=== PATIENT | female | born 1930 | race Two or more races ===

== ENCOUNTER 2017-04-27 10:06 | Emergency (ER) | payer MEDICARE, MEDICAID ==
[2017-04-27 10:38] LABS: APPEARANCE,URINE CLEAR; BILIRUBIN,URINE NEGATIVE (NEGATIVE); GLUCOSE, URINE NEGATIVE (NEGATIVE); KETONES,URINE NEGATIVE (NEGATIVE); LEUKOCYTE ESTERASE,URINE NEGATIVE (NEGATIVE); NITRITE,URINE NEGATIVE (NEGATIVE); PROTEIN,URINE NEGATIVE (NEGATIVE); URINE SPECIFIC GRAVITY 1.004; UROBILINOGEN,URINE NEGATIVE mg/dL (<2.0)
[2017-04-27] MEDS ORDERED: NORMAL SALINE 1000 ML 1,000 ML IV ONE (10:38)
[2017-04-27 10:40] LABS: BACTERIA,URINE TRACE /HPF; WBC,URINE 0-1 /HPF
[2017-04-27 11:01] LABS: ABSOLUTE BASOPHILS # (AUTO) 0.1 10^3/uL (0.0-0.2); ABSOLUTE EOSINOPHILS # (AUTO) 0.1 10^3/uL (0.0-0.6); ABSOLUTE LYMPHOCYTES (AUTO) 1.4 10^3/uL (0.5-4.7); ABSOLUTE MONOCYTES (AUTO) 0.6 10^3/uL (0.1-1.4); ABSOLUTE NEUT (AUTO) 5.9 10^3/uL (1.7-8.2); BASOPHILS % (AUTO) 0.7 % (0-2); EOSINOPHILS % (AUTO) 1.2 % (0-6); HEMATOCRIT 42.8 % (36.0-47.0); HEMOGLOBIN 14.1 g/dL (12.0-15.5); HGB HCT DIFFERENCE -0.5; LYMPHOCYTES % (AUTO) 17.2 % (13-45); MEAN CORPUSCULAR HEMOGLOBIN 32.7 pg (27.0-33.4); MEAN CORPUSCULAR VOLUME 99 fl (80-97); MONOCYTES % (AUTO) 6.9 % (3-13); RED BLOOD COUNT 4.31 10^6/uL (3.72-5.28); RED CELL DISTRIBUTION WIDTH 13.2 % (11.5-14.0)
[2017-04-27 11:13] LABS: ALANINE AMINOTRANSFERASE 21 U/L (9-52); ALBUMIN 3.9 g/dL (3.5-5.0); ALKALINE PHOSPHATASE 94 U/L (38-126); ANION GAP 10 (5-19); ASPARTATE AMINO TRANSFERASE 17 U/L (14-36); BILIRUBIN,DIRECT 0.2 mg/dL (0.0-0.4); BILIRUBIN,TOTAL 0.6 mg/dL (0.2-1.3); BLOOD UREA NITROGEN 9 mg/dL (7-20); CALCIUM 9.5 mg/dL (8.4-10.2); CARBON DIOXIDE 29 mmol/L (22-30); CHLORIDE 104 mmol/L (98-107); CREATININE RESULT 0.76 mg/dL (0.52-1.25); GLUCOSE 165 mg/dL (75-110); POTASSIUM 4.5 mmol/L (3.6-5.0); SODIUM 142.5 mmol/L (137-145); TOTAL PROTEIN 7.2 g/dL (6.3-8.2)
--- NOTE | 2017-04-27 11:14 | ER Document Report ---
ED General - General Mode of Arrival: Medic Information source: Patient TRAVEL OUTSIDE OF THE [place] IN LAST 30 DAYS: No - HPI Onset: Just prior to arrival Associated symptoms: None <ALISSON LOPEZ - Last Filed: 04/27/17 12:26> <BC OROZCO - Last Filed: 04/29/17 11:29> - General Chief Complaint: Unresponsive Stated Complaint: ALTERED Time Seen by Provider: 04/27/17 10:12 Notes: Patient is an 87 year old female that presents to the emergency department today with complaints of muscle cramps in her left leg. Patient and family members at bedside both state that the patient does not drink enough water, stating she really only drinks Coca-Cola. Family members also state that the patient had a brief episode of decreased responsiveness where the patient's "eyes and mouth were closed shut". Family states that the patient is back to baseline currently and that these symptoms only lasted for a few minutes. Family denies any seizure-like activity. (ALISSON LOPEZ) - Related Data Allergies/Adverse Reactions: No Known Allergies Allergy (Verified 04/27/17 10:37) Past Medical History - General Information source: Patient, Relative - Social History Smoking Status: Unknown if Ever Smoked Frequency of alcohol use: None Drug Abuse: None Lives with: Family Family History: Reviewed & Not Pertinent - Past Medical History Cardiac Medical History: Reports: Hx Hypertension - MEDICATED/ CONTROLLED Endocrine Medical History: Reports: Hx Diabetes Mellitus Type 2 - pills only GI Medical History: Reports: Hx Ulcer Musculoskeltal Medical History: Reports Hx Arthritis Surgical Hx: Negative - Immunizations Hx Diphtheria, Pertussis, Tetanus Vaccination: No <ALISSON LOPEZ - Last Filed: 04/27/17 12:26> Review of Systems - Review of Systems Constitutional: No symptoms reported EENT: No symptoms reported Cardiovascular: No symptoms reported Respiratory: No symptoms reported Gastrointestinal: No symptoms reported Genitourinary: No symptoms reported Female Genitourinary: No symptoms reported Musculoskeletal: See HPI, Muscle stiffness - cramps Skin: No symptoms reported Hematologic/Lymphatic: No symptoms reported Neurological/Psychological: See HPI, Other - decreased responsiveness for a brief period -: Yes All other systems reviewed and negative <ALISSON LOPEZ - Last Filed: 04/27/17 12:26> Physical Exam <ALISSON LOPEZ - Last Filed: 04/27/17 12:26> <BC OROZCO - Last Filed: 04/29/17 11:29> - Vital signs Vitals: Temp Pulse Resp BP Pulse Ox 98.2 F 108 H 18 148/83 H 98 04/27/17 10:08 04/27/17 10:08 04/27/17 10:08 04/27/17 10:08 04/27/17 10:08 - Notes Notes: Physical Exam: General: Alert, appears well. HEENT: Normocephalic. Atraumatic. PERRL. Extraocular movements intact. Oropharynx clear. Neck: Supple. Non-tender. Respiratory: No respiratory distress. Clear and equal breath sounds bilaterally. Cardiovascular: Regular rate and rhythm. Abdominal: Normal Inspection. Non-tender. No distension. Normal Bowel Sounds. Back: Non-tender. No deformity or step off. Extremities: Moves all four extremities. Upper extremities: Normal inspection. Normal ROM. 5/5 strength bilaterally. Lower extremities: No edema. Normal ROM. 5/5 strength bilaterally. Complains of muscle cramps in left leg and foot. Neurological: Normal cognition. AAOx4. Normal speech. Psychological: Normal affect. Normal Mood. Skin: Warm. Dry. Normal color. (ALISSON LOPEZ) Course - Laboratory Result Diagrams: 04/27/17 10:45 04/27/17 10:45 <ALISSON LOPEZ - Last Filed: 04/27/17 12:26> - Laboratory Result Diagrams: 04/27/17 10:45 04/27/17 10:45 <BC OROZCO - Last Filed: 04/29/17 11:29> - Re-evaluation Re-evalutation: 04/27/17 12:05 Patient presents emergency department via EMS with her 2 daughters at the bedside with a chief complaint of the chart that says unresponsiveness. According to the family when she woke up this morning she was having severe muscle cramps which she gets when she does not drink enough water. They ran her foot in her legs and kept her up most of the night. She has never had low potassium to her knowledge she has no injury of trauma. This morning she was punching her legs because they were very painful with her eyes squinted and the daughter states that for a second she could not get her to wake up she saw that she was breathing and particularly her foot and she immediately woke up at that time. Her daughter told me that occasionally she will do things like that and that she does not think it was anything concerning. There is no seizure activity no choking no cyanosis or anything of that nature. No strokelike symptoms on arrival she is awake alert GCS of 15 complaining of cramping in her toes and feet which are improved when I massage them. She is normotensive not hypoxic not tachypneic and afebrile. GCS of 15 no acute head neck chest abdomen pelvis abnormalities. EKG laboratory evaluation chemistry chest x-ray CT of the head urinalysis negative for infection did give her some IV fluids potassium is normal. Patient drinks very little water and only drinks soda. Long discussion with the family as she does not eat well or drink well he has been on multivitamin and drink plenty of water. At this time I do not feel that this is an intracerebral event nor do I think it was a stroke that she needs to be admitted for. I am going to discharge her home increase her water intake, primary care physician in 2-3 days and discussed reasons for ED return ( BC OROZCO) - Vital Signs Vital signs: Temp Pulse Resp BP Pulse Ox 98.2 F 87 16 150/65 H 97 04/27/17 10:08 04/27/17 13:35 04/27/17 13:35 04/27/17 13:35 04/27/17 13:35 - Laboratory Laboratory results interpreted by me: 04/27/17 04/27/17 10:45 10:45 MCV 99 H Glucose 165 H - EKG Interpretation by Me Additional EKG results interpreted by me: 04/27/17 12:21 EKG interpreted by myself as a sinus rhythm at 78 bpm with left anterior fascicular block no acute ST segment elevation or depression (BC OROZCO) Discharge <ALISSON LOPEZ - Last Filed: 04/27/17 12:26> <BC OROZCO - Last Filed: 04/29/17 11:29> - Discharge Clinical Impression: Muscle cramps Condition: Stable Disposition: HOME, SELF-CARE Additional Instructions: You have been seen and evaluated for muscle cramps which I feel you need to drink more water and stay hydrated. Also need to make sure you are eating better and taking a multivitamin. I did a CAT scan of your head a chest x-ray labs EKG all of which look normal. I do not feel there is anything dangerous or life-threatening going on at this time. I want to to drink plenty of fluids follow-up with your primary care physician in 2-3 days and return for increasing worsening or new symptoms Referrals: AMAYA REYNOLDS MD [Primary Care Provider] - Follow up as needed Scribe Attestation: 04/27/17 12:09 I personally performed the services described in the documentation, reviewed and edited the documentation which was dictated to my scribe in my presence, and it accurately records my words and actions. (BC OROZCO) Scribe Documentation - Scribe Written by Elida:: Elida Curiel, 04/27/2017 1248 acting as scribe for :: Hugo <ALISSON LOPEZ - Last Filed: 04/27/17 12:26>
--- NOTE | 2017-04-27 11:16 | RADIOLOGY REPORT (SQ) ---
EXAM DESCRIPTION: CT HEAD WITHOUT COMPLETED DATE/TIME: 04/27/2017 11:06 am REASON FOR STUDY: ams COMPARISON: None. TECHNIQUE: Axial images acquired through the brain without intravenous contrast. Images reviewed wi th bone, brain and subdural windows. Images stored on PACS. All CT scanners at this facility use dose modulation, iterative reconstruction, and/or weight based d osing when appropriate to reduce radiation dose to as low as reasonably achievable (ALARA). [facility]: Dose Right [facility]: CareDose [facility]: Dose Right [facility]: Teradose 4D [facility]: Vibease RADIATION DOSE: 64.61mGy. LIMITATIONS: None. FINDINGS: VENTRICLES: Prominent. CEREBRUM: No masses. No hemorrhage. No midline shift. Areas of low density in the white matter mos t likely due to chronic micro-vascular ischemic change. No evidence for acute infarction. CEREBELLUM: No masses. No hemorrhage. No alteration of density. No evidence for acute infarction. EXTRAAXIAL SPACES: Age-related involutional change. No fluid collections. No masses. ORBITS AND GLOBE: No intra- or extraconal masses. Normal contour of globe without masses. CALVARIUM: No fracture. PARANASAL SINUSES: No fluid or mucosal thickening. SOFT TISSUES: No mass or hematoma. OTHER: No other significant finding. IMPRESSION: CHRONIC CHANGES OF ATROPHY AND MICROVASCULAR ISCHEMIA. NO ACUTE PROCESS. TECHNICAL DOCUMENTATION: JOB ID: [id number] Quality ID # [id number]: Final reports with documentation of one or more dose reduction techniques (e.g., Au tomated exposure control, adjustment of the mA and/or kV according to patient size, use of iterative reconstruction technique) 2010 [employer]- All Rights Reserved
[2017-04-27 11:26] LABS: TROPONIN I < 0.012 ng/mL
--- NOTE | 2017-04-27 11:55 | RADIOLOGY REPORT (SQ) ---
EXAM DESCRIPTION: CHEST SINGLE VIEW COMPLETED DATE/TIME: 04/27/2017 11:45 am REASON FOR STUDY: ams COMPARISON: None. EXAM PARAMETERS: NUMBER OF VIEWS: One view. TECHNIQUE: Single frontal radiographic view of the chest acquired. RADIATION DOSE: NA LIMITATIONS: None. FINDINGS: LUNGS AND PLEURA: No opacities, masses or pneumothorax. No pleural effusion. MEDIASTINUM AND HILAR STRUCTURES: No masses. Contour normal. HEART AND VASCULAR STRUCTURES: Heart normal in size. Normal vasculature. BONES: No acute findings. HARDWARE: None in the chest. OTHER: No other significant finding. IMPRESSION: NO ACUTE RADIOGRAPHIC FINDING IN THE CHEST. TECHNICAL DOCUMENTATION: JOB ID: [id number]
[2017-04-27 13:37] VITALS: BP 150/65
--- NOTE | 2017-04-27 17:38 | EKG REPORT ---
SEVERITY:- ABNORMAL ECG - SINUS RHYTHM LEFT ANTERIOR FASCICULAR BLOCK LEFT VENTRICULAR HYPERTROPHY : Confirmed by: Chloe Villa 27-Apr-2017 17:37:48
== END 2017-04-27 13:35 | disposition home or self-care (01) ==
LOC: ER 10:06
DX: R25.2 Cramp and spasm (principal); R41.82 Altered mental status, unspecified; M79.605 Pain in left leg
CPT/HCPCS: 93005; 99285; 36415; 87086; 85025; 80053; 81001; 84484; 83880; 71010; 70450; 93010; J7030

== ENCOUNTER 2019-05-05 19:58 | Emergency (ER) | payer MEDICARE, MEDICAID ==
[2019-05-05] MEDS ORDERED: SILVER SULFADIAZINE 1% CREAM 400 GM TP PRN (20:53)
--- NOTE | 2019-05-05 20:53 | ER Document Report ---
ED Medical Screen (RME) - General Chief Complaint: Burn Stated Complaint: BURNED GROIN AREA Time Seen by Provider: 05/05/19 20:51 Primary Care Provider: AMAYA REYNOLDS MD [Primary Care Provider] - Follow up as needed TRAVEL OUTSIDE OF THE [place] IN LAST 30 DAYS: No - HPI Notes: 05/05/19 20:51 Patient is an 89-year-old female with a history of dementia who presents with daughter complaining of zabala to her thighs and in her vaginal area that was noticed today. Daughter states that when she was told to go check on her because of the burn shafer, she handed her the change room attendant that she was holding at the time. Daughter states that she is not allowed to smoke or presents a letter and is not sure how she found it. No other concerns or complaints. No recent illness. I have treated and performed a rapid initial assessment of this patient. A comprehensive ED assessment and evaluation of the patient, analysis of test results and completion of medical decision making process will be conducted by additional ED providers. PHYSICAL EXAMINATION: GENERAL: Well-appearing, well-nourished and in no acute distress. A&Ox4. Answers questions appropriately. Skin: + 1st and 2nd degree partial thickness zabala noted to the proximal anteromedial thighs b/l. Cannot visualize the pelvic area in wheelchair and in her clothes otherwise. Will be placed in gown for eval on main side. - Related Data Allergies/Adverse Reactions: No Known Allergies Allergy (Verified 04/27/17 10:37) Past Medical History - Past Medical History Cardiac Medical History: Reports: Hx Hypertension - MEDICATED/ CONTROLLED Denies: Hx Coronary Artery Disease, Hx Heart Attack Pulmonary Medical History: Denies: Hx Asthma, Hx Bronchitis, Hx COPD, Hx Pneumonia Neurological Medical History: Denies: Hx Cerebrovascular Accident, Hx Seizures Endocrine Medical History: Reports: Hx Diabetes Mellitus Type 2 - pills only Renal/ Medical History: Denies: Hx Peritoneal Dialysis GI Medical History: Reports: Hx Ulcer. Denies: Hx Hepatitis, Hx Hiatal Hernia Musculoskeltal Medical History: Reports Hx Arthritis Infectious Medical History: Denies: Hx Hepatitis Past Surgical History: Denies: Hx Hysterectomy, Hx Mastectomy, Hx Open Heart Surgery, Hx Pacemaker - Immunizations Hx Diphtheria, Pertussis, Tetanus Vaccination: No Physical Exam - Vital signs Vitals: Temp Pulse Resp BP Pulse Ox 97.6 F 92 16 126/73 H 95 05/05/19 20:24 05/05/19 20:24 05/05/19 20:24 05/05/19 20:24 05/05/19 20:24 Course - Vital Signs Vital signs: Temp Pulse Resp BP Pulse Ox 97.6 F 92 16 126/73 H 95 05/05/19 20:24 05/05/19 20:24 05/05/19 20:24 05/05/19 20:24 05/05/19 20:24 Doctor's Discharge - Discharge Referrals: AMAYA REYNOLDS MD [Primary Care Provider] - Follow up as needed
[2019-05-05] MEDS ORDERED: DIPH/PERTUSS(ACELL)/TETANUS VAC/PF 0.5 ML SYR (>=10YO) IM ONE (20:54)
--- NOTE | 2019-05-06 01:20 | ER Document Report ---
ED General - General Chief Complaint: Burn Stated Complaint: BURNED GROIN AREA Time Seen by Provider: 05/05/19 20:51 Primary Care Provider: AMAYA REYNOLDS MD [Primary Care Provider] - Follow up as needed Cannot obtain history due to: Dementia Notes: Patient is an 81-year-old female with past medical history of diabetes and dementia who presents with concerns of blunt zabala to her lower abdomen and on her inner thighs bilaterally. The patient herself is effectively nonverbal, does not provide any contributory history. Family at the bedside believes that this happened due to a heating pad being applied to the area. They did note multiple areas of raised red areas as well as several small blisters. No history of similar injuries. No additional concerns today. Patient's tetanus updated here in the emergency department. Patient has not seen her primary physician regarding today's concerns. TRAVEL OUTSIDE OF THE [place] IN LAST 30 DAYS: No - Related Data Allergies/Adverse Reactions: No Known Allergies Allergy (Verified 04/27/17 10:37) Past Medical History - General Information source: Relative Cannot obtain history due to: Dementia - Social History Smoking Status: Current Every Day Smoker Frequency of alcohol use: None Drug Abuse: None Lives with: Family Family History: Reviewed & Not Pertinent Patient has suicidal ideation: No Patient has homicidal ideation: No - Past Medical History Cardiac Medical History: Reports: Hx Hypertension - MEDICATED/ CONTROLLED Denies: Hx Coronary Artery Disease, Hx Heart Attack Pulmonary Medical History: Denies: Hx Asthma, Hx Bronchitis, Hx COPD, Hx Pneumonia Neurological Medical History: Denies: Hx Cerebrovascular Accident, Hx Seizures Endocrine Medical History: Reports: Hx Diabetes Mellitus Type 2 - pills only Renal/ Medical History: Denies: Hx Peritoneal Dialysis GI Medical History: Reports: Hx Ulcer. Denies: Hx Hepatitis, Hx Hiatal Hernia Musculoskeletal Medical History: Reports Hx Arthritis Infectious Medical History: Denies: Hx Hepatitis Past Surgical History: Denies: Hx Hysterectomy, Hx Mastectomy, Hx Open Heart Surgery, Hx Pacemaker - Immunizations Hx Diphtheria, Pertussis, Tetanus Vaccination: No Review of Systems - Review of Systems Notes: Constitutional: Negative for fever. HENT: Negative for sore throat. Eyes: Negative for visual changes. Cardiovascular: Negative for chest pain. Respiratory: Negative for shortness of breath. Gastrointestinal: Negative for abdominal pain, vomiting or diarrhea. Genitourinary: Negative for dysuria. Musculoskeletal: Negative for back pain. Skin: Positive for first-degree as well as partial thickness zabala to the bilateral inner thighs Neurological: Negative for headaches, weakness or numbness. 10 point ROS negative except as marked above and in HPI. Physical Exam - Vital signs Vitals: Temp Pulse Resp BP Pulse Ox 97.6 F 92 16 126/73 H 95 05/05/19 20:24 05/05/19 20:24 05/05/19 20:24 05/05/19 20:24 05/05/19 20:24 Interpretation: Normal Notes: PHYSICAL EXAMINATION: GENERAL: Frail elderly female in no acute distress HEAD: Atraumatic, normocephalic. EYES: Pupils equal round and reactive to light, extraocular movements intact, sclera anicteric, conjunctiva are normal. ENT: nares patent, oropharynx clear without exudates. Moist mucous membranes. NECK: Normal range of motion, supple without lymphadenopathy LUNGS: Breath sounds clear to auscultation bilaterally and equal. No wheezes rales or rhonchi. HEART: Regular rate and rhythm without murmurs ABDOMEN: Soft, nontender, normoactive bowel sounds. No guarding, no rebound. No masses appreciated. EXTREMITIES: Normal range of motion, no pitting or edema. No cyanosis. NEUROLOGICAL: No focal neurological deficits. Moves all extremities spontaneously and on command. PSYCH: Alert, minimal verbal content SKIN: Warm, Dry, normal turgor, there are 2 distinct areas of first-degree zabala that are symmetric on the bilateral inner thighs each measuring approximately 8 x 4 cm. 2 x 2 centimeter area of what appears to be a partial-thickness second- degree burn on the mid right thigh as well as an additional 0.25 x 0.25 cm area of partial-thickness burn on the inferior proximal right thigh. There also 2 lines of first-degree zabala along the lower abdomen Course - Vital Signs Vital signs: Temp Pulse Resp BP Pulse Ox 97.6 F 92 16 126/73 H 95 05/05/19 20:24 05/05/19 20:24 05/05/19 20:24 05/05/19 20:24 05/05/19 20:24 Discharge - Discharge Clinical Impression: Partial thickness zabala of multiple sites, First degree zabala of multiple sites Condition: Good Disposition: HOME, SELF-CARE Additional Instructions: You were seen for zabala today. Please clean and dress the areas twice daily and then apply the Silvadene cream that you were sent home with. Keep the area clean and dressed. You may give Tylenol 1000 g every 6 hours as needed for pain. Please return if you develop pus from the wounds, spreading redness from the areas, worsening pain, or any other symptoms that are worrisome to you. Please follow-up with your primary care doctor in the next 1-2 days. Also follow-up in wound management clinic. Please contact the listed number tomorrow. Referrals: AMAYA REYNOLDS MD [Primary Care Provider] - Follow up as needed ANDRE RENTERIA MD [ACTIVE STAFF] - Follow up tomorrow
[2019-05-06 04:50] VITALS: BP 123/74
== END 2019-05-06 04:48 | disposition home or self-care (01) ==
LOC: ER 19:58
DX: T24.111A Burn of first degree of right thigh, initial encounter (principal); T24.112A Burn of first degree of left thigh, initial encounter; T21.12XA Burn of first degree of abdominal wall, initial encounter; X19.XXXA Contact with other heat and hot substances, initial encounter; E11.9 Type 2 diabetes mellitus without complications; F03.90 Unspecified dementia, unspecified severity, without behavioral disturbance, psychotic disturbance, mood disturbance, and anxiety; F17.200 Nicotine dependence, unspecified, uncomplicated; I10 Essential (primary) hypertension; Z23 Encounter for immunization
CPT/HCPCS: 99283; 90471; 90715; J3490

== ENCOUNTER 2019-08-21 12:25 | Observation (INO) | payer MEDICARE, MEDICAID ==
[2019-08-21] MEDS ORDERED: ASPIRIN 81 MG TABLET, CHEWABLE PO ONE (12:48)
--- NOTE | 2019-08-21 12:48 | ER Document Report ---
ED Medical Screen (RME) - General Chief Complaint: Chest Pain Stated Complaint: CHEST PAIN Time Seen by Provider: 08/21/19 12:43 Primary Care Provider: AMAYA REYNOLDS MD [Primary Care Provider] - Follow up as needed Mode of Arrival: Wheelchair Information source: Patient, Relative Notes: 89-year-old female presented to ED for complaint of left-sided chest pain that goes around to the left side of her back across the left shoulder. She states it is been going on for 4 days. She states she has some cough and wheezing intermittently. Denies any fevers. No cardiac history is verbalized. I have greeted and performed a rapid initial assessment of this patient. A comprehensive ED assessment and evaluation of the patient, analysis of test results and completion of medical decision making process will be conducted by an additional ED providers. TRAVEL OUTSIDE OF THE [place] IN LAST 30 DAYS: No - Related Data Allergies/Adverse Reactions: No Known Allergies Allergy (Verified 04/27/17 10:37) Past Medical History - Past Medical History Cardiac Medical History: Reports: Hx Hypertension - MEDICATED/ CONTROLLED Denies: Hx Coronary Artery Disease, Hx Heart Attack Pulmonary Medical History: Denies: Hx Asthma, Hx Bronchitis, Hx COPD, Hx Pneumonia Neurological Medical History: Denies: Hx Cerebrovascular Accident, Hx Seizures Endocrine Medical History: Reports: Hx Diabetes Mellitus Type 2 - pills only Renal/ Medical History: Denies: Hx Peritoneal Dialysis GI Medical History: Reports: Hx Ulcer. Denies: Hx Hepatitis, Hx Hiatal Hernia Musculoskeltal Medical History: Reports Hx Arthritis Infectious Medical History: Denies: Hx Hepatitis Past Surgical History: Denies: Hx Hysterectomy, Hx Mastectomy, Hx Open Heart Surgery, Hx Pacemaker - Immunizations Hx Diphtheria, Pertussis, Tetanus Vaccination: No Doctor's Discharge - Discharge Referrals: AMAYA REYNOLDS MD [Primary Care Provider] - Follow up as needed
[2019-08-21 13:48] LABS: ABSOLUTE BASOPHILS # (AUTO) 0.1 10^3/uL (0.0-0.2); ABSOLUTE LYMPHOCYTES (AUTO) 1.2 10^3/uL (0.5-4.7); ABSOLUTE MONOCYTES (AUTO) 0.5 10^3/uL (0.1-1.4); ABSOLUTE NEUT (AUTO) 5.5 10^3/uL (1.7-8.2); BASOPHILS % (AUTO) 1.1 % (0-2); EOSINOPHILS % (AUTO) 0.5 % (0-6); HEMATOCRIT 39.9 % (36.0-47.0); HEMOGLOBIN 13.4 g/dL (12.0-15.5); LYMPHOCYTES % (AUTO) 16.2 % (13-45); MEAN CORPUSCULAR HEMOGLOBIN 32.6 pg (27.0-33.4); MEAN CORPUSCULAR HGB CONC 33.5 g/dL (32.0-36.0); MEAN CORPUSCULAR VOLUME 97 fl (80-97); MONOCYTES % (AUTO) 6.2 % (3-13); PLATELET COUNT 310 10^3/uL (150-450); RED CELL DISTRIBUTION WIDTH 13.4 % (11.5-14.0); TOTAL CELLS COUNTED % (AUTO) 100 %; WHITE BLOOD COUNT 7.3 10^3/uL (4.0-10.5)
[2019-08-21 14:11] LABS: ALBUMIN 4.1 g/dL (3.5-5.0); ALKALINE PHOSPHATASE 95 U/L (38-126); ANION GAP 9 (5-19); ASPARTATE AMINO TRANSFERASE 19 U/L (14-36); BILIRUBIN,DIRECT 0.2 mg/dL (0.0-0.4); BILIRUBIN,TOTAL 0.7 mg/dL (0.2-1.3); BLOOD UREA NITROGEN 14 mg/dL (7-20); CALCIUM 9.7 mg/dL (8.4-10.2); CARBON DIOXIDE 28 mmol/L (22-30); CHLORIDE 101 mmol/L (98-107); CREATINE KINASE 45 U/L (30-135); GLUCOSE 202 mg/dL (75-110); TOTAL PROTEIN 7.3 g/dL (6.3-8.2)
[2019-08-21 14:23] LABS: CREATINE KINASE MB 1.53 ng/mL (<4.55); NT PRO BNP 154 pg/mL (<450)
[2019-08-21 14:25] LABS: TROPONIN I < 0.012 ng/mL
--- NOTE | 2019-08-21 14:48 | RADIOLOGY REPORT (SQ) ---
EXAM DESCRIPTION: CHEST 2 VIEWS COMPLETED DATE/TIME: 08/21/2019 2:33 pm REASON FOR STUDY: chest pain COMPARISON: None. EXAM PARAMETERS: NUMBER OF VIEWS: two views TECHNIQUE: Digital Frontal and Lateral radiographic views of the chest acquired. RADIATION DOSE: NA LIMITATIONS: none FINDINGS: LUNGS AND PLEURA: No opacities, masses or pneumothorax. No pleural effusion. MEDIASTINUM AND HILAR STRUCTURES: No masses or contour abnormalities. HEART AND VASCULAR STRUCTURES: Heart normal size. No evidence for failure. BONES: Chronic rotator cuff disease in the right shoulder. HARDWARE: None in the chest. OTHER: No other significant finding. IMPRESSION: NO ACUTE RADIOGRAPHIC FINDING IN THE CHEST. TECHNICAL DOCUMENTATION: JOB ID: [id number] [employer]- All Rights Reserved Reading location - IP/workstation name: [email or web address]
--- NOTE | 2019-08-21 15:24 | ER Document Report ---
ED Cardiac - General Chief Complaint: Chest Pain Stated Complaint: CHEST PAIN Time Seen by Provider: 08/21/19 12:43 Primary Care Provider: AMAYA REYNOLDS MD [Primary Care Provider] - Follow up as needed Mode of Arrival: Wheelchair Notes: Patient is a 89-year-old female with a history of diabetes and Alzheimer's who presents to the emergency department with a chief complaint of left-sided chest pain. Due to patient's history of Alzheimer's she is unable to provide a significant history. Family member states that she has been complaining of left-sided chest pain that radiates into her left shoulder blade and underneath the left breast for about 4 days. She does report intermittent cough and wheeze. Family denies a history of breathing disorders. Denies fever. Denies nausea, vomiting or diarrhea. TRAVEL OUTSIDE OF THE [place] IN LAST 30 DAYS: No - Related Data Allergies/Adverse Reactions: No Known Allergies Allergy (Verified 08/21/19 12:47) Home Medications: Montelukast 10mg. Metformin 850mg. Risperidone 0.25mg. Ramipril 2.5mg. Gabapentin 100mg. Glipizide 10mg Past Medical History - General Information source: Patient, Relative - Social History Smoking Status: Unknown if Ever Smoked Frequency of alcohol use: None Drug Abuse: None Lives with: Family Family History: Reviewed & Not Pertinent Patient has suicidal ideation: No Patient has homicidal ideation: No - Past Medical History Cardiac Medical History: Reports: Hx Hypertension - MEDICATED/ CONTROLLED Denies: Hx Coronary Artery Disease, Hx Heart Attack Pulmonary Medical History: Reports: None Denies: Hx Asthma, Hx Bronchitis, Hx COPD, Hx Pneumonia EENT Medical History: Reports: None Neurological Medical History: Reports: None. Denies: Hx Cerebrovascular Accident, Hx Seizures Endocrine Medical History: Reports: Hx Diabetes Mellitus Type 2 - pills only Renal/ Medical History: Reports: None. Denies: Hx Peritoneal Dialysis Malignancy Medical History: Reports: None GI Medical History: Reports: Hx Ulcer. Denies: Hx Hepatitis, Hx Hiatal Hernia Musculoskeletal Medical History: Reports Hx Arthritis Skin Medical History: Reports None Psychiatric Medical History: Reports: None Traumatic Medical History: Reports: None Infectious Medical History: Reports: None. Denies: Hx Hepatitis Past Surgical History: Denies: Hx Hysterectomy, Hx Mastectomy, Hx Open Heart Surgery, Hx Pacemaker - Immunizations Hx Diphtheria, Pertussis, Tetanus Vaccination: No Review of Systems - Review of Systems Constitutional: No symptoms reported EENT: No symptoms reported Cardiovascular: See HPI Respiratory: See HPI Gastrointestinal: No symptoms reported Genitourinary: No symptoms reported Female Genitourinary: No symptoms reported Musculoskeletal: No symptoms reported Skin: No symptoms reported Hematologic/Lymphatic: No symptoms reported Neurological/Psychological: See HPI Physical Exam - Vital signs Vitals: Pulse Resp BP Pulse Ox 72 16 112/89 H 100 08/21/19 12:48 08/21/19 12:48 08/21/19 12:48 08/21/19 12:48 Interpretation: Normal - Notes Notes: GENERAL: Frail elderly female in no acute distress. HEAD: Atraumatic, normocephalic. EYES: Pupils equal round and reactive to light, extraocular movements intact, sclera anicteric, conjunctiva are normal. ENT: Nares patent, oropharynx clear without exudates. Moist mucous membranes. NECK: Normal range of motion, supple without lymphadenopathy or JVD. LUNGS: Breath sounds clear to auscultation bilaterally and equal. No wheezes rales or rhonchi. HEART: Regular rate and rhythm without murmurs, rubs or gallops. ABDOMEN: Soft, nontender, normoactive bowel sounds. No guarding, no rebound. No masses appreciated. BACK: No cervical, thoracic, lumbar midline tenderness. No saddle anesthesia, normal distal neurovascular exam. GENITOURINARY: Deferred. EXTREMITIES: Normal range of motion, no pitting or edema. No clubbing or cyanosis. PSYCH: Normal mood, normal affect. SKIN: Warm, Dry, normal turgor, no rashes or lesions noted. Course - Re-evaluation Re-evalutation: 08/21/19 15:22 Upon initial examination patient is upright on stretcher and in pulling off cardiac leads. Patient does have a history of Alzheimer's and family member reports that she has been irritable and hard to handle for the past 4 years. She states they were at the primary care physician's office today to potentially place her on medications for this behavior when they were sent here to the emergency department for evaluation of chest pain. Patient is not currently taking anything for her Alzheimer's or for her behavior. Family at the bedside states that the patient is becoming more difficult to handle at home. Patient denies chest pain at this time but she is very difficult to get much of a history of. Will obtain a second troponin. Patient's initial labs are essentially normal. Will obtain a urine specimen to rule out infection. 08/21/19 15:38 I did speak with Yomi our outpatient case manager and provided the family member on information regarding Alzheimer's facilities and possible assistance in the community. Family member reports that they are not interested in placing her in a home but appreciate any information and resources that we can give them. I did give them Yomi's card with telephone number if they have any additional questions. 08/21/19 19:35 Heart score 5. 08/21/19 20:06 Dr. Carvalho to admit. Patient denies chest pain at this time. Family aware. - Vital Signs Vital signs: Temp Pulse Resp BP Pulse Ox 72 16 112/89 H 97 08/21/19 12:48 08/21/19 12:48 08/21/19 12:48 08/21/19 13:00 - Laboratory Result Diagrams: 08/21/19 13:28 08/21/19 13:28 Laboratory results interpreted by me: 08/21/19 08/21/19 13:28 18:45 Glucose 202 H Urine Glucose (UA) >=500 H Urine Urobilinogen 2.0 H - Diagnostic Test Radiology reviewed: Reports reviewed Radiology results interpreted by me: 08/21/19 15:22 Chest X-Ray 08/21/19 12:49 IMPRESSION: NO ACUTE RADIOGRAPHIC FINDING IN THE CHEST. - EKG Interpretation by Me Additional EKG results interpreted by me: 08/21/19 20:02 Patient's EKG shows sinus rhythm with a heart rate of 76. Patient's ND interval 124, QT is 4 4 and QTC is 455. 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 This is consistent with EKG back from 2017. Discharge - Discharge Clinical Impression: Chest pain Qualifiers: Chest pain type: unspecified Qualified Code(s): R07.9 - Chest pain, unspecified Condition: Stable Disposition: ADMITTED OBSERVATION Admitting Provider: [facility] Admitted: Telemetry Referrals: AMAYA REYNOLDS MD [Primary Care Provider] - Follow up as needed
[2019-08-21 19:06] LABS: APPEARANCE,URINE CLEAR; BILIRUBIN,URINE NEGATIVE (NEGATIVE); COLOR,URINE YELLOW; GLUCOSE, URINE >=500 mg/dL (NEGATIVE); KETONES,URINE NEGATIVE (NEGATIVE); LEUKOCYTE ESTERASE,URINE NEGATIVE (NEGATIVE); NITRITE,URINE NEGATIVE (NEGATIVE); PROTEIN,URINE NEGATIVE (NEGATIVE)
[2019-08-21] MEDS ORDERED: ACETAMINOPHEN 325 MG TABLET PO PRN (20:16)
[2019-08-22 00:11] LABS: CREATINE KINASE MB 1.31 ng/mL (<4.55)
[2019-08-22 00:18] LABS: TROPONIN I < 0.012 ng/mL
[2019-08-22] MEDS: PANTOPRAZOLE SODIUM 40 MG TABLET.DR PO SCH (06:19)
[2019-08-22 07:08] LABS: CREATINE KINASE MB 1.54 ng/mL (<4.55)
[2019-08-22 07:13] LABS: TROPONIN I < 0.012 ng/mL
--- NOTE | 2019-08-22 10:44 | PDOC H&P ---
History of Present Illness Admission Date/PCP: 08/21/19 20:21 AMAYA REYNOLDS Patient complains of: Chest pain History of Present Illness: HERMAN ZHANG is a 89 year old female This is a 89-year-old female's with a patient of Dr. Reynolds with a significant history of the dementia's history of the type 2 diabetes hypertension's brought to the emergency department with the family with the chief complaint of left- sided chest pain for the last 4 days Due to the patient history of the dementia's he is unable to provide any significant history of the emergency departments get from family member the patient is complaining of a left-sided pain no shoulder on the chest area Patient is reported some mild cough According to the family member the took the patient's to the Dr. Reynolds's office because of the worsening the dementia's and suggest to bring to the emergency departments In the emergency department patient's all work-up is negative including due to cardiac set of enzymes When I saw the patient's unable to get any history from the patient's does not look like seems to be any pain No family member available Past Medical History Cardiac Medical History: Reports: Hypertension - MEDICATED/ CONTROLLED Denies: Coronary Artery Disease, Myocardial Infarction Pulmonary Medical History: Reports: None Denies: Asthma, Bronchitis, Chronic Obstructive Pulmonary Disease (COPD), Pn eumonia EENT Medical History: Reports: None Neurological Medical History: Reports: None Denies: Seizures Endocrine Medical History: Reports: Diabetes Mellitus Type 2 - pills only Renal/ Medical History: Reports: None Malignancy Medical History: Reports: None GI Medical History: Denies: Hepatitis, Hiatal Hernia Musculoskeltal Medical History: Reports: Arthritis Skin Medical History: Reports: None Psychiatric Medical History: Reports: None Traumatic Medical History: Reports: None Hematology: Denies: Anemia, Sickle Cell Disease Infectious Medical History: Reports: None Past Surgical History Past Surgical History: Denies: Amputation, Hysterectomy, Mastectomy, Pacemaker Social History Lives with: Family Smoking Status: Current Every Day Smoker Family History Family History: Reviewed & Not Pertinent Parental Family History Reviewed: Yes Children Family History Reviewed: Yes Sibling(s) Family History Reviewed.: Yes Medication/Allergy Home Medications: Gabapentin [Neurontin 100 mg Capsule] 100 mg PO QHS 08/21/19 Glipizide [Glucotrol 10 mg Tablet] 10 mg PO DAILY 08/21/19 Metformin HCl 850 mg PO BID 08/21/19 Montelukast Sodium [Singulair 10 mg Tablet] 10 mg PO QHS 08/21/19 Ramipril [Altace 2.5 mg Capsule] 2.5 mg PO DAILY 08/21/19 Risperidone [Risperdal 0.25 mg Tablet] 0.25 mg PO Q12 08/21/19 Allergies/Adverse Reactions: No Known Allergies Allergy (Verified 08/21/19 12:47) Review of Systems ROS unobtainable: Due to mental status, Other All systems: reviewed and no additional remarkable complaints except as stated Physical Exam Vital Signs: Temp Pulse Resp BP Pulse Ox 97.9 F 86 19 151/68 H 96 08/22/19 07:47 08/22/19 07:47 08/22/19 07:47 08/22/19 07:47 08/22/19 07:47 Intake & Output 08/21/19 08/22/19 08/23/19 06:59 06:59 06:59 Intake Total 0 Balance 0 Weight 43.5 kg Physical Exam: Significant dementia's not communicate General appearance: PRESENT: no acute distress Head exam: PRESENT: atraumatic, normocephalic Eye exam: PRESENT: conjunctiva pink, EOMI, PERRLA. ABSENT: scleral icterus Ear exam: PRESENT: normal external ear exam Mouth exam: PRESENT: moist, tongue midline Neck exam: PRESENT: full ROM. ABSENT: carotid bruit, JVD, lymphadenopathy, thyromegaly Respiratory exam: PRESENT: clear to auscultation uzma Cardiovascular exam: PRESENT: RRR. ABSENT: diastolic murmur, rubs, systolic murmur Pulses: PRESENT: normal dorsalis pedis pul, +2 pedal pulses bilateral Vascular exam: PRESENT: normal capillary refill GI/Abdominal exam: PRESENT: normal bowel sounds, soft. ABSENT: distended, guarding, mass, organolmegaly, rebound, tenderness Rectal exam: PRESENT: deferred Neurological exam: PRESENT: alert, altered, awake. ABSENT: motor sensory deficit Psychiatric exam: PRESENT: appropriate affect, normal mood. ABSENT: homicidal ideation, suicidal ideation Skin exam: PRESENT: dry, intact, warm. ABSENT: cyanosis, rash Results Laboratory Results: 08/21/19 13:28 08/21/19 13:28 08/21/19 08/21/19 08/21/19 13:28 13:28 13:28 WBC 7.3 RBC 4.10 Hgb 13.4 Hct 39.9 MCV 97 MCH 32.6 MCHC 33.5 RDW 13.4 Plt Count 310 Seg Neutrophils % 76.0 Sodium 138.4 Potassium 5.0 Chloride 101 Carbon Dioxide 28 Anion Gap 9 BUN 14 Creatinine 0.70 Est GFR ( Amer) > 60 Glucose 202 H Calcium 9.7 Magnesium 2.1 Total Bilirubin 0.7 AST 19 Alkaline Phosphatase 95 Total Protein 7.3 Albumin 4.1 TSH 0.62 Urine Color Urine Appearance Urine pH Ur Specific Parks Urine Protein Urine Glucose (UA) Urine Ketones Urine Blood Urine Nitrite Ur Leukocyte Esterase Urine WBC (Auto) 08/21/19 18:45 WBC RBC Hgb Hct MCV MCH MCHC RDW Plt Count Seg Neutrophils % Sodium Potassium Chloride Carbon Dioxide Anion Gap BUN Creatinine Est GFR ( Amer) Glucose Calcium Magnesium Total Bilirubin AST Alkaline Phosphatase Total Protein Albumin TSH Urine Color YELLOW Urine Appearance CLEAR Urine pH 6.0 Ur Specific Parks 1.010 Urine Protein NEGATIVE Urine Glucose (UA) >=500 H Urine Ketones NEGATIVE Urine Blood NEGATIVE Urine Nitrite NEGATIVE Ur Leukocyte Esterase NEGATIVE Urine WBC (Auto) 0 08/21/19 08/21/19 08/21/19 13:28 13:28 17:01 Creatine Kinase 45 CK-MB (CK-2) 1.53 Troponin I < 0.012 < 0.012 NT-Pro-B Natriuret Pep 154 08/21/19 08/21/19 08/22/19 23:10 23:10 05:51 Creatine Kinase 62 124 CK-MB (CK-2) 1.31 Troponin I < 0.012 NT-Pro-B Natriuret Pep 08/22/19 05:51 Creatine Kinase CK-MB (CK-2) 1.54 Troponin I < 0.012 NT-Pro-B Natriuret Pep Impressions: Chest X-Ray 08/21/19 12:49 IMPRESSION: NO ACUTE RADIOGRAPHIC FINDING IN THE CHEST. Assessment & Plan - Diagnosis (1) Chest pain Qualifiers: Chest pain type: unspecified Qualified Code(s): R07.9 - Chest pain, unspecified Is this a current diagnosis for this admission?: Yes Plan: Admit the patient in a telemetry bed Rule out acute coronary syndromes Consult cardiology (2) Dementia Qualifiers: Dementia type: Alzheimer's disease Is this a current diagnosis for this admission?: Yes (3) Type 2 diabetes mellitus Qualifiers: Diabetes mellitus prison insulin use: without prison use Is this a current diagnosis for this admission?: Yes (4) Hypertension Qualifiers: Hypertension type: essential hypertension Qualified Code(s): I10 - Essential (primary) hypertension Is this a current diagnosis for this admission?: Yes - Time Time Spent: 30 to 50 Minutes Medications reviewed and adjusted accordingly: Yes Anticipated discharge: Other Within: Other - Inpatient Certification Based on my medical assessment, after consideration of the patient's comorbidities, presenting symptoms, or acuity I expect that the services needed warrant INPATIENT care.: Yes I certify that my determination is in accordance with my understanding of Medicare's requirements for reasonable and necessary INPATIENT services [42 CFR 412.3e].: Yes Medical Necessity: Significant Comorbidiites Make Outpatient Treatment Too Risky, Need Close Monitoring Due to Risk of Patient Decompensation Post Hospital Care: D/C Plant Anatomist Documentation - Plan Summary Plan Summary: Admit the patient is in the telemetry bed We will discuss the service planner to contact the family member who is power of [email or web address] developer Is to issue with the placements consult cardiology
[2019-08-22] MEDS: ENOXAPARIN SODIUM INJ 40 MG/0.4 ML DISP.SYRIN SUBCUT SCH (11:14)
[2019-08-22] MEDS: RAMIPRIL 2.5 MG CAPSULE PO SCH ×2 (11:17→12:48)
[2019-08-22] MEDS: RISPERIDONE 0.25 MG TABLET PO SCH ×3 (11:17→22:00)
[2019-08-22 12:40] LABS: CREATINE KINASE MB 1.89 ng/mL (<4.55)
[2019-08-22 12:53] LABS: TROPONIN I < 0.012 ng/mL
[2019-08-22] MEDS ORDERED: GLUCAGON,HUMAN RECOMB 1 MG INJ IM PRN (14:00)
[2019-08-22] MEDS ORDERED: DEXTROSE 50%-WATER SYRINGE 25 GM/50 ML DOSE IV PRN (14:00)
[2019-08-22] MEDS ORDERED: DEXTROSE 50%-WATER SYRINGE 12.5 GM/25 ML DOSE IV PRN (14:00)
[2019-08-22] MEDS ORDERED: DEXTROSE 40% GEL 15 GM TUBE X 2 PO PRN (14:00)
[2019-08-22] MEDS ORDERED: DEXTROSE 40% GEL 15 GM TUBE PO PRN (14:00)
[2019-08-22] MEDS: METFORMIN HCL 850 MG TABLET PO SCH (17:26)
[2019-08-22] MEDS: INSULIN LISPRO 100 UNIT/ML 3 ML VIAL SUBCUT SCH (17:26)
--- NOTE | 2019-08-22 21:37 | PDOC CONSULTATION ---
Consultation-Blank Consultation: CARDIOLOGY CONSULTATION by Dr. Aggie Forman on 08/22/2019. Patient seen at 4 PM. 50 minutes spent on this patient with more than 50% of time spent in direct patient care. REASON FOR CONSULTATION: Patient with dementia with complaints of chest pain. CONSULT REQUESTING PHYSICIAN: Dr. Charly Carvalho HISTORY of PRESENT ILLNESS: Patient is a 89-year-old female, with advanced dementia, and unable to give a history. The patient as per records has been admitted for intermittent left-sided chest pain for the last 4 days. I asked the nurse to palpate the patient's left breast which makes the patient wince and complain of pain. Hence this is clearly noncardiac. Her cardiac enzymes are negative and her EKG is bland. Hence clearly this is noncardiac chest pain. The patient's daughter knocked here. Unable to contact her by phone. Information [facility] the [facility]. Past Medical History Cardiac Medical History: Reports: Hypertension - MEDICATED/ CONTROLLED Denies: Coronary Artery Disease, Myocardial Infarction Pulmonary Medical History: Reports: None Denies: Asthma, Bronchitis, Chronic Obstructive Pulmonary Disease (COPD), Pneumonia EENT Medical History: Reports: None Neurological Medical History: Reports: None Denies: Seizures Endocrine Medical History: Reports: Diabetes Mellitus Type 2 - pills only Renal/ Medical History: Reports: None Malignancy Medical History: Reports: None GI Medical History: Denies: Hepatitis, Hiatal Hernia Musculoskeltal Medical History: Reports: Arthritis Skin Medical History: Reports: None Psychiatric Medical History: Reports: None Traumatic Medical History: Reports: None Hematology: Denies: Anemia, Sickle Cell Disease Infectious Medical History: Reports: None Past Surgical History Past Surgical History: Denies: Amputation, Hysterectomy, Mastectomy, Pacemaker. Social History Lives with: Family Smoking Status: Current Every Day Smoker Family History Family History: Unable to obtain due to patient's dementia. Medication/Allergy Home Medications: Gabapentin [Neurontin 100 mg Capsule] 100 mg PO QHS 08/21/19 Glipizide [Glucotrol 10 mg Tablet] 10 mg PO DAILY 08/21/19 Metformin HCl 850 mg PO BID 08/21/19 Montelukast Sodium [Singulair 10 mg Tablet] 10 mg PO QHS 08/21/19 Ramipril [Altace 2.5 mg Capsule] 2.5 mg PO DAILY 08/21/19 Risperidone [Risperdal 0.25 mg Tablet] 0.25 mg PO Q12 08/21/19 Allergies/Adverse Reactions: No Known Allergies Allergy (Verified 08/21/19 12:47) Review of Systems ROS unobtainable: Due to mental status. Current Medications Generic Name Dose Route Start Last Admin Trade Name Freq PRN Reason Stop Dose Admin Acetaminophen 650 mg 08/21/19 20:16 Tylenol 325 Mg Tablet PO 09/20/19 20:15 Q4HP PRN FOR PAIN OR TEMP Dextrose 12.5 gm 08/22/19 14:00 Dextrose Inj 50% Syringe (25 Gm/50 Ml) IV 09/21/19 13:59 PRN PRN FOR BG 50-69 IN ALERT PATIENT Protocol Dextrose 25 gm 08/22/19 14:00 Dextrose Inj 50% Syringe (25 Gm/50 Ml) IV 09/21/19 13:59 PRN PRN Protocol Enoxaparin Sodium 40 mg 08/22/19 10:00 08/22/19 11:14 Lovenox Inj 40 Mg/0.4 Ml Disp.Syrin SUBCUT 09/21/19 09:59 40 mg DAILY WILLY Administration Gabapentin 100 mg 08/22/19 22:00 Neurontin 100 Mg Capsule PO 09/21/19 21:59 QHS WILLY Glucagon 1 mg 08/22/19 14:00 Glucagen Inj 1 Mg Vial IM 09/21/19 13:59 PRN PRN EVALUATE FOR BG < 70 Protocol Glucose 15 gm 08/22/19 14:00 Glutose 40% Gel 15 Gm Tube PO 09/21/19 13:59 PRN PRN FOR BG 50-69 IN ALERT PATIENT Protocol Glucose 30 gm 08/22/19 14:00 Glutose 40% Gel 15 Gm Tube PO 09/21/19 13:59 PRN PRN FOR BG < 50 IN ALERT PATIENT Protocol Influenza Virus Vaccine Quadrival 0.5 ml 08/23/19 08:00 Flulaval Quad 2019- Vac 0.5 Ml Syr IM 08/23/19 08:01 .ONCE ONE Insulin Human Lispro 0 - 12 unit 08/22/19 16:00 08/22/19 17:26 Humalog Insulin 100 Unit/1 Ml 3 Ml Vial SUBCUT 09/21/19 15:59 4 unit ACHS WILLY Administration Protocol Metformin HCl 850 mg 08/22/19 17:00 08/22/19 17:26 Glucophage 850 Mg Tablet PO 09/21/19 16:59 850 mg BIDBS WILLY Administration Montelukast Sodium 10 mg 08/22/19 22:00 Singulair 10 Mg Tablet PO 09/21/19 21:59 QHS WILLY Pantoprazole Sodium 40 mg 08/22/19 06:00 08/22/19 06:[address] Tablet PO 09/21/19 05:59 Not Given Q6AM WILLY Ramipril 2.5 mg 08/22/19 10:00 08/22/19 12:48 Altace 2.5 Mg Capsule PO 09/21/19 09:59 2.5 mg DAILY WILLY Administration Risperidone 0.25 mg 08/22/19 10:00 08/22/19 12:48 Risperdal 0.25 Mg Tablet PO 09/21/19 09:59 0.25 mg Q12 WILLY Administration Discontinued Medications Generic Name Dose Route Start Last Admin Trade Name Freq PRN Reason Stop Dose Admin Aspirin 324 mg 08/21/19 12:48 08/21/19 13:00 Aspirin 81 Mg Chewable Tablet PO 08/21/19 12:49 324 mg NOW ONE Administration PHYSICAL EXAMINATION: The patient appears older than his stated age. She appears to be malnourished and chronically ill looking. She is also somnolent. Selected Entries 08/22/19 16:41 Temperature 98.6 F Temperature Oral Source Pulse Rate 98 Respiratory 20 Rate Blood Pressure 138/61 H Blood Pressure 86 Mean BP Location Right Arm BP Position Supine O2 Sat by Pulse 93 Oximetry Oxygen Delivery Room Air Method HEAD: Is normocephalic atraumatic. HEENT is negative neck is supple. There is no JVD. Carotids are equal there is no bruit LUNGS: Is clear to auscultation percussion. There is reproducible chest pain on pressing the left patient's chest wall and left breast. HEART: S1-S2 is heard there is no S3 gallop. There is no S4 gallop. There is systolic murmur left sternal border and the apex there is no rub. ABDOMEN: Soft. There is no hepatospleno megaly. Bowel sounds are well heard. EXTREMITIES: Femorals are diminished. There is no femoral bruits. Leg pulses are diminished. There is no pedal edema. There is no DVT or cellulitis. WARM IN WORKER: The patient is conscious slightly somnolent due to patient sleeping easily arousable. Moves all 4 extremities. PSYCHIATRIC: Not examined. EKG #1: Sinus Rhythm. Left anterior hemiblock. LVH. Anterior ST elevation due to LVH. EKG #2: SINUS RHYTHM. Left anterior fascicular block. LVH. PAC. ST elevation secondary to LVH. No acute ischemic changes in both EKGs. Labs- Entire Visit 08/21/19 08/21/19 08/21/19 13:28 13:28 13:28 WBC 7.3 RBC 4.10 Hgb 13.4 Hct 39.9 MCV 97 MCH 32.6 MCHC 33.5 RDW 13.4 Plt Count 310 Lymph % (Auto) 16.2 Maury % (Auto) 6.2 Eos % (Auto) 0.5 Baso % (Auto) 1.1 Absolute Neuts (auto) 5.5 Absolute Lymphs (auto) 1.2 Absolute Monos (auto) 0.5 Absolute Eos (auto) 0.0 Absolute Basos (auto) 0.1 Seg Neutrophils % 76.0 APTT 26.8 Sodium 138.4 Potassium 5.0 Chloride 101 Carbon Dioxide 28 Anion Gap 9 BUN 14 Creatinine 0.70 Est GFR ( Amer) > 60 Est GFR (MDRD) Non-Af > 60 Glucose 202 H POC Glucose Calcium 9.7 Magnesium 2.1 Total Bilirubin 0.7 Direct Bilirubin 0.2 Neonat Total Bilirubin Not Reportable Neonat Direct Bilirubin Not Reportable Neonat Indirect Bili Not Reportable AST 19 ALT 9 Alkaline Phosphatase 95 Creatine Kinase 45 CK-MB (CK-2) Troponin I NT-Pro-B Natriuret Pep Total Protein 7.3 Albumin 4.1 TSH Urine Color Urine Appearance Urine pH Ur Specific [place] Urine Protein Urine Glucose (UA) Urine Ketones Urine Blood Urine Nitrite Urine Bilirubin Urine Urobilinogen Ur Leukocyte Esterase Urine WBC (Auto) Urine Mucus (Auto) Urine Ascorbic Acid 08/21/19 08/21/19 08/21/19 13:28 13:28 17:01 WBC RBC Hgb Hct MCV MCH MCHC RDW Plt Count Lymph % (Auto) Maury % (Auto) Eos % (Auto) Baso % (Auto) Absolute Neuts (auto) Absolute Lymphs (auto) Absolute Monos (auto) Absolute Eos (auto) Absolute Basos (auto) Seg Neutrophils % APTT Sodium Potassium Chloride Carbon Dioxide Anion Gap BUN Creatinine Est GFR ( Amer) Est GFR (MDRD) Non-Af Glucose POC Glucose Calcium Magnesium Total Bilirubin Direct Bilirubin Neonat Total Bilirubin Neonat Direct Bilirubin Neonat Indirect Bili AST ALT Alkaline Phosphatase Creatine Kinase CK-MB (CK-2) 1.53 Troponin I < 0.012 < 0.012 NT-Pro-B Natriuret Pep 154 Total Protein Albumin TSH 0.62 Urine Color Urine Appearance Urine pH Ur Specific [place] Urine Protein Urine Glucose (UA) Urine Ketones Urine Blood Urine Nitrite Urine Bilirubin Urine Urobilinogen Ur Leukocyte Esterase Urine WBC (Auto) Urine Mucus (Auto) Urine Ascorbic Acid 08/21/19 08/21/19 08/21/19 18:45 23:10 23:10 WBC RBC Hgb Hct MCV MCH MCHC RDW Plt Count Lymph % (Auto) Maury % (Auto) Eos % (Auto) Baso % (Auto) Absolute Neuts (auto) Absolute Lymphs (auto) Absolute Monos (auto) Absolute Eos (auto) Absolute Basos (auto) Seg Neutrophils % APTT Sodium Potassium Chloride Carbon Dioxide Anion Gap BUN Creatinine Est GFR ( Amer) Est GFR (MDRD) Non-Af Glucose POC Glucose Calcium Magnesium Total Bilirubin Direct Bilirubin Neonat Total Bilirubin Neonat Direct Bilirubin Neonat Indirect Bili AST ALT Alkaline Phosphatase Creatine Kinase 62 CK-MB (CK-2) 1.31 Troponin I < 0.012 NT-Pro-B Natriuret Pep Total Protein Albumin TSH Urine Color YELLOW Urine Appearance CLEAR Urine pH 6.0 Ur Specific [place] 1.010 Urine Protein NEGATIVE Urine Glucose (UA) >=500 H Urine Ketones NEGATIVE Urine Blood NEGATIVE Urine Nitrite NEGATIVE Urine Bilirubin NEGATIVE Urine Urobilinogen 2.0 H Ur Leukocyte Esterase NEGATIVE Urine WBC (Auto) 0 Urine Mucus (Auto) RARE Urine Ascorbic Acid NEGATIVE 08/22/19 08/22/19 08/22/19 05:51 05:51 11:53 WBC RBC Hgb Hct MCV MCH MCHC RDW Plt Count Lymph % (Auto) Maury % (Auto) Eos % (Auto) Baso % (Auto) Absolute Neuts (auto) Absolute Lymphs (auto) Absolute Monos (auto) Absolute Eos (auto) Absolute Basos (auto) Seg Neutrophils % APTT Sodium Potassium Chloride Carbon Dioxide Anion Gap BUN Creatinine Est GFR ( Amer) Est GFR (MDRD) Non-Af Glucose POC Glucose Calcium Magnesium Total Bilirubin Direct Bilirubin Neonat Total Bilirubin Neonat Direct Bilirubin Neonat Indirect Bili AST ALT Alkaline Phosphatase Creatine Kinase 124 101 CK-MB (CK-2) 1.54 Troponin I < 0.012 NT-Pro-B Natriuret Pep Total Protein Albumin TSH Urine Color Urine Appearance Urine pH Ur Specific [place] Urine Protein Urine Glucose (UA) Urine Ketones Urine Blood Urine Nitrite Urine Bilirubin Urine Urobilinogen Ur Leukocyte Esterase Urine WBC (Auto) Urine Mucus (Auto) Urine Ascorbic Acid 08/22/19 08/22/19 08/22/19 11:53 12:57 16:38 WBC RBC Hgb Hct MCV MCH MCHC RDW Plt Count Lymph % (Auto) Maury % (Auto) Eos % (Auto) Baso % (Auto) Absolute Neuts (auto) Absolute Lymphs (auto) Absolute Monos (auto) Absolute Eos (auto) Absolute Basos (auto) Seg Neutrophils % APTT Sodium Potassium Chloride Carbon Dioxide Anion Gap BUN Creatinine Est GFR ( Amer) Est GFR (MDRD) Non-Af Glucose POC Glucose 310 H 233 H Calcium Magnesium Total Bilirubin Direct Bilirubin Neonat Total Bilirubin Neonat Direct Bilirubin Neonat Indirect Bili AST ALT Alkaline Phosphatase Creatine Kinase CK-MB (CK-2) 1.89 Troponin I < 0.012 NT-Pro-B Natriuret Pep Total Protein Albumin TSH Urine Color Urine Appearance Urine pH Ur Specific [place] Urine Protein Urine Glucose (UA) Urine Ketones Urine Blood Urine Nitrite Urine Bilirubin Urine Urobilinogen Ur Leukocyte Esterase Urine WBC (Auto) Urine Mucus (Auto) Urine Ascorbic Acid 08/22/19 21:10 WBC RBC Hgb Hct MCV MCH MCHC RDW Plt Count Lymph % (Auto) Maury % (Auto) Eos % (Auto) Baso % (Auto) Absolute Neuts (auto) Absolute Lymphs (auto) Absolute Monos (auto) Absolute Eos (auto) Absolute Basos (auto) Seg Neutrophils % APTT Sodium Potassium Chloride Carbon Dioxide Anion Gap BUN Creatinine Est GFR ( Amer) Est GFR (MDRD) Non-Af Glucose POC Glucose 87 Calcium Magnesium Total Bilirubin Direct Bilirubin Neonat Total Bilirubin Neonat Direct Bilirubin Neonat Indirect Bili AST ALT Alkaline Phosphatase Creatine Kinase CK-MB (CK-2) Troponin I NT-Pro-B Natriuret Pep Total Protein Albumin TSH Urine Color Urine Appearance Urine pH Ur Specific [place] Urine Protein Urine Glucose (UA) Urine Ketones Urine Blood Urine Nitrite Urine Bilirubin Urine Urobilinogen Ur Leukocyte Esterase Urine WBC (Auto) Urine Mucus (Auto) Urine Ascorbic Acid Chest X-Ray 08/21/19 12:49 IMPRESSION: NO ACUTE RADIOGRAPHIC FINDING IN THE CHEST. IMPRESSION/RECOMMENDATION: 1. Chest pain: Clearly noncardiac and secondary to chest wall pain. No evidence of acute ischemia on EKG, and no evidence of myocardial infarction by cardiac biomarkers. 2. Hypertension: Blood pressure well controlled. 3. Diabetes mellitus: Continue current medications. 4. Advanced dementia. Medications reviewed management plan and medication regimen discussed with attending patient on the case. Medical decision making is of moderate complexity. In view of the patient's advanced age and advanced dementia would recommend no further cardiac work-up. Will sign off.
[2019-08-22] MEDS: MONTELUKAST SODIUM 10 MG TABLET PO SCH (22:00)
[2019-08-22] MEDS: GABAPENTIN 100 MG CAPSULE PO SCH (22:00)
--- NOTE | 2019-08-23 00:27 | EKG REPORT ---
SEVERITY:- ABNORMAL ECG - SINUS RHYTHM ATRIAL PREMATURE COMPLEX LEFT ANTERIOR FASCICULAR BLOCK LEFT VENTRICULAR HYPERTROPHY ANTERIOR ST ELEVATION, PROBABLY DUE TO LVH : Confirmed by: Chloe Villa 23-Aug-2019 00:26:39
--- NOTE | 2019-08-23 00:27 | EKG REPORT ---
SEVERITY:- ABNORMAL ECG - SINUS RHYTHM LEFT ANTERIOR FASCICULAR BLOCK LEFT VENTRICULAR HYPERTROPHY ANTERIOR Q WAVES, POSSIBLY DUE TO LVH : Confirmed by: Chloe Villa 23-Aug-2019 00:26:44
[2019-08-23] MEDS: INSULIN LISPRO 100 UNIT/ML 3 ML VIAL SUBCUT SCH ×5 (02:00→22:30)
[2019-08-23] MEDS: PANTOPRAZOLE SODIUM 40 MG TABLET.DR PO SCH (05:32)
[2019-08-23] MEDS ORDERED: INFLUENZA QUAD (6MOS+) 2019-20 VAC 0.5 ML SYR IM ONE (08:00)
[2019-08-23] MEDS: METFORMIN HCL 850 MG TABLET PO SCH ×2 (08:27→16:39)
--- NOTE | 2019-08-23 09:40 | PDOC PROGRESS REPORT ---
Subjective Progress Note for:: 08/23/19 Subjective:: Patient is currently doing fair More sleepy this morning According to nursing staff patient some more issue with the left breast and when we touched the patient was have a pain response Patient seen by the cardiology signed off no cardiac issue I believe the left-sided pain is coming from the left breast Reason For Visit: CHEST PAIN Physical Exam Vital Signs: Temp Pulse Resp BP Pulse Ox 97.9 F 69 18 132/43 H 95 08/23/19 08:00 08/23/19 08:00 08/23/19 08:00 08/23/19 08:00 08/23/19 08:00 Intake & Output 08/22/19 08/23/19 08/24/19 06:59 06:59 06:59 Intake Total 0 236 Output Total 0 Balance 0 236 Weight 43.5 kg 44.2 kg Physical Exam: Underlying dementia's General appearance: PRESENT: no acute distress Head exam: PRESENT: atraumatic, normocephalic Eye exam: PRESENT: conjunctiva pink, EOMI, PERRLA. ABSENT: scleral icterus Ear exam: PRESENT: normal external ear exam Mouth exam: PRESENT: moist, tongue midline Neck exam: PRESENT: full ROM. ABSENT: carotid bruit, JVD, lymphadenopathy, thyromegaly Respiratory exam: PRESENT: clear to auscultation uzma Cardiovascular exam: PRESENT: RRR. ABSENT: diastolic murmur, rubs, systolic murmur Pulses: PRESENT: normal dorsalis pedis pul, +2 pedal pulses bilateral Vascular exam: PRESENT: normal capillary refill GI/Abdominal exam: PRESENT: normal bowel sounds, soft. ABSENT: distended, guarding, mass, organolmegaly, rebound, tenderness Rectal exam: PRESENT: deferred Neurological exam: PRESENT: alert, altered, awake. ABSENT: motor sensory deficit Psychiatric exam: PRESENT: appropriate affect, normal mood. ABSENT: homicidal ideation, suicidal ideation Skin exam: PRESENT: dry, intact, warm. ABSENT: cyanosis, rash Results Laboratory Results: 08/21/19 13:28 08/21/19 13:28 08/21/19 08/21/19 08/21/19 13:28 13:28 17:01 Creatine Kinase 45 CK-MB (CK-2) 1.53 Troponin I < 0.012 < 0.012 NT-Pro-B Natriuret Pep 154 08/21/19 08/21/19 08/22/19 23:10 23:10 05:51 Creatine Kinase 62 124 CK-MB (CK-2) 1.31 Troponin I < 0.012 NT-Pro-B Natriuret Pep 08/22/19 08/22/19 08/22/19 05:51 11:53 11:53 Creatine Kinase 101 CK-MB (CK-2) 1.54 1.89 Troponin I < 0.012 < 0.012 NT-Pro-B Natriuret Pep Impressions: Chest X-Ray 08/21/19 12:49 IMPRESSION: NO ACUTE RADIOGRAPHIC FINDING IN THE CHEST. 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
[2019-08-23] MEDS: ENOXAPARIN SODIUM INJ 40 MG/0.4 ML DISP.SYRIN SUBCUT SCH (10:09)
[2019-08-23] MEDS: RAMIPRIL 2.5 MG CAPSULE PO SCH (10:09)
[2019-08-23] MEDS: RISPERIDONE 0.25 MG TABLET PO SCH ×2 (10:09→22:30)
[2019-08-23] MEDS: MONTELUKAST SODIUM 10 MG TABLET PO SCH (22:30)
[2019-08-23] MEDS: GABAPENTIN 100 MG CAPSULE PO SCH (22:30)
[2019-08-24 04:19] LABS: ABSOLUTE BASOPHILS # (AUTO) 0.1 10^3/uL (0.0-0.2); ABSOLUTE EOSINOPHILS # (AUTO) 0.1 10^3/uL (0.0-0.6); ABSOLUTE LYMPHOCYTES (AUTO) 1.7 10^3/uL (0.5-4.7); ABSOLUTE MONOCYTES (AUTO) 0.7 10^3/uL (0.1-1.4); ABSOLUTE NEUT (AUTO) 5.3 10^3/uL (1.7-8.2); EOSINOPHILS % (AUTO) 1.2 % (0-6); HEMATOCRIT 39.1 % (36.0-47.0); LYMPHOCYTES % (AUTO) 21.4 % (13-45); MEAN CORPUSCULAR HEMOGLOBIN 32.5 pg (27.0-33.4); MEAN CORPUSCULAR HGB CONC 33.4 g/dL (32.0-36.0); MEAN CORPUSCULAR VOLUME 97 fl (80-97); MONOCYTES % (AUTO) 8.5 % (3-13); PLATELET COUNT 252 10^3/uL (150-450); RED BLOOD COUNT 4.01 10^6/uL (3.72-5.28); RED CELL DISTRIBUTION WIDTH 13.3 % (11.5-14.0); SEGMENTED NEUTROPHILS % (AUTO) 67.9 % (42-78); TOTAL CELLS COUNTED % (AUTO) 100 %; WHITE BLOOD COUNT 7.8 10^3/uL (4.0-10.5)
[2019-08-24 04:37] LABS: ANION GAP 8 (5-19); BLOOD UREA NITROGEN 25 mg/dL (7-20); CALCIUM 9.2 mg/dL (8.4-10.2); CARBON DIOXIDE 25 mmol/L (22-30); CHLORIDE 107 mmol/L (98-107); GLUCOSE 165 mg/dL (75-110); POTASSIUM 4.3 mmol/L (3.6-5.0)
[2019-08-24] MEDS: PANTOPRAZOLE SODIUM 40 MG TABLET.DR PO SCH (06:40)
[2019-08-24] MEDS: INSULIN LISPRO 100 UNIT/ML 3 ML VIAL SUBCUT SCH ×4 (08:10→21:53)
[2019-08-24] MEDS: METFORMIN HCL 850 MG TABLET PO SCH ×2 (09:55→16:19)
[2019-08-24] MEDS: RAMIPRIL 2.5 MG CAPSULE PO SCH (09:55)
[2019-08-24] MEDS: RISPERIDONE 0.25 MG TABLET PO SCH ×2 (09:55→21:53)
[2019-08-24] MEDS: ENOXAPARIN SODIUM INJ 40 MG/0.4 ML DISP.SYRIN SUBCUT SCH (09:55)
--- NOTE | 2019-08-24 20:48 | PDOC DISCHARGE SUMMARY ---
Impression - Admit/DC Date/PCP Admission Date/Primary Care Provider: 08/21/19 20:21 AMAYA REYNOLDS Discharge Date: 08/24/19 - Assessment Summary: Patient was admitted for left sided chest pain on observation bed. She did ruled out for acute coronary syndrome via serial cardiac enzymes. She was seen in consultation by Dr. Howe, job press operator, and her chest pain was deemed non cardiac. Due to continued complain about left chest versus breast pain, Dr. Carvalho, covering physician, requested for left breast ultrasound evaluation. Due to lack of comparison mammogram it was suggested by on duty radiologist that patient should have outpatient mammogram first before ultrasound. She will be discharged home tonight and follow up in the office as instructed upon discharge. - Additional Information Resuscitation Status: Full Code Discharge Diet: As Tolerated, Regular Discharge Activity: Activity As Tolerated, Supervised Activity Referrals: AMAYA REYNOLDS MD [Primary Care Provider] - 08/25/19 11:00 am Home Medications: Gabapentin [Neurontin 100 mg Capsule] 100 mg PO QHS 08/21/19 Glipizide [Glucotrol 10 mg Tablet] 10 mg PO DAILY 08/21/19 Metformin HCl 850 mg PO BID 08/21/19 Montelukast Sodium [Singulair 10 mg Tablet] 10 mg PO QHS 08/21/19 Ramipril [Altace 2.5 mg Capsule] 2.5 mg PO DAILY 08/21/19 Risperidone [Risperdal 0.25 mg Tablet] 0.25 mg PO Q12 08/21/19 History of Present Illiness History of Present Illness: REGZFOIA BERGERSORTIZ is a 89 year old female This is a 89-year-old female's with a patient of Dr. Reynolds with a significant history of the dementia's history of the type 2 diabetes hypertension's brought to the emergency department with the family with the chief complaint of left- sided chest pain for the last 4 days Due to the patient history of the dementia's he is unable to provide any significant history of the emergency departments get from family member the patient is complaining of a left-sided pain no shoulder on the chest area Patient is reported some mild cough According to the family member the took the patient's to the Dr. Reynolds's office because of the worsening the dementia's and suggest to bring to the emergency departments In the emergency department patient's all work-up is negative including due to cardiac set of enzymes When I saw the patient's unable to get any history from the patient's does not look like seems to be any pain No family member available Hospital Course Hospital Course: Patient was admitted for left sided chest pain on observation bed. She did ruled out for acute coronary syndrome via serial cardiac enzymes. She was seen in consultation by Dr. Howe, job press operator, and her chest pain was deemed non cardiac. Due to continued complain about left chest versus breast pain, Dr. Carvalho, covering physician, requested for left breast ultrasound evaluation. Due to lack of comparison mammogram it was suggested by on duty radiologist that patient should have outpatient mammogram first before ultrasound. She will be discharged home tonight and follow up in the office as instructed upon discharge Physical Exam Vital Signs: Temp Pulse Resp BP Pulse Ox 98.4 F 109 H 21 H 145/92 H 97 08/24/19 16:00 08/24/19 16:00 08/24/19 16:00 08/24/19 16:00 08/24/19 16:00 Intake & Output 08/23/19 08/24/19 08/25/19 06:59 06:59 06:59 Intake Total 236 380 480 Output Total 0 Balance 236 380 480 Weight 44.2 kg 43.6 kg General appearance: PRESENT: no acute distress, thin Head exam: PRESENT: atraumatic, normocephalic Eye exam: PRESENT: conjunctiva pink. ABSENT: scleral icterus Ear exam: PRESENT: normal external ear exam Mouth exam: PRESENT: moist Respiratory exam: PRESENT: clear to auscultation uzma Cardiovascular exam: PRESENT: RRR. ABSENT: diastolic murmur, rubs, systolic murmur GI/Abdominal exam: PRESENT: normal bowel sounds, soft. ABSENT: distended, guarding, mass, organolmegaly, rebound, tenderness Extremities exam: ABSENT: pedal edema Neurological exam: PRESENT: alert, awake. ABSENT: oriented to person, oriented to place, oriented to time, oriented to situation Psychiatric exam: PRESENT: agitated - with disorientation Skin exam: PRESENT: dry, warm Results Laboratory Results: WBC 7.8 10^3/uL (4.0-10.5) 08/24/19 04:04 RBC 4.01 10^6/uL (3.72-5.28) 08/24/19 04:04 Hgb 13.0 g/dL (12.0-15.5) 08/24/19 04:04 Hct 39.1 % (36.0-47.0) 08/24/19 04:04 MCV 97 fl (80-97) 08/24/19 04:04 MCH 32.5 pg (27.0-33.4) 08/24/19 04:04 MCHC 33.4 g/dL (32.0-36.0) 08/24/19 04:04 RDW 13.3 % (11.5-14.0) 08/24/19 04:04 Plt Count 252 10^3/uL (150-450) 08/24/19 04:04 Lymph % (Auto) 21.4 % (13-45) 08/24/19 04:04 [place] % (Auto) 8.5 % (3-13) 08/24/19 04:04 Eos % (Auto) 1.2 % (0-6) 08/24/19 04:04 Baso % (Auto) 1.0 % (0-2) 08/24/19 04:04 Absolute Neuts (auto) 5.3 10^3/uL (1.7-8.2) 08/24/19 04:04 Absolute Lymphs (auto) 1.7 10^3/uL (0.5-4.7) 08/24/19 04:04 Absolute Monos (auto) 0.7 10^3/uL (0.1-1.4) 08/24/19 04:04 Absolute Eos (auto) 0.1 10^3/uL (0.0-0.6) 08/24/19 04:04 Absolute Basos (auto) 0.1 10^3/uL (0.0-0.2) 08/24/19 04:04 Seg Neutrophils % 67.9 % (42-78) 08/24/19 04:04 APTT 26.8 SEC (23.5-35.8) 08/21/19 13:28 Sodium 139.5 mmol/L (137-145) 08/24/19 04:04 Potassium 4.3 mmol/L (3.6-5.0) 08/24/19 04:04 Chloride 107 mmol/L (98-107) 08/24/19 04:04 Carbon Dioxide 25 mmol/L (22-30) 08/24/19 04:04 Anion Gap 8 (5-19) 08/24/19 04:04 BUN 25 mg/dL (7-20) H 08/24/19 04:04 Creatinine 0.86 mg/dL (0.52-1.25) 08/24/19 04:04 Est GFR ( Amer) > 60 (>60) 08/24/19 04:04 Est GFR (MDRD) Non-Af > 60 (>60) 08/24/19 04:04 Glucose 165 mg/dL (75-110) H 08/24/19 04:04 POC Glucose 207 mg/dL (70-110) H 08/24/19 15:56 Calcium 9.2 mg/dL (8.4-10.2) 08/24/19 04:04 Magnesium 2.1 mg/dL (1.6-2.3) 08/21/19 13:28 Total Bilirubin 0.7 mg/dL (0.2-1.3) 08/21/19 13:28 Direct Bilirubin 0.2 mg/dL (0.0-0.4) 08/21/19 13:28 Neonat Total Bilirubin Not Reportable 08/21/19 13:28 Neonat Direct Bilirubin Not Reportable 08/21/19 13:28 Neonat Indirect Bili Not Reportable 08/21/19 13:28 AST 19 U/L (14-36) 08/21/19 13:28 ALT 9 U/L (<35) 08/21/19 13:28 Alkaline Phosphatase 95 U/L (38-126) 08/21/19 13:28 Creatine Kinase 101 U/L (30-135) 08/22/19 11:53 CK-MB (CK-2) 1.89 ng/mL (<4.55) 08/22/19 11:53 Troponin I < 0.012 ng/mL 08/22/19 11:53 NT-Pro-B Natriuret Pep 154 pg/mL (<450) 08/21/19 13:28 Total Protein 7.3 g/dL (6.3-8.2) 08/21/19 13:28 Albumin 4.1 g/dL (3.5-5.0) 08/21/19 13:28 TSH 0.62 uIU/mL (0.47-4.68) 08/21/19 13:28 Urine Color YELLOW 08/21/19 18:45 Urine Appearance CLEAR 08/21/19 18:45 Urine pH 6.0 (5.0-9.0) 08/21/19 18:45 Ur Specific [place] 1.010 08/21/19 18:45 Urine Protein NEGATIVE mg/dL (NEGATIVE) 08/21/19 18:45 Urine Glucose (UA) >=500 mg/dL (NEGATIVE) H 08/21/19 18:45 Urine Ketones NEGATIVE mg/dL (NEGATIVE) 08/21/19 18:45 Urine Blood NEGATIVE (NEGATIVE) 08/21/19 18:45 Urine Nitrite NEGATIVE (NEGATIVE) 08/21/19 18:45 Urine Bilirubin NEGATIVE (NEGATIVE) 08/21/19 18:45 Urine Urobilinogen 2.0 mg/dL (<2.0) H 08/21/19 18:45 Ur Leukocyte Esterase NEGATIVE (NEGATIVE) 08/21/19 18:45 Urine WBC (Auto) 0 /HPF 08/21/19 18:45 Urine Mucus (Auto) RARE /LPF 08/21/19 18:45 Urine Ascorbic Acid NEGATIVE (NEGATIVE) 08/21/19 18:45 08/21/19 08/21/19 08/21/19 13:28 17:01 23:10 CK-MB (CK-2) 1.53 1.31 Troponin I < 0.012 < 0.012 < 0.012 NT-Pro-B Natriuret Pep 154 08/22/19 08/22/19 05:51 11:53 CK-MB (CK-2) 1.54 1.89 Troponin I < 0.012 < 0.012 NT-Pro-B Natriuret Pep Impressions: Chest X-Ray 08/21/19 12:49 IMPRESSION: NO ACUTE RADIOGRAPHIC FINDING IN THE CHEST. Plan Health Concerns: Dementia with high risk of wandering and inability to contribute to self care. Plan of Treatment: D/C home with arrangement for outpatient mammogram and left breast ultrasound if necessary. Goals: Continue community support and care as available. Time Spent: Greater than 30 Minutes - I discussed care plan and post discharge arrangement with daughter Padma Vidal. Stroke Is this a Stroke Patient?: No Acute Heart Failure - Is this a Heart Failure Patient?: No
[2019-08-24] MEDS: MONTELUKAST SODIUM 10 MG TABLET PO SCH (21:53)
[2019-08-24] MEDS: GABAPENTIN 100 MG CAPSULE PO SCH (21:53)
[2019-08-25] MEDS: PANTOPRAZOLE SODIUM 40 MG TABLET.DR PO SCH (05:32)
[2019-08-25 05:37] LABS: ANION GAP 8 (5-19); BLOOD UREA NITROGEN 27 mg/dL (7-20); CALCIUM 9.2 mg/dL (8.4-10.2); CARBON DIOXIDE 25 mmol/L (22-30); CHLORIDE 106 mmol/L (98-107); GLUCOSE 133 mg/dL (75-110); POTASSIUM 4.4 mmol/L (3.6-5.0)
[2019-08-25] MEDS: INSULIN LISPRO 100 UNIT/ML 3 ML VIAL SUBCUT SCH (07:49)
[2019-08-25] MEDS: METFORMIN HCL 850 MG TABLET PO SCH (07:49)
[2019-08-25 09:08] VITALS: BP 145/92
[2019-08-25] MEDS: RISPERIDONE 0.25 MG TABLET PO SCH (09:19)
[2019-08-25] MEDS: RAMIPRIL 2.5 MG CAPSULE PO SCH (09:19)
== END 2019-08-25 10:00 | disposition home or self-care (01) ==
LOC: ER 12:25 → EH 20:21 → 4W 22:35 → 4N 08-24 19:03
PROVIDERS: ADMIT Family Medicine; ATTEND Internal Medicine Geriatric Medicine
DX: R07.89 Other chest pain (principal); N64.4 Mastodynia; G30.9 Alzheimer's disease, unspecified; F02.80 Dementia in other diseases classified elsewhere, unspecified severity, without behavioral disturbance, psychotic disturbance, mood disturbance, and anxiety; I10 Essential (primary) hypertension; E11.9 Type 2 diabetes mellitus without complications; R05 Cough; R06.2 Wheezing; F17.210 Nicotine dependence, cigarettes, uncomplicated; M19.90 Unspecified osteoarthritis, unspecified site; R45.1 Restlessness and agitation; I44.4 Left anterior fascicular block; R94.31 Abnormal electrocardiogram [ECG] [EKG]; Z79.84 Long term (current) use of oral hypoglycemic drugs; Z79.899 Other long term (current) drug therapy; Z23 Encounter for immunization
CPT/HCPCS: 93005 ×2; 99285; 36415 ×4; 82553 ×2; 82962 ×4; 82550 ×2; 83735; 84443; 85025 ×2; 85730; 80048 ×2; 80053; 81001; 84484 ×2; 83880; 71046; 90686; 93010 ×2; G0378 ×6; A9270 ×14; J1650 ×3; J1815; J3490

== ENCOUNTER → 2019-09-01 | Outpatient (CLI) | payer MEDICARE ==
--- NOTE | 2019-09-01 15:31 | WOMENS IMAGING REPORT ---
EXAM DESCRIPTION: BILAT DIAGNOSTIC MAMMO W/CAD; U/S BREAST UNILAT LIMITED COMPLETED DATE/TIME: 09/01/2019 11:27 am; 09/01/2019 12:14 pm REASON FOR STUDY: LEFT BREAST PAIN 64.4; LT BREAST PAIN N64.4 MASTODYNIA COMPARISON: None. EXAM PARAMETERS: Standard craniocaudal and mediolateral oblique views of each breast recorded using digital acquisition. No additional imaging. Patient combative. Read with the assistance of CAD: .[facility] - [employer] Version 9.2 LIMITATIONS: None. FINDINGS: RIGHT BREAST MASSES: No suspicious masses. CALCIFICATIONS: No new or suspicious calcifications. ARCHITECTURAL DISTORTION: None. DEVELOPING DENSITY: None. ASYMMETRY: None noted. OTHER: No other significant findings. LEFT BREAST MASSES: No suspicious masses. CALCIFICATIONS: No new or suspicious calcifications. ARCHITECTURAL DISTORTION: None. DEVELOPING DENSITY: None. ASYMMETRY: None noted. OTHER: No other significant finding. BREAST ULTRASOUND: TECHNIQUE: Static and dynamic grayscale images acquired of the left breast in the specific areas of c linical/mammographic concern. Inferior breast site of pain Selected color Doppler images recorded. ELASTOGRAPHY PERFORMED: No. LIMITATIONS: None. FINDINGS: MASS: No mass identified. Normal glandular tissue. ELASTOGRAPHY CHARACTERISTICS: Not applicable. OTHER: No other significant finding. IMPRESSION: Negative mammogram and ultrasound BREAST DENSITY: b. There are scattered areas of fibroglandular density. BIRAD: ASSESSMENT: 1 Negative. RECOMMENDATION: RECOMMENDED FOLLOW UP: Birads 1 or 2: No breast imaging finding to explain the patie nt's presenting complaint. Further intervention should be based on the degree of clinical suspicion. SPECIFIC INTERVENTION/IMAGING/CONSULTATION RECOMMENDED:No additional intervention/ imaging/consultati on needed at this time. COMMUNICATION:The imaging findings were not discussed with the patient. Her referring provider has be en notified of the findings. COMMENT: The patient has been notified of the results by letter per MQSA requirements. Additional no tification policies are in place for contacting patient with suspicious or incomplete findings. Quality ID #225: The [employer] recommends an annual screening mammogram for women aged 40 years or over. This facility utilizes a reminder system to ensure that all patients receive reminder letters, and/or direct phone calls for appointments. This includes reminders for routine scr eening mammograms, diagnostic mammograms, or other Breast Imaging Interventions when appropriate. Th is patient will be placed in the appropriate reminder system. TECHNICAL DOCUMENTATION: FINDING NUMBER: (1) ASSESSMENT: (1) JOB ID: [id number] [employer]- All Rights Reserved Reading location - IP/workstation name: [email or web address]
--- NOTE | 2019-09-01 15:31 | WOMENS IMAGING REPORT ---
EXAM DESCRIPTION: BILAT DIAGNOSTIC MAMMO W/CAD; U/S BREAST UNILAT LIMITED COMPLETED DATE/TIME: 09/01/2019 11:27 am; 09/01/2019 12:14 pm REASON FOR STUDY: LEFT BREAST PAIN 64.4; LT BREAST PAIN N64.4 MASTODYNIA COMPARISON: None. EXAM PARAMETERS: Standard craniocaudal and mediolateral oblique views of each breast recorded using digital acquisition. No additional imaging. Patient combative. Read with the assistance of CAD: .[facility] - [employer] Operator Version 9.2 LIMITATIONS: None. FINDINGS: RIGHT BREAST MASSES: No suspicious masses. CALCIFICATIONS: No new or suspicious calcifications. ARCHITECTURAL DISTORTION: None. DEVELOPING DENSITY: None. ASYMMETRY: None noted. OTHER: No other significant findings. LEFT BREAST MASSES: No suspicious masses. CALCIFICATIONS: No new or suspicious calcifications. ARCHITECTURAL DISTORTION: None. DEVELOPING DENSITY: None. ASYMMETRY: None noted. OTHER: No other significant finding. BREAST ULTRASOUND: TECHNIQUE: Static and dynamic grayscale images acquired of the left breast in the specific areas of c linical/mammographic concern. Inferior breast site of pain Selected color Doppler images recorded. ELASTOGRAPHY PERFORMED: No. LIMITATIONS: None. FINDINGS: MASS: No mass identified. Normal glandular tissue. ELASTOGRAPHY CHARACTERISTICS: Not applicable. OTHER: No other significant finding. IMPRESSION: Negative mammogram and ultrasound BREAST DENSITY: b. There are scattered areas of fibroglandular density. BIRAD: ASSESSMENT: 1 Negative. RECOMMENDATION: RECOMMENDED FOLLOW UP: Birads 1 or 2: No breast imaging finding to explain the patie nt's presenting complaint. Further intervention should be based on the degree of clinical suspicion. SPECIFIC INTERVENTION/IMAGING/CONSULTATION RECOMMENDED:No additional intervention/ imaging/consultati on needed at this time. COMMUNICATION:The imaging findings were not discussed with the patient. Her referring provider has be en notified of the findings. COMMENT: The patient has been notified of the results by letter per MQSA requirements. Additional no tification policies are in place for contacting patient with suspicious or incomplete findings. Quality ID #225: The [employer] recommends an annual screening mammogram for women aged 40 years or over. This facility utilizes a reminder system to ensure that all patients receive reminder letters, and/or direct phone calls for appointments. This includes reminders for routine scr eening mammograms, diagnostic mammograms, or other Breast Imaging Interventions when appropriate. Th is patient will be placed in the appropriate reminder system. TECHNICAL DOCUMENTATION: FINDING NUMBER: (1) ASSESSMENT: (1) JOB ID: [id number] [employer]- All Rights Reserved Reading location - IP/workstation name: [email or web address]
== END ==
LOC: RAD 11:10
PROVIDERS: ATTEND Internal Medicine Geriatric Medicine
DX: N64.4 Mastodynia (principal)
CPT/HCPCS: 76642; 77066

== ENCOUNTER 2019-12-25 14:50 | Inpatient (IN) | payer MEDICARE, MEDICAID ==
[2019-12-25] MEDS ORDERED: NORMAL SALINE 1000 ML 1,000 ML IV ONE (15:10)
--- NOTE | 2019-12-25 15:43 | RADIOLOGY REPORT (SQ) ---
EXAM DESCRIPTION: HIP RIGHT AP/LATERAL COMPLETED DATE/TIME: 12/25/2019 3:22 pm REASON FOR STUDY: fall/hip pain COMPARISON: None. NUMBER OF VIEWS: Two views. TECHNIQUE: AP pelvis and additional frog-leg view of the right hip. LIMITATIONS: None. FINDINGS: MINERALIZATION: Normal. RIGHT HIP: Intertrochanteric fracture. LEFT HIP: No fracture or dislocation. No worrisome bone lesions. PUBIS AND ISCHIUM: No fracture. PELVIS: No fracture. SACRUM: No fracture or dislocation. No worrisome bone lesions. LOWER LUMBAR SPINE: No fracture or dislocation. No worrisome bone lesions. No significant disc disea se. SOFT TISSUES: No findings. OTHER: No other significant finding. IMPRESSION: Intertrochanteric fracture of the right hip. TECHNICAL DOCUMENTATION: JOB ID: [id number] [employer]- All Rights Reserved Reading location - IP/workstation name: [email or web address]
--- NOTE | 2019-12-25 16:15 | ER Document Report ---
ED General - General Chief Complaint: Altered Mental Status Stated Complaint: BLOOD SUGAR PROBLEM Time Seen by Provider: 12/25/19 15:00 Notes: 89-year-old woman presents to the emergency department with a history of a fall 2 days ago. Daughter notes that she got up at night and was wandering around and then tripped falling. She has not been able to ambulate since that time and axes though she is in pain. EMS was called today and the patient was brought to the emergency department for further evaluation and treatment she has a history of dementia, blood sugar was noted on Accu-Chek to read high by EMS. TRAVEL OUTSIDE OF THE [place] IN LAST 30 DAYS: No - Related Data Allergies/Adverse Reactions: No Known Allergies Allergy (Verified 08/21/19 12:47) Home Medications: montelikest, gabapentin, glipzide, ramipril, risperidone Past Medical History - Social History Smoking Status: Unknown if Ever Smoked Frequency of alcohol use: None Drug Abuse: None Family History: Reviewed & Not Pertinent Patient has suicidal ideation: No Patient has homicidal ideation: No - Past Medical History Cardiac Medical History: Reports: Hx Hypertension - MEDICATED/ CONTROLLED Denies: Hx Coronary Artery Disease, Hx Heart Attack Pulmonary Medical History: Denies: Hx Asthma, Hx Bronchitis, Hx COPD, Hx Pneumonia Neurological Medical History: Denies: Hx Cerebrovascular Accident, Hx Seizures Endocrine Medical History: Reports: Hx Diabetes Mellitus Type 2 - pills only Renal/ Medical History: Denies: Hx Peritoneal Dialysis GI Medical History: Reports: Hx Ulcer. Denies: Hx Hepatitis, Hx Hiatal Hernia Musculoskeletal Medical History: Reports Hx Arthritis Infectious Medical History: Denies: Hx Hepatitis Past Surgical History: Denies: Hx Hysterectomy, Hx Mastectomy, Hx Open Heart Surgery, Hx Pacemaker - Immunizations Hx Diphtheria, Pertussis, Tetanus Vaccination: No Review of Systems - Review of Systems Notes: Unable to obtain reliable history from patient. -: Yes ROS unobtainable due to patient's medical condition Physical Exam - Vital signs Vitals: Temp Pulse Resp BP Pulse Ox 98 F 108 H 22 H 156/103 H 96 12/25/19 15:13 12/25/19 15:13 12/25/19 15:13 12/25/19 15:13 12/25/19 15:13 - Notes Notes: PHYSICAL EXAMINATION: Physical Exam: General: Frail elderly woman non-verbal unable to give a history. HEENT: NC/AT, pupils equal round and reactive to light, MM moist,nares clear, oropharynx clear, airway patent Neck: supple, no adenopathy, no masses. Good range of motion Lungs: clear, no wheezing, no rales no rhonchi CVS: Regular, rate, and rhythm no murmur gallop or rub Abdomen: Soft, active, nontender, no masses, no hepatosplenomegaly Ext: Tenderness in the lateral right hip, no edema, clubbing or cyanosis. Neuro: Alert and responsive, nonverbal, no obvious focal findings. Skin: Intact no open lesions, no rash Course - Re-evaluation Re-evalutation: 12/25/19 16:12 X-ray reveals a comminuted intratrochanteric right hip fracture,'s the orthopedist change control analyst, Dr. Echevarria was contacted and states that he will consult. Dr. Roach, primary physician was contacted and will admit the patient to the 4 floor telemetry for medical evaluation and management. - Vital Signs Vital signs: Temp Pulse Resp BP Pulse Ox 98 F 108 H 22 H 156/103 H 96 12/25/19 15:13 12/25/19 15:13 12/25/19 15:13 12/25/19 15:13 12/25/19 15:13 - Diagnostic Test Radiology reviewed: Image reviewed, Reports reviewed - Intertrochanteric fracture of the right hip. Discharge - Discharge Clinical Impression: Poorly controlled diabetes mellitus Intertrochanteric fracture of right hip Qualifiers: Encounter type: initial encounter Fracture type: closed Fracture alignment: displaced Qualified Code(s): S72.141A - Displaced intertrochanteric fracture of right femur, initial encounter for closed fracture Dementia Qualifiers: Dementia type: unspecified type Dementia behavioral disturbance: without behavioral disturbance Qualified Code(s): F03.90 - Unspecified dementia without behavioral disturbance Condition: Good Disposition: ADMITTED INPATIENT Admitting Provider: Doc Unit Admitted: Surgical Floor Referrals: AMAYA ROACH MD [Primary Care Provider] - Follow up as needed
[2019-12-25 16:54] LABS: HEMATOCRIT 35.4 % (36.0-47.0); HEMOGLOBIN 11.7 g/dL (12.0-15.5); MEAN CORPUSCULAR HEMOGLOBIN 32.7 pg (27.0-33.4); MEAN CORPUSCULAR HGB CONC 33.1 g/dL (32.0-36.0); MEAN CORPUSCULAR VOLUME 99 fl (80-97); PLATELET COUNT 168 10^3/uL (150-450); RED BLOOD COUNT 3.57 10^6/uL (3.72-5.28); RED CELL DISTRIBUTION WIDTH 13.5 % (11.5-14.0)
[2019-12-25 16:58] LABS: INTERNATIONAL RATION (INR) 1.03; PROTHROMBIN TIME 13.5 SEC (11.4-15.4)
[2019-12-25 16:59] LABS: PARTIAL THROMBOPLASTIN TIME 24.1 SEC (23.5-35.8)
[2019-12-25 17:12] LABS: ABSOLUTE LYMPHOCYTES# (MANUAL) 0.6 10^3/uL (0.5-4.7); BASOPHILS % (MANUAL) 0 % (0-2); EOSINOPHILS % (MANUAL) 0 % (0-6); LYMPHOCYTES % (MANUAL) 4 % (13-45); MONOCYTES % (MANUAL) 7 % (3-13); PLATELET COMMENT ADEQUATE; RBC MORPHOLOGY COMMENT NORMO-CYTIC/CHROMIC; SEGMENTED NEUTROPHILS % (MAN) 89 % (42-78); TOTAL CELLS COUNTED 100
[2019-12-25 17:14] LABS: ALBUMIN 3.3 g/dL (3.5-5.0); ALKALINE PHOSPHATASE 96 U/L (38-126); ANION GAP 9 (5-19); ASPARTATE AMINO TRANSFERASE 20 U/L (14-36); BILIRUBIN,DIRECT 0.1 mg/dL (0.0-0.4); BLOOD UREA NITROGEN 34 mg/dL (7-20); CARBON DIOXIDE 27 mmol/L (22-30); CHLORIDE 107 mmol/L (98-107); GLUCOSE 391 mg/dL (75-110); POTASSIUM 4.6 mmol/L (3.6-5.0)
[2019-12-25 17:23] LABS: APPEARANCE,URINE CLEAR; BILIRUBIN,URINE NEGATIVE (NEGATIVE); COLOR,URINE YELLOW; GLUCOSE, URINE >=500 mg/dL (NEGATIVE); KETONES,URINE 20 mg/dL (NEGATIVE); LEUKOCYTE ESTERASE,URINE NEGATIVE (NEGATIVE); NITRITE,URINE NEGATIVE (NEGATIVE); PROTEIN,URINE NEGATIVE (NEGATIVE); URINE SPECIFIC GRAVITY 1.029; UROBILINOGEN,URINE NEGATIVE mg/dL (<2.0)
[2019-12-25] MEDS ORDERED: MORPHINE SULFATE 10 MG/ML INJ IV ONE (17:31)
[2019-12-25] MEDS ORDERED: DEXTROSE 40% GEL 15 GM TUBE PO PRN ×2 (17:52)
[2019-12-25] MEDS ORDERED: DEXTROSE 50%-WATER 25 GM/50 ML DISP.SYRIN IV PRN ×2 (17:52)
[2019-12-25] MEDS ORDERED: GLUCAGON,HUMAN RECOMB 1 MG INJ IM PRN (17:52)
[2019-12-25] MEDS ORDERED: ACETAMINOPHEN 325 MG TABLET PO PRN (17:55)
--- NOTE | 2019-12-25 18:41 | EKG REPORT ---
SEVERITY:- ABNORMAL ECG - SINUS TACHYCARDIA ATRIAL PREMATURE COMPLEX LEFT ANTERIOR FASCICULAR BLOCK LEFT VENTRICULAR HYPERTROPHY ANTERIOR Q WAVES, POSSIBLY DUE TO LVH : Confirmed by: Chloe Villa 25-Dec-2019 18:41:20
--- NOTE | 2019-12-25 19:06 | PDOC H&P ---
History of Present Illness Admission Date/PCP: 12/25/19 16:35 AMAYA RODOLFO Patient complains of: Fall, difficulty with walking, right hip pain History of Present Illness: HERMAN ZHANG is a 89 year old female patient known to my practice who was brought to the ED via EMS following incident of fall at home while she was walking and tripped on her self as per daughter's report. Daughter reported walking behind patient as a support and landed to the floor on top of the patient during the fall incident. There was no loss of consciousness or observed difficulty with breathing. Subsequently family noted expressed pain with attempt at walking. Her mentation did changed and family alerted EMS. EMS personnel reported significant hyperglycemia upon their arrival at patient's home. She was transferred to the ED for further evaluation and management. Her initial evaluation in the ED was significant for right intertrochanteric fracture and hyperglycemia. Her family (daughters and grand son) at bedside were informed about need for hospitalization for further evaluation and management. Her medical morbidities are listed below. Past Medical History Cardiac Medical History: Reports: Hypertension - MEDICATED/ CONTROLLED Denies: Coronary Artery Disease, Myocardial Infarction Pulmonary Medical History: Denies: Asthma, Bronchitis, Chronic Obstructive Pulmonary Disease (COPD), Pneumonia Neurological Medical History: Denies: Seizures Endocrine Medical History: Reports: Diabetes Mellitus Type 2 - pills only GI Medical History: Denies: Hepatitis, Hiatal Hernia Musculoskeltal Medical History: Reports: Arthritis Hematology: Denies: Anemia, Sickle Cell Disease Past Surgical History Past Surgical History: Denies: Amputation, Hysterectomy, Mastectomy, Pacemaker Social History Smoking Status: Unknown if Ever Smoked - Advance Directive Resuscitation Status: Full Code Family History Family History: Reviewed & Not Pertinent Parental Family History Reviewed: Yes Children Family History Reviewed: Yes Sibling(s) Family History Reviewed.: Yes Medication/Allergy Home Medications: Gabapentin [Neurontin 100 mg Capsule] 100 mg PO QHS 08/21/19 Glipizide [Glucotrol 10 mg Tablet] 10 mg PO DAILY 08/21/19 Metformin HCl 850 mg PO BID 08/21/19 Montelukast Sodium [Singulair 10 mg Tablet] 10 mg PO QHS 08/21/19 Ramipril [Altace 2.5 mg Capsule] 2.5 mg PO DAILY 08/21/19 Risperidone [Risperdal 0.25 mg Tablet] 1 mg PO Q12 08/21/19 Allergies/Adverse Reactions: No Known Allergies Allergy (Verified 08/21/19 12:47) Review of Systems ROS unobtainable: Due to mental status Physical Exam Vital Signs: Temp Pulse Resp BP Pulse Ox 98 F 108 H 22 H 167/67 H 100 12/25/19 15:13 12/25/19 15:13 12/25/19 15:13 12/25/19 17:01 12/25/19 17:01 Intake & Output 12/24/19 12/25/19 12/26/19 06:59 06:59 06:59 Weight 46.7 kg General appearance: PRESENT: thin Head exam: PRESENT: atraumatic, normocephalic Eye exam: PRESENT: conjunctiva pink. ABSENT: scleral icterus Ear exam: PRESENT: normal external ear exam Mouth exam: PRESENT: moist Respiratory exam: PRESENT: clear to auscultation uzma Cardiovascular exam: PRESENT: RRR. ABSENT: diastolic murmur, rubs, systolic murmur Vascular exam: ABSENT: pallor GI/Abdominal exam: PRESENT: normal bowel sounds, soft. ABSENT: distended, guarding, mass, organolmegaly, rebound, tenderness Rectal exam: PRESENT: deferred Extremities exam: ABSENT: pedal edema Musculoskeletal exam: PRESENT: deformity - related to her multiple joints involvement with arthritis Neurological exam: PRESENT: altered - due to her baseline dementia. Psychiatric exam: ABSENT: agitated, anxious, homicidal ideation, suicidal ideation Skin exam: PRESENT: dry, warm Results Laboratory Results: 12/25/19 16:32 12/25/19 16:32 12/25/19 12/25/19 12/25/19 16:32 16:32 16:53 WBC 14.0 H RBC 3.57 L Hgb 11.7 L Hct 35.4 L MCV 99 H MCH 32.7 MCHC 33.1 RDW 13.5 Plt Count 168 Seg Neutrophils % Not Reportable Sodium 143.1 Potassium 4.6 Chloride 107 Carbon Dioxide 27 Anion Gap 9 BUN 34 H Creatinine 1.01 Est GFR ( Amer) > 60 Glucose 391 H Calcium 9.0 Total Bilirubin 1.0 AST 20 Alkaline Phosphatase 96 Total Protein 6.0 L Albumin 3.3 L Urine Color YELLOW Urine Appearance CLEAR Urine pH 5.0 Ur Specific [place] 1.029 Urine Protein NEGATIVE Urine Glucose (UA) >=500 H Urine Ketones 20 H Urine Blood SMALL H Urine Nitrite NEGATIVE Ur Leukocyte Esterase NEGATIVE Urine WBC (Auto) 1 Impressions: Hip/Pelvis X-Ray 12/25/19 15:04 IMPRESSION: Intertrochanteric fracture of the right hip. Assessment & Plan - Diagnosis (1) Intertrochanteric fracture of right hip Qualifiers: Encounter type: initial encounter Fracture type: closed Fracture alignment: displaced Qualified Code(s): S72.141A - Displaced intertrochanteric fracture of right femur, initial encounter for closed fracture Is this a current diagnosis for this admission?: Yes Plan: See admitting attending physician orders for details about care plan. She will be taken to surgery by Dr. Echevarria, orthopedic surgeon, tomorrow morning as per my discussion with him this evening. Her surgeon is planned to be completed under spinal anesthesia. (2) Type 2 diabetes mellitus Qualifiers: Diabetes mellitus moth exterminator insulin use: without moth exterminator use Diabetes mellitus complication status: with hyperglycemia Qualified Code(s): E11.65 - Type 2 diabetes mellitus with hyperglycemia Is this a current diagnosis for this admission?: Yes Plan: See admitting attending physician orders for details about care plan. (3) Hypertension Qualifiers: Hypertension type: essential hypertension Qualified Code(s): I10 - Essential (primary) hypertension Is this a current diagnosis for this admission?: Yes Plan: See admitting attending physician orders for details about care plan. (4) SDAT (senile dementia of Alzheimer's type) Is this a current diagnosis for this admission?: Yes Plan: See admitting attending physician orders for details about care plan. - Time Time Spent: 50 to 70 Minutes Medications reviewed and adjusted accordingly: Yes Anticipated discharge: SNF Within: Other - Inpatient Certification Based on my medical assessment, after consideration of the patient's comorbidities, presenting symptoms, or acuity I expect that the services needed warrant INPATIENT care.: Yes I certify that my determination is in accordance with my understanding of Medicare's requirements for reasonable and necessary INPATIENT services [42 CFR 412.3e].: Yes Medical Necessity: Significant Comorbidiites Make Outpatient Treatment Too Risky, Need Close Monitoring Due to Risk of Patient Decompensation, Need For IV Fluids, Need For Continuous Telemetry Monitoring, Need for Pain Control, Need for Surgery, Risk of Complication if Not Cared For in Hospital, Risk of Diagnosis Which Will Require Inpatient Eval/Care/Monitoring Post Hospital Care: D/C or Transfer Summary - Plan Summary Plan Summary: See admitting attending physician orders for details about care plan.
--- NOTE | 2019-12-25 19:26 | RADIOLOGY REPORT (SQ) ---
EXAM DESCRIPTION: CHEST SINGLE VIEW COMPLETED DATE/TIME: 12/25/2019 6:51 pm REASON FOR STUDY: Altered mental status with right hip fracture COMPARISON: 08/21/2019 TECHNIQUE: Single frontal radiographic view of the chest acquired. NUMBER OF VIEWS: One view. LIMITATIONS: None. FINDINGS: LUNGS AND PLEURA: No pneumothorax. No consolidation or pleural effusion. MEDIASTINUM AND HILAR STRUCTURES: Stable. HEART AND VASCULAR STRUCTURES: Stable. BONES: No acute findings. HARDWARE: None in the chest. OTHER: No other significant finding. IMPRESSION: NO ACUTE FINDINGS. TECHNICAL DOCUMENTATION: JOB ID: [id number] [place]-72 2010 [employer]- All Rights Reserved Reading location - IP/workstation name: [email or web address]
[2019-12-25 20:16] LABS: CREATINE KINASE MB 3.75 ng/mL (<4.55); TROPONIN I 0.029 ng/mL
[2019-12-25] MEDS: INSULIN LISPRO 100 UNIT/ML 3 ML VIAL SUBCUT SCH (21:20)
[2019-12-25] MEDS ORDERED: RISPERIDONE 0.25 MG TABLET PO SCH (22:00)
[2019-12-25] MEDS: RAMIPRIL 2.5 MG CAPSULE PO SCH (22:12)
[2019-12-25] MEDS: GABAPENTIN 100 MG CAPSULE PO SCH (22:12)
[2019-12-25] MEDS: RISPERIDONE 1 MG TABLET PO SCH (22:12)
[2019-12-25] MEDS: NORMAL SALINE 1000 ML 1,000 ML IV PRN (23:06)
[2019-12-26 01:51] LABS: CREATINE KINASE MB 3.31 ng/mL (<4.55); TROPONIN I 0.031 ng/mL
[2019-12-26] MEDS: PANTOPRAZOLE SODIUM 40 MG TABLET.DR PO SCH (05:04)
[2019-12-26] MEDS: INSULIN LISPRO 100 UNIT/ML 3 ML VIAL SUBCUT SCH ×3 (07:50→15:45)
[2019-12-26 07:56] LABS: ABSOLUTE LYMPHOCYTES (AUTO) 0.6 10^3/uL (0.5-4.7); ABSOLUTE MONOCYTES (AUTO) 0.7 10^3/uL (0.1-1.4); HEMOGLOBIN 11.1 g/dL (12.0-15.5); MEAN CORPUSCULAR HEMOGLOBIN 33.6 pg (27.0-33.4); TOTAL CELLS COUNTED % (AUTO) 100 %
[2019-12-26 08:04] LABS: ALBUMIN 2.9 g/dL (3.5-5.0); ALKALINE PHOSPHATASE 77 U/L (38-126); ANION GAP 6 (5-19); ASPARTATE AMINO TRANSFERASE 21 U/L (14-36); BILIRUBIN,DIRECT 0.4 mg/dL (0.0-0.4); BLOOD UREA NITROGEN 30 mg/dL (7-20); CALCIUM 8.5 mg/dL (8.4-10.2); CARBON DIOXIDE 27 mmol/L (22-30); CHLORIDE 114 mmol/L (98-107); CREATINE KINASE 242 U/L (30-135); GLUCOSE 226 mg/dL (75-110); POTASSIUM 4.5 mmol/L (3.6-5.0); TOTAL PROTEIN 5.6 g/dL (6.3-8.2)
[2019-12-26 08:13] LABS: ABSOLUTE EOSINOPHILS # (AUTO) 0.1 10^3/uL (0.0-0.6); ABSOLUTE NEUT (AUTO) 8.4 10^3/uL (1.7-8.2); BASOPHILS % (AUTO) 0.4 % (0-2); EOSINOPHILS % (AUTO) 0.6 % (0-6); HEMATOCRIT 32.6 % (36.0-47.0); MEAN CORPUSCULAR HGB CONC 34.1 g/dL (32.0-36.0); MEAN CORPUSCULAR VOLUME 98 fl (80-97); MONOCYTES % (AUTO) 7.2 % (3-13); PLATELET COUNT 166 10^3/uL (150-450); RED BLOOD COUNT 3.31 10^6/uL (3.72-5.28); RED CELL DISTRIBUTION WIDTH 13.6 % (11.5-14.0); SEGMENTED NEUTROPHILS % (AUTO) 85.8 % (42-78); WHITE BLOOD COUNT 9.8 10^3/uL (4.0-10.5)
--- NOTE | 2019-12-26 08:16 | PDOC CONSULTATION ---
Consultation Consult Date: 12/26/19 Provider Consulted: THONG KASPER JR History of Present Illness Admission Date/PCP: 12/25/19 16:35 AMAYA RODOLFO Patient complains of: right hip pain History of Present Illness: HERMAN ZHANG is a 89 year old female who was brought to the emergency department following a fall at home. The daughter witnessed her trip and landed on her right side. There was no loss of consciousness, patient has altered mental status at baseline. At this time she is responsive to pain and stimulation but not to verbal communication. She cannot add to her current history. Reportedly her mentation has changed around the 24-hour period of the fall. After speaking with family on the telephone it is difficult for me to appreciate whether this is from the fall or potentially led to the fall. She is being admitted for medical management. As well as operative intervention for her right hip fracture. Past Medical History Past Medical History: Unable to obtain directly from patient due to altered mental status Cardiac Medical History: Reports: Hypertension - MEDICATED/ CONTROLLED Denies: Coronary Artery Disease, Myocardial Infarction Pulmonary Medical History: Denies: Asthma, Bronchitis, Chronic Obstructive Pulmonary Disease (COPD), Pneumonia Neurological Medical History: Denies: Seizures Endocrine Medical History: Reports: Diabetes Mellitus Type 2 - pills only GI Medical History: Denies: Hepatitis, Hiatal Hernia Musculoskeltal Medical History: Reports: Arthritis Hematology: Denies: Anemia, Sickle Cell Disease Past Surgical History Past Surgical History: Denies: Amputation, Hysterectomy, Mastectomy, Pacemaker Social History Smoking Status: Current Every Day Smoker - Advance Directive Resuscitation Status: Full Code Family History Family History: Reviewed & Not Pertinent Parental Family History Reviewed: No Children Family History Reviewed: NA Sibling(s) Family History Reviewed.: NA Medication/Allergy Home Medications: Gabapentin [Neurontin 100 mg Capsule] 100 mg PO QHS 08/21/19 Glipizide [Glucotrol 10 mg Tablet] 10 mg PO DAILY 08/21/19 Metformin HCl 850 mg PO BID 08/21/19 Montelukast Sodium [Singulair 10 mg Tablet] 10 mg PO QHS 08/21/19 Ramipril [Altace 2.5 mg Capsule] 2.5 mg PO DAILY 08/21/19 Risperidone [Risperdal 0.25 mg Tablet] 1 mg PO Q12 08/21/19 Allergies/Adverse Reactions: No Known Allergies Allergy (Verified 08/21/19 12:47) Review of Systems ROS unobtainable: Due to mental status Physical Exam Vital Signs: Temp Pulse Resp BP Pulse Ox 97.9 F 85 14 152/64 H 99 12/25/19 23:19 12/25/19 23:19 12/25/19 23:19 12/25/19 23:19 12/25/19 23:19 Intake & Output 12/25/19 12/26/19 12/27/19 06:59 06:59 06:59 Intake Total 0 Output Total 600 Balance -600 Weight 44.1 kg Physical Exam: General appearance: PRESENT: no acute distress, thin in appearance, minimally responsive. Responsive to physical stimulus Head exam: PRESENT: atraumatic, normocephalic Eye exam: PRESENT: EOMI Ear exam: PRESENT: normal external ear exam Mouth exam: PRESENT: neck supple Neck exam: ABSENT: tracheal deviation Respiratory exam: PRESENT: symmetrical, unlabored. ABSENT: accessory muscle use, wheezes Pulses: PRESENT: normal radial pulses, normal dorsalis pedis pulse Vascular exam: PRESENT: normal capillary refill GI/Abdominal exam: ABSENT: distended, firm Extremities exam: PRESENT: full ROM of bilateral shoulders, elbows wrists, knees, hips and ankles without pain aside from right hip, severely painful to logroll. Musculoskeletal exam: PRESENT: full ROM, normal inspection of all 4 extremities aside from that noted below. Neurological exam: PRESENT: alert, awake, oriented to person, oriented to place, oriented to time Psychiatric exam: PRESENT: appropriate affect. ABSENT: agitated Focused psych exam: ABSENT: catatonic Skin exam: PRESENT: intact. ABSENT: dry Right lower extremity -Pulses 2+ distally -Compartments soft - patient responds to mechanical stimulus by grossly removing the foot ankle and toes Results Laboratory Results: 12/25/19 16:32 12/25/19 16:32 12/25/19 12/25/19 12/25/19 16:32 16:32 16:53 WBC 14.0 H RBC 3.57 L Hgb 11.7 L Hct 35.4 L MCV 99 H MCH 32.7 MCHC 33.1 RDW 13.5 Plt Count 168 Seg Neutrophils % Not Reportable Sodium 143.1 Potassium 4.6 Chloride 107 Carbon Dioxide 27 Anion Gap 9 BUN 34 H Creatinine 1.01 Est GFR ( Amer) > 60 Glucose 391 H Calcium 9.0 Total Bilirubin 1.0 AST 20 Alkaline Phosphatase 96 Total Protein 6.0 L Albumin 3.3 L Urine Color YELLOW Urine Appearance CLEAR Urine pH 5.0 Ur Specific [place] 1.029 Urine Protein NEGATIVE Urine Glucose (UA) >=500 H Urine Ketones 20 H Urine Blood SMALL H Urine Nitrite NEGATIVE Ur Leukocyte Esterase NEGATIVE Urine WBC (Auto) 1 12/25/19 12/25/19 12/26/19 16:32 16:32 00:59 Creatine Kinase 264 H 261 H CK-MB (CK-2) 3.75 Troponin I 0.029 12/26/19 00:59 Creatine Kinase CK-MB (CK-2) 3.31 Troponin I 0.031 Impressions: Chest X-Ray 12/25/19 00:00 IMPRESSION: NO ACUTE FINDINGS. Hip/Pelvis X-Ray 12/25/19 15:04 IMPRESSION: Intertrochanteric fracture of the right hip. Assessment & Plan - Diagnosis (1) Intertrochanteric fracture of right hip Qualifiers: Encounter type: initial encounter Fracture type: closed Fracture alignment: displaced Qualified Code(s): S72.141A - Displaced intertrochanteric fracture of right femur, initial encounter for closed fracture Is this a current diagnosis for this admission?: Yes Plan: We will plan for operative intervention tomorrow. Patient may eat today. -Need for their clearance prior to surgical intervention. -Work-up altered mental status including potential head CT, will discuss with hospitalist. -Hold all DVT prophylaxis after midnight aside from SCDs.
[2019-12-26 08:21] LABS: CREATINE KINASE MB 2.64 ng/mL (<4.55); TROPONIN I 0.025 ng/mL
[2019-12-26] MEDS: NORMAL SALINE 1000 ML 1,000 ML IV PRN ×2 (09:15→20:37)
[2019-12-26] MEDS: ENOXAPARIN SODIUM INJ 30 MG/0.3 ML DISP.SYRIN SUBCUT SCH (09:15)
[2019-12-26] MEDS ORDERED: CEFTRIAXONE 1 GM/D5W RTU 1 GM/50 ML RTUPB IV SCH (10:00)
--- NOTE | 2019-12-26 10:21 | PDOC PROGRESS REPORT ---
Subjective Progress Note for:: 12/26/19 Subjective:: Patient was admitted for the right intertrochanteric fractures and hyperglycemia Adding to the Dr. Roach's yesterday that patient's cardiac enzyme is all okay patients can go for surgery but today's the orthopedic surgeons call me and said that the anesthesia of concern about the patient head status because the patient of altered mental status and according to the family patient was doing good before this episodes According to the family patient was more alert awake but patient with significant underlying dementia I am not sure what his baseline's At this point is discussed with orthopedic surgery to get the CT of the head get the cardiac evaluations order the echocardiogram discussed with the Dr. Howe before the patient's go for any surgical interventions When I saw the patient's alert awake but alter I am not sure what is the baseline's with underlying dementia's Reason For Visit: RIGHT HIP CLOSED FRACTURE,DIABETES MELLITUS TYPE 2 Physical Exam Vital Signs: Temp Pulse Resp BP Pulse Ox 98.2 F 77 20 173/52 H 97 12/26/19 07:56 12/26/19 07:56 12/26/19 07:56 12/26/19 07:56 12/26/19 07:56 Intake & Output 12/25/19 12/26/19 12/27/19 06:59 06:59 06:59 Intake Total 0 1000 Output Total 600 Balance -600 1000 Weight 44.1 kg General appearance: PRESENT: no acute distress Eye exam: PRESENT: PERRLA Mouth exam: PRESENT: neck supple Respiratory exam: PRESENT: clear to auscultation uzma Cardiovascular exam: PRESENT: +S1, +S2 GI/Abdominal exam: PRESENT: normal bowel sounds, soft Neurological exam: PRESENT: alert, altered, awake Skin exam: PRESENT: dry Results Laboratory Results: 12/26/19 07:27 12/26/19 07:27 12/25/19 12/25/19 12/25/19 16:32 16:32 16:33 WBC 14.0 H RBC 3.57 L Hgb 11.7 L Hct 35.4 L MCV 99 H MCH 32.7 MCHC 33.1 RDW 13.5 Plt Count 168 Seg Neutrophils % Not Reportable Sodium 143.1 Potassium 4.6 Chloride 107 Carbon Dioxide 27 Anion Gap 9 BUN 34 H Creatinine 1.01 Est GFR ( Amer) > 60 Glucose 391 H Calcium 9.0 Magnesium Total Bilirubin 1.0 AST 20 Alkaline Phosphatase 96 Total Protein 6.0 L Albumin 3.3 L Urine Color Urine Appearance Urine pH Ur Specific [place] Urine Protein Urine Glucose (UA) Urine Ketones Urine Blood Urine Nitrite Ur Leukocyte Esterase Urine WBC (Auto) Blood Type O POSITIVE Antibody Screen NEGATIVE 12/25/19 12/26/19 12/26/19 16:53 07:27 07:27 WBC 9.8 RBC 3.31 L Hgb 11.1 L Hct 32.6 L MCV 98 H MCH 33.6 H MCHC 34.1 RDW 13.6 Plt Count 166 Seg Neutrophils % 85.8 H Sodium 147.4 H Potassium 4.5 Chloride 114 H Carbon Dioxide 27 Anion Gap 6 BUN 30 H Creatinine 0.72 Est GFR ( Amer) > 60 Glucose 226 H Calcium 8.5 Magnesium 2.2 Total Bilirubin 1.0 AST 21 Alkaline Phosphatase 77 Total Protein 5.6 L Albumin 2.9 L Urine Color YELLOW Urine Appearance CLEAR Urine pH 5.0 Ur Specific [place] 1.029 Urine Protein NEGATIVE Urine Glucose (UA) >=500 H Urine Ketones 20 H Urine Blood SMALL H Urine Nitrite NEGATIVE Ur Leukocyte Esterase NEGATIVE Urine WBC (Auto) 1 Blood Type Antibody Screen 12/25/19 12/25/19 12/26/19 16:32 16:32 00:59 Creatine Kinase 264 H 261 H CK-MB (CK-2) 3.75 Troponin I 0.029 12/26/19 12/26/19 12/26/19 00:59 07:27 07:27 Creatine Kinase 242 H CK-MB (CK-2) 3.31 2.64 Troponin I 0.031 0.025 Impressions: Chest X-Ray 12/25/19 00:00 IMPRESSION: NO ACUTE FINDINGS. Hip/Pelvis X-Ray 12/25/19 15:04 IMPRESSION: Intertrochanteric fracture of the right hip. Assessment & Plan - Diagnosis (1) Altered mental status Qualifiers: Altered mental status type: unspecified Qualified Code(s): R41.82 - Altered mental status, unspecified Is this a current diagnosis for this admission?: Yes Plan: We will get the CT of the head Also get the urine culture blood culture Chest x-ray (2) Intertrochanteric fracture of right hip Qualifiers: Encounter type: initial encounter Fracture type: closed Fracture alignment: displaced Qualified Code(s): S72.141A - Displaced intertrochanteric fracture of right femur, initial encounter for closed fracture Is this a current diagnosis for this admission?: Yes Plan: Discussed with the surgery wait for another 24 hours to clear the patient's we will get the CT of the head echocardiogram cardiac evaluations blood work (3) Poorly controlled diabetes mellitus Is this a current diagnosis for this admission?: Yes Plan: Continues a sliding scales (4) SDAT (senile dementia of Alzheimer's type) Is this a current diagnosis for this admission?: Yes Plan: Really worsening the dementia's (5) Hypertension Qualifiers: Hypertension type: essential hypertension Qualified Code(s): I10 - Essential (primary) hypertension Is this a current diagnosis for this admission?: Yes - Time Time Spent with patient: 15-24 minutes Level of Care: TELE Medications reviewed and adjusted accordingly: Yes Anticipated discharge: Other Within: Other - Plan Summary Plan Summary: See the above discussions
[2019-12-26] MEDS: RISPERIDONE 1 MG TABLET PO SCH ×2 (10:30→21:02)
[2019-12-26] MEDS: RAMIPRIL 2.5 MG CAPSULE PO SCH (10:30)
--- NOTE | 2019-12-26 11:04 | RADIOLOGY REPORT (SQ) ---
EXAM DESCRIPTION: CT HEAD WITHOUT COMPLETED DATE/TIME: 12/26/2019 10:34 am REASON FOR STUDY: Altered mental status COMPARISON: 04/27/2017 TECHNIQUE: Axial images acquired through the brain without intravenous contrast. Images reviewed wi th bone, brain and subdural windows. Additional sagittal and coronal reconstructions were generated. Images stored on PACS. All CT scanners at this facility use dose modulation, iterative reconstruction, and/or weight based d osing when appropriate to reduce radiation dose to as low as reasonably achievable (ALARA). [facility]: Dose Right [facility]: CareDose [facility]: Dose Right [facility]: Teradose 4D [facility]: [facility] [employer] RADIATION DOSE: CT Rad equipment meets quality standard of care and radiation dose reduction techniq ues were employed. CTDIvol: 53.2 mGy. DLP: 1124 mGy-cm.mGy. LIMITATIONS: None. FINDINGS: VENTRICLES: Prominent. CEREBRUM: No masses. No hemorrhage. No midline shift. Areas of low density in the white matter mos t likely due to chronic micro-vascular ischemic change. No evidence for acute infarction. CEREBELLUM: No masses. No hemorrhage. No alteration of density. No evidence for acute infarction. EXTRAAXIAL SPACES: Age-related involutional change. No fluid collections. No masses. ORBITS AND GLOBE: No intra- or extraconal masses. Normal contour of globe without masses. CALVARIUM: No fracture. PARANASAL SINUSES: No fluid or mucosal thickening. SOFT TISSUES: No mass or hematoma. OTHER: No other significant finding. IMPRESSION: CHRONIC CHANGES OF ATROPHY AND MICROVASCULAR ISCHEMIA. NO ACUTE PROCESS. EVIDENCE OF ACUTE STROKE: NO. TECHNICAL DOCUMENTATION: JOB ID: [id number] Quality ID # [id number]: Final reports with documentation of one or more dose reduction techniques (e.g., Au tomated exposure control, adjustment of the mA and/or kV according to patient size, use of iterative reconstruction technique) 2010 [employer]- All Rights Reserved Reading location - IP/workstation name: [email or web address]
[2019-12-26] MEDS: MORPHINE SULFATE 10 MG/ML INJ IV PRN (15:08)
[2019-12-26] MEDS ORDERED: LORAZEPAM INJ 2 MG/1 ML VIAL IV PRN (18:07)
--- NOTE | 2019-12-26 18:13 | Progress Note ---
Provider Note Provider Note: Discussed with the patient's family including the mother and the granddaughter regarding the patient's current conditions Patient CT head is negative's Patient seen by the cardiology Echocardiogram done Discussed with the patient's and family about agitations with the worsening the dementia with some encephalopathy Discussed about the CODE STATUS and the granddaughter will talk to the family Patient with multiple risk factor including the worsening the dementia's with advanced age We will try to use the Toradol as needed for pain in use the PRN morphine
--- NOTE | 2019-12-26 18:20 | PDOC CONSULTATION ---
Consultation-Blank Consultation: CARDIOLOGY CONSULTATION by Dr. Aggie Butler on 12/26/2019. Patient seen at 1 PM.0 60-minute spent on the patient with more than 50% of time spent in direct patient care. REASON FOR CONSULTATION: Is preoperative cardiac risk assessment for left hip surgery. CONSULT REQUESTING PHYSICIAN: Dr. Carvalho, covering for Dr. Roach. HISTORY of PRESENT ILLNESS: Obtained from granddaughter since the patient is demented and cannot give a history. Patient is a 89-year-old female with known history of advanced dementia, hypertension, diabetes mellitus who had an accidental fall and complained of pain in the left hip and was found to have a fracture of the left hip and is for surgical treatment of the same. There is no symptoms suggestive of TIA CVA or syncope. The patient as per the granddaughter has no history of coronary artery disease asthma or COPD although the patient is a smoker. She in spite of her dementia was able to ambulate on her own. There is no history of congestive heart failure. There is no history of TIA or CVA. Past Medical History Cardiac Medical History: Reports: Hypertension - MEDICATED/ CONTROLLED Denies: Coronary Artery Disease, Myocardial Infarction Pulmonary Medical History: Denies: Asthma, Bronchitis, Chronic Obstructive Pulmonary Disease (COPD), Pneumonia Neurological Medical History: Denies: Seizures Endocrine Medical History: Reports: Diabetes Mellitus Type 2 - pills only GI Medical History: Denies: Hepatitis, Hiatal Hernia Musculoskeltal Medical History: Reports: Arthritis Hematology: Denies: Anemia, Sickle Cell Disease Past Surgical History Past Surgical History: Denies: Amputation, Hysterectomy, Mastectomy, Pacemaker Social History Smoking Status: Is a smoker. - Advance Directive Resuscitation Status: Full Code. The patient's daughter is her surrogate healthcare decision maker. Family History Family History: Reviewed & Not Pertinent Parental Family History Reviewed: Yes Children Family History Reviewed: Yes Sibling(s) Family History Reviewed.: Yes Medication/Allergy Home Medications: Gabapentin [Neurontin 100 mg Capsule] 100 mg PO QHS 08/21/19 Glipizide [Glucotrol 10 mg Tablet] 10 mg PO DAILY 08/21/19 Metformin HCl 850 mg PO BID 08/21/19 Montelukast Sodium [Singulair 10 mg Tablet] 10 mg PO QHS 08/21/19 Ramipril [Altace 2.5 mg Capsule] 2.5 mg PO DAILY 08/21/19 Risperidone [Risperdal 0.25 mg Tablet] 1 mg PO Q12 08/21/19 Allergies/Adverse Reactions: No Known Allergies Allergy (Verified 08/21/19 12:47) Current Medications Generic Name Dose Route Start Last Admin Trade Name Freq PRN Reason Stop Dose Admin Acetaminophen 650 mg 12/25/19 17:55 Tylenol 325 Mg Tablet PO 01/24/20 17:54 Q4HP PRN FEVER >101 Dextrose 12.5 gm 12/25/19 17:52 Dextrose Inj 50% Syringe (25 Gm/50 Ml) IV 01/24/20 17:51 PRN PRN FOR BG 50-69 IN ALERT PATIENT Protocol Dextrose 25 gm 12/25/19 17:52 Dextrose Inj 50% Syringe (25 Gm/50 Ml) IV 01/24/20 17:51 PRN PRN PER PROTOCOL Protocol Enoxaparin Sodium 30 mg 12/26/19 10:00 12/26/19 09:15 Lovenox Inj 30 Mg/0.3 Ml Disp.Syrin SUBCUT 01/25/20 09:59 30 mg DAILY WILLY Administration Gabapentin 100 mg 12/25/19 22:00 12/25/19 22:12 Neurontin 100 Mg Capsule PO 01/24/20 21:59 Not Given QHS WILLY Glucagon 1 mg 12/25/19 17:52 Glucagen Inj 1 Mg Vial IM 01/24/20 17:51 PRN PRN Evaluate for BG < 70 Protocol Glucose 15 gm 12/25/19 17:52 Glutose 40% Gel 15 Gm Tube PO 01/24/20 17:51 PRN PRN FOR BG 50-69 IN ALERT PATIENT Protocol Glucose 30 gm 12/25/19 17:52 Glutose 40% Gel 15 Gm Tube PO 01/24/20 17:51 PRN PRN FOR BG < 50 IN ALERT PATIENT Protocol Sodium Chloride 1,000 mls @ 100 mls/hr 12/25/19 17:52 12/26/19 09:15 Nacl 0.9% 1000 Ml Iv Soln IV 01/24/20 17:51 100 mls/hr CONTINUOUS PRN Administration THIS MED IS NOT "PRN" Insulin Human Lispro 0 - 12 unit 12/25/19 22:00 12/26/19 15:45 Humalog Insulin 100 Unit/1 Ml 3 Ml Vial SUBCUT 01/24/20 21:59 Not Given ACHS WILLY Protocol Lorazepam 0.5 mg 12/26/19 18:07 Ativan Inj 2 Mg/1 Ml Vial IV 01/02/20 18:06 Q6HP PRN ANXIETY/AGITATION Morphine Sulfate 1 mg 12/25/19 17:55 12/26/19 15:08 Morphine 10 Mg/Ml Inj IV 01/01/20 17:54 1 mg Q4HP PRN Administration FOR PAIN Pantoprazole Sodium 40 mg 12/26/19 06:00 12/26/19 05:[address] Tablet PO 01/25/20 05:59 Not Given Q6AM WILLY Ramipril 2.5 mg 12/25/19 19:00 12/26/19 10:30 Altace 2.5 Mg Capsule PO 01/24/20 18:59 Not Given DAILY WILLY Risperidone 1 mg 12/25/19 22:00 12/26/19 10:30 Risperdal 1 Mg Tablet PO 01/24/20 21:59 Not Given Q12 WILLY Discontinued Medications Generic Name Dose Route Start Last Admin Trade Name Freq PRN Reason Stop Dose Admin Sodium Chloride 1,000 mls @ 125 mls/hr 12/25/19 15:10 12/26/19 10:59 Nacl 0.9% 1000 Ml Iv Soln IV 12/25/19 23:09 Infused BOLUS ONE Infusion Ceftriaxone Sodium/Dextrose 1 gm in 50 mls @ 100 mls/hr 12/26/19 10:00 Rocephin Rtu 1 Gm/D5w 50 Ml Premix IV 01/02/20 09:59 DAILY [facility] Morphine Sulfate 2 mg 12/25/19 17:31 12/25/19 18:01 Morphine 10 Mg/Ml Inj IV 12/25/19 17:32 2 mg NOW ONE Administration Review of Systems ROS unobtainable: Due to mental status PHYSICAL EXAMINATION: The patient is a frail build and appears to be malnourished. At present she is gotten pain medication and is in no acute distress. Selected Entries 12/26/19 11:11 Temperature 98.2 F Temperature Axillary Source Pulse Rate 82 Respiratory 16 Rate Blood Pressure 153/56 H Blood Pressure 88 Mean BP Location Right Arm BP Position Supine O2 Sat by Pulse 91 L Oximetry Oxygen Delivery Room Air Method HEAD: Is atraumatic normocephalic. EYES: Pupils are equal round regular reactive light accommodation. ENT is negative. SKIN: There is no skin rashes. There is no petechia or ecchymosis. NECK: Is supple. There is no JVD. Carotids are equal there is no bruit there is no lymphadenopathy. There is no accessory muscles of respiration use. Trachea central. There is no goiter. LUNGS: Is clear to auscultation percussion without any rhonchi rales or wheezing. HEART: S1-S2 is heard. There is no S3 gallop. There is no S4 gallop. There is murmur of mild aortic stenosis with preserved A2. There is no rub. ABDOMEN: Is soft. Nontender there is no paraspinal megaly. Bowel sounds are well heard. EXTREMITIES: Femorals are diminished. There is no femoral bruits. Leg pulses are diminished. There is foreshortening of the left lower extremity. There is no pedal edema. There is no DVT or cellulitis. There is no cyanosis or clubbing. [employer]: The patient is conscious confused disoriented x3. But moves all 4 extremities except the left lower extremity which is held without movement due to pain. PSYCHIATRIC: Not tested. The patient not agitated or anxious. Labs- Entire Visit 12/25/19 12/25/19 12/25/19 16:32 16:32 16:32 WBC 14.0 H RBC 3.57 L Hgb 11.7 L Hct 35.4 L MCV 99 H MCH 32.7 MCHC 33.1 RDW 13.5 Plt Count 168 Lymph % (Auto) Not Reportable Coffey % (Auto) Not Reportable Eos % (Auto) Not Reportable Baso % (Auto) Not Reportable Absolute Neuts (auto) Not Reportable Absolute Lymphs (auto) Not Reportable Absolute Monos (auto) Not Reportable Absolute Eos (auto) Not Reportable Absolute Basos (auto) Not Reportable Total Counted 100 Seg Neutrophils % Not Reportable Seg Neuts % (Manual) 89 H Lymphocytes % (Manual) 4 L Monocytes % (Manual) 7 Eosinophils % (Manual) 0 Basophils % (Manual) 0 Abs Neuts (Manual) 12.5 H Abs Lymphs (Manual) 0.6 Abs Monocytes (Manual) 1.0 Absolute Eos (Manual) 0.0 Abs Basophils (Manual) 0.0 Platelet Comment ADEQUATE RBC Morph Comment NORMO-CYTIC/CHROMIC PT 13.5 INR 1.03 APTT 24.1 Sodium 143.1 Potassium 4.6 Chloride 107 Carbon Dioxide 27 Anion Gap 9 BUN 34 H Creatinine 1.01 Est GFR ( Amer) > 60 Est GFR (MDRD) Non-Af 52 L Glucose 391 H POC Glucose Calcium 9.0 Magnesium Total Bilirubin 1.0 Direct Bilirubin 0.1 Neonat Total Bilirubin Not Reportable Neonat Direct Bilirubin Not Reportable Neonat Indirect Bili Not Reportable AST 20 ALT 15 Alkaline Phosphatase 96 Creatine Kinase CK-MB (CK-2) Troponin I Total Protein 6.0 L Albumin 3.3 L Urine Color Urine Appearance Urine pH Ur Specific [place] Urine Protein Urine Glucose (UA) Urine Ketones Urine Blood Urine Nitrite Urine Bilirubin Urine Urobilinogen Ur Leukocyte Esterase Urine WBC (Auto) Urine Mucus (Auto) Urine Ascorbic Acid Blood Type Antibody Screen 12/25/19 12/25/19 12/25/19 16:32 16:32 16:33 WBC RBC Hgb Hct MCV MCH MCHC RDW Plt Count Lymph % (Auto) Coffey % (Auto) Eos % (Auto) Baso % (Auto) Absolute Neuts (auto) Absolute Lymphs (auto) Absolute Monos (auto) Absolute Eos (auto) Absolute Basos (auto) Total Counted Seg Neutrophils % Seg Neuts % (Manual) Lymphocytes % (Manual) Monocytes % (Manual) Eosinophils % (Manual) Basophils % (Manual) Abs Neuts (Manual) Abs Lymphs (Manual) Abs Monocytes (Manual) Absolute Eos (Manual) Abs Basophils (Manual) Platelet Comment RBC Morph Comment PT INR APTT Sodium Potassium Chloride Carbon Dioxide Anion Gap BUN Creatinine Est GFR ( Amer) Est GFR (MDRD) Non-Af Glucose POC Glucose Calcium Magnesium Total Bilirubin Direct Bilirubin Neonat Total Bilirubin Neonat Direct Bilirubin Neonat Indirect Bili AST ALT Alkaline Phosphatase Creatine Kinase 264 H CK-MB (CK-2) 3.75 Troponin I 0.029 Total Protein Albumin Urine Color Urine Appearance Urine pH Ur Specific [place] Urine Protein Urine Glucose (UA) Urine Ketones Urine Blood Urine Nitrite Urine Bilirubin Urine Urobilinogen Ur Leukocyte Esterase Urine WBC (Auto) Urine Mucus (Auto) Urine Ascorbic Acid Blood Type O POSITIVE Antibody Screen NEGATIVE 12/25/19 12/25/19 12/26/19 16:53 21:10 00:59 WBC RBC Hgb Hct MCV MCH MCHC RDW Plt Count Lymph % (Auto) Coffey % (Auto) Eos % (Auto) Baso % (Auto) Absolute Neuts (auto) Absolute Lymphs (auto) Absolute Monos (auto) Absolute Eos (auto) Absolute Basos (auto) Total Counted Seg Neutrophils % Seg Neuts % (Manual) Lymphocytes % (Manual) Monocytes % (Manual) Eosinophils % (Manual) Basophils % (Manual) Abs Neuts (Manual) Abs Lymphs (Manual) Abs Monocytes (Manual) Absolute Eos (Manual) Abs Basophils (Manual) Platelet Comment RBC Morph Comment PT INR APTT Sodium Potassium Chloride Carbon Dioxide Anion Gap BUN Creatinine Est GFR ( Amer) Est GFR (MDRD) Non-Af Glucose POC Glucose 328 H Calcium Magnesium Total Bilirubin Direct Bilirubin Neonat Total Bilirubin Neonat Direct Bilirubin Neonat Indirect Bili AST ALT Alkaline Phosphatase Creatine Kinase 261 H CK-MB (CK-2) Troponin I Total Protein Albumin Urine Color YELLOW Urine Appearance CLEAR Urine pH 5.0 Ur Specific [place] 1.029 Urine Protein NEGATIVE Urine Glucose (UA) >=500 H Urine Ketones 20 H Urine Blood SMALL H Urine Nitrite NEGATIVE Urine Bilirubin NEGATIVE Urine Urobilinogen NEGATIVE Ur Leukocyte Esterase NEGATIVE Urine WBC (Auto) 1 Urine Mucus (Auto) RARE Urine Ascorbic Acid NEGATIVE Blood Type Antibody Screen 12/26/19 12/26/19 12/26/19 00:59 06:48 07:27 WBC 9.8 RBC 3.31 L Hgb 11.1 L Hct 32.6 L MCV 98 H MCH 33.6 H MCHC 34.1 RDW 13.6 Plt Count 166 Lymph % (Auto) 6.0 L Coffey % (Auto) 7.2 Eos % (Auto) 0.6 Baso % (Auto) 0.4 Absolute Neuts (auto) 8.4 H Absolute Lymphs (auto) 0.6 Absolute Monos (auto) 0.7 Absolute Eos (auto) 0.1 Absolute Basos (auto) 0.0 Total Counted Seg Neutrophils % 85.8 H Seg Neuts % (Manual) Lymphocytes % (Manual) Monocytes % (Manual) Eosinophils % (Manual) Basophils % (Manual) Abs Neuts (Manual) Abs Lymphs (Manual) Abs Monocytes (Manual) Absolute Eos (Manual) Abs Basophils (Manual) Platelet Comment RBC Morph Comment PT INR APTT Sodium Potassium Chloride Carbon Dioxide Anion Gap BUN Creatinine Est GFR ( Amer) Est GFR (MDRD) Non-Af Glucose POC Glucose 201 H Calcium Magnesium Total Bilirubin Direct Bilirubin Neonat Total Bilirubin Neonat Direct Bilirubin Neonat Indirect Bili AST ALT Alkaline Phosphatase Creatine Kinase CK-MB (CK-2) 3.31 Troponin I 0.031 Total Protein Albumin Urine Color Urine Appearance Urine pH Ur Specific [place] Urine Protein Urine Glucose (UA) Urine Ketones Urine Blood Urine Nitrite Urine Bilirubin Urine Urobilinogen Ur Leukocyte Esterase Urine WBC (Auto) Urine Mucus (Auto) Urine Ascorbic Acid Blood Type Antibody Screen 12/26/19 12/26/19 12/26/19 07:27 07:27 11:13 WBC RBC Hgb Hct MCV MCH MCHC RDW Plt Count Lymph % (Auto) Coffey % (Auto) Eos % (Auto) Baso % (Auto) Absolute Neuts (auto) Absolute Lymphs (auto) Absolute Monos (auto) Absolute Eos (auto) Absolute Basos (auto) Total Counted Seg Neutrophils % Seg Neuts % (Manual) Lymphocytes % (Manual) Monocytes % (Manual) Eosinophils % (Manual) Basophils % (Manual) Abs Neuts (Manual) Abs Lymphs (Manual) Abs Monocytes (Manual) Absolute Eos (Manual) Abs Basophils (Manual) Platelet Comment RBC Morph Comment PT INR APTT Sodium 147.4 H Potassium 4.5 Chloride 114 H Carbon Dioxide 27 Anion Gap 6 BUN 30 H Creatinine 0.72 Est GFR ( Amer) > 60 Est GFR (MDRD) Non-Af > 60 Glucose 226 H POC Glucose 265 H Calcium 8.5 Magnesium 2.2 Total Bilirubin 1.0 Direct Bilirubin 0.4 Neonat Total Bilirubin Not Reportable Neonat Direct Bilirubin Not Reportable Neonat Indirect Bili Not Reportable AST 21 ALT 14 Alkaline Phosphatase 77 Creatine Kinase 242 H CK-MB (CK-2) 2.64 Troponin I 0.025 Total Protein 5.6 L Albumin 2.9 L Urine Color Urine Appearance Urine pH Ur Specific [place] Urine Protein Urine Glucose (UA) Urine Ketones Urine Blood Urine Nitrite Urine Bilirubin Urine Urobilinogen Ur Leukocyte Esterase Urine WBC (Auto) Urine Mucus (Auto) Urine Ascorbic Acid Blood Type Antibody Screen 12/26/19 15:33 WBC RBC Hgb Hct MCV MCH MCHC RDW Plt Count Lymph % (Auto) Coffey % (Auto) Eos % (Auto) Baso % (Auto) Absolute Neuts (auto) Absolute Lymphs (auto) Absolute Monos (auto) Absolute Eos (auto) Absolute Basos (auto) Total Counted Seg Neutrophils % Seg Neuts % (Manual) Lymphocytes % (Manual) Monocytes % (Manual) Eosinophils % (Manual) Basophils % (Manual) Abs Neuts (Manual) Abs Lymphs (Manual) Abs Monocytes (Manual) Absolute Eos (Manual) Abs Basophils (Manual) Platelet Comment RBC Morph Comment PT INR APTT Sodium Potassium Chloride Carbon Dioxide Anion Gap BUN Creatinine Est GFR ( Amer) Est GFR (MDRD) Non-Af Glucose POC Glucose 207 H Calcium Magnesium Total Bilirubin Direct Bilirubin Neonat Total Bilirubin Neonat Direct Bilirubin Neonat Indirect Bili AST ALT Alkaline Phosphatase Creatine Kinase CK-MB (CK-2) Troponin I Total Protein Albumin Urine Color Urine Appearance Urine pH Ur Specific [place] Urine Protein Urine Glucose (UA) Urine Ketones Urine Blood Urine Nitrite Urine Bilirubin Urine Urobilinogen Ur Leukocyte Esterase Urine WBC (Auto) Urine Mucus (Auto) Urine Ascorbic Acid Blood Type Antibody Screen Chest X-Ray 12/25/19 00:00 IMPRESSION: NO ACUTE FINDINGS. Hip/Pelvis X-Ray 12/25/19 15:04 IMPRESSION: Intertrochanteric fracture of the right hip. Head CT 12/26/19 00:00 IMPRESSION: CHRONIC CHANGES OF ATROPHY AND MICROVASCULAR ISCHEMIA. NO ACUTE PROCESS. EVIDENCE OF ACUTE STROKE: NO. . SINUS TACHYCARDIA [APC] . ATRIAL PREMATURE COMPLEX [LAFB] . 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 LEFT VENTRICULAR HYPERTROPHY [AMI17] . ANTERIOR Q WAVES, POSSIBLY DUE TO LVH ECHOCARDIOGRAM: Shows normal left ventricle chamber size. There is no regional or focal wall motion abnormality. Ejection fraction is normal. There is mild aortic stenosis. There is no aortic regurgitation. There is mild mitral regurgitation. And mild tricuspid regurgitation. There is moderate pulmonary hypertension with right ventricle systolic pressure of 52 mmHg with a RA mean of 10. IMPRESSION/RECOMMENDATION: 1. Left hip fracture status post accidental fall. Patient for surgical repair of the same. 2. Hypertension: Blood pressure slightly elevated, this most likely secondary to the pain since pain due to left hip fracture. 3. Diabetes mellitus: Continue antidiabetic medication and Accu-Cheks as per protocol. 4. Mild hemodynamically nonsignificant aortic stenosis: No treatment needed at present. 5. Moderate pulmonary hypertension: Patient most likely has an element of COPD since she is a smoker. 6. History of tobacco abuse: Patient demented hence cannot world travel counselor the patient to discontinue smoking. 7. Preoperative cardiac risk assessment. The patient will be at least moderate cardiac risk for this procedure. This has been discussed with the family. Medications reviewed. Medication regimen and management plan discussed with attending physician Dr. Carvalho. Medical decision making is of high complexity. 60 minutes spent as patient more than 50% of time spent in direct patient care. Will follow.
[2019-12-26] MEDS: GABAPENTIN 100 MG CAPSULE PO SCH (21:02)
--- NOTE | 2019-12-26 21:02 | RADIOLOGY REPORT (SQ) ---
MR BRAIN WITHOUT IV CONTRAST EXAM DATE: 12/26/2019 12:00 AM GROUND HOST/HOSTESS HISTORY: Rule out stroke, decreased LOC. COMPARISON: None. TECHNIQUE: Multisequence, multiplanar MR imaging of the brain was performed without the administration of intravenous gadolinium. Motion artifact limits evaluation. FINDINGS: The ventricles, cisterns, and sulci are age-appropriate. There is no acute infarction, intracranial hemorrhage, extra-axial fluid collection, or mass. The orbits are unremarkable. The calvarium and skull base appear unremarkable. The paranasal sinuses are clear. IMPRESSION: No evidence of acute infarct.
--- NOTE | 2019-12-26 21:18 | XCELERA REPORT ---
[address] [address] Transthoracic Echocardiogram Report Name: HERMAN ZHANG Age: 89 yrs Gender: Female : 1930 Patient Status: Inpatient Patient Location: [facility]^A Study Date: 12/26/2019 04:33 PM Height: 60 in Weight: 97 lb BSA: 1.4 m2 Procedure: A two-dimensional transthoracic echocardiogram with color flow and Doppler was performed. The study was technically difficult with many images being suboptimal in quality. Reason For Study: cad History: MURMUR / PRE-OP. Ordering Physician: THOMAS NEGRETE Performed By: Landy Almazan Interpretation Summary The left ventricle is normal in size. There is normal left ventricular wall thickness. LV EF is 70% Left ventricular systolic function is normal. Doppler measurements suggest impaired left ventricular relaxation, which is associated with grade I/IV or mild diastolic dysfunction The left ventricular wall motion is normal. There is no thrombus. No ASD VSD,or PFO seen. The right ventricle is normal in size and function. The right ventricle is not well visualized secondary to technical limitations The right atrium is normal. The left atrial size is normal. There is mild mitral annular calcification. There is no evidence of mitral valve prolapse. There is no vegetation seen on the mitral valve. There is no mitral valve stenosis. There is a mild amount of mitral regurgitation There is no aortic valvular vegetation. There is mild aortic stenosis There is a peak gradient of 23 mm of Hg. No hemodynamically significant valvular aortic stenosis. No aortic regurgitation is present. There is no tricuspid stenosis. There is a mild amount of tricuspid regurgitation There is moderate pulmonary hypertension by echo RVSP is 52 to 57 mm of Hg , with RA mean of 10 to 15. There is no pulmonic valvular stenosis. There is no pulmonic valvular regurgitation. The aortic root is normal size. The inferior vena cava appeared normal and decreased < 50% with respiration (RAP 10-15 mmHg) There is no pericardial effusion. MMode/2D Measurements & Calculations RVDd: 2.1 cm LVIDd: 4.1 cm FS: 39.6 % Ao root diam: 2.3 cm IVSd: 0.95 cm LVIDs: 2.5 cm EDV(Teich): 73.6 ml Ao root area: 4.2 cm2 LVPWd: 0.87 cm ESV(Teich): 21.6 ml LA dimension: 2.6 cm EF(Teich): 70.6 % LVOT diam: 1.9 cm LVOT area: 2.8 cm2 Doppler Measurements & Calculations MV E max puja: MV P1/2t max puja: Ao V2 max: LV V1 max P.0 cm/sec 115.5 cm/sec 239.0 cm/sec 14.6 mmHg MV A max puja: MV P1/2t: 58.2 msec Ao max PG: LV V1 mean P.9 cm/sec MVA(P1/2t): 3.8 cm2 22.8 mmHg 8.1 mmHg MV E/A: 0.56 MV dec slope: Ao V2 mean: LV V1 max: 148.0 cm/sec 191.0 cm/sec 581.6 cm/sec2 Ao mean PG: LV V1 mean: MV dec time: 0.20 sec 10.2 mmHg 132.0 cm/sec Ao V2 VTI: 39.6 cmLV V1 VTI: 35.8 cm KEDAR(I,D): 2.5 cm2 KEDAR(V,D): 2.2 cm2 SV(LVOT): 99.5 ml TV V2 max: PA V2 max: MV P1/2t-pr_phl: 321.9 cm/sec 102.5 cm/sec 58.2 msec TV max P.4 mmHg PA max P.2 mmHg Left Ventricle The left ventricle is normal in size. There is normal left ventricular wall thickness. LV EF is 70%. Left ventricular systolic function is normal. Doppler measurements suggest impaired left ventricular relaxation, which is associated with grade I/IV or mild diastolic dysfunction. The left ventricular wall motion is normal. There is no thrombus. No ASD VSD,or PFO seen. Right Ventricle The right ventricle is normal in size and function. The right ventricle is not well visualized secondary to technical limitations. Atria The right atrium is normal. The left atrial size is normal. Mitral Valve There is mild mitral annular calcification. There is no evidence of mitral valve prolapse. There is no vegetation seen on the mitral valve. There is no mitral valve stenosis. There is a mild amount of mitral regurgitation. Aortic Valve There is no aortic valvular vegetation. There is mild aortic stenosis. There is a peak gradient of 23 mm of Hg. No hemodynamically significant valvular aortic stenosis. No aortic regurgitation is present. Tricuspid Valve There is no tricuspid stenosis. There is a mild amount of tricuspid regurgitation. There is moderate pulmonary hypertension by echo. RVSP is 52 to 57 mm of Hg , with RA mean of 10 to 15. Pulmonic Valve There is no pulmonic valvular stenosis. There is no pulmonic valvular regurgitation. Great Vessels The aortic root is normal size. The inferior vena cava appeared normal and decreased < 50% with respiration (RAP 10-15 mmHg). Effusions There is no pericardial effusion. : THOMAS NEGRETE Lakshmi
[2019-12-27] MEDS: INSULIN LISPRO 100 UNIT/ML 3 ML VIAL SUBCUT SCH ×6 (00:19→21:23)
[2019-12-27 05:35] LABS: ABSOLUTE EOSINOPHILS # (AUTO) 0.1 10^3/uL (0.0-0.6); ABSOLUTE LYMPHOCYTES (AUTO) 0.6 10^3/uL (0.5-4.7); ABSOLUTE MONOCYTES (AUTO) 0.7 10^3/uL (0.1-1.4); ABSOLUTE NEUT (AUTO) 7.9 10^3/uL (1.7-8.2); BASOPHILS % (AUTO) 0.4 % (0-2); EOSINOPHILS % (AUTO) 0.5 % (0-6); HEMATOCRIT 31.7 % (36.0-47.0); HEMOGLOBIN 10.8 g/dL (12.0-15.5); LYMPHOCYTES % (AUTO) 6.8 % (13-45); MEAN CORPUSCULAR HEMOGLOBIN 33.9 pg (27.0-33.4); MEAN CORPUSCULAR HGB CONC 34.2 g/dL (32.0-36.0); MEAN CORPUSCULAR VOLUME 99 fl (80-97); MONOCYTES % (AUTO) 7.3 % (3-13); PLATELET COUNT 181 10^3/uL (150-450); RED CELL DISTRIBUTION WIDTH 13.4 % (11.5-14.0); TOTAL CELLS COUNTED % (AUTO) 100 %; WHITE BLOOD COUNT 9.3 10^3/uL (4.0-10.5)
[2019-12-27 05:50] LABS: ANION GAP 10 (5-19); BLOOD UREA NITROGEN 27 mg/dL (7-20); CALCIUM 8.6 mg/dL (8.4-10.2); CARBON DIOXIDE 21 mmol/L (22-30); CHLORIDE 119 mmol/L (98-107); GLUCOSE 233 mg/dL (75-110); POTASSIUM 4.4 mmol/L (3.6-5.0)
[2019-12-27] MEDS ORDERED: FENTANYL CITRATE INJ/PF 100 MCG/2 ML AMPUL ONE (08:02)
[2019-12-27] MEDS ORDERED: MIDAZOLAM 2 MG/2 ML INJ ONE (08:02)
[2019-12-27] MEDS ORDERED: TRANEXAMIC ACID INJ/PF 1,000 MG/10 ML SDV ONE (08:02)
[2019-12-27] MEDS ORDERED: PROPOFOL INJ 200 MG/20 ML VIAL IV ONE (08:02)
[2019-12-27] MEDS ORDERED: KETAMINE HCL INJ 500 MG/10 ML VIAL ONE (08:02)
[2019-12-27] MEDS ORDERED: CEFAZOLIN INJ 1 GM VIAL ONE (08:12)
--- NOTE | 2019-12-27 08:27 | PDOC PROGRESS REPORT ---
Subjective Progress Note for:: 12/27/19 Subjective:: The patient is more alert today, responding, family is encouraged by her increased alertness. There is many family at bedside who are aware communicating together in order to determine medical decisions. I had a long conversation with them today. At baseline they report that she is ambulating and talking but does have moderate to severe dementia and is not always appropriate in her communication. Reason For Visit: RIGHT HIP CLOSED FRACTURE,DIABETES MELLITUS TYPE 2 Physical Exam Vital Signs: Temp Pulse Resp BP Pulse Ox 98.5 F 84 12 118/47 L 97 12/27/19 08:00 12/27/19 08:00 12/27/19 08:00 12/27/19 08:00 12/27/19 08:00 Intake & Output 12/26/19 12/27/19 12/28/19 06:59 06:59 06:59 Intake Total 0 3000 Output Total 600 1300 Balance -600 1700 Weight 44.1 kg 49.3 kg Physical Exam: General appearance: PRESENT: thin Head exam: PRESENT: atraumatic, normocephalic Eye exam: PRESENT: conjunctiva pink. ABSENT: scleral icterus Ear exam: PRESENT: normal external ear exam Mouth exam: PRESENT: moist Respiratory exam: PRESENT: clear to auscultation uzma Cardiovascular exam: PRESENT: RRR. ABSENT: diastolic murmur, rubs, systolic murmur Vascular exam: ABSENT: pallor GI/Abdominal exam: PRESENT: normal bowel sounds, soft. ABSENT: distended, guarding, mass, organolmegaly, rebound, tenderness Rectal exam: PRESENT: deferred Extremities exam: ABSENT: pedal edema Musculoskeletal exam: PRESENT: deformity - related to her multiple joints involvement with arthritis Neurological exam: PRESENT: altered - due to her baseline dementia. Psychiatric exam: ABSENT: agitated, anxious, homicidal ideation, suicidal ideation Skin exam: PRESENT: dry, warm Right lower extremity -Pulses 2+ distally -Compartments soft - patient responds to mechanical stimulus by grossly removing the foot ankle and toes\ - shortened, externally rotated. Results Laboratory Results: 12/27/19 04:26 12/27/19 04:26 12/27/19 12/27/19 04:26 04:26 WBC 9.3 RBC 3.20 L Hgb 10.8 L Hct 31.7 L MCV 99 H MCH 33.9 H MCHC 34.2 RDW 13.4 Plt Count 181 Seg Neutrophils % 85.0 H Sodium 149.9 H Potassium 4.4 Chloride 119 H Carbon Dioxide 21 L Anion Gap 10 BUN 27 H Creatinine 0.66 Est GFR ( Amer) > 60 Glucose 233 H Calcium 8.6 12/25/19 12/25/19 12/26/19 16:32 16:32 00:59 Creatine Kinase 264 H 261 H CK-MB (CK-2) 3.75 Troponin I 0.029 12/26/19 12/26/19 12/26/19 00:59 07:27 07:27 Creatine Kinase 242 H CK-MB (CK-2) 3.31 2.64 Troponin I 0.031 0.025 Impressions: Chest X-Ray 12/25/19 00:00 IMPRESSION: NO ACUTE FINDINGS. Hip/Pelvis X-Ray 12/25/19 15:04 IMPRESSION: Intertrochanteric fracture of the right hip. Head CT 12/26/19 00:00 IMPRESSION: CHRONIC CHANGES OF ATROPHY AND MICROVASCULAR ISCHEMIA. NO ACUTE PROCESS. EVIDENCE OF ACUTE STROKE: NO. Head MRI 12/26/19 00:00 IMPRESSION: No evidence of acute infarct. Assessment & Plan - Diagnosis (1) Intertrochanteric fracture of right hip Qualifiers: Encounter type: initial encounter Fracture type: closed Fracture alignment: displaced Qualified Code(s): S72.141A - Displaced intertrochanteric fracture of right femur, initial encounter for closed fracture Is this a current diagnosis for this admission?: Yes Plan: Plan for sliding hip screw -After long discussion with family they are agreeable. I had a thorough discussion regarding the risks benefits and potential prognoses of each including the potential for either with or without surgery given that a right hip fracture in a frail elderly already mentally fragile patient can be very dangerous. -We will plan for weightbearing as tolerated after right hip surgery -DVT prophylaxis per medicine, recommend aspirin 325 daily -Remove Burns as soon as patient is able to transfer -Dressing change as needed. -2 doses of Ancef postop for 24-hour coverage - Time Time Spent with patient: 15-24 minutes
[2019-12-27] MEDS: RAMIPRIL 2.5 MG CAPSULE PO SCH (10:00)
[2019-12-27] MEDS: RISPERIDONE 1 MG TABLET PO SCH ×2 (10:00→21:58)
[2019-12-27] MEDS: ENOXAPARIN SODIUM INJ 30 MG/0.3 ML DISP.SYRIN SUBCUT SCH (10:00)
--- NOTE | 2019-12-27 10:21 | PDOC PROGRESS REPORT ---
Subjective Progress Note for:: 12/27/19 Subjective:: Patient had MRI done is negative for any acute strokes Patient is going for the right hip surgery today All risk and benefit were discussed myself yesterday with the patient's family in 2 days discussed by the surgery Patient seen by the cardiology Patient is more alert awake I think patient should use the more Toradol type of the pain medications in next 24 hours Reason For Visit: RIGHT HIP CLOSED FRACTURE,DIABETES MELLITUS TYPE 2 Physical Exam Vital Signs: Temp Pulse Resp BP Pulse Ox 98.5 F 84 12 118/47 L 97 12/27/19 08:00 12/27/19 08:00 12/27/19 08:00 12/27/19 08:00 12/27/19 08:00 Intake & Output 12/26/19 12/27/19 12/28/19 06:59 06:59 06:59 Intake Total 0 3000 Output Total 600 1300 Balance -600 1700 Weight 44.1 kg 49.3 kg General appearance: PRESENT: no acute distress Eye exam: PRESENT: PERRLA Mouth exam: PRESENT: neck supple Respiratory exam: PRESENT: clear to auscultation uzma Cardiovascular exam: PRESENT: +S1, +S2 Extremities exam: ABSENT: pedal edema Neurological exam: PRESENT: alert, altered Results Laboratory Results: 12/27/19 04:26 12/27/19 04:26 12/27/19 12/27/19 04:26 04:26 WBC 9.3 RBC 3.20 L Hgb 10.8 L Hct 31.7 L MCV 99 H MCH 33.9 H MCHC 34.2 RDW 13.4 Plt Count 181 Seg Neutrophils % 85.0 H Sodium 149.9 H Potassium 4.4 Chloride 119 H Carbon Dioxide 21 L Anion Gap 10 BUN 27 H Creatinine 0.66 Est GFR ( Amer) > 60 Glucose 233 H Calcium 8.6 12/25/19 12/25/19 12/26/19 16:32 16:32 00:59 Creatine Kinase 264 H 261 H CK-MB (CK-2) 3.75 Troponin I 0.029 12/26/19 12/26/19 12/26/19 00:59 07:27 07:27 Creatine Kinase 242 H CK-MB (CK-2) 3.31 2.64 Troponin I 0.031 0.025 Impressions: Chest X-Ray 12/25/19 00:00 IMPRESSION: NO ACUTE FINDINGS. Hip/Pelvis X-Ray 12/25/19 15:04 IMPRESSION: Intertrochanteric fracture of the right hip. Head CT 12/26/19 00:00 IMPRESSION: CHRONIC CHANGES OF ATROPHY AND MICROVASCULAR ISCHEMIA. NO ACUTE P ROCESS. EVIDENCE OF ACUTE STROKE: NO. Head MRI 12/26/19 00:00 IMPRESSION: No evidence of acute infarct. Assessment & Plan - Diagnosis (1) Altered mental status Qualifiers: Altered mental status type: unspecified Qualified Code(s): R41.82 - Altered mental status, unspecified Is this a current diagnosis for this admission?: Yes Plan: Patient CT head MRI of the head was negative for any acute strokes I think more worsening from the dementia with some pain medications morphine effect We will try to utilize the Toradol and as needed morphine (2) Intertrochanteric fracture of right hip Qualifiers: Encounter type: initial encounter Fracture type: closed Fracture alignment: displaced Qualified Code(s): S72.141A - Displaced intertrochanteric fracture of right femur, initial encounter for closed fracture Is this a current diagnosis for this admission?: Yes Plan: Patient is a scheduled for the surgery today risk and benefit discussed with the patient's family (3) Poorly controlled diabetes mellitus Is this a current diagnosis for this admission?: Yes Plan: Continues a sliding scales (4) SDAT (senile dementia of Alzheimer's type) Is this a current diagnosis for this admission?: Yes Plan: Really worsening the dementia's (5) Hypertension Qualifiers: Hypertension type: essential hypertension Qualified Code(s): I10 - Essential (primary) hypertension Is this a current diagnosis for this admission?: Yes - Time Time Spent with patient: 15-24 minutes Level of Care: TELE Medications reviewed and adjusted accordingly: Yes Anticipated discharge: SNF Within: Other - Plan Summary Plan Summary: We will check the EKG postop follow-up with cardiology Continues the IV antibiotics for next 24 to 48 hours Repeat the CBC and Chem-7 in the morning Continues DVT prophylaxis Continues to monitor
--- NOTE | 2019-12-27 10:32 | Operative Report ---
Operative Report DATE OF SURGERY: 12/27/19 PREOPERATIVE DIAGNOSIS: Right intertrochanteric fracture POSTOPERATIVE DIAGNOSIS: Right intertrochanteric fracture OPERATION: Right sliding hip screw SURGEON: THONG KASPER JR ANESTHESIA: Spinal COMPLICATIONS: none ESTIMATED BLOOD LOSS: 100 PROCEDURE: DESCRIPTION OF OPERATION: The patient was brought to the operating room where spinal anesthetic was administered. Once the patient was comfortable, they was transferred over to the fracture table. A Burns catheter was present at the time prior to operation. IV antibiotics were administered preoperatively, 2 g of Ancef. The patient was secured onto the fracture table with a boot on the operative leg in a well leg solano. A perineal post had been placed. The left lower extremity was secured down and longitudinal traction applied through the post. C-arm fluoroscopy was then brought in to check fracture alignment, and with adjustments we obtained near anatomic alignment on AP and lateral views. The lateral hip region was then prepped and draped out in the usual sterile fashion. An appropriate timeout was performed. A wire was utilized with fluoroscopy to localize the trajectory of the hip pen. Based off of this a line was drawn to represent the neck angle and are lateral incision was planned. The lateral incision was made followed by Bovie cautery of superficial bleeding. The lateral fascia was approached and dissected with cautery. After this blunt dissection was carried through the deep muscle to bone. The angle guide was placed onto bone and a pin was placed through this and checked with fluoroscopy. The femur was then drilled until we had the appropriate trajectory of the pin at the center of the head on 2 views. We measured this out to be 80. We then reamed to 10 less with a combination reamer and a long barrel. The 75mm screw was then inserted. Due to the estimated angle we went with a 135 degree plate. A 2 hole plate was selected along with appropriate sized head screw. This was inserted with the assistance of fluoroscopy followed by impaction of the plate against the bone. We then drilled and placed the 2 screws in the plate. Appropriate positioning was confirmed with AP and lateral fluoroscopy. A compression screw was applied to the head screw and then final fluoroscopy's were taken. All the wounds were then copiously irrigated.. The fascial layer was closed with 2-0 monocryl in a running fashion. Subcutaneous tissue was closed with running subdermal 3-0 Monocryl, and the skin was closed with a running 3-0 Monocryl subcuticular stitch. Perform was then applied followed by an OpSite dressing. The patient was then carefully transferred off the fracture table onto his hospital bed. The patient tolerated the procedure well and was brought to the recovery room in stable condition.
[2019-12-27] MEDS: MORPHINE SULFATE 10 MG/ML INJ IV PRN (12:26)
--- NOTE | 2019-12-27 12:45 | RADIOLOGY REPORT (SQ) ---
EXAM DESCRIPTION: HIP RIGHT AP/LATERAL COMPLETED DATE/TIME: 12/27/2019 12:20 pm REASON FOR STUDY: Postop COMPARISON: None. NUMBER OF VIEWS: 3 view(s). TECHNIQUE: Digital radiographic images of the right hip post-procedure. Includes pelvis. LIMITATIONS: None. FINDINGS: BONES: No worrisome or unexpected findings post-procedure. DEVICE: Plate and screw device. SOFT TISSUES: No worrisome findings. Expected postoperative soft tissue changes. IMPRESSION: SATISFACTORY POSTOPERATIVE RIGHT HIP. TECHNICAL DOCUMENTATION: JOB ID: [id number] 2010 [employer]- All Rights Reserved Reading location - IP/workstation name: [email or web address]
--- NOTE | 2019-12-27 13:46 | RADIOLOGY REPORT (SQ) ---
EXAM DESCRIPTION: HIP IN OPERATING RM COMPLETED DATE/TIME: 12/27/2019 12:08 pm REASON FOR STUDY: HIP FX COMPARISON: Hip radiograph, 12/25/2019 NUMBER OF VIEWS: 3 view(s). TECHNIQUE: Digital radiographic images of the right hip post-procedure. LIMITATIONS: None. FINDINGS: BONES: Interval placement of intramedullary compression screw with plate fixation at the p roximal right femur. Near anatomic alignment of the fracture fragments. Moderate osteopenia. Moder ate osteoarthritis bilateral femoroacetabular joints. SOFT TISSUES: No worrisome findings. Expected postoperative soft tissue changes. IMPRESSION: SATISFACTORY POSTOPERATIVE LEFT HIP. TECHNICAL DOCUMENTATION: JOB ID: [id number] 2010 [employer]- All Rights Reserved Reading location - IP/workstation name: [email or web address]
--- NOTE | 2019-12-27 13:48 | RADIOLOGY REPORT (SQ) ---
EXAM DESCRIPTION: NO CHG FLUORO COMPLETED DATE/TIME: 12/27/2019 12:08 pm REASON FOR STUDY: HIP FX COMPARISON: None. FLUOROSCOPY TIME: 0.7 minutes 2 Images saved to PACS LIMITATIONS: None. PROCEDURE: Intramedullary compression screw fixation proximal right femur. FINDINGS: Two views demonstrate placement of a compression screw fixation traversing the proximal ri ght femur neck. IMPRESSION: Intraoperative fluoroscopy. COMMENT: PQRS 6045F: Fluoroscopy time of the procedure is documented in the report. TECHNICAL DOCUMENTATION: JOB ID: [id number] 2010 [employer]- All Rights Reserved Reading location - IP/workstation name: [email or web address]
--- NOTE | 2019-12-27 13:50 | Progress Note ---
Provider Note Provider Note: CARDIOLOGY PROGRESS NOTE by Dr. Aggie Forman on 12/27/2019. OBJECTIVE: The patient underwent uneventful surgery of her left hip today earlier. As per the daughter the patient is more talkative and more alert than usual. She is also got a good appetite. The patient does not appear to be in any acute distress. She continues to be confused but with no focal deficits. PHYSICAL EXAMINATION: The patient is in no acute distress. Selected Entries 12/27/19 12/27/19 12/27/19 11:40 12:10 13:10 Temperature 97.6 F Temperature Oral Source Pulse Rate 114 H Respiratory 16 20 Rate Blood Pressure 141/99 H 110/90 H [Right 1] Blood Pressure 113 96 Mean [Right 1] Blood Pressure Supine Supine Position [Right 1] O2 Sat by Pulse 97 Oximetry Oxygen Delivery Room Air Method ( includes room air) HEAD: Is atraumatic normocephalic. EYES: Pupils are equal round regular reactive light accommodation. ENT is negative. SKIN: There is no skin rashes. There is no petechia or ecchymosis. NECK: Is supple. There is no JVD. Car otids are equal there is no bruit there is no lymphadenopathy. There is no accessory muscles of respiration use. Trachea central. There is no goiter. LUNGS: Is clear to auscultation percussion without any rhonchi rales or wheezing. HEART: S1-S2 is heard. There is no S3 gallop. There is no S4 gallop. There is murmur of mild aortic stenosis with preserved A2. There is no rub. ABDOMEN: Is soft. Nontender there is no paraspinal megaly. Bowel sounds are well heard. EXTREMITIES: Femorals are diminished. There is no femoral bruits. Leg pulses are diminished. The dressing of the left hip is dry and clean. There is no pedal edema. There is no DVT or cellulitis. There is no cyanosis or clubbing. COSTUME RENTAL CLERK: The patient is conscious confused disoriented x3. But moves all 4 extremities except the left lower extremity which is held without movement due to pain. PSYCHIATRIC: Not tested. The patient not agitated or anxious Labs- All tests 24 hr 12/26/19 12/26/19 12/27/19 15:33 23:15 04:26 WBC 9.3 RBC 3.20 L Hgb 10.8 L Hct 31.7 L MCV 99 H MCH 33.9 H MCHC 34.2 RDW 13.4 Plt Count 181 Lymph % (Auto) 6.8 L [place] % (Auto) 7.3 Eos % (Auto) 0.5 Baso % (Auto) 0.4 Absolute Neuts (auto) 7.9 Absolute Lymphs (auto) 0.6 Absolute Monos (auto) 0.7 Absolute Eos (auto) 0.1 Absolute Basos (auto) 0.0 Seg Neutrophils % 85.0 H Sodium Potassium Chloride Carbon Dioxide Anion Gap BUN Creatinine Est GFR ( Amer) Est GFR (MDRD) Non-Af Glucose POC Glucose 207 H 216 H Calcium 12/27/19 12/27/19 12/27/19 04:26 05:50 11:06 WBC RBC Hgb Hct MCV MCH MCHC RDW Plt Count Lymph % (Auto) [place] % (Auto) Eos % (Auto) Baso % (Auto) Absolute Neuts (auto) Absolute Lymphs (auto) Absolute Monos (auto) Absolute Eos (auto) Absolute Basos (auto) Seg Neutrophils % Sodium 149.9 H Potassium 4.4 Chloride 119 H Carbon Dioxide 21 L Anion Gap 10 BUN 27 H Creatinine 0.66 Est GFR ( Amer) > 60 Est GFR (MDRD) Non-Af > 60 Glucose 233 H POC Glucose 218 H 238 H Calcium 8.6 Chest X-Ray 12/25/19 00:00 IMPRESSION: NO ACUTE FINDINGS. Hip/Pelvis X-Ray 12/25/19 15:04 IMPRESSION: Intertrochanteric fracture of the right hip. Head CT 12/26/19 00:00 IMPRESSION: CHRONIC CHANGES OF ATROPHY AND MICROVASCULAR ISCHEMIA. NO ACUTE PROCESS. EVIDENCE OF ACUTE STROKE: NO. Head MRI 12/26/19 00:00 IMPRESSION: No evidence of acute infarct. Fluoroscopy 12/27/19 00:00 IMPRESSION: Intraoperative fluoroscopy. Hip X-Ray 12/27/19 00:00 IMPRESSION: SATISFACTORY POSTOPERATIVE LEFT HIP. Hip/Pelvis X-Ray 12/27/19 00:00 IMPRESSION: SATISFACTORY POSTOPERATIVE RIGHT HIP. IMPRESSION/RECOMMENDATION: 1. Left hip fracture status post accidental fall. Patient for surgical repair of the same. 2. Hypertension: Blood pressure slightly elevated, this most likely secondary to the pain since pain due to left hip fracture. 3. Diabetes mellitus: Continue antidiabetic medication and Accu-Cheks as per protocol. 4. Mild hemodynamically nonsignificant aortic stenosis: No treatment needed at present. 5. Moderate pulmonary hypertension: Patient most likely has an element of COPD since she is a smoker. 6. History of tobacco abuse: Patient demented hence cannot insurance counselor the patient to discontinue smoking. Medications reviewed. Medical regimen and management plan discussed with Dr. Carvalho. Medical decision making is of moderate complexity. Cardiac status is stable. Hence will sign off. Discussed with patient's daughter. 40 minutes spent on the patient more than 50% time spent direct patient care.
[2019-12-27] MEDS ORDERED: CEFAZOLIN SODIUM 2 GM in DEXTROSE 5%-WATER 100 ML IV SCH (14:00)
[2019-12-27] MEDS ORDERED: EPHEDRINE SULFATE INJ 50 MG/1 ML AMPULE ONE (15:11)
--- NOTE | 2019-12-27 15:25 | EKG REPORT ---
SEVERITY:- ABNORMAL ECG - SINUS TACHYCARDIA LEFT ANTERIOR FASCICULAR BLOCK PROBABLE ANTEROSEPTAL INFARCT, OLD : Confirmed by: Chloe Villa 27-Dec-2019 15:25:31
[2019-12-27] MEDS: PANTOPRAZOLE SODIUM 40 MG TABLET.DR PO SCH (20:24)
[2019-12-27] MEDS: CEFEPIME 1 GM/D5W RTU 1 GM/50 ML RTUPB IV SCH (21:27)
[2019-12-27] MEDS: GABAPENTIN 100 MG CAPSULE PO SCH (21:58)
[2019-12-28] MEDS: MORPHINE SULFATE 10 MG/ML INJ IV PRN ×2 (03:54→09:51)
[2019-12-28] MEDS: PANTOPRAZOLE SODIUM 40 MG TABLET.DR PO SCH (05:12)
[2019-12-28 06:01] LABS: ABSOLUTE EOSINOPHILS # (AUTO) 0.1 10^3/uL (0.0-0.6); ABSOLUTE LYMPHOCYTES (AUTO) 0.5 10^3/uL (0.5-4.7); ABSOLUTE MONOCYTES (AUTO) 0.8 10^3/uL (0.1-1.4); ABSOLUTE NEUT (AUTO) 7.3 10^3/uL (1.7-8.2); BASOPHILS % (AUTO) 0.4 % (0-2); EOSINOPHILS % (AUTO) 0.7 % (0-6); HEMATOCRIT 29.2 % (36.0-47.0); HEMOGLOBIN 9.9 g/dL (12.0-15.5); LYMPHOCYTES % (AUTO) 5.9 % (13-45); MEAN CORPUSCULAR HEMOGLOBIN 33.4 pg (27.0-33.4); MEAN CORPUSCULAR HGB CONC 33.9 g/dL (32.0-36.0); MEAN CORPUSCULAR VOLUME 99 fl (80-97); MONOCYTES % (AUTO) 9.4 % (3-13); PLATELET COUNT 152 10^3/uL (150-450); RED BLOOD COUNT 2.96 10^6/uL (3.72-5.28); RED CELL DISTRIBUTION WIDTH 13.3 % (11.5-14.0); SEGMENTED NEUTROPHILS % (AUTO) 83.6 % (42-78); TOTAL CELLS COUNTED % (AUTO) 100 %; WHITE BLOOD COUNT 8.8 10^3/uL (4.0-10.5)
[2019-12-28 06:17] LABS: ANION GAP 11 (5-19); BLOOD UREA NITROGEN 20 mg/dL (7-20); CALCIUM 8.3 mg/dL (8.4-10.2); CARBON DIOXIDE 17 mmol/L (22-30); CHLORIDE 118 mmol/L (98-107); GLUCOSE 289 mg/dL (75-110); POTASSIUM 4.2 mmol/L (3.6-5.0)
[2019-12-28] MEDS: INSULIN LISPRO 100 UNIT/ML 3 ML VIAL SUBCUT SCH ×4 (07:35→22:50)
[2019-12-28] MEDS: NORMAL SALINE 1000 ML 1,000 ML IV PRN (09:51)
[2019-12-28] MEDS: ENOXAPARIN SODIUM INJ 30 MG/0.3 ML DISP.SYRIN SUBCUT SCH (09:53)
[2019-12-28] MEDS: RAMIPRIL 2.5 MG CAPSULE PO SCH ×2 (09:54→18:18)
[2019-12-28] MEDS: RISPERIDONE 1 MG TABLET PO SCH ×3 (09:54→22:49)
[2019-12-28] MEDS: ASPIRIN 325 MG TABLET PO SCH (09:57)
[2019-12-28] MEDS: CEFEPIME 1 GM/D5W RTU 1 GM/50 ML RTUPB IV SCH ×2 (09:58→22:49)
--- NOTE | 2019-12-28 10:23 | CDI QUERY ---
CDI Query CDI Review: Dear PENELOPE, To better reflect your patients severity of illness, morbidity, and resource utilization Please LINK any condition to present on admission, if applicable. The terms probable, suspected, likely, possible or still to be ruled out may be used. If you agree, please add to the Progress Notes and Discharge Summary Query Clinical indicators METABOLIC ENCEPHALOPATHY? ACUTE CONFUSIONAL STATE? OTHER? Discussed with the patient's and family about agitations with the worsening the dementia with some encephalopathy Altered mental status senile dementia of Alzheimer's type Thank you, ALEXANDRO Clinical Documentation [facility] YESSENIA [place] Office [phone]
--- NOTE | 2019-12-28 17:16 | PDOC PROGRESS REPORT ---
Subjective Progress Note for:: 12/28/19 Subjective:: The patient is doing well. Still more alert than on initial exam and as alert as yesterday. Family stayed the bedside overnight and reports she has been communicative. At this time she is sleeping. Reason For Visit: RIGHT HIP CLOSED FRACTURE,DIABETES MELLITUS TYPE 2 Physical Exam Vital Signs: Temp Pulse Resp BP Pulse Ox 97.8 F 87 20 141/53 H 94 12/28/19 15:22 12/28/19 15:22 12/28/19 15:22 12/28/19 15:22 12/28/19 15:22 Intake & Output 12/27/19 12/28/19 12/29/19 06:59 06:59 06:59 Intake Total 3000 1630 240 Output Total 1300 1285 275 Balance 1700 345 -35 Weight 49.3 kg 48.8 kg Physical Exam: Right lower extremity -Pulses 2+ distally -Compartments soft -Wound clean dry and intact, no drainage, appropriate appearance for postop day 1 -Sensation grossly intact to L3-4-5 S1 -Motor grossly intact to EHL TA gastroc and quad Results Laboratory Results: 12/28/19 04:38 12/28/19 04:38 12/28/19 12/28/19 04:38 04:38 WBC 8.8 RBC 2.96 L Hgb 9.9 L Hct 29.2 L MCV 99 H MCH 33.4 MCHC 33.9 RDW 13.3 Plt Count 152 Seg Neutrophils % 83.6 H Sodium 145.6 H Potassium 4.2 Chloride 118 H Carbon Dioxide 17 L Anion Gap 11 BUN 20 Creatinine 0.60 Est GFR ( Amer) > 60 Glucose 289 H Calcium 8.3 L 12/26/19 10:05 Burns Catheter Urine Culture - Final Escherichia Coli 12/25/19 12/25/19 12/26/19 16:32 16:32 00:59 Creatine Kinase 264 H 261 H CK-MB (CK-2) 3.75 Troponin I 0.029 12/26/19 12/26/19 12/26/19 00:59 07:27 07:27 Creatine Kinase 242 H CK-MB (CK-2) 3.31 2.64 Troponin I 0.031 0.025 Impressions: Chest X-Ray 12/25/19 00:00 IMPRESSION: NO ACUTE FINDINGS. Head CT 12/26/19 00:00 IMPRESSION: CHRONIC CHANGES OF ATROPHY AND MICROVASCULAR ISCHEMIA. NO ACUTE PROCESS. EVIDENCE OF ACUTE STROKE: NO. Head MRI 12/26/19 00:00 IMPRESSION: No evidence of acute infarct. Fluoroscopy 12/27/19 00:00 IMPRESSION: Intraoperative fluoroscopy. Hip X-Ray 12/27/19 00:00 IMPRESSION: SATISFACTORY POSTOPERATIVE LEFT HIP. Hip/Pelvis X-Ray 12/27/19 00:00 IMPRESSION: SATISFACTORY POSTOPERATIVE RIGHT HIP. Assessment & Plan - Diagnosis (1) Intertrochanteric fracture of right hip Qualifiers: Encounter type: initial encounter Fracture type: closed Fracture alignment: displaced Qualified Code(s): S72.141A - Displaced intertrochanteric fracture of right femur, initial encounter for closed fracture Is this a current diagnosis for this admission?: Yes Plan: - 2 doses of Ancef postoperatively q 8 hours to complete 24 hours perioperatively -Weightbearing as tolerated, no precautions, encourage out of bed ALFONZO for ADL training - PT/OT DVT prophylaxis per medical team -multimodal pain management to avoid excessive narcotics, including gabapentin, tramadol, Toradol, acetaminophen. Dressing change as needed, continue occlusive dressings, OpSite while in house. May leave in place while dry. -May shower with the dressing intact, if it starts to come off she should not get the incision wet. -I would like to follow the patient my office within the next 7 to [address] [place] [address]. in [place] office #: [phone] - Time Time Spent with patient: Less than 15 minutes
--- NOTE | 2019-12-28 19:45 | PDOC PROGRESS REPORT ---
Subjective Progress Note for:: 12/28/19 Subjective:: Daughter at bedside reported PO intake issue. Pain is fairly controlled. No reported fever or chills. No nausea or vomiting. No difficulty with breathing or expressed chest pain. Reason For Visit: RIGHT HIP CLOSED FRACTURE,DIABETES MELLITUS TYPE 2 Physical Exam Vital Signs: Temp Pulse Resp BP Pulse Ox 98.1 F 89 20 147/60 H 90 L 12/28/19 11:26 12/28/19 11:26 12/28/19 11:26 12/28/19 11:26 12/28/19 11:26 Intake & Output 12/27/19 12/28/19 12/29/19 06:59 06:59 06:59 Intake Total 3000 1630 240 Output Total 1300 1285 275 Balance 1700 345 -35 Weight 49.3 kg 48.8 kg General appearance: PRESENT: no acute distress Head exam: PRESENT: atraumatic, normocephalic Eye exam: PRESENT: conjunctiva pink. ABSENT: scleral icterus Ear exam: PRESENT: normal external ear exam Mouth exam: PRESENT: moist Respiratory exam: PRESENT: clear to auscultation uzma, decreased breath sounds - at lung bases Cardiovascular exam: PRESENT: RRR, +S1, +S2. ABSENT: diastolic murmur, rubs, systolic murmur Vascular exam: ABSENT: pallor GI/Abdominal exam: PRESENT: normal bowel sounds, soft. ABSENT: distended, guarding, mass, organolmegaly, rebound, tenderness Extremities exam: ABSENT: pedal edema Neurological exam: PRESENT: alert. ABSENT: oriented to person, oriented to place, oriented to time, oriented to situation Psychiatric exam: ABSENT: agitated Skin exam: PRESENT: dry, warm, other - right hip fracture ORIF operation site dressing is satisfactory. Results Laboratory Results: 12/28/19 04:38 12/28/19 04:38 12/28/19 12/28/19 04:38 04:38 WBC 8.8 RBC 2.96 L Hgb 9.9 L Hct 29.2 L MCV 99 H MCH 33.4 MCHC 33.9 RDW 13.3 Plt Count 152 Seg Neutrophils % 83.6 H Sodium 145.6 H Potassium 4.2 Chloride 118 H Carbon Dioxide 17 L Anion Gap 11 BUN 20 Creatinine 0.60 Est GFR ( Amer) > 60 Glucose 289 H Calcium 8.3 L 12/26/19 10:05 Burns Catheter Urine Culture - Final Escherichia Coli 12/25/19 12/25/19 12/26/19 16:32 16:32 00:59 Creatine Kinase 264 H 261 H CK-MB (CK-2) 3.75 Troponin I 0.029 12/26/19 12/26/19 12/26/19 00:59 07:27 07:27 Creatine Kinase 242 H CK-MB (CK-2) 3.31 2.64 Troponin I 0.031 0.025 Impressions: Chest X-Ray 12/25/19 00:00 IMPRESSION: NO ACUTE FINDINGS. Head CT 12/26/19 00:00 IMPRESSION: CHRONIC CHANGES OF ATROPHY AND MICROVASCULAR ISCHEMIA. NO ACUTE PROCESS. EVIDENCE OF ACUTE STROKE: NO. Head MRI 12/26/19 00:00 IMPRESSION: No evidence of acute infarct. Fluoroscopy 12/27/19 00:00 IMPRESSION: Intraoperative fluoroscopy. Hip X-Ray 12/27/19 00:00 IMPRESSION: SATISFACTORY POSTOPERATIVE LEFT HIP. Hip/Pelvis X-Ray 12/27/19 00:00 IMPRESSION: SATISFACTORY POSTOPERATIVE RIGHT HIP. 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 coli UTI (urinary tract infection) Is this a current diagnosis for this admission?: Yes Plan: Continue IV Cefepime coverage. - Time Time Spent with patient: 25-34 minutes Medications reviewed and adjusted accordingly: Yes Anticipated discharge: Home with Homehealth Within: Other - Inpatient Certification Based on my medical assessment, after consideration of the patient's comorbidities, presenting symptoms, or acuity I expect that the services needed warrant INPATIENT care.: Yes I certify that my determination is in accordance with my understanding of Medicare's requirements for reasonable and necessary INPATIENT services [42 CFR 412.3e].: Yes Medical Necessity: Significant Comorbidiites Make Outpatient Treatment Too Risky, Need Close Monitoring Due to Risk of Patient Decompensation, Need For IV Fluids, Need for Pain Control, Need for IV Antibiotics, Risk of Complication if Not Cared For in Hospital, Risk of Diagnosis Which Will Require Inpatient Eval/Care/Monitoring Post Hospital Care: D/C Surgery Consultant Documentation - Plan Summary Plan Summary: Continue current mediation management. Discussed disposition with daughter regarding SNF placement for short term rehabilitation.
[2019-12-28] MEDS: GABAPENTIN 100 MG CAPSULE PO SCH (22:49)
[2019-12-29] MEDS: ACETAMINOPHEN SOLN 325 MG/10.15 ML UDCUP PO PRN (02:41)
[2019-12-29] MEDS: NORMAL SALINE 1000 ML 1,000 ML IV PRN ×2 (02:42→17:05)
[2019-12-29 05:36] LABS: BLOOD UREA NITROGEN 18 mg/dL (7-20); CALCIUM 8.4 mg/dL (8.4-10.2); CHLORIDE 118 mmol/L (98-107); GLUCOSE 230 mg/dL (75-110); POTASSIUM 3.8 mmol/L (3.6-5.0)
[2019-12-29 05:41] LABS: CARBON DIOXIDE 23 mmol/L (22-30)
[2019-12-29 05:46] LABS: ANION GAP 5 (5-19)
[2019-12-29] MEDS: PANTOPRAZOLE SODIUM 40 MG TABLET.DR PO SCH (06:46)
--- NOTE | 2019-12-29 08:36 | PDOC PROGRESS REPORT ---
Subjective Progress Note for:: 12/29/19 Subjective:: Patient at baseline dementia with any significant contribution to her medical history. No reported fever or chills. No nausea or vomiting. No difficulty with breathing or expressed chest pain. PO intake remain a concern as well as adequate participation in rehabilitation process due to her dementia. Reason For Visit: RIGHT HIP CLOSED FRACTURE,DIABETES MELLITUS TYPE 2 Physical Exam Vital Signs: Temp Pulse Resp BP Pulse Ox 98.3 F 91 15 140/60 H 95 12/28/19 23:41 12/28/19 23:41 12/28/19 23:41 12/28/19 23:41 12/28/19 23:41 Intake & Output 12/28/19 12/29/19 12/30/19 06:59 06:59 06:59 Intake Total 1630 1700 Output Total 1285 815 Balance 345 885 Weight 48.8 kg 48.5 kg Physical Exam: General appearance: PRESENT: no acute distress Head exam: PRESENT: atraumatic, normocephalic Eye exam: PRESENT: conjunctiva pink. ABSENT: scleral icterus Ear exam: PRESENT: normal external ear exam Mouth exam: PRESENT: moist Respiratory exam: PRESENT: clear to auscultation uzma, decreased breath sounds - at lung bases Cardiovascular exam: PRESENT: RRR, +S1, +S2. ABSENT: diastolic murmur, rubs, systolic murmur Vascular exam: ABSENT: pallor GI/Abdominal exam: PRESENT: normal bowel sounds, soft. ABSENT: distended, guarding, mass, organomegaly, rebound, tenderness Extremities exam: ABSENT: pedal edema Neurological exam: PRESENT: alert but at baseline dementia with confusion. ABSENT: oriented to person, oriented to place, oriented to time, oriented to situation Psychiatric exam: ABSENT: agitated Skin exam: PRESENT: dry, warm, other - right hip fracture ORIF site dressing is satisfactory. Results Laboratory Results: 12/28/19 04:38 12/29/19 04:29 12/29/19 04:29 Sodium 146.3 H Potassium 3.8 Chloride 118 H Carbon Dioxide 23 Anion Gap 5 BUN 18 Creatinine 0.58 Est GFR ( Amer) > 60 Glucose 230 H Calcium 8.4 12/26/19 10:05 Burns Catheter Urine Culture - Final Escherichia Coli 12/25/19 12/25/19 12/26/19 16:32 16:32 00:59 Creatine Kinase 264 H 261 H CK-MB (CK-2) 3.75 Troponin I 0.029 12/26/19 12/26/19 12/26/19 00:59 07:27 07:27 Creatine Kinase 242 H CK-MB (CK-2) 3.31 2.64 Troponin I 0.031 0.025 Impressions: Chest X-Ray 12/25/19 00:00 IMPRESSION: NO ACUTE FINDINGS. Head CT 12/26/19 00:00 IMPRESSION: CHRONIC CHANGES OF ATROPHY AND MICROVASCULAR ISCHEMIA. NO ACUTE PROCESS. EVIDENCE OF ACUTE STROKE: NO. Head MRI 12/26/19 00:00 IMPRESSION: No evidence of acute infarct. Fluoroscopy 12/27/19 00:00 IMPRESSION: Intraoperative fluoroscopy. Hip X-Ray 12/27/19 00:00 IMPRESSION: SATISFACTORY POSTOPERATIVE LEFT HIP. Hip/Pelvis X-Ray 12/27/19 00:00 IMPRESSION: SATISFACTORY POSTOPERATIVE RIGHT HIP. 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: without group home use Diabetes mellitus complication status: with hyperglycemia Qualified Code(s): E11.65 - Type 2 diabetes mellitus with hyperglycemia Is this a current diagnosis for this admission?: Yes (3) Hypertension Qualifiers: Hypertension type: essential hypertension Qualified Code(s): I10 - E ssential (primary) hypertension Is this a current diagnosis for this admission?: Yes (4) SDAT (senile dementia of Alzheimer's type) Is this a current diagnosis for this admission?: Yes (5) Senile dementia with behavioral disturbance Is this a current diagnosis for this admission?: Yes Plan: Patient agitation is related to her baseline dementia with behavioral disturbance and les likely acute delirium or encephalopathy. she will continue on her preadmission Risperidone therapy. (6) E. coli UTI (urinary tract infection) Is this a current diagnosis for this admission?: Yes - Time Time Spent with patient: 25-34 minutes Level of Care: MEDICAL Medications reviewed and adjusted accordingly: Yes Anticipated discharge: SNF Within: Other - Inpatient Certification Based on my medical assessment, after consideration of the patient's comorbidities, presenting symptoms, or acuity I expect that the services needed warrant INPATIENT care.: Yes I certify that my determination is in accordance with my understanding of Medicare's requirements for reasonable and necessary INPATIENT services [42 CFR 412.3e].: Yes Medical Necessity: Significant Comorbidiites Make Outpatient Treatment Too [place], Need Close Monitoring Due to Risk of Patient Decompensation, Need for IV Antibiotics, Risk of Complication if Not Cared For in Hospital, Risk of Diagnosis Which Will Require Inpatient Eval/Care/Monitoring Post Hospital Care: D/C or Transfer Summary - Plan Summary Plan Summary: Continue current medication management. Follow up on disposition efforts concern on SNF placement for short term rehabilitation.
[2019-12-29] MEDS: INSULIN LISPRO 100 UNIT/ML 3 ML VIAL SUBCUT SCH ×4 (08:39→21:31)
[2019-12-29] MEDS: ENOXAPARIN SODIUM INJ 30 MG/0.3 ML DISP.SYRIN SUBCUT SCH (10:07)
[2019-12-29] MEDS: CEFEPIME 1 GM/D5W RTU 1 GM/50 ML RTUPB IV SCH ×2 (10:07→21:31)
[2019-12-29] MEDS: RAMIPRIL 2.5 MG CAPSULE PO SCH (10:11)
[2019-12-29] MEDS: RISPERIDONE 1 MG TABLET PO SCH ×2 (10:12→21:31)
[2019-12-29] MEDS: ASPIRIN 325 MG TABLET PO SCH (10:12)
--- NOTE | 2019-12-29 12:54 | PDOC PROGRESS REPORT ---
Subjective Progress Note for:: 12/29/19 Subjective:: Patient is doing well. Demented at baseline. Family is in the room and reports that she is doing well and eating well Reason For Visit: RIGHT HIP CLOSED FRACTURE,DIABETES MELLITUS TYPE 2 Physical Exam Vital Signs: Temp Pulse Resp BP Pulse Ox 97.8 F 83 18 151/56 H 95 12/29/19 07:39 12/29/19 07:39 12/29/19 07:39 12/29/19 07:39 12/29/19 07:39 Intake & Output 12/28/19 12/29/19 12/30/19 06:59 06:59 06:59 Intake Total 1630 1700 50 Output Total 1285 815 Balance 345 885 50 Weight 48.8 kg 48.5 kg Physical Exam: Right lower extremity -Pulses 2+ distally -Compartments soft -Wound clean dry and intact, no drainage, appropriate appearance for postop day 1 -Sensation grossly intact to L3-4-5 S1 -Motor grossly intact to EHL TA gastroc and quad Results Laboratory Results: 12/28/19 04:38 12/29/19 04:29 12/29/19 04:29 Sodium 146.3 H Potassium 3.8 Chloride 118 H Carbon Dioxide 23 Anion Gap 5 BUN 18 Creatinine 0.58 Est GFR ( Amer) > 60 Glucose 230 H Calcium 8.4 12/25/19 12/25/19 12/26/19 16:32 16:32 00:59 Creatine Kinase 264 H 261 H CK-MB (CK-2) 3.75 Troponin I 0.029 12/26/19 12/26/19 12/26/19 00:59 07:27 07:27 Creatine Kinase 242 H CK-MB (CK-2) 3.31 2.64 Troponin I 0.031 0.025 Impressions: Chest X-Ray 12/25/19 00:00 IMPRESSION: NO ACUTE FINDINGS. Head CT 12/26/19 00:00 IMPRESSION: CHRONIC CHANGES OF ATROPHY AND MICROVASCULAR ISCHEMIA. NO ACUTE PROCESS. EVIDENCE OF ACUTE STROKE: NO. Head MRI 12/26/19 00:00 IMPRESSION: No evidence of acute infarct. Fluoroscopy 12/27/19 00:00 IMPRESSION: Intraoperative fluoroscopy. Hip X-Ray 12/27/19 00:00 IMPRESSION: SATISFACTORY POSTOPERATIVE LEFT HIP. Hip/Pelvis X-Ray 12/27/19 00:00 IMPRESSION: SATISFACTORY POSTOPERATIVE RIGHT HIP. Assessment & Plan - Diagnosis (1) Intertrochanteric fracture of right hip Qualifiers: Encounter type: initial encounter Fracture type: closed Fracture alignment: displaced Qualified Code(s): S72.141A - Displaced intertrochanteric fracture of right femur, initial encounter for closed fracture Is this a current diagnosis for this admission?: Yes Plan: -Weightbearing as tolerated, no precautions, encourage out of bed ALFONZO for ADL training - PT/OT DVT prophylaxis per medical team -multimodal pain management to avoid excessive narcotics, including gabapentin, tramadol, Toradol, acetaminophen. Dressing change as needed, continue occlusive dressings, OpSite while in house. May leave in place while dry. -May shower with the dressing intact, if it starts to come off she should not get the incision wet. -I would like to follow the patient my office within the next 7 to [address] at [address] [place] [address]. in [place] office #: [phone] - Time Time Spent with patient: Less than 15 minutes
[2019-12-29] MEDS ORDERED: INSULIN LISPRO 100 UNIT/ML 3 ML VIAL SUBCUT ONE (21:30)
[2019-12-29] MEDS: GABAPENTIN 100 MG CAPSULE PO SCH (21:31)
[2019-12-30 05:12] LABS: ABSOLUTE EOSINOPHILS # (AUTO) 0.1 10^3/uL (0.0-0.6); ABSOLUTE LYMPHOCYTES (AUTO) 0.7 10^3/uL (0.5-4.7); ABSOLUTE MONOCYTES (AUTO) 1.1 10^3/uL (0.1-1.4); ABSOLUTE NEUT (AUTO) 8.8 10^3/uL (1.7-8.2); BASOPHILS % (AUTO) 0.4 % (0-2); EOSINOPHILS % (AUTO) 0.8 % (0-6); HEMATOCRIT 27.2 % (36.0-47.0); HEMOGLOBIN 9.3 g/dL (12.0-15.5); LYMPHOCYTES % (AUTO) 6.9 % (13-45); MEAN CORPUSCULAR HEMOGLOBIN 33.5 pg (27.0-33.4); MEAN CORPUSCULAR HGB CONC 34.3 g/dL (32.0-36.0); MEAN CORPUSCULAR VOLUME 98 fl (80-97); MONOCYTES % (AUTO) 10.3 % (3-13); PLATELET COUNT 175 10^3/uL (150-450); RED BLOOD COUNT 2.78 10^6/uL (3.72-5.28); RED CELL DISTRIBUTION WIDTH 13.3 % (11.5-14.0); SEGMENTED NEUTROPHILS % (AUTO) 81.6 % (42-78); TOTAL CELLS COUNTED % (AUTO) 100 %; WHITE BLOOD COUNT 10.8 10^3/uL (4.0-10.5)
[2019-12-30 05:30] LABS: ANION GAP 6 (5-19); BLOOD UREA NITROGEN 16 mg/dL (7-20); CARBON DIOXIDE 22 mmol/L (22-30); CHLORIDE 117 mmol/L (98-107); GLUCOSE 254 mg/dL (75-110); POTASSIUM 3.7 mmol/L (3.6-5.0)
[2019-12-30] MEDS: PANTOPRAZOLE SODIUM 40 MG TABLET.DR PO SCH (05:48)
[2019-12-30] MEDS: INSULIN LISPRO 100 UNIT/ML 3 ML VIAL SUBCUT SCH ×4 (08:10→21:56)
[2019-12-30] MEDS: ASPIRIN 325 MG TABLET PO SCH (09:19)
[2019-12-30] MEDS: RISPERIDONE 1 MG TABLET PO SCH ×2 (09:19→22:00)
[2019-12-30] MEDS: RAMIPRIL 2.5 MG CAPSULE PO SCH (09:19)
[2019-12-30] MEDS: ENOXAPARIN SODIUM INJ 30 MG/0.3 ML DISP.SYRIN SUBCUT SCH (09:21)
[2019-12-30] MEDS: CEFEPIME 1 GM/D5W RTU 1 GM/50 ML RTUPB IV SCH ×2 (09:22→21:56)
[2019-12-30] MEDS: NORMAL SALINE 1000 ML 1,000 ML IV PRN (09:22)
--- NOTE | 2019-12-30 18:50 | PDOC PROGRESS REPORT ---
Subjective Progress Note for:: 12/30/19 Subjective:: No reported reported fever or chills. No nausea or vomiting. No difficulty with breathing or expressed chest pain. Awaiting SNF placement for short term rehabilitation. Reason For Visit: RIGHT HIP CLOSED FRACTURE,DIABETES MELLITUS TYPE 2 Physical Exam Vital Signs: Temp Pulse Resp BP Pulse Ox 98.5 F 94 16 131/42 H 95 12/29/19 23:39 12/29/19 23:39 12/29/19 23:39 12/29/19 23:39 12/29/19 23:39 Intake & Output 12/29/19 12/30/19 12/31/19 06:59 06:59 06:59 Intake Total 1700 1700 1250 Output Total 815 835 125 Balance 739 171 6276 Weight 48.5 kg 56.7 kg Physical Exam: General appearance: PRESENT: no acute distress Head exam: PRESENT: atraumatic, normocephalic Eye exam: PRESENT: conjunctiva pink. ABSENT: pallor, scleral icterus Ear exam: PRESENT: normal external ear exam Mouth exam: PRESENT: moist Respiratory exam: PRESENT: clear to auscultation uzma Cardiovascular exam: PRESENT: RRR, +S1, +S2. ABSENT: diastolic murmur, rubs, systolic murmur GI/Abdominal exam: PRESENT: normal bowel sounds, soft. ABSENT: distended, guarding, mass, organomegaly, rebound, tenderness Extremities exam: ABSENT: pedal edema Neurological exam: PRESENT: alert but at baseline dementia with confusion. ABSENT: oriented to person, oriented to place, oriented to time, oriented to situation Psychiatric exam: ABSENT: agitated Skin exam: PRESENT: dry, warm, other - right hip fracture ORIF site dressing is satisfactory. Results Laboratory Results: 12/30/19 04:16 12/30/19 04:16 12/30/19 12/30/19 04:16 04:16 WBC 10.8 H RBC 2.78 L Hgb 9.3 L Hct 27.2 L MCV 98 H MCH 33.5 H MCHC 34.3 RDW 13.3 Plt Count 175 Seg Neutrophils % 81.6 H Sodium 145.1 H Potassium 3.7 Chloride 117 H Carbon Dioxide 22 Anion Gap 6 BUN 16 Creatinine 0.46 L Est GFR ( Amer) > 60 Glucose 254 H Calcium 8.0 L 0212/25/19 12/26/19 16:32 16:32 00:59 Creatine Kinase 264 H 261 H CK-MB (CK-2) 3.75 Troponin I 0.029 12/26/19 12/26/19 12/26/19 00:59 07:27 07:27 Creatine Kinase 242 H CK-MB (CK-2) 3.31 2.64 Troponin I 0.031 0.025 Impressions: Chest X-Ray 12/25/19 00:00 IMPRESSION: NO ACUTE FINDINGS. Head CT 12/26/19 00:00 IMPRESSION: CHRONIC CHANGES OF ATROPHY AND MICROVASCULAR ISCHEMIA. NO ACUTE PROCESS. EVIDENCE OF ACUTE STROKE: NO. Head MRI 12/26/19 00:00 IMPRESSION: No evidence of acute infarct. Fluoroscopy 12/27/19 00:00 IMPRESSION: Intraoperative fluoroscopy. Hip X-Ray 12/27/19 00:00 IMPRESSION: SATISFACTORY POSTOPERATIVE LEFT HIP. Hip/Pelvis X-Ray 12/27/19 00:00 IMPRESSION: SATISFACTORY POSTOPERATIVE RIGHT HIP. 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: without long wall shear operator use Diabetes mellitus complication status: with hyperglycemia Qualified Code(s): E11.65 - Type 2 diabetes mellitus with hyperglycemia Is this a current diagnosis for this admission?: Yes (3) Hypertension Qualifiers: Hypertension type: essential hypertension Qualified Code(s): I10 - Essential (primary) hypertension Is this a current diagnosis for this admission?: Yes (4) SDAT (senile dementia of Alzheimer's type) Is this a current diagnosis for this admission?: Yes (5) Senile dementia with behavioral disturbance Is this a current diagnosis for this admission?: Yes (6) E. coli UTI (urinary tract infection) Is this a current diagnosis for this admission?: Yes - Time Time Spent with patient: 25-34 minutes Level of Care: MEDICAL Medications reviewed and adjusted accordingly: Yes Anticipated discharge: SNF Within: when bed available - Inpatient Certification Based on my medical assessment, after consideration of the patient's comorbidities, presenting symptoms, or acuity I expect that the services needed warrant INPATIENT care.: Yes I certify that my determination is in accordance with my understanding of Medicare's requirements for reasonable and necessary INPATIENT services [42 CFR 412.3e].: Yes Medical Necessity: Significant Comorbidiites Make Outpatient Treatment Too Risky, Need Close Monitoring Due to Risk of Patient Decompensation, Need for Pain Control, Need for IV Antibiotics, Risk of Complication if Not Cared For in Hospital, Risk of Diagnosis Which Will Require Inpatient Eval/Care/Monitoring Post Hospital Care: D/C or Transfer Summary - Plan Summary Plan Summary: Continue current medication management. Nursing staff reported incidents of patient's family at bedside refusing medication administration as scheduled.
[2019-12-30] MEDS: GABAPENTIN 100 MG CAPSULE PO SCH (22:00)
[2019-12-31] MEDS: PANTOPRAZOLE SODIUM 40 MG TABLET.DR PO SCH (05:46)
[2019-12-31] MEDS: CEFEPIME 1 GM/D5W RTU 1 GM/50 ML RTUPB IV SCH (10:22)
[2019-12-31] MEDS: INSULIN LISPRO 100 UNIT/ML 3 ML VIAL SUBCUT SCH ×4 (10:22→22:11)
[2019-12-31] MEDS: ENOXAPARIN SODIUM INJ 30 MG/0.3 ML DISP.SYRIN SUBCUT SCH (10:22)
[2019-12-31] MEDS: ASPIRIN 325 MG TABLET PO SCH (10:23)
[2019-12-31] MEDS: RISPERIDONE 1 MG TABLET PO SCH ×2 (10:23→22:04)
[2019-12-31] MEDS: RAMIPRIL 2.5 MG CAPSULE PO SCH (11:07)
--- NOTE | 2019-12-31 11:40 | PDOC PROGRESS REPORT ---
Subjective Progress Note for:: 12/31/19 Subjective:: Patient is doing well. Demented at baseline. No acute changes. Reason For Visit: RIGHT HIP CLOSED FRACTURE,DIABETES MELLITUS TYPE 2 Physical Exam Vital Signs: Temp Pulse Resp BP Pulse Ox 98.2 F 77 21 H 131/61 H 95 12/31/19 07:49 12/31/19 07:49 12/31/19 07:49 12/31/19 07:49 12/31/19 07:49 Intake & Output 12/30/19 12/31/19 01/01/20 06:59 06:59 06:59 Intake Total 1700 2540 50 Output Total 835 595 Balance 865 1945 50 Weight 56.7 kg 60.3 kg Physical Exam: Right lower extremity -Pulses 2+ distally -Compartments soft -Wound clean dry and intact, no drainage, appropriate appearance for postop day 1 -Sensation grossly intact to L3-4-5 S1 -Motor grossly intact to EHL TA gastroc and quad Results Laboratory Results: 12/30/19 04:16 12/30/19 04:16 12/26/19 09:40 Blood Blood Culture - Final NO GROWTH IN 5 DAYS 12/26/19 09:32 Blood Blood Culture - Final NO GROWTH IN 5 DAYS 12/25/19 12/25/19 12/26/19 16:32 16:32 00:59 Creatine Kinase 264 H 261 H CK-MB (CK-2) 3.75 Troponin I 0.029 12/26/19 12/26/19 12/26/19 00:59 07:27 07:27 Creatine Kinase 242 H CK-MB (CK-2) 3.31 2.64 Troponin I 0.031 0.025 Impressions: Chest X-Ray 12/25/19 00:00 IMPRESSION: NO ACUTE FINDINGS. Head CT 12/26/19 00:00 IMPRESSION: CHRONIC CHANGES OF ATROPHY AND MICROVASCULAR ISCHEMIA. NO ACUTE PROCESS. EVIDENCE OF ACUTE STROKE: NO. Head MRI 12/26/19 00:00 IMPRESSION: No evidence of acute infarct. Fluoroscopy 12/27/19 00:00 IMPRESSION: Intraoperative fluoroscopy. Hip X-Ray 12/27/19 00:00 IMPRESSION: SATISFACTORY POSTOPERATIVE LEFT HIP. Hip/Pelvis X-Ray 12/27/19 00:00 IMPRESSION: SATISFACTORY POSTOPERATIVE RIGHT HIP. Assessment & Plan - Diagnosis (1) Intertrochanteric fracture of right hip Qualifiers: Encounter type: initial encounter Fracture type: closed Fracture alignment: displaced Qualified Code(s): S72.141A - Displaced intertrochanteric fracture of right femur, initial encounter for closed fracture Is this a current diagnosis for this admission?: Yes Plan: -Weightbearing as tolerated, no precautions, encourage out of bed ALFONZO for ADL training - PT/OT DVT prophylaxis per medical team -multimodal pain management to avoid excessive narcotics, including gabapentin, tramadol, Toradol, acetaminophen. Dressing change as needed, continue occlusive dressings, OpSite while in house. May leave in place while dry. -May shower with the dressing intact, if it starts to come off she should not get the incision wet. -I would like to follow the patient my office within the next 7 to [address] at [address] [place] [address]. in [place] office #: [phone] - Time Time Spent with patient: Less than 15 minutes
[2019-12-31] MEDS: ACETAMINOPHEN SOLN 325 MG/10.15 ML UDCUP PO PRN (11:58)
[2019-12-31] MEDS: NORMAL SALINE 1000 ML 1,000 ML IV PRN ×2 (16:30)
--- NOTE | 2019-12-31 18:25 | PDOC PROGRESS REPORT ---
Subjective Progress Note for:: 12/31/19 Subjective:: No reported reported fever or chills. No nausea or vomiting. No difficulty with breathing or expressed chest pain. Reason For Visit: RIGHT HIP CLOSED FRACTURE,DIABETES MELLITUS TYPE 2 Physical Exam Vital Signs: Temp Pulse Resp BP Pulse Ox 98.2 F 90 16 138/61 H 93 12/31/19 00:02 12/31/19 00:02 12/31/19 00:02 12/31/19 00:02 12/31/19 00:02 Intake & Output 12/30/19 12/31/19 01/01/20 06:59 06:59 06:59 Intake Total 1700 2540 Output Total 835 595 Balance 865 1945 Weight 56.7 kg 60.3 kg Physical Exam: General appearance: PRESENT: no acute distress Head exam: PRESENT: atraumatic, normocephalic Eye exam: PRESENT: conjunctiva pink. ABSENT: pallor, scleral icterus Ear exam: PRESENT: normal external ear exam Mouth exam: PRESENT: moist Respiratory exam: PRESENT: clear to auscultation uzma Cardiovascular exam: PRESENT: RRR, +S1, +S2. ABSENT: diastolic murmur, rubs, systolic murmur GI/Abdominal exam: PRESENT: normal bowel sounds, soft. ABSENT: distended, guarding, mass, organomegaly, rebound, tenderness Extremities exam: ABSENT: pedal edema Neurological exam: PRESENT: alert but at baseline dementia with confusion. ABSENT: oriented to person, oriented to place, oriented to time, oriented to situation Psychiatric exam: ABSENT: agitated Skin exam: PRESENT: dry, warm, other - right hip fracture ORIF site dressing is satisfactory. Results Laboratory Results: 12/30/19 04:16 12/30/19 04:16 12/25/19 12/25/19 12/26/19 16:32 16:32 00:59 Creatine Kinase 264 H 261 H CK-MB (CK-2) 3.75 Troponin I 0.029 12/26/19 12/26/19 12/26/19 00:59 07:27 07:27 Creatine Kinase 242 H CK-MB (CK-2) 3.31 2.64 Troponin I 0.031 0.025 Impressions: Chest X-Ray 12/25/19 00:00 IMPRESSION: NO ACUTE FINDINGS. Head CT 12/26/19 00:00 IMPRESSION: CHRONIC CHANGES OF ATROPHY AND MICROVASCULAR ISCHEMIA. NO ACUTE PROCESS. EVIDENCE OF ACUTE STROKE: NO. Head MRI 12/26/19 00:00 IMPRESSION: No evidence of acute infarct. Fluoroscopy 12/27/19 00:00 IMPRESSION: Intraoperative fluoroscopy. Hip X-Ray 12/27/19 00:00 IMPRESSION: SATISFACTORY POSTOPERATIVE LEFT HIP. Hip/Pelvis X-Ray 12/27/19 00:00 IMPRESSION: SATISFACTORY POSTOPERATIVE RIGHT HIP. Assessment & Plan - Diagnosis (1) Intertrochanteric fracture of right hip Qualifiers: Encounter type: initial encounter Fracture type: closed Fracture alignment: displaced Qualified Code(s): S72.141A - Displaced intertrochanteric fracture of right femur, initial encounter for closed fracture Is this a current diagnosis for this admission?: Yes Plan: Patient will benefit from short term rehabilitation at SNF for 30 days or less due to her recent fall, fracture and post operative deconditioning recuperation. 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 insulin use: without long-term use Diabetes yosvany litus complication status: with hyperglycemia Qualified Code(s): E11.65 - Type 2 diabetes mellitus with hyperglycemia Is this a current diagnosis for this admission?: Yes (3) Hypertension Qualifiers: Hypertension type: essential hypertension Qualified Code(s): I10 - Essential (primary) hypertension Is this a current diagnosis for this admission?: Yes (4) SDAT (senile dementia of Alzheimer's type) Is this a current diagnosis for this admission?: Yes (5) Senile dementia with behavioral disturbance Is this a current diagnosis for this admission?: Yes (6) E. coli UTI (urinary tract infection) Is this a current diagnosis for this admission?: Yes - Time Time Spent with patient: 25-34 minutes Level of Care: MEDICAL Medications reviewed and adjusted accordingly: Yes Anticipated discharge: SNF Within: when bed available - Inpatient Certification Based on my medical assessment, after consideration of the patient's comorbidities, presenting symptoms, or acuity I expect that the services needed warrant INPATIENT care.: Yes I certify that my determination is in accordance with my understanding of Medicare's requirements for reasonable and necessary INPATIENT services [42 CFR 412.3e].: Yes Medical Necessity: Significant Comorbidiites Make Outpatient Treatment Too Risky , Need Close Monitoring Due to Risk of Patient Decompensation, Need For IV Fluids, Need for IV Antibiotics, Need for Surgery, Risk of Complication if Not Cared For in Hospital, Risk of Diagnosis Which Will Require Inpatient Eval/Care/Monitoring Post Hospital Care: D/C or Transfer Summary - Plan Summary Plan Summary: D/C Cefepime. Continue all other current medication management.
[2019-12-31] MEDS: GABAPENTIN 100 MG CAPSULE PO SCH (22:04)
[2020-01-01] MEDS: PANTOPRAZOLE SODIUM 40 MG TABLET.DR PO SCH (05:43)
[2020-01-01] MEDS: NORMAL SALINE 1000 ML 1,000 ML IV PRN (06:43)
[2020-01-01] MEDS: INSULIN LISPRO 100 UNIT/ML 3 ML VIAL SUBCUT SCH ×4 (07:54→21:43)
[2020-01-01] MEDS: RAMIPRIL 2.5 MG CAPSULE PO SCH (11:07)
[2020-01-01] MEDS: ASPIRIN 325 MG TABLET PO SCH (11:07)
[2020-01-01] MEDS: ENOXAPARIN SODIUM INJ 30 MG/0.3 ML DISP.SYRIN SUBCUT SCH (11:08)
[2020-01-01] MEDS: RISPERIDONE 1 MG TABLET PO SCH ×2 (11:08→21:44)
--- NOTE | 2020-01-01 15:11 | PDOC PROGRESS REPORT ---
Subjective Progress Note for:: 01/01/20 Subjective:: No reported reported fever or chills. Family at bedside reported satisfactory intake at lunch time today. No nausea or vomiting. No difficulty with breathing or expressed chest pain. Reason For Visit: RIGHT HIP CLOSED FRACTURE,DIABETES MELLITUS TYPE 2 Physical Exam Vital Signs: Temp Pulse Resp BP Pulse Ox 98.1 F 85 16 131/54 H 97 01/01/20 12:00 01/01/20 12:00 01/01/20 12:00 01/01/20 12:00 01/01/20 12:00 Intake & Output 12/31/19 01/01/20 01/02/20 06:59 06:59 06:59 Intake Total 2540 3115 240 Output Total 595 1225 300 Balance 1945 1890 -60 Weight 60.3 kg 62 kg Physical Exam: General appearance: PRESENT: no acute distress Head exam: PRESENT: atraumatic, normocephalic Eye exam: PRESENT: conjunctiva pink. ABSENT: pallor, scleral icterus Ear exam: PRESENT: normal external ear exam Mouth exam: PRESENT: moist Respiratory exam: PRESENT: clear to auscultation uzma Cardiovascular exam: PRESENT: RRR, +S1, +S2. ABSENT: diastolic murmur, rubs, systolic murmur GI/Abdominal exam: PRESENT: normal bowel sounds, soft. ABSENT: distended, guarding, mass, organomegaly, rebound, tenderness Extremities exam: ABSENT: pedal edema Neurological exam: PRESENT: alert but at baseline dementia with confusion. ABSE NT: oriented to person, oriented to place, oriented to time, oriented to situation Psychiatric exam: ABSENT: agitated Skin exam: PRESENT: dry, warm, other - right hip fracture ORIF site dressing is satisfactory. Results Laboratory Results: 12/30/19 04:16 12/30/19 04:16 12/25/19 12/25/19 12/26/19 16:32 16:32 00:59 Creatine Kinase 264 H 261 H CK-MB (CK-2) 3.75 Troponin I 0.029 12/26/19 12/26/19 12/26/19 00:59 07:27 07:27 Creatine Kinase 242 H CK-MB (CK-2) 3.31 2.64 Troponin I 0.031 0.025 Impressions: Chest X-Ray 12/25/19 00:00 IMPRESSION: NO ACUTE FINDINGS. Head CT 12/26/19 00:00 IMPRESSION: CHRONIC CHANGES OF ATROPHY AND MICROVASCULAR ISCHEMIA. NO ACUTE PROCESS. EVIDENCE OF ACUTE STROKE: NO. Head MRI 12/26/19 00:00 IMPRESSION: No evidence of acute infarct. Fluoroscopy 12/27/19 00:00 IMPRESSION: Intraoperative fluoroscopy. Hip X-Ray 12/27/19 00:00 IMPRESSION: SATISFACTORY POSTOPERATIVE LEFT HIP. Hip/Pelvis X-Ray 12/27/19 00:00 IMPRESSION: SATISFACTORY POSTOPERATIVE RIGHT HIP. 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 coli UTI (urinary tract infection) Is this a current diagnosis for this admission?: Yes - Time Time Spent with patient: 25-34 minutes Level of Care: MEDICAL Medications reviewed and adjusted accordingly: Yes Anticipated discharge: SNF Within: Other - Inpatient Certification Based on my medical assessment, after consideration of the patient's comorbidities, presenting symptoms, or acuity I expect that the services needed warrant INPATIENT care.: Yes I certify that my determination is in accordance with my understanding of Medicare's requirements for reasonable and necessary INPATIENT services [42 CFR 412.3e].: Yes Medical Necessity: Significant Comorbidiites Make Outpatient Treatment Too Risky, Need Close Monitoring Due to Risk of Patient Decompensation, Need for Pain Control, Risk of Complication if Not Cared For in Hospital, Risk of Diagnosis Which Will Require Inpatient Eval/Care/Monitoring Post Hospital Care: D/C or Transfer Summary - Plan Summary Plan Summary: Continue current medication management. Follow up on disposition efforts. Awaiting [facility] approval for SNF placement.
[2020-01-01] MEDS: GABAPENTIN 100 MG CAPSULE PO SCH (21:44)
[2020-01-02] MEDS: PANTOPRAZOLE SODIUM 40 MG TABLET.DR PO SCH (05:08)
[2020-01-02] MEDS: INSULIN LISPRO 100 UNIT/ML 3 ML VIAL SUBCUT SCH ×2 (08:38→12:27)
[2020-01-02] MEDS: RISPERIDONE 1 MG TABLET PO SCH (09:37)
[2020-01-02] MEDS: RAMIPRIL 2.5 MG CAPSULE PO SCH (09:37)
[2020-01-02] MEDS: ASPIRIN 325 MG TABLET PO SCH (09:37)
[2020-01-02] MEDS: ENOXAPARIN SODIUM INJ 30 MG/0.3 ML DISP.SYRIN SUBCUT SCH (09:37)
[2020-01-02] MEDS: ACETAMINOPHEN SOLN 325 MG/10.15 ML UDCUP PO PRN (11:06)
--- NOTE | 2020-01-02 11:13 | PDOC TRANSFER SUMMARY ---
Impression - Admit/DC Date/PCP Admission Date/Primary Care Provider: 12/25/19 16:35 AMAYA REYNOLDS Discharge Date: 01/02/20 - Discharge Diagnosis (1) Intertrochanteric fracture of right hip Is this a current diagnosis for this admission?: Yes (2) Type 2 diabetes mellitus Is this a current diagnosis for this admission?: Yes (3) Hypertension Is this a current diagnosis for this admission?: Yes (4) SDAT (senile dementia of Alzheimer's type) Is this a current diagnosis for this admission?: Yes (5) Senile dementia with behavioral disturbance Is this a current diagnosis for this admission?: Yes (6) E. coli UTI (urinary tract infection) Is this a current diagnosis for this admission?: Yes - Assessment Summary: Patient was admitted for fall at home with subsequent right hip intertrochanteric fracture. She presented with pain and difficulty with walking. She was seen in consultation by Dr. Echevarria, orthopedic surgeon, for surgical intervention. Due to her abnormal cardiac enzymes, she was seen in consultation by Dr. Howe, and eventually cleared cardiac hayden for surgery. She was taken to the operating theater on 12/27/2019 for ORIF. Postoperatively treated for E. Coli UTI and participated in physical therapy program. She has progressively improved and her oral intake has increased with episodes of hyperglycemia. Her family refused administration of oral medication for awhile during this hospitalization. She should resume her oral diabetic medication. she will be transferred to SNF today for short term rehabilitation. She will follow up with Dr. Echevarria as instructed upon discharge. Facility staff should call my office for appointment before discharge from the facility upon completion of her rehabilitative program for follow up appointment. - Additional Information Resuscitation Status: Full Code Discharge Diet: Diabetic Discharge Activity: Activity As Tolerated, Slowly Increase Activity, Supervised Activity Referrals: AMAYA REYNOLDS MD [Primary Care Provider] - (Call office for follow appointment before discharge from SNF) THONG ECHEVARRIA JR, DO [ACTIVE PROVISIONAL STAFF] - (call office for appointment) Home Medications: Gabapentin [Neurontin 100 mg Capsule] 100 mg PO QHS 08/21/19 Glipizide [Glucotrol 10 mg Tablet] 10 mg PO DAILY 08/21/19 Metformin HCl 850 mg PO BID 08/21/19 Montelukast Sodium [Singulair 10 mg Tablet] 10 mg PO QHS 08/21/19 Ramipril [Altace 2.5 mg Capsule] 2.5 mg PO DAILY 08/21/19 Risperidone [Risperdal 0.25 mg Tablet] 1 mg PO Q12 08/21/19 Aspirin [Aspirin 325 mg Tablet] 325 mg PO DAILY tablet 01/01/20 Pantoprazole Sodium [Protonix [address] Tablet] 40 mg PO Q6AM tablet. 01/01/20 History of Present Illiness History of Present Illness: HERMAN ZHANG is a 89 year old female patient known to my practice who was brought to the ED via EMS following incident of fall at home while she was walking and tripped on her self as per daughter's report. Daughter reported walking behind patient as a support and landed to the floor on top of the patient during the fall incident. There was no loss of consciousness or observed difficulty with breathing. Subsequently family noted expressed pain with attempt at walking. Her mentation did changed and family alerted EMS. EMS personnel reported significant hyperglycemia upon their arrival at patient's home. She was transferred to the ED for further evaluation and management. Her initial evaluation in the ED was significant for right intertrochanteric fracture and hyperglycemia. Her family (daughters and grand son) at bedside were informed about need for hospitalization for further evaluation and management. Her medical morbidities are listed below. Hospital Course Hospital Course: Patient was admitted for fall at home with subsequent right hip intertrochanteric fracture. She presented with pain and difficulty with walking. She was seen in consultation by Dr. Echevarria, orthopedic surgeon, for surgical in tervention. Due to her abnormal cardiac enzymes, she was seen in consultation by Dr. Howe, and eventually cleared cardiac hayden for surgery. She was taken to the operating theater on 12/27/2019 for ORIF. Postoperatively treated for E. Coli UTI and participated in physical therapy program. She has progressively improved and her oral intake has increased with episodes of hyperglycemia. Her family ref used administration of oral medication for awhile during this hospitalization. She should resume her oral diabetic medication. she will be transferred to SNF today for short term rehabilitation. She will follow up with Dr. Echevarria as instructed upon discharge. Facility staff should call my office for appointment before discharge from the facility upon completion of her rehabilitative program for follow up appointment. Physical Exam Vital Signs: Temp Pulse Resp BP Pulse Ox 98.5 F 98 15 139/55 H 96 01/02/20 08:19 01/02/20 08:19 01/02/20 08:19 01/02/20 08:19 01/02/20 08:19 Intake & Output 01/01/20 01/02/20 01/03/20 06:59 06:59 06:59 Intake Total 3115 360 Output Total 1225 900 Balance 1890 -540 Weight 62 kg 60.4 kg General appearance: PRESENT: no acute distress Head exam: PRESENT: atraumatic, normocephalic Eye exam: PRESENT: conjunctiva pink. ABSENT: pallor, scleral icterus Ear exam: PRESENT: normal external ear exam Mouth exam: PRESENT: moist Respiratory exam: PRESENT: clear to auscultation uzma Cardiovascular exam: PRESENT: RRR, +S1, +S2. ABSENT: diastolic murmur, rubs, systolic murmur GI/Abdominal exam: PRESENT: normal bowel sounds, soft. ABSENT: distended, guarding, mass, organomegaly, rebound, tenderness Extremities exam: ABSENT: pedal edema Neurological exam: PRESENT: alert, awake at baseline dementia with confusion. ABSENT: oriented to person, oriented to place, oriented to time, oriented to situation Psychiatric exam: ABSENT: agitated Skin exam: PRESENT: dry, warm, other - right hip fracture ORIF site dressing is satisfactory. Results Laboratory Results: WBC 10.8 10^3/uL (4.0-10.5) H 12/30/19 04:16 RBC 2.78 10^6/uL (3.72-5.28) L 12/30/19 04:16 Hgb 9.3 g/dL (12.0-15.5) L 12/30/19 04:16 Hct 27.2 % (36.0-47.0) L 12/30/19 04:16 MCV 98 fl (80-97) H 12/30/19 04:16 MCH 33.5 pg (27.0-33.4) H 12/30/19 04:16 MCHC 34.3 g/dL (32.0-36.0) 12/30/19 04:16 RDW 13.3 % (11.5-14.0) 12/30/19 04:16 Plt Count 175 10^3/uL (150-450) 12/30/19 04:16 Lymph % (Auto) 6.9 % (13-45) L 12/30/19 04:16 [place] % (Auto) 10.3 % (3-13) 12/30/19 04:16 Eos % (Auto) 0.8 % (0-6) 12/30/19 04:16 Baso % (Auto) 0.4 % (0-2) 12/30/19 04:16 Absolute Neuts (auto) 8.8 10^3/uL (1.7-8.2) H 12/30/19 04:16 Absolute Lymphs (auto) 0.7 10^3/uL (0.5-4.7) 12/30/19 04:16 Absolute Monos (auto) 1.1 10^3/uL (0.1-1.4) 12/30/19 04:16 Absolute Eos (auto) 0.1 10^3/uL (0.0-0.6) 12/30/19 04:16 Absolute Basos (auto) 0.0 10^3/uL (0.0-0.2) 12/30/19 04:16 Total Counted 100 12/25/19 16:32 Seg Neutrophils % 81.6 % (42-78) H 12/30/19 04:16 Seg Neuts % (Manual) 89 % (42-78) H 12/25/19 16:32 Lymphocytes % (Manual) 4 % (13-45) L 12/25/19 16:32 Monocytes % (Manual) 7 % (3-13) 12/25/19 16:32 Eosinophils % (Manual) 0 % (0-6) 12/25/19 16:32 Basophils % (Manual) 0 % (0-2) 12/25/19 16:32 Abs Neuts (Manual) 12.5 10^3/uL (1.7-8.2) H 12/25/19 16:32 Abs Lymphs (Manual) 0.6 10^3/uL (0.5-4.7) 12/25/19 16:32 Abs Monocytes (Manual) 1.0 10^3/uL (0.1-1.4) 12/25/19 16:32 Absolute Eos (Manual) 0.0 10^3/uL (0.0-0.6) 12/25/19 16:32 Abs Basophils (Manual) 0.0 10^3/uL (0.0-0.2) 12/25/19 16:32 Platelet Comment ADEQUATE 12/25/19 16:32 RBC Morph Comment NORMO-CYTIC/CHROMIC 12/25/19 16:32 PT 13.5 SEC (11.4-15.4) 12/25/19 16:32 INR 1.03 12/25/19 16:32 APTT 24.1 SEC (23.5-35.8) 12/25/19 16:32 Sodium 145.1 mmol/L (137-145) H 12/30/19 04:16 Potassium 3.7 mmol/L (3.6-5.0) 12/30/19 04:16 Chloride 117 mmol/L (98-107) H 12/30/19 04:16 Carbon Dioxide 22 mmol/L (22-30) 12/30/19 04:16 Anion Gap 6 (5-19) 12/30/19 04:16 BUN 16 mg/dL (7-20) 12/30/19 04:16 Creatinine 0.46 mg/dL (0.52-1.25) L 12/30/19 04:16 Est GFR ( Amer) > 60 (>60) 12/30/19 04:16 Est GFR (MDRD) Non-Af > 60 (>60) 12/30/19 04:16 Glucose 254 mg/dL (75-110) H 12/30/19 04:16 POC Glucose 209 mg/dL (70-110) H 01/02/20 06:02 Calcium 8.0 mg/dL (8.4-10.2) L 12/30/19 04:16 Magnesium 2.2 mg/dL (1.6-2.3) 12/26/19 07:27 Total Bilirubin 1.0 mg/dL (0.2-1.3) 12/26/19 07:27 Direct Bilirubin 0.4 mg/dL (0.0-0.4) 12/26/19 07:27 Neonat Total Bilirubin Not Reportable 12/26/19 07:27 Neonat Direct Bilirubin Not Reportable 12/26/19 07:27 Neonat Indirect Bili Not Reportable 12/26/19 07:27 AST 21 U/L (14-36) 12/26/19 07:27 ALT 14 U/L (<35) 12/26/19 07:27 Alkaline Phosphatase 77 U/L (38-126) 12/26/19 07:27 Creatine Kinase 242 U/L (30-135) H 12/26/19 07:27 CK-MB (CK-2) 2.64 ng/mL (<4.55) 12/26/19 07:27 Troponin I 0.025 ng/mL 12/26/19 07:27 Total Protein 5.6 g/dL (6.3-8.2) L 12/26/19 07:27 Albumin 2.9 g/dL (3.5-5.0) L 12/26/19 07:27 Urine Color YELLOW 12/25/19 16:53 Urine Appearance CLEAR 12/25/19 16:53 Urine pH 5.0 (5.0-9.0) 12/25/19 16:53 Ur Specific [place] 1.029 12/25/19 16:53 Urine Protein NEGATIVE mg/dL (NEGATIVE) 12/25/19 16:53 Urine Glucose (UA) >=500 mg/dL (NEGATIVE) H 12/25/19 16:53 Urine Ketones 20 mg/dL (NEGATIVE) H 12/25/19 16:53 Urine Blood SMALL (NEGATIVE) H 12/25/19 16:53 Urine Nitrite NEGATIVE (NEGATIVE) 12/25/19 16:53 Urine Bilirubin NEGATIVE (NEGATIVE) 12/25/19 16:53 Urine Urobilinogen NEGATIVE mg/dL (<2.0) 12/25/19 16:53 Ur Leukocyte Esterase NEGATIVE (NEGATIVE) 12/25/19 16:53 Urine WBC (Auto) 1 /HPF 12/25/19 16:53 Urine Mucus (Auto) RARE /LPF 12/25/19 16:53 Urine Ascorbic Acid NEGATIVE (NEGATIVE) 12/25/19 16:53 Blood Type O POSITIVE 12/25/19 16:33 Antibody Screen NEGATIVE 12/25/19 16:33 12/25/19 12/26/19 12/26/19 16:32 00:59 07:27 CK-MB (CK-2) 3.75 3.31 2.64 Troponin I 0.029 0.031 0.025 Impressions: Chest X-Ray 12/25/19 00:00 IMPRESSION: NO ACUTE FINDINGS. Hip/Pelvis X-Ray 12/25/19 15:04 IMPRESSION: Intertrochanteric fracture of the right hip. Head CT 12/26/19 00:00 IMPRESSION: CHRONIC CHANGES OF ATROPHY AND MICROVASCULAR ISCHEMIA. NO ACUTE PROCESS. EVIDENCE OF ACUTE STROKE: NO. Head MRI 12/26/19 00:00 IMPRESSION: No evidence of acute infarct. Fluoroscopy 12/27/19 00:00 IMPRESSION: Intraoperative fluoroscopy. Hip X-Ray 12/27/19 00:00 IMPRESSION: SATISFACTORY POSTOPERATIVE LEFT HIP. Hip/Pelvis X-Ray 12/27/19 00:00 IMPRESSION: SATISFACTORY POSTOPERATIVE RIGHT HIP. Plan Health Concerns: Baseline dementia may hinder adequate participation in physical therapy program. She is slated for less than 30 days of SNF stay. Plan of Treatment: Resume her preadmission medication schedule and maintain supervisory environment. Goals: Restore preadmission ambulatory status as much as possible but her cognitive decline will remain a challenge. Time Spent: Greater than 30 Minutes - Post acute care coordination. Stroke Is this a Stroke Patient?: No Acute Heart Failure - Is this a Heart Failure Patient?: No
[2020-01-02 15:24] VITALS: BP 161/60
== END 2020-01-02 12:55 | DRG 481 ==
LOC: ER 14:50 → EH 16:35 → 4N 19:30
PROVIDERS: ADMIT Internal Medicine Geriatric Medicine; ATTEND Internal Medicine Geriatric Medicine
PROC: 0QS604Z Reposition Right Upper Femur with Internal Fixation Device, Open Approach (ICD-10-PCS; principal; 2019-12-27 08:15)
DX: S72.141A Displaced intertrochanteric fracture of right femur, initial encounter for closed fracture (principal); N39.0 Urinary tract infection, site not specified; E11.65 Type 2 diabetes mellitus with hyperglycemia; I10 Essential (primary) hypertension; B96.20 Unspecified Escherichia coli [E. coli] as the cause of diseases classified elsewhere; G30.1 Alzheimer's disease with late onset; F02.80 Dementia in other diseases classified elsewhere, unspecified severity, without behavioral disturbance, psychotic disturbance, mood disturbance, and anxiety; W01.0XXA Fall on same level from slipping, tripping and stumbling without subsequent striking against object, initial encounter; J44.9 Chronic obstructive pulmonary disease, unspecified; Z91.83 Wandering in diseases classified elsewhere; Y92.019 Unspecified place in single-family (private) house as the place of occurrence of the external cause; Z79.899 Other long term (current) drug therapy; Z79.82 Long term (current) use of aspirin; Z79.84 Long term (current) use of oral hypoglycemic drugs; I27.20 Pulmonary hypertension, unspecified
CPT/HCPCS: 01230; 36415; 70450; 70551; 71045; 80048; 80053; 81001; 82550; 82553; 82962; 83735; 84484; 85025; 85610; 85730; 86850; 86900; 86901; 87040; 87086; 87088; 87186; 93005; 93010; 93306; 96360; 99285; C1713; J0690; J0692; J1650; J1815; J2250; J2270; J2704; J3010; J3490; J7030; J7060

== ENCOUNTER 2020-02-17 15:35 | Inpatient (IN) | payer MEDICARE, MEDICAID ==
--- NOTE | 2020-02-17 16:26 | RADIOLOGY REPORT (SQ) ---
EXAM DESCRIPTION: CHEST SINGLE VIEW IMAGES COMPLETED DATE/TIME: 02/17/2020 4:16 pm REASON FOR STUDY: eval for pneumonia COMPARISON: 12/25/2019 EXAM PARAMETERS: NUMBER OF VIEWS: One view. TECHNIQUE: Single frontal radiographic view of the chest acquired. RADIATION DOSE: NA LIMITATIONS: None. FINDINGS: LUNGS AND PLEURA: No consolidation or effusions. Small calcified granulomas present the r ight upper lobe. Asymmetric opacity overlying the left base is consistent with confluence of shadows including an anterior rib. No pneumothorax. MEDIASTINUM AND HILAR STRUCTURES: No masses. Contour normal. HEART AND VASCULAR STRUCTURES: Heart normal in size. Normal vasculature. BONES: No acute findings. HARDWARE: None in the chest. OTHER: No other significant finding. IMPRESSION: NO ACUTE RADIOGRAPHIC FINDING IN THE CHEST. TECHNICAL DOCUMENTATION: JOB ID: [id number] 2010 [employer]- All Rights Reserved Reading location - IP/workstation name: [email or web address]
--- NOTE | 2020-02-17 16:47 | ER Document Report ---
ED General - General Chief Complaint: Skin Sore(s) Stated Complaint: WOUND Time Seen by Provider: 02/17/20 15:55 Primary Care Provider: AMAYA REYNOLDS MD [Primary Care Provider] - Follow up as needed Information source: Relative Cannot obtain history due to: Dementia TRAVEL OUTSIDE OF THE [place] IN LAST 30 DAYS: No - HPI Onset: Other - over the last several weeks Onset/Duration: Gradual Quality of pain: Burning Severity: Moderate Associated symptoms: Other - skin breakdown on buttocks/sacral area Exacerbated by: Denies Relieved by: Denies Similar symptoms previously: Yes - patient has had pressure ulcers in past Recently seen / treated by doctor: Yes - Patient broke her right hip at the end of Februrary Notes: 89 year old female with a history of Dementia, HTN, DM, GERD brought to the ER by her family due to failure to thrive and worsening pressure ulcers on her sacrum and heals. The patient is unable to provide any history due to her severe dementia. The patient has been eating and drinking fairly well per report of her family who is with her in the ER. - Related Data Allergies/Adverse Reactions: No Known Allergies Allergy (Verified 02/17/20 16:14) Home Medications: ramipril, glipizide, zinc sulfate, remeron, lisinopril, singulair, risperdal, gabapentin, miconazole, metformin, pantoprazole, melatonin Past Medical History - General Information source: Relative Cannot obtain history due to: Dementia - Social History Smoking Status: Never Smoker Chew tobacco use (# tins/day): No Frequency of alcohol use: None Drug Abuse: None Family History: Reviewed & Not Pertinent Patient has suicidal ideation: No Patient has homicidal ideation: No - Past Medical History Cardiac Medical History: Reports: Hx Hypertension - MEDICATED/ CONTROLLED Denies: Hx Coronary Artery Disease, Hx Heart Attack Pulmonary Medical History: Denies: Hx Asthma, Hx Bronchitis, Hx COPD, Hx Pneumonia Neurological Medical History: Denies: Hx Cerebrovascular Accident, Hx Seizures Endocrine Medical History: Reports: Hx Diabetes Mellitus Type 2 - pills only Renal/ Medical History: Denies: Hx Peritoneal Dialysis GI Medical History: Reports: Hx Gastroesophageal Reflux Disease, Hx Ulcer. Den ies: Hx Hepatitis, Hx Hiatal Hernia Musculoskeletal Medical History: Reports Hx Arthritis Infectious Medical History: Denies: Hx Hepatitis Past Surgical History: Reports: Hx Orthopedic Surgery - Hip. Denies: Hx Hysterectomy, Hx Mastectomy, Hx Open Heart Surgery, Hx Pacemaker - Immunizations Hx Diphtheria, Pertussis, Tetanus Vaccination: No Review of Systems - Review of Systems Constitutional: Weakness EENT: No symptoms reported Cardiovascular: No symptoms reported Respiratory: No symptoms reported Gastrointestinal: No symptoms reported Genitourinary: No symptoms reported Female Genitourinary: No symptoms reported Musculoskeletal: No symptoms reported Skin: Other - pressure ulcers on scaral area, both heals, and left elbow Hematologic/Lymphatic: No symptoms reported Neurological/Psychological: Confusion -: Yes All other systems reviewed and negative Physical Exam - Vital signs Vitals: BP Pulse Ox 146/78 H 94 02/17/20 16:02 02/17/20 16:02 - Notes Notes: GENERAL: Chronically ill appearing, in no acute distress. HEAD: Atraumatic, normocephalic. EYES: Pupils equal round and reactive to light, extraocular movements intact, sclera anicteric, conjunctiva are normal. ENT: External ears normal in appearance, nares patent, oropharynx clear without exudates. Moist mucous membranes. NECK: Normal range of motion, supple without lymphadenopathy or JVD. LUNGS: Breath sounds clear to auscultation bilaterally and equal. No wheezes rales or rhonchi. HEART: Regular rate and rhythm without murmurs, rubs or gallops. ABDOMEN: Soft, nontender, normoactive bowel sounds. No guarding, no rebound. No masses appreciated. EXTREMITIES: Normal range of motion, no pitting or edema. No clubbing or cyanosis. NEUROLOGICAL: No focal deficits. Patient is nonverbal it seems due to her dementia. PSYCH: Normal mood, normal affect. SKIN: Stage 2 Pressure ulcer in sacral area and stage one pressure ulcers on heals and left elbow. Rest of skin is warm, dry, decreased turgor, no rashes or lesions noted. Course - Re-evaluation Re-evalutation: 02/17/20 18:17 The patient is demented and she just broke her hip and was in a rehab facility. The patient has a UTI today and she meets sepsis criteria with an elevated lactic acid, elevated heart rate, and an infectious source. Patient also has several pressure ulcers (worst is stage 2 on her sacrum). Patient admitted to her PCP for further treatment and care. Patient treated in the ER with fluids and Rocephin. Patient will need wound care for her pressure ulcers. - Vital Signs Vital signs: Temp Pulse Resp BP Pulse Ox 99.5 F 18 155/67 H 97 02/17/20 17:17 02/17/20 17:01 02/17/20 17:00 02/17/20 17:01 - Laboratory Result Diagrams: 02/17/20 16:43 02/17/20 16:43 Laboratory results interpreted by me: 02/17/20 02/17/20 02/17/20 16:43 16:43 16:43 WBC 13.3 H RBC 3.65 L Hgb 11.6 L Hct 34.6 L Lymph % (Auto) 7.2 L Absolute Neuts (auto) 11.0 H Seg Neutrophils % 83.1 H Sodium 135.5 L Potassium 5.2 H Creatinine 0.46 L Glucose 363 H POC Glucose Lactic Acid 2.8 H Alkaline Phosphatase 130 H Creatine Kinase < 20 L Albumin 3.3 L Urine Protein Urine Glucose (UA) Urine Ketones Urine Blood Urine Nitrite Ur Leukocyte Esterase Urine Ascorbic Acid 02/17/20 02/17/20 16:58 17:00 WBC RBC Hgb Hct Lymph % (Auto) Absolute Neuts (auto) Seg Neutrophils % Sodium Potassium Creatinine Glucose POC Glucose 340 H Lactic Acid Alkaline Phosphatase Creatine Kinase Albumin Urine Protein 30 H Urine Glucose (UA) >=500 H Urine Ketones TRACE H Urine Blood SMALL H Urine Nitrite POSITIVE H Ur Leukocyte Esterase LARGE H Urine Ascorbic Acid 40 H - Diagnostic Test Radiology reviewed: Image reviewed, Reports reviewed - EKG Interpretation by Me EKG shows normal: Sinus rhythm, Lutz, Intervals, QRS Complexes Rate: Tachycardia Rhythm: NSR Lutz/QRS: LAHB/LAFB Additional EKG results interpreted by me: 02/17/20 16:47 possible LVH Discharge - Discharge Clinical Impression: Acidosis UTI (urinary tract infection) Qualifiers: Urinary tract infection type: site unspecified Hematuria presence: with hematuria Qualified Code(s): N39.0 - Urinary tract infection, site not specified; R31.9 - Hematuria, unspecified Pressure ulcer Qualifiers: Pressure injury location: sacral region Pressure injury stage: stage 2 Qualified Code(s): L89.152 - Pressure ulcer of sacral region, stage 2 Condition: Fair Disposition: ADMITTED INPATIENT Admitting Provider: Doc Unit Admitted: Medical Floor Referrals: AMAYA REYNOLDS MD [Primary Care Provider] - Follow up as needed
[2020-02-17 17:05] LABS: VENOUS BLOOD BASE EXCESS 2.5 mmol/L; VENOUS BLOOD HCO3 28.8 mmol/L (20-32); VENOUS BLOOD PH 7.35 (7.30-7.42)
[2020-02-17 17:06] LABS: ABSOLUTE BASOPHILS # (AUTO) 0.1 10^3/uL (0.0-0.2); ABSOLUTE EOSINOPHILS # (AUTO) 0.1 10^3/uL (0.0-0.6); ABSOLUTE MONOCYTES (AUTO) 1.2 10^3/uL (0.1-1.4); BASOPHILS % (AUTO) 0.4 % (0-2); EOSINOPHILS % (AUTO) 0.5 % (0-6); HEMATOCRIT 34.6 % (36.0-47.0); HEMOGLOBIN 11.6 g/dL (12.0-15.5); LYMPHOCYTES % (AUTO) 7.2 % (13-45); MEAN CORPUSCULAR HEMOGLOBIN 31.7 pg (27.0-33.4); MEAN CORPUSCULAR HGB CONC 33.4 g/dL (32.0-36.0); MEAN CORPUSCULAR VOLUME 95 fl (80-97); MONOCYTES % (AUTO) 8.8 % (3-13); PLATELET COUNT 423 10^3/uL (150-450); RED BLOOD COUNT 3.65 10^6/uL (3.72-5.28); RED CELL DISTRIBUTION WIDTH 13.9 % (11.5-14.0); SEGMENTED NEUTROPHILS % (AUTO) 83.1 % (42-78); TOTAL CELLS COUNTED % (AUTO) 100 %; WHITE BLOOD COUNT 13.3 10^3/uL (4.0-10.5)
[2020-02-17] MEDS ORDERED: NORMAL SALINE 1000 ML 1,000 ML IV ONE (17:16)
--- NOTE | 2020-02-17 17:33 | EKG REPORT ---
SEVERITY:- ABNORMAL ECG - SINUS TACHYCARDIA LEFT ANTERIOR FASCICULAR BLOCK LEFT VENTRICULAR HYPERTROPHY ANTERIOR Q WAVES, POSSIBLY DUE TO LVH : Confirmed by: Ted Medina MD 17-Feb-2020 17:32:45
[2020-02-17 17:38] LABS: ALBUMIN 3.3 g/dL (3.5-5.0); ALKALINE PHOSPHATASE 130 U/L (38-126); ANION GAP 8 (5-19); ASPARTATE AMINO TRANSFERASE 17 U/L (14-36); BILIRUBIN,TOTAL 0.4 mg/dL (0.2-1.3); BLOOD UREA NITROGEN 18 mg/dL (7-20); CALCIUM 9.2 mg/dL (8.4-10.2); CARBON DIOXIDE 29 mmol/L (22-30); CHLORIDE 99 mmol/L (98-107); GLUCOSE 363 mg/dL (75-110); POTASSIUM 5.2 mmol/L (3.6-5.0); TOTAL PROTEIN 6.8 g/dL (6.3-8.2)
[2020-02-17 17:39] LABS: APPEARANCE,URINE TURBID; BILIRUBIN,URINE NEGATIVE (NEGATIVE); GLUCOSE, URINE >=500 mg/dL (NEGATIVE); KETONES,URINE TRACE mg/dL (NEGATIVE); LEUKOCYTE ESTERASE,URINE LARGE (NEGATIVE); NITRITE,URINE POSITIVE (NEGATIVE); PROTEIN,URINE 30 mg/dL (NEGATIVE); URINE SPECIFIC GRAVITY 1.029; UROBILINOGEN,URINE NEGATIVE mg/dL (<2.0)
[2020-02-17 17:40] LABS: COLOR,URINE YELLOW
[2020-02-17 17:41] LABS: CREATINE KINASE < 20 U/L (30-135)
[2020-02-17] MEDS ORDERED: CEFTRIAXONE 1 GM/D5W RTU 1 GM/50 ML RTUPB IV ONE (18:13)
[2020-02-17] MEDS ORDERED: DEXTROSE 40% GEL 15 GM TUBE PO PRN ×2 (19:25)
[2020-02-17] MEDS ORDERED: DEXTROSE 50%-WATER 25 GM/50 ML DISP.SYRIN IV PRN ×2 (19:25)
[2020-02-17] MEDS ORDERED: GLUCAGON,HUMAN RECOMB 1 MG INJ IM PRN (19:25)
[2020-02-17] MEDS ORDERED: ONDANSETRON HCL INJ/PF 4 MG/2 ML SDV IV PRN (19:25)
[2020-02-17] MEDS: ENOXAPARIN SODIUM INJ 30 MG/0.3 ML DISP.SYRIN SUBCUT SCH (21:32)
[2020-02-17] MEDS: INSULIN LISPRO 100 UNIT/ML 3 ML VIAL SUBCUT SCH (21:32)
[2020-02-18] MEDS: NORMAL SALINE 1000 ML 1,000 ML IV PRN ×2 (00:13→11:38)
[2020-02-18] MEDS: PANTOPRAZOLE SODIUM 40 MG TABLET.DR PO SCH (05:20)
[2020-02-18 05:21] LABS: ABSOLUTE BASOPHILS # (AUTO) 0.1 10^3/uL (0.0-0.2); ABSOLUTE EOSINOPHILS # (AUTO) 0.2 10^3/uL (0.0-0.6); ABSOLUTE LYMPHOCYTES (AUTO) 1.3 10^3/uL (0.5-4.7); ABSOLUTE MONOCYTES (AUTO) 1.1 10^3/uL (0.1-1.4); ABSOLUTE NEUT (AUTO) 7.3 10^3/uL (1.7-8.2); BASOPHILS % (AUTO) 0.8 % (0-2); EOSINOPHILS % (AUTO) 1.9 % (0-6); HEMATOCRIT 31.1 % (36.0-47.0); HEMOGLOBIN 10.7 g/dL (12.0-15.5); LYMPHOCYTES % (AUTO) 12.9 % (13-45); MEAN CORPUSCULAR HEMOGLOBIN 31.9 pg (27.0-33.4); MEAN CORPUSCULAR HGB CONC 34.3 g/dL (32.0-36.0); MEAN CORPUSCULAR VOLUME 93 fl (80-97); MONOCYTES % (AUTO) 11.1 % (3-13); PLATELET COUNT 321 10^3/uL (150-450); RED BLOOD COUNT 3.34 10^6/uL (3.72-5.28); RED CELL DISTRIBUTION WIDTH 13.5 % (11.5-14.0); SEGMENTED NEUTROPHILS % (AUTO) 73.3 % (42-78); TOTAL CELLS COUNTED % (AUTO) 100 %
[2020-02-18 05:23] LABS: ALBUMIN 2.5 g/dL (3.5-5.0); ALKALINE PHOSPHATASE 91 U/L (38-126); ASPARTATE AMINO TRANSFERASE 13 U/L (14-36); BILIRUBIN,TOTAL 0.5 mg/dL (0.2-1.3); BLOOD UREA NITROGEN 13 mg/dL (7-20); CALCIUM 8.8 mg/dL (8.4-10.2); CHLORIDE 107 mmol/L (98-107); GLUCOSE 133 mg/dL (75-110); TOTAL PROTEIN 5.7 g/dL (6.3-8.2)
[2020-02-18 06:20] LABS: ANION GAP 6 (5-19); CARBON DIOXIDE 26 mmol/L (22-30)
--- NOTE | 2020-02-18 06:22 | PDOC CONSULTATION ---
Consultation Consult Date: 02/18/20 Provider Consulted: SURGICAL SURGICALIST MD Consult reason:: decubitus ulcers History of Present Illness Admission Date/PCP: 02/17/20 18:52 AMAYA REYNOLDS History of Present Illness: HERMAN ZHANG is a 89 year old female seen at the request of Dr. Kusum jackson. The patient is nonambulatory, and nonverbal. There is no family at the bedside for history. All history is obtained from the medical record and the nursing staff. The patient is developing decubiti on the left elbow, left heel, right heel, and sacrum. The nurses deny any foul smell or drainage. The nurses also deny excessive agitation, shortness of breath. The patient is admitted for urinary tract infection, and is on antibiotics. Past Medical History Cardiac Medical History: Reports: Hypertension - MEDICATED/ CONTROLLED Denies: Coronary Artery Disease, Myocardial Infarction Pulmonary Medical History: Denies: Asthma, Bronchitis, Chronic Obstructive Pulmonary Disease (COPD), Pneumonia Neurological Medical History: Denies: Seizures Endocrine Medical History: Reports: Diabetes Mellitus Type 2 - pills only GI Medical History: Reports: Gastroesophageal Reflux Disease Denies: Hepatitis, Hiatal Hernia Musculoskeltal Medical History: Reports: Arthritis Psychiatric Medical History: Denies: Depression Hematology: Denies: Anemia, Sickle Cell Disease Past Surgical History Past Surgical History: Reports: Orthopedic Surgery - Hip Denies: Amputation, Hysterectomy, Mastectomy, Pacemaker Social History Smoking Status: Never Smoker Electronic Cigarette use?: No Family History Family History: Reviewed & Not Pertinent Parental Family History Reviewed: Yes Children Family History Reviewed: Yes Sibling(s) Family History Reviewed.: Yes Medication/Allergy Home Medications: Gabapentin [Neurontin 100 mg Capsule] 100 mg PO QHS 08/21/19 Glipizide [Glucotrol 10 mg Tablet] 10 mg PO DAILY 08/21/19 Montelukast Sodium [Singulair 10 mg Tablet] 10 mg PO QHS 08/21/19 Ramipril [Altace 2.5 mg Capsule] 2.5 mg PO DAILY 08/21/19 Risperidone [Risperdal 0.25 mg Tablet] 1 mg PO Q12 08/21/19 Lisinopril [Prinivil 10 mg Tablet] 10 mg PO DAILY 02/17/20 Melatonin [Melatonin 3 mg Tablet] 3 mg PO HSP PRN 02/17/20 Mirtazapine [Remeron 15 mg Tablet] 7.5 mg PO QHS 02/17/20 Zinc Sulfate [Zinc-220 Capsule] 220 mg PO DAILY MDD START 01/14/20 FOR 14 DAYS 02/17/20 Allergies/Adverse Reactions: No Known Allergies Allergy (Verified 02/17/20 16:14) Review of Systems ROS unobtainable: Due to mental status Physical Exam Vital Signs: Temp Pulse Resp BP Pulse Ox 98.3 F 96 16 147/66 H 93 02/17/20 23:45 02/17/20 23:45 02/17/20 23:45 02/17/20 23:45 02/17/20 23:45 Intake & Output 02/16/20 02/17/20 02/18/20 06:59 06:59 06:59 Intake Total 1050 Balance 1050 Weight 41.5 kg General appearance: PRESENT: no acute distress Head exam: PRESENT: atraumatic Eye exam: PRESENT: PERRLA. ABSENT: scleral icterus Mouth exam: PRESENT: moist Neck exam: ABSENT: thyromegaly, tracheal deviation, tracheostomy Respiratory exam: PRESENT: unlabored. ABSENT: tachypnea, wheezes Cardiovascular exam: ABSENT: tachycardia GI/Abdominal exam: PRESENT: soft. ABSENT: distended, tenderness Rectal exam: PRESENT: other - See skin exam Musculoskeletal exam: ABSENT: ambulatory, deformity Neurological exam: PRESENT: awake. ABSENT: oriented to person, oriented to place, oriented to time, oriented to situation Psychiatric exam: ABSENT: agitated, anxious Focused psych exam: PRESENT: other - Nonverbal Skin exam: PRESENT: other - Decubitus ulcer to the left elbow, left heel, and right heel. There is eschar present, without signs of infection. Sacral decubitus is larger, with partial-thickness skin damage. No areas of necrosis, no purulent drainage, no foul odor. Results Laboratory Results: 02/18/20 04:42 02/17/20 02/17/20 02/17/20 16:43 16:43 16:43 WBC 13.3 H RBC 3.65 L Hgb 11.6 L Hct 34.6 L MCV 95 MCH 31.7 MCHC 33.4 RDW 13.9 Plt Count 423 Seg Neutrophils % 83.1 H VBG pH VBG pCO2 VBG HCO3 VBG Base Excess Sodium 135.5 L Potassium 5.2 H Chloride 99 Carbon Dioxide 29 Anion Gap 8 BUN 18 Creatinine 0.46 L Est GFR ( Amer) > 60 Glucose 363 H Lactic Acid 2.8 H Calcium 9.2 Magnesium 2.0 Total Bilirubin 0.4 AST 17 Alkaline Phosphatase 130 H Total Protein 6.8 Albumin 3.3 L Urine Color Urine Appearance Urine pH Ur Specific [place] Urine Protein Urine Glucose (UA) Urine Ketones Urine Blood Urine Nitrite Ur Leukocyte Esterase Urine WBC (Auto) Urine RBC (Auto) 02/17/20 02/17/20 02/18/20 16:43 17:00 04:42 WBC 10.0 RBC 3.34 L Hgb 10.7 L Hct 31.1 L MCV 93 MCH 31.9 MCHC 34.3 RDW 13.5 Plt Count 321 Seg Neutrophils % 73.3 VBG pH 7.35 VBG pCO2 54.0 VBG HCO3 28.8 VBG Base Excess 2.5 Sodium Potassium Chloride Carbon Dioxide Anion Gap BUN Creatinine Est GFR ( Amer) Glucose Lactic Acid Calcium Magnesium Total Bilirubin AST Alkaline Phosphatase Total Protein Albumin Urine Color YELLOW Urine Appearance TURBID Urine pH 5.0 Ur Specific [place] 1.029 Urine Protein 30 H Urine Glucose (UA) >=500 H Urine Ketones TRACE H Urine Blood SMALL H Urine Nitrite POSITIVE H Ur Leukocyte Esterase LARGE H Urine WBC (Auto) >182 Urine RBC (Auto) 48 02/17/20 02/17/20 16:43 16:43 Creatine Kinase < 20 L Troponin I < 0.012 Impressions: Chest X-Ray 02/17/20 16:05 IMPRESSION: NO ACUTE RADIOGRAPHIC FINDING IN THE CHEST. Assessment & Plan - Diagnosis (1) Decubitus ulcer of ankle, left, unstageable Is this a current diagnosis for this admission?: Yes (2) Decubitus ulcer of ankle, right, unstageable Is this a current diagnosis for this admission?: Yes (3) Decubitus ulcer of elbow, stage 2 Qualifiers: Laterality: left Qualified Code(s): L89.022 - Pressure ulcer of left elbow, stage 2 Is this a current diagnosis for this admission?: Yes (4) Decubitus ulcer of sacral region, stage 3 Is this a current diagnosis for this admission?: Yes - Plan Summary Plan Summary: This is an 89-year-old female who is nonverbal, nonambulatory. She has decubiti developing on the left elbow, left heel, right heel, and sacrum. Her sacral decubitus is the largest and deepest. It appears to be stage III. There is no evidence of ongoing necrosis, or active infection. I have recommended an Allevyn dressing for this area. The nurses should change it as often as necessary, to keep it clean (at least once per day). The decubiti to the left elbow, left heel, and right heel have eschars present. The eschars do not appear to be infected. Due to the minimal amount of tissue in these areas, debridement of these ulcers is ill advised. I would continue to watch these areas. I recommend the patient be placed on an aggressive turning regimen (every 2 hours) to minimize pressure. She also should have supplemental nutritional support via boost or Ensure. I would not recommend debridement of any of her decubiti at this point. If they continue to worsen, they may require debridement. Surgery will sign off at this time. Please renotify with any questions, concerns, or change in patient's condition.
[2020-02-18 06:23] LABS: POTASSIUM 4.1 mmol/L (3.6-5.0)
[2020-02-18] MEDS: INSULIN LISPRO 100 UNIT/ML 3 ML VIAL SUBCUT SCH ×4 (07:34→21:32)
[2020-02-18] MEDS: ENOXAPARIN SODIUM INJ 30 MG/0.3 ML DISP.SYRIN SUBCUT SCH (10:48)
[2020-02-18] MEDS: ACETAMINOPHEN 325 MG TABLET PO PRN (18:05)
[2020-02-18] MEDS: CEFTRIAXONE 1 GM/D5W RTU 1 GM/50 ML RTUPB IV SCH (18:06)
[2020-02-18] MEDS ORDERED: MELATONIN 3 MG TABLET PO PRN (19:28)
--- NOTE | 2020-02-18 19:51 | PDOC H&P ---
History of Present Illness Admission Date/PCP: 02/17/20 18:52 AMAYA ZOALEXANDREMohit Patient complains of: Worsening multiple wounds History of Present Illness: HERMAN ZHANG is a 89 year old female patient known to my practice who was brought t the ED via EMS by family due to worsening of her sacral wound and poor food intake. Patient was recently discharged from [facility] following her right hip fracture and need for rehabilitation. Daughter reported no fever or chills. There has been issue with frequent turning in bed since discharge home. Her morbidities include advance dementia, hypertension,, diabetes mellitus and GERD. Her initial ED evaluation was significant for dehydration, tachycardia, sacral and heel pressure ulcers, abnormal urinalysis and leukocytosis suggestive of Azotemia, UTI and possible infected pressure ulcers, particularly sacra region. Her morbidities are as listed below. Her daughter was advised about patient's hospitalization for further evaluation and management. Past Medical History Cardiac Medical History: Reports: Hypertension - MEDICATED/ CONTROLLED Denies: Coronary Artery Disease, Myocardial Infarction Pulmonary Medical History: Denies: Asthma, Bronchitis, Chronic Obstructive Pulmonary Disease (COPD), Pneumonia Neurological Medical History: Denies: Seizures Endocrine Medical History: Reports: Diabetes Mellitus Type 2 - pills only GI Medical History: Reports: Gastroesophageal Reflux Disease Denies: Hepatitis, Hiatal Hernia Musculoskeltal Medical History: Reports: Arthritis Hematology: Denies: Anemia, Sickle Cell Disease Past Surgical History Past Surgical History: Reports: Orthopedic Surgery - Hip Denies: Amputation, Hysterectomy, Mastectomy, Pacemaker Social History Smoking Status: Never Smoker Electronic Cigarette use?: No - Advance Directive Resuscitation Status: Full Code Family History Family History: Reviewed & Not Pertinent Parental Family History Reviewed: Yes Children Family History Reviewed: Yes Sibling(s) Family History Reviewed.: Yes Medication/Allergy Home Medications: Gabapentin [Neurontin 100 mg Capsule] 100 mg PO QHS 08/21/19 Glipizide [Glucotrol 10 mg Tablet] 10 mg PO DAILY 08/21/19 Montelukast Sodium [Singulair 10 mg Tablet] 10 mg PO QHS 08/21/19 Ramipril [Altace 2.5 mg Capsule] 2.5 mg PO DAILY 08/21/19 Risperidone [Risperdal 0.25 mg Tablet] 1 mg PO Q12 08/21/19 Lisinopril [Prinivil 10 mg Tablet] 10 mg PO DAILY 02/17/20 Melatonin [Melatonin 3 mg Tablet] 3 mg PO HSP PRN 02/17/20 Mirtazapine [Remeron 15 mg Tablet] 7.5 mg PO QHS 02/17/20 Zinc Sulfate [Zinc-220 Capsule] 220 mg PO DAILY MDD START 01/14/20 FOR 14 DAYS 02/17/20 Allergies/Adverse Reactions: No Known Allergies Allergy (Verified 02/17/20 16:14) Review of Systems ROS unobtainable: Due to mental status - related to her advanced dementia. Her daughter provided her medical history intake. Physical Exam Vital Signs: Temp Pulse Resp BP Pulse Ox 99.5 F 24 H 140/50 H 95 02/17/20 17:17 02/17/20 19:00 02/17/20 19:00 02/17/20 19:00 Intake & Output 02/16/20 02/17/20 02/18/20 06:59 06:59 06:59 Weight 41.5 kg General appearance: PRESENT: no acute distress, thin Head exam: PRESENT: atraumatic, normocephalic Eye exam: PRESENT: conjunctiva pink, PERRLA. ABSENT: scleral icterus Mouth exam: PRESENT: dry mucosa Respiratory exam: PRESENT: clear to auscultation uzma, decreased breath sounds - at lung bases Cardiovascular exam: PRESENT: RRR. ABSENT: diastolic murmur, rubs, systolic murmur Vascular exam: ABSENT: pallor GI/Abdominal exam: PRESENT: normal bowel sounds, soft. ABSENT: distended, guarding, mass, organolmegaly, rebound, tenderness Extremities exam: ABSENT: pedal edema Musculoskeletal exam: PRESENT: deformity - related to multiple joints involvemen t with arthritis Neurological exam: PRESENT: altered Skin exam: PRESENT: dry, warm, other - multiple unstageable pressure ulcers in the sacral region and bilteral heel Results Laboratory Results: 02/17/20 16:43 02/17/20 16:43 02/17/20 02/17/20 02/17/20 16:43 16:43 16:43 WBC 13.3 H RBC 3.65 L Hgb 11.6 L Hct 34.6 L MCV 95 MCH 31.7 MCHC 33.4 RDW 13.9 Plt Count 423 Seg Neutrophils % 83.1 H VBG pH VBG pCO2 VBG HCO3 VBG Base Excess Sodium 135.5 L Potassium 5.2 H Chloride 99 Carbon Dioxide 29 Anion Gap 8 BUN 18 Creatinine 0.46 L Est GFR ( Amer) > 60 Glucose 363 H Lactic Acid 2.8 H Calcium 9.2 Magnesium 2.0 Total Bilirubin 0.4 AST 17 Alkaline Phosphatase 130 H Total Protein 6.8 Albumin 3.3 L Urine Color Urine Appearance Urine pH Ur Specific [place] Urine Protein Urine Glucose (UA) Urine Ketones Urine Blood Urine Nitrite Ur Leukocyte Esterase Urine WBC (Auto) Urine RBC (Auto) 02/17/20 02/17/20 16:43 17:00 WBC RBC Hgb Hct MCV MCH MCHC RDW Plt Count Seg Neutrophils % VBG pH 7.35 VBG pCO2 54.0 VBG HCO3 28.8 VBG Base Excess 2.5 Sodium Potassium Chloride Carbon Dioxide Anion Gap BUN Creatinine Est GFR ( Amer) Glucose Lactic Acid Calcium Magnesium Total Bilirubin AST Alkaline Phosphatase Total Protein Albumin Urine Color YELLOW Urine Appearance TURBID Urine pH 5.0 Ur Specific [place] 1.029 Urine Protein 30 H Urine Glucose (UA) >=500 H Urine Ketones TRACE H Urine Blood SMALL H Urine Nitrite POSITIVE H Ur Leukocyte Esterase LARGE H Urine WBC (Auto) >182 Urine RBC (Auto) 48 02/17/20 02/17/20 16:43 16:43 Creatine Kinase < 20 L Troponin I < 0.012 Impressions: Chest X-Ray 02/17/20 16:05 IMPRESSION: NO ACUTE RADIOGRAPHIC FINDING IN THE CHEST. Assessment & Plan - Diagnosis (1) Metabolic encephalopathy Is this a current diagnosis for this admission?: Yes Plan: See admitting attending physician orders for details about care plan. (2) UTI (urinary tract infection) Qualifiers: Urinary tract infection type: site unspecified Hematuria presence: with hematuria Qualified Code(s): N39.0 - Urinary tract infection, site not specified; R31.9 - Hematuria, unspecified Is this a current diagnosis for this admission?: Yes Plan: See admitting attending physician orders for details about care plan. (3) Decubitus ulcer of sacral region, stage 3 Is this a current diagnosis for this admission?: Yes Plan: See admitting attending physician orders for details about care plan. (4) Decubitus ulcer of ankle, left, unstageable Is this a current diagnosis for this admission?: Yes Plan: See admitting attending physician orders for details about care plan. (5) Decubitus ulcer of ankle, right, unstageable Is this a current diagnosis for this admission?: Yes Plan: See admitting attending physician orders for details about care plan. (6) Decubitus ulcer of elbow, stage 2 Qualifiers: Laterality: left Qualified Code(s): L89.022 - Pressure ulcer of left elbow, stage 2 Is this a current diagnosis for this admission?: Yes Plan: See admitting attending physician orders for details about care plan. 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 (9) Hypertension Qualifiers: Hypertension type: essential hypertension Qualified Code(s): I10 - Essenti al (primary) hypertension Is this a current diagnosis for this admission?: Yes Plan: See admitting attending physician orders for details about care plan. 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 - Time Time Spent: 50 to 70 Minutes Medications reviewed and adjusted accordingly: Yes Anticipated discharge: Home with Homehealth, SNF, Hospice Within: Other - Inpatient Certification Based on my medical assessment, after consideration of the patient's comorbidities, presenting symptoms, or acuity I expect that the services needed warrant INPATIENT care.: Yes I certify that my determination is in accordance with my understanding of Medicare's requirements for reasonable and necessary INPATIENT services [42 CFR 412.3e].: Yes Medical Necessity: Significant Comorbidiites Make Outpatient Treatment Too Risky, Need Close Monitoring Due to Risk of Patient Decompensation, Need For IV Fluids, Need for IV Antibiotics, Risk of Complication if Not Cared For in Hospital, Risk of Diagnosis Which Will Require Inpatient Eval/Care/Monitoring Post Hospital Care: D/C Table Attendant Documentation - Plan Summary Plan Summary: See admitting attending physician orders for details about care plan.
--- NOTE | 2020-02-18 20:05 | PDOC PROGRESS REPORT ---
Subjective Progress Note for:: 02/18/20 Subjective:: Patient remain on IV fluid support and antibiotic coverage for UTI. Surgical team input appreciated. P.O intake remain a challenge. No reported fever or demonstrable difficulty with breathing. Reason For Visit: UTI WITH SEPSIS,MULTIPLE PRESSURE ULCERS,DIABETE Physical Exam Vital Signs: Temp Pulse Resp BP Pulse Ox 98.9 F 91 17 127/46 H 95 02/18/20 16:11 02/18/20 16:11 02/18/20 16:11 02/18/20 16:11 02/18/20 16:11 Intake & Output 02/17/20 02/18/20 02/19/20 06:59 06:59 06:59 Intake Total 1050 1470 Balance 1050 1470 Weight 41.5 kg General appearance: PRESENT: thin Head exam: PRESENT: atraumatic, normocephalic Eye exam: PRESENT: conjunctiva pink. ABSENT: scleral icterus Mouth exam: PRESENT: dry mucosa Respiratory exam: PRESENT: decreased breath sounds Cardiovascular exam: PRESENT: RRR. ABSENT: diastolic murmur, rubs, systolic murmur Vascular exam: ABSENT: pallor GI/Abdominal exam: PRESENT: normal bowel sounds, soft. ABSENT: distended, guarding, mass, organolmegaly, rebound, tenderness Extremities exam: ABSENT: pedal edema Neurological exam: PRESENT: altered - du eto her baseline dementia Skin exam: PRESENT: dry, warm, other - multiple pressure ulcers involving sacral region stage 3, bilateral ankle and left elbow unstageble. Results Laboratory Results: 02/18/20 04:42 02/18/20 04:42 02/18/20 02/18/20 04:42 04:42 WBC 10.0 RBC 3.34 L Hgb 10.7 L Hct 31.1 L MCV 93 MCH 31.9 MCHC 34.3 RDW 13.5 Plt Count 321 Seg Neutrophils % 73.3 Sodium 138.6 Potassium 4.1 D Chloride 107 Carbon Dioxide 26 Anion Gap 6 BUN 13 Creatinine 0.41 L Est GFR ( Amer) > 60 Glucose 133 H Calcium 8.8 Total Bilirubin 0.5 AST 13 L Alkaline Phosphatase 91 Total Protein 5.7 L Albumin 2.5 L 02/17/20 02/17/20 16:43 16:43 Creatine Kinase < 20 L Troponin I < 0.012 Impressions: Chest X-Ray 02/17/20 16:05 IMPRESSION: NO ACUTE RADIOGRAPHIC FINDING IN THE CHEST. Assessment & Plan - Diagnosis (1) Metabolic encephalopathy Is this a current diagnosis for this admission?: Yes Plan: Continue IV fluid support. (2) UTI (urinary tract infection) Qualifiers: Urinary tract infection type: site unspecified Hematuria presence: with hematuria Qualified Code(s): N39.0 - Urinary tract infection, site not specified; R31.9 - Hematuria, unspecified Is this a current diagnosis for this admission?: Yes Plan: Continue IV antibiotic therapy. Follow up on urine culture findings. Currently r evealed gram negative rods growth. (3) Decubitus ulcer of sacral region, stage 3 Is this a current diagnosis for this admission?: Yes Plan: Continue allevyn dressing. Surgical team input appreciated. (4) Decubitus ulcer of elbow, stage 2 Qualifiers: Laterality: left Qualified Code(s): L89.022 - Pressure ulcer of left elbow, stage 2 Is this a current diagnosis for this admission?: Yes (5) Pressure ulcer, heel, left, unstageable Is this a current diagnosis for this admission?: Yes Plan: Continue allevyn dressing. Surgical team input appreciated. (6) Pressure ulcer, heel, right, unstageable Is this a current diagnosis for this admission?: Yes Plan: Continue allevyn dressing. Surgical team input appreciated. 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 Is this a current diagnosis for this admission?: Yes - Time Time Spent with patient: 25-34 minutes Level of Care: MEDICAL Medications reviewed and adjusted accordingly: Yes Anticipated discharge: Home with Homehealth, SNF, Hospice Within: Other - Inpatient Certification Based on my medical assessment, after consideration of the patient's comorbidities, presenting symptoms, or acuity I expect that the services needed warrant INPATIENT care.: Yes I certify that my determination is in accordance with my understanding of Medicare's requirements for reasonable and necessary INPATIENT services [42 CFR 412.3e].: Yes Medical Necessity: Significant Comorbidiites Make Outpatient Treatment Too Risky, Need Close Monitoring Due to Risk of Patient Decompensation, Need For IV Fluids, Need for IV Antibiotics, Risk of Complication if Not Cared For in Hospital, Risk of Diagnosis Which Will Require Inpatient Eval/Care/Monitoring Post Hospital Care: D/C Propulsion Machinery Service Engineer Documentation, D/C or Transfer Summary - Plan Summary Plan Summary: See attending physician orders for details of care plan. I had extensive discussion with her daughter, Radha Cervantes, at [phone] regarding resuscitation status, despite explanation on benefits and significant detrimental outcome for patients in view of her advance age and morbidities, presently family want patient on full code status.
[2020-02-18] MEDS: MONTELUKAST SODIUM 10 MG TABLET PO SCH (21:32)
[2020-02-18] MEDS: MIRTAZAPINE 15 MG TABLET PO SCH (21:32)
[2020-02-18] MEDS: RISPERIDONE 1 MG TABLET PO SCH (21:33)
[2020-02-18] MEDS ORDERED: RISPERIDONE 0.25 MG TABLET PO SCH (22:00)
[2020-02-19] MEDS: NORMAL SALINE 1000 ML 1,000 ML IV PRN ×3 (00:35→21:53)
[2020-02-19] MEDS: PANTOPRAZOLE SODIUM 40 MG TABLET.DR PO SCH (05:17)
[2020-02-19] MEDS: INSULIN LISPRO 100 UNIT/ML 3 ML VIAL SUBCUT SCH ×4 (08:58→21:42)
[2020-02-19] MEDS: LISINOPRIL 10 MG TABLET PO SCH (10:29)
[2020-02-19] MEDS: RISPERIDONE 1 MG TABLET PO SCH ×2 (10:29→21:52)
[2020-02-19] MEDS: ENOXAPARIN SODIUM INJ 30 MG/0.3 ML DISP.SYRIN SUBCUT SCH (10:29)
[2020-02-19] MEDS: ZINC SULFATE 220 MG CAPSULE PO SCH (10:29)
[2020-02-19] MEDS: GLIPIZIDE 10 MG TABLET PO SCH (10:30)
[2020-02-19] MEDS: ACETAMINOPHEN 325 MG TABLET PO PRN (14:04)
[2020-02-19] MEDS ORDERED: ONDANSETRON HCL INJ/PF 4 MG/2 ML SDV IV PRN (15:00)
--- NOTE | 2020-02-19 16:56 | PDOC PROGRESS REPORT ---
Subjective Progress Note for:: 02/19/20 Subjective:: Patient remain on IV fluid support and antibiotic coverage. Her sacral wound culture suggested multiple bacteria growth. There is issue with voiding and her bladder scan did revealed retention over 200 ml. P.O intake remain a challenge. No reported fever or demonstrable difficulty with breathing. Reason For Visit: UTI WITH SEPSIS,MULTIPLE PRESSURE ULCERS,DIABETE Physical Exam Vital Signs: Temp Pulse Resp BP Pulse Ox 98.3 F 108 H 20 135/55 H 97 02/19/20 15:28 02/19/20 15:28 02/19/20 15:28 02/19/20 15:28 02/19/20 15:28 Intake & Output 02/18/20 02/19/20 02/20/20 06:59 06:59 06:59 Intake Total 1050 2470 1000 Output Total 0 Balance 1050 2470 1000 Weight 41.5 kg 34.7 kg Physical Exam: General appearance: PRESENT: thin Head exam: PRESENT: atraumatic, normocephalic Eye exam: PRESENT: conjunctiva pink. ABSENT: pallor, scleral icterus Mouth exam: PRESENT: dry mucosa Respiratory exam: PRESENT: decreased breath sounds Cardiovascular exam: PRESENT: RRR. ABSENT: diastolic murmur, rubs, systolic murmur GI/Abdominal exam: PRESENT: normal bowel sounds, soft. ABSENT: distended, guarding, mass, organomegaly, rebound, tenderness Extremities exam: ABSENT: pedal edema Neurological exam: PRESENT: awake, limited - due to her baseline dementia Skin exam: PRESENT: dry, warm, other - multiple pressure ulcers involving sacral region stage 3, bilateral ankle and left elbow unstageable. Results Laboratory Results: 02/18/20 04:42 02/18/20 04:42 02/18/20 04:10 Sacrum - Decubitis Ulcer Gram Stain - Final 02/17/20 17:00 Burns Catheter Urine Culture - Final Escherichia Coli 02/17/20 02/17/20 16:43 16:43 Creatine Kinase < 20 L Troponin I < 0.012 Impressions: Chest X-Ray 02/17/20 16:05 IMPRESSION: NO ACUTE RADIOGRAPHIC FINDING IN THE CHEST. Assessment & Plan - Diagnosis (1) Metabolic encephalopathy Is this a current diagnosis for this admission?: Yes (2) UTI (urinary tract infection) Qualifiers: Urinary tract infection type: site unspecified Hematuria presence: with hematuria Qualified Code(s): N39.0 - Urinary tract infection, site not specified; R31.9 - Hematuria, unspecified Is this a current diagnosis for this admission?: Yes (3) Decubitus ulcer of sacral region, stage 3 Is this a current diagnosis for this admission?: Yes (4) Decubitus ulcer of elbow, stage 2 Qualifiers: Laterality: left Qualified Code(s): L89.022 - Pressure ulcer of left elbow, stage 2 Is this a current diagnosis for this admission?: Yes (5) Pressure ulcer, heel, left, unstageable Is this a current diagnosis for this admission?: Yes (6) Pressure ulcer, heel, right, unstageable Is this a current diagnosis for this admission?: Yes (7) Adult failure to thrive syndrome Is this a current diagnosis for this admission?: Yes (8) Type 2 diabetes mellitus Qualifiers: Diabetes mellitus senior care insulin use: without buttermaker use Diabetes mellitus complication status: with hyperglycemia Qualified Code(s): E11.65 - Type 2 diabetes mellitus with hyperglycemia Is this a current diagnosis for this admission?: Yes (9) Hypertension Qualifiers: Hypertension type: essential hypertension Qualified Code(s): I10 - Essential (primary) hypertension Is this a current diagnosis for this admission?: Yes (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 - Time Time Spent with patient: 25-34 minutes Level of Care: MEDICAL Medications reviewed and adjusted accordingly: Yes Anticipated discharge: Home with Homehealth, SNF, Hospice Within: Other - Inpatient Certification Based on my medical assessment, after consideration of the patient's comorbidities, presenting symptoms, or acuity I expect that the services needed warrant INPATIENT care.: Yes I certify that my determination is in accordance with my understanding of Medicare's requirements for reasonable and necessary INPATIENT services [42 CFR 412.3e].: Yes Medical Necessity: Significant Comorbidiites Make Outpatient Treatment Too Risky , Need Close Monitoring Due to Risk of Patient Decompensation, Need For IV Fluids, Need for IV Antibiotics, Risk of Complication if Not Cared For in Hospital, Risk of Diagnosis Which Will Require Inpatient Eval/Care/Monitoring Post Hospital Care: D/C Dress Marker Documentation, D/C or Transfer Summary - Plan Summary Plan Summary: Continue current antibiotic coverage pending wound culture findings. Start on Acticoat wound dressing to the sacral wound with Allevyn coverage.
[2020-02-19] MEDS: CEFTRIAXONE 1 GM/D5W RTU 1 GM/50 ML RTUPB IV SCH (18:33)
[2020-02-19] MEDS: MONTELUKAST SODIUM 10 MG TABLET PO SCH (21:51)
[2020-02-19] MEDS: MIRTAZAPINE 15 MG TABLET PO SCH (21:51)
[2020-02-20] MEDS: PANTOPRAZOLE SODIUM 40 MG TABLET.DR PO SCH (05:50)
[2020-02-20] MEDS: INSULIN LISPRO 100 UNIT/ML 3 ML VIAL SUBCUT SCH ×4 (08:11→21:36)
[2020-02-20] MEDS: LISINOPRIL 10 MG TABLET PO SCH (09:29)
[2020-02-20] MEDS: RISPERIDONE 1 MG TABLET PO SCH ×2 (09:29→21:39)
[2020-02-20] MEDS: GLIPIZIDE 10 MG TABLET PO SCH (09:30)
[2020-02-20] MEDS: ZINC SULFATE 220 MG CAPSULE PO SCH (09:30)
[2020-02-20] MEDS: ENOXAPARIN SODIUM INJ 30 MG/0.3 ML DISP.SYRIN SUBCUT SCH (09:30)
[2020-02-20] MEDS: NORMAL SALINE 1000 ML 1,000 ML IV PRN ×2 (09:31→21:10)
--- NOTE | 2020-02-20 14:15 | PDOC PROGRESS REPORT ---
Subjective Progress Note for:: 02/20/20 Subjective:: Patient was admitted for the urinary tract infections decubitus ulcers Currently on IV antibiotics Patient is alert awake's not communicating According to the nursing staff no other concerns Reason For Visit: UTI WITH SEPSIS,MULTIPLE PRESSURE ULCERS,DIABETE Physical Exam Vital Signs: Temp Pulse Resp BP Pulse Ox 98.3 F 118 H 12 172/70 H 93 02/20/20 11:01 02/20/20 11:01 02/20/20 11:01 02/20/20 11:01 02/20/20 11:01 Intake & Output 02/19/20 02/20/20 02/21/20 06:59 06:59 06:59 Intake Total 2470 2270 1000 Output Total 1050 Balance 2470 1220 1000 Weight 34.7 kg 34.7 kg General appearance: PRESENT: no acute distress, thin Eye exam: PRESENT: PERRLA Mouth exam: PRESENT: neck supple Respiratory exam: PRESENT: clear to auscultation uzma Cardiovascular exam: PRESENT: +S1, +S2 Neurological exam: PRESENT: alert, awake Skin exam: PRESENT: dry Results Laboratory Results: 02/18/20 04:42 02/18/20 04:42 02/18/20 04:10 Sacrum - Decubitis Ulcer Gram Stain - Final 02/18/20 04:10 Sacrum - Decubitis Ulcer Wound Culture - Final Staphylococcus Aureus Escherichia Coli Peptostreptococcus Species Prevotella Species 02/17/20 02/17/20 16:43 16:43 Creatine Kinase < 20 L Troponin I < 0.012 Impressions: Chest X-Ray 02/17/20 16:05 IMPRESSION: NO ACUTE RADIOGRAPHIC FINDING IN THE CHEST. Assessment & Plan - Diagnosis (1) Adult failure to thrive syndrome Is this a current diagnosis for this admission?: Yes (2) Decubitus ulcer of sacral region, stage 3 Is this a current diagnosis for this admission?: Yes Plan: Continue allevyn dressing. Surgical team input appreciated. (3) Metabolic encephalopathy Is this a current diagnosis for this admission?: Yes (4) Pressure ulcer Qualifiers: Pressure injury location: sacral region Pressure injury stage: stage 2 Qualified Code(s): L89.152 - Pressure ulcer of sacral region, stage 2 Is this a current diagnosis for this admission?: Yes (5) UTI (urinary tract infection) Qualifiers: Urinary tract infection type: site unspecified Hematuria presence: with hematuria Qualified Code(s): N39.0 - Urinary tract infection, site not specified; R31.9 - Hematuria, unspecified Is this a current diagnosis for this admission?: Yes Plan: Continue IV antibiotic therapy. Follow up on urine culture findings. Currently revealed gram negative rods growth. (6) Altered mental status Qualifiers: Altered mental status type: unspecified Qualified Code(s): R41.82 - Altered mental status, unspecified Is this a current diagnosis for this admission?: Yes (7) Dementia Qualifiers: Dementia type: unspecified type Dementia behavioral disturbance: without behavioral disturbance Qualified Code(s): F03.90 - Unspecified dementia without behavioral disturbance Is this a current diagnosis for this admission?: Yes (8) Hypertension Qualifiers: Hypertension type: essential hypertension Qualified Code(s): I10 - Essential (primary) hypertension Is this a current diagnosis for this admission?: Yes - Time Time Spent with patient: 15-24 minutes Level of Care: TELE Medications reviewed and adjusted accordingly: Yes Anticipated discharge: SNF Within: Other - Plan Summary Plan Summary: Continues to IV antibiotic
[2020-02-20] MEDS: CEFTRIAXONE 1 GM/D5W RTU 1 GM/50 ML RTUPB IV SCH (16:59)
[2020-02-20] MEDS: MIRTAZAPINE 15 MG TABLET PO SCH (21:38)
[2020-02-20] MEDS: MONTELUKAST SODIUM 10 MG TABLET PO SCH (21:39)
[2020-02-21] MEDS: PANTOPRAZOLE SODIUM 40 MG TABLET.DR PO SCH (05:38)
[2020-02-21] MEDS: NORMAL SALINE 1000 ML 1,000 ML IV PRN ×2 (06:02→20:06)
[2020-02-21] MEDS: INSULIN LISPRO 100 UNIT/ML 3 ML VIAL SUBCUT SCH ×4 (08:20→22:00)
--- NOTE | 2020-02-21 10:24 | PDOC PROGRESS REPORT ---
Subjective Progress Note for:: 02/21/20 Subjective:: Patient was admitted for the urinary tract infections decubitus ulcers Currently on IV antibiotics Patient is alert awake's not communicating According to the nursing staff no other concerns Reason For Visit: UTI WITH SEPSIS,MULTIPLE PRESSURE ULCERS,DIABETE Physical Exam Vital Signs: Temp Pulse Resp BP Pulse Ox 98.6 F 91 18 162/64 H 100 02/21/20 00:20 02/21/20 00:20 02/21/20 00:20 02/21/20 00:20 02/21/20 00:20 Intake & Output 02/20/20 02/21/20 02/22/20 06:59 06:59 06:59 Intake Total 2270 2937 Output Total 1050 2000 Balance 1220 937 Weight 34.7 kg 34.7 kg General appearance: PRESENT: no acute distress, thin Head exam: PRESENT: atraumatic, normocephalic Eye exam: PRESENT: EOMI, PERRLA. ABSENT: scleral icterus Ear exam: PRESENT: normal external ear exam Mouth exam: PRESENT: moist, tongue midline Neck exam: PRESENT: full ROM. ABSENT: carotid bruit, JVD, lymphadenopathy, thyromegaly Respiratory exam: PRESENT: clear to auscultation uzma Cardiovascular exam: PRESENT: RRR. ABSENT: diastolic murmur, rubs, systolic murmur Pulses: PRESENT: normal dorsalis pedis pul, +2 pedal pulses bilateral Vascular exam: PRESENT: normal capillary refill GI/Abdominal exam: PRESENT: normal bowel sounds, soft. ABSENT: distended, guarding, mass, organolmegaly, rebound, tenderness Rectal exam: PRESENT: deferred Neurological exam: PRESENT: alert. ABSENT: motor sensory deficit Psychiatric exam: PRESENT: appropriate affect, normal mood. ABSENT: homicidal ideation, suicidal ideation Skin exam: PRESENT: dry, intact, warm. ABSENT: cyanosis, rash Results Laboratory Results: 02/18/20 04:42 02/18/20 04:42 02/18/20 04:10 Sacrum - Decubitis Ulcer Gram Stain - Final 02/18/20 04:10 Sacrum - Decubitis Ulcer Wound Culture - Final Staphylococcus Aureus Escherichia Coli Peptostreptococcus Species Prevotella Species 02/17/20 02/17/20 16:43 16:43 Creatine Kinase < 20 L Troponin I < 0.012 Impressions: Chest X-Ray 02/17/20 16:05 IMPRESSION: NO ACUTE RADIOGRAPHIC FINDING IN THE CHEST. Assessment & Plan - Diagnosis (1) Adult failure to thrive syndrome Is this a current diagnosis for this admission?: Yes (2) Decubitus ulcer of sacral region, stage 3 Is this a current diagnosis for this admission?: Yes (3) Metabolic encephalopathy Is this a current diagnosis for this admission?: Yes (4) Pressure ulcer Qualifiers: Pressure injury location: sacral region Pressure injury stage: stage 2 Qualified Code(s): L89.152 - Pressure ulcer of sacral region, stage 2 Is this a current diagnosis for this admission?: Yes (5) UTI (urinary tract infection) Qualifiers: Urinary tract infection type: site unspecified Hematuria presence: with hematuria Qualified Code(s): N39.0 - Urinary tract infection, site not specified; R31.9 - Hematuria, unspecified Is this a current diagnosis for this admission?: Yes (6) Altered mental status Qualifiers: Altered mental status type: unspecified Qualified Code(s): R41.82 - Altered mental status, unspecified Is this a current diagnosis for this admission?: Yes (7) Dementia Qualifiers: Dementia type: unspecified type Dementia behavioral disturbance: without behavioral disturbance Qualified Code(s): F03.90 - Unspecified dementia without behavioral disturbance Is this a current diagnosis for this admission?: Yes (8) Hypertension Qualifiers: Hypertension type: essential hypertension Qualified Code(s): I10 - Essential (primary) hypertension Is this a current diagnosis for this admission?: Yes - Time Time Spent with patient: 15-24 minutes Level of Care: TELE Medications reviewed and adjusted accordingly: Yes Anticipated discharge: Other Within: Other - Plan Summary Plan Summary: Continues with IV antibiotic
[2020-02-21] MEDS: RISPERIDONE 1 MG TABLET PO SCH ×2 (10:53→23:13)
[2020-02-21] MEDS: ENOXAPARIN SODIUM INJ 30 MG/0.3 ML DISP.SYRIN SUBCUT SCH (10:53)
[2020-02-21] MEDS: LISINOPRIL 10 MG TABLET PO SCH (10:54)
[2020-02-21] MEDS: GLIPIZIDE 10 MG TABLET PO SCH (10:54)
[2020-02-21] MEDS: ZINC SULFATE 220 MG CAPSULE PO SCH (10:54)
[2020-02-21] MEDS: CEFTRIAXONE 1 GM/D5W RTU 1 GM/50 ML RTUPB IV SCH (17:36)
[2020-02-21] MEDS: MIRTAZAPINE 15 MG TABLET PO SCH (23:13)
[2020-02-21] MEDS: MONTELUKAST SODIUM 10 MG TABLET PO SCH (23:14)
[2020-02-22] MEDS: PANTOPRAZOLE SODIUM 40 MG TABLET.DR PO SCH (06:51)
[2020-02-22] MEDS: INSULIN LISPRO 100 UNIT/ML 3 ML VIAL SUBCUT SCH ×4 (08:48→21:50)
[2020-02-22] MEDS: GLIPIZIDE 10 MG TABLET PO SCH (10:56)
[2020-02-22] MEDS: ENOXAPARIN SODIUM INJ 30 MG/0.3 ML DISP.SYRIN SUBCUT SCH (10:56)
[2020-02-22] MEDS: LISINOPRIL 10 MG TABLET PO SCH (10:56)
[2020-02-22] MEDS: ZINC SULFATE 220 MG CAPSULE PO SCH (10:57)
[2020-02-22] MEDS: RISPERIDONE 1 MG TABLET PO SCH ×2 (10:57→21:54)
[2020-02-22] MEDS: CEFTRIAXONE 1 GM/D5W RTU 1 GM/50 ML RTUPB IV SCH (18:38)
--- NOTE | 2020-02-22 20:45 | PDOC PROGRESS REPORT ---
Subjective Progress Note for:: 02/22/20 Subjective:: Patient remain on IV fluid support and antibiotic coverage. She has been refusing oral feeding so far today. No reported fever, observed chest pain or difficulty with breathing. Reason For Visit: UTI WITH SEPSIS,MULTIPLE PRESSURE ULCERS,DIABETE Physical Exam Vital Signs: Temp Pulse Resp BP Pulse Ox 98.7 F 72 16 148/49 H 96 02/22/20 07:37 02/22/20 07:37 02/22/20 07:37 02/22/20 07:37 02/22/20 07:37 Intake & Output 02/21/20 02/22/20 02/23/20 06:59 06:59 06:59 Intake Total 2937 1280 Output Total 1999 1350 Balance 937 -70 Weight 34.7 kg 36 kg Physical Exam: General appearance: PRESENT: thin Head exam: PRESENT: atraumatic, normocephalic Eye exam: PRESENT: conjunctiva pink. ABSENT: pallor, scleral icterus Mouth exam: PRESENT: dry mucosa Respiratory exam: PRESENT: decreased breath sounds Cardiovascular exam: PRESENT: RRR. ABSENT: diastolic murmur, rubs, systolic murmur GI/Abdominal exam: PRESENT: normal bowel sounds, soft. ABSENT: distended, guarding, mass, organomegaly, rebound, tenderness Extremities exam: ABSENT: pedal edema Neurological exam: PRESENT: awake, limited - due to her baseline dementia Skin exam: PRESENT: dry, warm, other - multiple pressure ulcers involving sacral region stage 3, bilateral ankle and left elbow unstageable. Results Laboratory Results: 02/18/20 04:42 02/18/20 04:42 02/17/20 16:43 Blood Blood Culture - Final NO GROWTH IN 5 DAYS 02/17/20 02/17/20 16:43 16:43 Creatine Kinase < 20 L Troponin I < 0.012 Impressions: Chest X-Ray 02/17/20 16:05 IMPRESSION: NO ACUTE RADIOGRAPHIC FINDING IN THE CHEST. Assessment & Plan - Diagnosis (1) Metabolic encephalopathy Is this a current diagnosis for this admission?: Yes (2) Infected pressure ulcer Qualifiers: Pressure injury stage: stage 3 Qualified Code(s): L89.93 - Pressure ulcer of unspecified site, stage 3; L08.9 - Local infection of the skin and subcutaneous tissue, unspecified Is this a current diagnosis for this admission?: Yes Plan: Continue IV Ceftriaxone coverage. (3) UTI (urinary tract infection) Qualifiers: Urinary tract infection type: site unspecified Hematuria presence: with hematuria Qualified Code(s): N39.0 - Urinary tract infection, site not specified; R31.9 - Hematuria, unspecified Is this a current diagnosis for this admission?: Yes (4) Decubitus ulcer of sacral region, stage 3 Is this a current diagnosis for this admission?: Yes (5) Decubitus ulcer of elbow, stage 2 Qualifiers: Laterality: left Qualified Code(s): L89.022 - Pressure ulcer of left elbow, stage 2 Is this a current diagnosis for this admission?: Yes (6) Pressure ulcer, heel, left, unstageable Is this a current diagnosis for this admission?: Yes (7) Pressure ulcer, heel, right, unstageable Is this a current diagnosis for this admission?: Yes (8) Adult failure to thrive syndrome Is this a current diagnosis for this admission?: Yes (9) Type 2 diabetes mellitus Qualifiers: Diabetes mellitus meterman insulin use: without meterman use Diabetes mellitus complication status: with hyperglycemia Qualified Code(s): E11.65 - Type 2 diabetes mellitus with hyperglycemia Is this a current diagnosis for this admission?: Yes (10) Hypertension Qualifiers: Hypertension type: essential hypertension Qualified Code(s): I10 - Essential (primary) hypertension Is this a current diagnosis for this admission?: Yes (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 Is this a current diagnosis for this admission?: Yes (12) Urinary retention with incomplete bladder emptying Is this a current diagnosis for this admission?: Yes - Time Time Spent with patient: 25-34 minutes Level of Care: MEDICAL Medications reviewed and adjusted accordingly: Yes Anticipated discharge: Home with Homehealth, SNF, Hospice Within: Other - Inpatient Certification Based on my medical assessment, after consideration of the patient's comorbidities, presenting symptoms, or acuity I expect that the services needed warrant INPATIENT care.: Yes I certify that my determination is in accordance with my understanding of Medicare's requirements for reasonable and necessary INPATIENT services [42 CFR 412.3e].: Yes Medical Necessity: Significant Comorbidiites Make Outpatient Treatment Too Risky, Need Close Monitoring Due to Risk of Patient Decompensation, Need For Continuous Telemetry Monitoring, Need for IV Antibiotics, Risk of Complication if Not Cared For in Hospital, Risk of Diagnosis Which Will Require Inpatient Eval/Care/Monitoring Post Hospital Care: D/C Farm Service Consultant Documentation - Plan Summary Plan Summary: Continue IV Ceftriaxone coverage based on culture sensitivity findings. Overall prognosis remain poor. Family participation regarding direction of care outcome very minimal. Patient remain on full code status.
[2020-02-22] MEDS: MIRTAZAPINE 15 MG TABLET PO SCH (21:53)
[2020-02-22] MEDS: MONTELUKAST SODIUM 10 MG TABLET PO SCH (21:54)
[2020-02-23] MEDS: NORMAL SALINE 1000 ML 1,000 ML IV PRN ×3 (00:21→23:33)
[2020-02-23] MEDS: PANTOPRAZOLE SODIUM 40 MG TABLET.DR PO SCH (05:38)
[2020-02-23 06:27] LABS: ABSOLUTE BASOPHILS # (AUTO) 0.1 10^3/uL (0.0-0.2); ABSOLUTE EOSINOPHILS # (AUTO) 0.1 10^3/uL (0.0-0.6); ABSOLUTE LYMPHOCYTES (AUTO) 0.9 10^3/uL (0.5-4.7); ABSOLUTE MONOCYTES (AUTO) 0.7 10^3/uL (0.1-1.4); ABSOLUTE NEUT (AUTO) 8.1 10^3/uL (1.7-8.2); BASOPHILS % (AUTO) 0.7 % (0-2); EOSINOPHILS % (AUTO) 1.3 % (0-6); HEMATOCRIT 28.9 % (36.0-47.0); HEMOGLOBIN 9.9 g/dL (12.0-15.5); LYMPHOCYTES % (AUTO) 9.2 % (13-45); MEAN CORPUSCULAR HEMOGLOBIN 31.6 pg (27.0-33.4); MEAN CORPUSCULAR HGB CONC 34.2 g/dL (32.0-36.0); MEAN CORPUSCULAR VOLUME 93 fl (80-97); MONOCYTES % (AUTO) 6.6 % (3-13); PLATELET COUNT 316 10^3/uL (150-450); RED BLOOD COUNT 3.13 10^6/uL (3.72-5.28); RED CELL DISTRIBUTION WIDTH 13.6 % (11.5-14.0); SEGMENTED NEUTROPHILS % (AUTO) 82.2 % (42-78); TOTAL CELLS COUNTED % (AUTO) 100 %; WHITE BLOOD COUNT 9.9 10^3/uL (4.0-10.5)
[2020-02-23 06:46] LABS: ALBUMIN 2.1 g/dL (3.5-5.0); ALKALINE PHOSPHATASE 83 U/L (38-126); ANION GAP 5 (5-19); ASPARTATE AMINO TRANSFERASE 15 U/L (14-36); BILIRUBIN,TOTAL 0.3 mg/dL (0.2-1.3); BLOOD UREA NITROGEN 7 mg/dL (7-20); CALCIUM 8.2 mg/dL (8.4-10.2); CARBON DIOXIDE 24 mmol/L (22-30); CHLORIDE 111 mmol/L (98-107); GLUCOSE 77 mg/dL (75-110); POTASSIUM 3.3 mmol/L (3.6-5.0); TOTAL PROTEIN 4.9 g/dL (6.3-8.2)
[2020-02-23] MEDS: INSULIN LISPRO 100 UNIT/ML 3 ML VIAL SUBCUT SCH ×4 (07:44→21:16)
--- NOTE | 2020-02-23 09:04 | PDOC PROGRESS REPORT ---
Subjective Progress Note for:: 02/23/20 Subjective:: Patient PO intake remain a challenge due to her advanced dementia. There is report of constipation by nursing staff. No reported fever, observed chest pain or difficulty with breathing. Reason For Visit: UTI WITH SEPSIS,MULTIPLE PRESSURE ULCERS,DIABETE Physical Exam Vital Signs: Temp Pulse Resp BP Pulse Ox 98.8 F 87 14 134/61 H 92 02/23/20 06:00 02/23/20 06:00 02/23/20 06:00 02/23/20 06:00 02/23/20 06:00 Intake & Output 02/22/20 02/23/20 02/24/20 06:59 06:59 06:59 Intake Total 2280 50 Output Total 1350 1150 Balance 930 -1100 Weight 36 kg 34.7 kg Physical Exam: General appearance: PRESENT: thin Head exam: PRESENT: atraumatic, normocephalic Eye exam: PRESENT: conjunctiva pink. ABSENT: pallor, scleral icterus Mouth exam: PRESENT: dry mucosa Respiratory exam: PRESENT: decreased breath sounds at lung bases Cardiovascular exam: PRESENT: RRR. ABSENT: diastolic murmur, rubs, systolic murmur GI/Abdominal exam: PRESENT: normal bowel sounds, soft. ABSENT: distended, guarding, mass, organomegaly, rebound, tenderness Extremities exam: ABSENT: pedal edema Neurological exam: PRESENT: awake, limited - due to her baseline dementia Skin exam: PRESENT: dry, warm, other - multiple pressure ulcers involving sacral region stage 3, bilateral ankle and left elbow unstageable. Results Laboratory Results: 02/23/20 05:47 02/23/20 05:47 02/23/20 02/23/20 05:47 05:47 WBC 9.9 RBC 3.13 L Hgb 9.9 L Hct 28.9 L MCV 93 MCH 31.6 MCHC 34.2 RDW 13.6 Plt Count 316 Seg Neutrophils % 82.2 H Sodium 140.1 Potassium 3.3 L Chloride 111 H Carbon Dioxide 24 Anion Gap 5 BUN 7 Creatinine 0.33 L Est GFR ( Amer) > 60 Glucose 77 Calcium 8.2 L Magnesium 1.6 Total Bilirubin 0.3 AST 15 Alkaline Phosphatase 83 Total Protein 4.9 L Albumin 2.1 L 02/17/20 18:17 Blood Blood Culture - Final NO GROWTH IN 5 DAYS 02/17/20 16:43 Blood Blood Culture - Final NO GROWTH IN 5 DAYS 02/17/20 02/17/20 16:43 16:43 Creatine Kinase < 20 L Troponin I < 0.012 Impressions: Chest X-Ray 02/17/20 16:05 IMPRESSION: NO ACUTE RADIOGRAPHIC FINDING IN THE CHEST. Assessment & Plan - Diagnosis (1) Metabolic encephalopathy Is this a current diagnosis for this admission?: Yes (2) Infected pressure ulcer Qualifiers: Pressure injury stage: stage 3 Qualified Code(s): L89.93 - Pressure ulcer o f unspecified site, stage 3; L08.9 - Local infection of the skin and subcutaneous tissue, unspecified Is this a current diagnosis for this admission?: Yes (3) UTI (urinary tract infection) Qualifiers: Urinary tract infection type: site unspecified Hematuria presence: with hematuria Qualified Code(s): N39.0 - Urinary tract infection, site not specified; R31.9 - Hematuria, unspecified Is this a current diagnosis for this admission?: Yes (4) Decubitus ulcer of sacral region, stage 3 Is this a current diagnosis for this admission?: Yes (5) Decubitus ulcer of elbow, stage 2 Qualifiers: Laterality: left Qualified Code(s): L89.022 - Pressure ulcer of left elbow, stage 2 Is this a current diagnosis for this admission?: Yes (6) Pressure ulcer, heel, left, unstageable Is this a current diagnosis for this admission?: Yes (7) Pressure ulcer, heel, right, unstageable Is this a current diagnosis for this admission?: Yes (8) Adult failure to thrive syndrome Is this a current diagnosis for this admission?: Yes (9) Type 2 diabetes mellitus Qualifiers: Diabetes mellitus senior living insulin use: without senior living use Diabetes mellitus complication status: with hyperglycemia Qualified Code(s): E11.65 - Type 2 diabetes mellitus with hyperglycemia Is this a current diagnosis for this admission?: Yes (10) Hypertension Qualifiers: Hypertension type: essential hypertension Qualified Code(s): I10 - Essential (primary) hypertension Is this a current diagnosis for this admission?: Yes (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 Is this a current diagnosis for this admission?: Yes (12) Urinary retention with incomplete bladder emptying Is this a current diagnosis for this admission?: Yes - Time Time Spent with patient: 25-34 minutes Level of Care: MEDICAL Medications reviewed and adjusted accordingly: Yes Anticipated discharge: Home with Homehealth, SNF, Hospice Within: Other - Inpatient Certification Based on my medical assessment, after consideration of the patient's comorbidities, presenting symptoms, or acuity I expect that the services needed warrant INPATIENT care.: Yes I certify that my determination is in accordance with my understanding of Medicare's requirements for reasonable and necessary INPATIENT services [42 CFR 412.3e].: Yes Medical Necessity: Significant Comorbidiites Make Outpatient Treatment Too R isky, Need Close Monitoring Due to Risk of Patient Decompensation, Need For IV Fluids, Need for IV Antibiotics, Risk of Complication if Not Cared For in Hospital, Risk of Diagnosis Which Will Require Inpatient Eval/Care/Monitoring Post Hospital Care: D/C Square Shear Operator Documentation - Plan Summary Plan Summary: Continue current antibiotic coverage and wound dressing. Prognosis remain very poor. I had discussion about patient's current status with her daughter, Padma Vidal, at [phone] this morning. She is of the opinion that patient will not want to be full code but she is leaving decision to her siblings. The family want patient back home upon discharge. She is aware of plan to discharge home in next 72-96 hours.
[2020-02-23] MEDS: ENOXAPARIN SODIUM INJ 30 MG/0.3 ML DISP.SYRIN SUBCUT SCH (12:14)
[2020-02-23] MEDS: GLIPIZIDE 10 MG TABLET PO SCH (12:15)
[2020-02-23] MEDS: LISINOPRIL 10 MG TABLET PO SCH (12:15)
[2020-02-23] MEDS: RISPERIDONE 1 MG TABLET PO SCH ×2 (12:16→21:15)
[2020-02-23] MEDS: ZINC SULFATE 220 MG CAPSULE PO SCH (12:16)
[2020-02-23] MEDS: CEFTRIAXONE 1 GM/D5W RTU 1 GM/50 ML RTUPB IV SCH (18:59)
[2020-02-23] MEDS: MIRTAZAPINE 15 MG TABLET PO SCH (21:14)
[2020-02-23] MEDS: MONTELUKAST SODIUM 10 MG TABLET PO SCH (21:15)
[2020-02-24] MEDS: PANTOPRAZOLE SODIUM 40 MG TABLET.DR PO SCH (05:26)
[2020-02-24] MEDS: INSULIN LISPRO 100 UNIT/ML 3 ML VIAL SUBCUT SCH ×4 (07:35→22:36)
[2020-02-24] MEDS: LISINOPRIL 10 MG TABLET PO SCH (09:38)
[2020-02-24] MEDS: GLIPIZIDE 10 MG TABLET PO SCH (09:38)
[2020-02-24] MEDS: ZINC SULFATE 220 MG CAPSULE PO SCH (09:38)
[2020-02-24] MEDS: RISPERIDONE 1 MG TABLET PO SCH ×2 (09:38→22:37)
[2020-02-24] MEDS: ENOXAPARIN SODIUM INJ 30 MG/0.3 ML DISP.SYRIN SUBCUT SCH (09:38)
[2020-02-24] MEDS: NORMAL SALINE 1000 ML 1,000 ML IV PRN ×2 (10:01→23:50)
--- NOTE | 2020-02-24 16:16 | PDOC PROGRESS REPORT ---
Subjective Progress Note for:: 02/24/20 Subjective:: Patient feeding remain a challenge due to her advanced dementia. Still no bowel movement. No reported fever, observed chest pain or difficulty with breathing. Remain on IV antibiotic and IV fluid support. Reason For Visit: UTI WITH SEPSIS,MULTIPLE PRESSURE ULCERS,DIABETE Physical Exam Vital Signs: Temp Pulse Resp BP Pulse Ox 98.8 F 108 H 20 145/72 H 92 02/24/20 11:23 02/24/20 11:23 02/24/20 11:23 02/24/20 11:23 02/24/20 11:23 Intake & Output 02/23/20 02/24/20 02/25/20 06:59 06:59 06:59 Intake Total 50 2100 1120 Output Total 1150 425 100 Balance -1100 1675 1020 Weight 34.7 kg 38.7 kg Physical Exam: General appearance: PRESENT: thin Head exam: PRESENT: atraumatic, normocephalic Eye exam: PRESENT: conjunctiva pink. ABSENT: pallor, scleral icterus Mouth exam: PRESENT: dry mucosa Respiratory exam: PRESENT: decreased breath sounds at lung bases Cardiovascular exam: PRESENT: RRR. ABSENT: diastolic murmur, rubs, systolic murmur GI/Abdominal exam: PRESENT: normal bowel sounds, soft. ABSENT: distended, guarding, mass, organomegaly, rebound, tenderness Extremities exam: ABSENT: pedal edema Neurological exam: PRESENT: awake, limited - due to her baseline dementia Skin exam: PRESENT: dry, warm, other - multiple pressure ulcers involving sacral region stage 3, bilateral ankle and Results Laboratory Results: 02/23/20 05:47 02/23/20 05:47 02/17/20 02/17/20 16:43 16:43 Creatine Kinase < 20 L Troponin I < 0.012 Impressions: Chest X-Ray 02/17/20 16:05 IMPRESSION: NO ACUTE RADIOGRAPHIC FINDING IN THE CHEST. Assessment & Plan - Diagnosis (1) Metabolic encephalopathy Is this a current diagnosis for this admission?: Yes (2) Infected pressure ulcer Qualifiers: Pressure injury stage: stage 3 Qualified Code(s): L89.93 - Pressure ulcer of unspecified site, stage 3; L08.9 - Local infection of the skin and subcutaneous tissue, unspecified Is this a current diagnosis for this admission?: Yes (3) UTI (urinary tract infection) Qualifiers: Urinary tract infection type: site unspecified Hematuria presence: with hematuria Qualified Code(s): N39.0 - Urinary tract infection, site not specified; R31.9 - Hematuria, unspecified Is this a current diagnosis for this admission?: Yes (4) Decubitus ulcer of sacral region, stage 3 Is this a current diagnosis for this admission?: Yes (5) Decubitus ulcer of elbow, stage 2 Qualifiers: Laterality: left Qualified Code(s): L89.022 - Pressure ulcer of left elbow, stage 2 Is this a current diagnosis for this admission?: Yes (6) Pressure ulcer, heel, left, unstageable Is this a current diagnosis for this admission?: Yes (7) Pressure ulcer, heel, right, unstageable Is this a current diagnosis for this admission?: Yes (8) Adult failure to thrive syndrome Is this a current diagnosis for this admission?: Yes (9) Type 2 diabetes mellitus Qualifiers: Diabetes mellitus terminal gauger insulin use: without usp use Diabetes mellitus complication status: with hyperglycemia Qualified Code(s): E11.65 - Type 2 diabetes mellitus with hyperglycemia Is this a current diagnosis for this admission?: Yes (10) Hypertension Qualifiers: Hypertension type: essential hypertension Qualified Code(s): I10 - Essential (primary) hypertension Is this a current diagnosis for this admission?: Yes (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 - Time Time Spent with patient: 25-34 minutes Level of Care: MEDICAL Medications reviewed and adjusted accordingly: Yes Anticipated discharge: Home with Homehealth, SNF, Hospice Within: Other - Inpatient Certification Based on my medical assessment, after consideration of the patient's comorbidities, presenting symptoms, or acuity I expect that the services needed warrant INPATIENT care.: Yes I certify that my determination is in accordance with my understanding of Medicare's requirements for reasonable and necessary INPATIENT services [42 CFR 412.3e].: Yes Medical Necessity: Significant Comorbidiites Make Outpatient Treatment Too Risky, Need Close Monitoring Due to Risk of Patient Decompensation, Need For IV Fluids, Need for IV Antibiotics, Risk of Complication if Not Cared For in Hospital, Risk of Diagnosis Which Will Require Inpatient Eval/Care/Monitoring Post Hospital Care: D/C Outsole Compressor Documentation - Plan Summary Plan Summary: Continue current medication management. Obtain KUB abdomen to assess fecal burden and need for laxative therapy.
--- NOTE | 2020-02-24 17:01 | RADIOLOGY REPORT (SQ) ---
EXAM DESCRIPTION: KUB/ABDOMEN (SINGLE VIEW) IMAGES COMPLETED DATE/TIME: 02/24/2020 4:50 pm REASON FOR STUDY: Constipation COMPARISON: None. NUMBER OF VIEWS: One view. TECHNIQUE: Supine radiographic image of the abdomen acquired. LIMITATIONS: None. FINDINGS: BOWEL GAS PATTERN: Normal bowel gas pattern. No dilated loops. Moderate amount of stool t hroughout the colon. CALCIFICATIONS: No suspicious calcifications. SOFT TISSUES: No gross mass or suggestion of organomegaly. HARDWARE: Hardware in the right hip. BONES: No acute fracture. No worrisome bone lesions. OTHER: No other significant finding. IMPRESSION: NO RADIOGRAPHIC EVIDENCE FOR ACUTE ABDOMINAL DISEASE. MODERATE STOOL THROUGHOUT THE COL ON CONSISTENT WITH CONSTIPATION. TECHNICAL DOCUMENTATION: JOB ID: [id number] [email or web address]- All Rights Reserved Reading location - IP/workstation name: [email or web address]
[2020-02-24] MEDS: ACETAMINOPHEN 325 MG TABLET PO PRN (17:18)
[2020-02-24] MEDS: CEFTRIAXONE 1 GM/D5W RTU 1 GM/50 ML RTUPB IV SCH (17:39)
[2020-02-24] MEDS: MIRTAZAPINE 15 MG TABLET PO SCH (22:37)
[2020-02-24] MEDS: MONTELUKAST SODIUM 10 MG TABLET PO SCH (22:39)
[2020-02-25] MEDS: PANTOPRAZOLE SODIUM 40 MG TABLET.DR PO SCH (06:39)
[2020-02-25] MEDS: INSULIN LISPRO 100 UNIT/ML 3 ML VIAL SUBCUT SCH ×4 (07:37→22:18)
[2020-02-25] MEDS ORDERED: LACTULOSE SYRUP 20 GM/30 ML UDCUP PO ONE (09:30)
[2020-02-25] MEDS ORDERED: BISACODYL 10 MG SUPP.RECT PR ONE (09:30)
[2020-02-25] MEDS: ENOXAPARIN SODIUM INJ 30 MG/0.3 ML DISP.SYRIN SUBCUT SCH (11:07)
[2020-02-25] MEDS: LISINOPRIL 10 MG TABLET PO SCH (11:07)
[2020-02-25] MEDS: GLIPIZIDE 10 MG TABLET PO SCH (11:07)
[2020-02-25] MEDS: RISPERIDONE 1 MG TABLET PO SCH ×2 (11:08→22:28)
[2020-02-25] MEDS: ZINC SULFATE 220 MG CAPSULE PO SCH (11:08)
--- NOTE | 2020-02-25 16:08 | PDOC PROGRESS REPORT ---
Subjective Progress Note for:: 02/25/20 Subjective:: No reported fever, observed chest pain or difficulty with breathing. No documented bowel movement. Feeding remain a challenge due to her advanced dementia. Remain on IV antibiotic and IV fluid support. Reason For Visit: UTI WITH SEPSIS,MULTIPLE PRESSURE ULCERS,DIABETE Physical Exam Vital Signs: Temp Pulse Resp BP Pulse Ox 98.8 F 98 16 127/51 H 91 L 02/25/20 10:52 02/25/20 10:52 02/25/20 10:52 02/25/20 10:52 02/25/20 10:52 Intake & Output 02/24/20 02/25/20 02/26/20 06:59 06:59 06:59 Intake Total 2100 2410 Output Total 425 525 Balance 1675 1885 Weight 38.7 kg 38.7 kg Physical Exam: General appearance: PRESENT: thin Head exam: PRESENT: atraumatic, normocephalic Eye exam: PRESENT: conjunctiva pink. ABSENT: pallor, scleral icterus Mouth exam: PRESENT: fairly moist mucosa Respiratory exam: PRESENT: decreased breath sounds at lung bases Cardiovascular exam: PRESENT: RRR. ABSENT: diastolic murmur, rubs, systolic murmur GI/Abdominal exam: PRESENT: normal bowel sounds, soft. ABSENT: distended, guarding, mass, organomegaly, rebound, tenderness Extremities exam: ABSENT: pedal edema Neurological exam: PRESENT: awake, limited - due to her baseline dementia Skin exam: PRESENT: dry, warm, other - multiple pressure ulcers involving sacral region stage 3, bilateral heel and elbow regions. Results Laboratory Results: 02/23/20 05:47 02/23/20 05:47 02/17/20 02/17/20 16:43 16:43 Creatine Kinase < 20 L Troponin I < 0.012 Impressions: Chest X-Ray 02/17/20 16:05 IMPRESSION: NO ACUTE RADIOGRAPHIC FINDING IN THE CHEST. KUB X-Ray 02/24/20 00:00 IMPRESSION: NO RADIOGRAPHIC EVIDENCE FOR ACUTE ABDOMINAL DISEASE. MODERATE STOOL THROUGHOUT THE COLON CONSISTENT WITH CONSTIPATION. Assessment & Plan - Diagnosis (1) Metabolic encephalopathy Is this a current diagnosis for this admission?: Yes (2) Infected pressure ulcer Qualifiers: Pressure injury stage: stage 3 Qualified Code(s): L89.93 - Pressure ulcer of unspecified site, stage 3; L08.9 - Local infection of the skin and subcutaneous tissue, unspecified Is this a current diagnosis for this admission?: Yes (3) UTI (urinary tract infection) Qualifiers: Urinary tract infection type: site unspecified Hematuria presence: with hematuria Qualified Code(s): N39.0 - Urinary tract infection, site not specified; R31.9 - Hematuria, unspecified Is this a current diagnosis for this admission?: Yes (4) Decubitus ulcer of sacral region, stage 3 Is this a current diagnosis for this admission?: Yes (5) Decubitus ulcer of elbow, stage 2 Qualifiers: Laterality: left Qualified Code(s): L89.022 - Pressure ulcer of left elbow, stage 2 Is this a current diagnosis for this admission?: Yes (6) Pressure ulcer, heel, left, unstageable Is this a current diagnosis for this admission?: Yes (7) Pressure ulcer, heel, right, unstageable Is this a current diagnosis for this admission?: Yes (8) Adult failure to thrive syndrome Is this a current diagnosis for this admission?: Yes (9) Type 2 diabetes mellitus Qualifiers: Diabetes mellitus [facility]p insulin use: without mcfp use Diabetes mellitus complication status: with hyperglycemia Qualified Code(s): E11.65 - Type 2 diabetes mellitus with hyperglycemia Is this a current diagnosis for this admission?: Yes (10) Hypertension Qualifiers: Hypertension type: essential hypertension Qualified Code(s): I10 - Esse ntial (primary) hypertension Is this a current diagnosis for this admission?: Yes (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 Is this a current diagnosis for this admission?: Yes (12) Urinary retention with incomplete bladder emptying Is this a current diagnosis for this admission?: Yes (13) Constipation Qualifiers: Constipation type: unspecified constipation type Qualified Code(s): K59.00 - Constipation, unspecified Is this a current diagnosis for this admission?: Yes - Time Time Spent with patient: 25-34 minutes Level of Care: MEDICAL Medications reviewed and adjusted accordingly: Yes Anticipated discharge: Home with Homehealth Within: within 24 hours, Other - Inpatient Certification Based on my medical assessment, after consideration of the patient's comorbidities, presenting symptoms, or acuity I expect that the services needed warrant INPATIENT care.: Yes I certify that my determination is in accordance with my understanding of Medicare's requirements for reasonable and necessary INPATIENT services [42 CFR 412.3e].: Yes Medical Necessity: Significant Comorbidiites Make Outpatient Treatment Too Risky, Need Close Monitoring Due to Risk of Patient Decompensation, Need For IV Fluids, Need for IV Antibiotics, Risk of Complication if Not Cared For in Hospital, Risk of Diagnosis Which Will Require Inpatient Eval/Care/Monitoring Post Hospital Care: D/C Assistant Case Manager Documentation - Plan Summary Plan Summary: She will receive Dulcolax suppository and orally administered Lactulose to stimulate bowel movement. Continue all other current medication management. I discussed disposition with daughter, Radha Cervantes, and she is in agreement to discharge tomorrow with provision of hospital bed to assist with her management at home. D/C IV Ceftriaxone. Start on oral Levofloxacin 250 mg p.o daily.
[2020-02-25] MEDS: DEXTROSE 5%-NORMAL SALINE 1,000 ML IV PRN (18:18)
[2020-02-25] MEDS: MONTELUKAST SODIUM 10 MG TABLET PO SCH (22:28)
[2020-02-25] MEDS: ACETAMINOPHEN 325 MG TABLET PO PRN (22:28)
[2020-02-25] MEDS: MIRTAZAPINE 15 MG TABLET PO SCH (22:28)
[2020-02-26] MEDS: PANTOPRAZOLE SODIUM 40 MG TABLET.DR PO SCH (05:22)
[2020-02-26] MEDS: INSULIN LISPRO 100 UNIT/ML 3 ML VIAL SUBCUT SCH ×2 (08:00→11:42)
[2020-02-26] MEDS ORDERED: LEVOFLOXACIN 250 MG TABLET PO SCH (10:00)
[2020-02-26] MEDS: DEXTROSE 5%-NORMAL SALINE 1,000 ML IV PRN (10:15)
[2020-02-26] MEDS: GLIPIZIDE 10 MG TABLET PO SCH (10:15)
[2020-02-26] MEDS: ZINC SULFATE 220 MG CAPSULE PO SCH (10:15)
[2020-02-26] MEDS: LISINOPRIL 10 MG TABLET PO SCH (10:15)
[2020-02-26] MEDS: RISPERIDONE 1 MG TABLET PO SCH (10:15)
[2020-02-26] MEDS: ENOXAPARIN SODIUM INJ 30 MG/0.3 ML DISP.SYRIN SUBCUT SCH (10:17)
--- NOTE | 2020-02-26 14:46 | PDOC DISCHARGE SUMMARY ---
Impression - Admit/DC Date/PCP Admission Date/Primary Care Provider: 02/17/20 18:52 AMAYA REYNOLDS Discharge Date: 02/26/20 - Discharge Diagnosis (1) Metabolic encephalopathy Is this a current diagnosis for this admission?: Yes (2) Infected pressure ulcer Is this a current diagnosis for this admission?: Yes (3) UTI (urinary tract infection) Is this a current diagnosis for this admission?: Yes (4) Decubitus ulcer of sacral region, stage 3 Is this a current diagnosis for this admission?: Yes (5) Decubitus ulcer of elbow, stage 2 Is this a current diagnosis for this admission?: Yes (6) Pressure ulcer, heel, left, unstageable Is this a current diagnosis for this admission?: Yes (7) Pressure ulcer, heel, right, unstageable Is this a current diagnosis for this admission?: Yes (8) Adult failure to thrive syndrome Is this a current diagnosis for this admission?: Yes (9) Type 2 diabetes mellitus Is this a current diagnosis for this admission?: Yes (10) Hypertension Is this a current diagnosis for this admission?: Yes (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 Is this a current diagnosis for this admission?: Yes (12) Urinary retention with incomplete bladder emptying Is this a current diagnosis for this admission?: Yes (13) Constipation Is this a current diagnosis for this admission?: Yes - Assessment Summary: Patient was admitted to medical floor and managed with IV fluid hydration and antibiotic coverage. Her urine culture and wound culture revealed E. Coli and multiple organisms respectively, but particularly E. Coli and Staph. aureus. Both are sensitive to Ceftriaxone as well as oral transition to Levofloxacin. She demonstrated significant adult type failure to thrive due to her baseline dementia. She was seen in consultation by surgicalist team for possible wound debridement but due to her advance failure to thrive it was deem detrimental for the patient to have shape wound debridement. she was maintain on Acticoat q72 hours with Allevyn daily dressing while in the hospital. She will be discharged home with hospital bed and visiting nurse skill service through home health agency for wound management. Her overall prognosis remain very poor. I had extensive discussion with family regarding advance care planning. Patient was made a full code status while on admission. Despite explanation about benefit regarding skill nursing facility placement, family insisted on returning home upon discharge. She will be discharge home today and follow up will be arranged for telehealth follow up in coordination with the home health agency. - Additional Information Resuscitation Status: Full Code Discharge Diet: As Tolerated Discharge Activity: Activity As Tolerated Referrals: AMAYA REYNOLDS MD [Primary Care Provider] - 03/09/20 10:00 am (Through Telehealth inn coordination with visiting nurse on site.) Prescriptions: Levofloxacin [Levaquin 250 mg Tablet] 250 mg PO DAILY #7 tablet Home Medications: Gabapentin [Neurontin 100 mg Capsule] 100 mg PO QHS 08/21/19 Glipizide [Glucotrol 10 mg Tablet] 10 mg PO DAILY 08/21/19 Montelukast Sodium [Singulair 10 mg Tablet] 10 mg PO QHS 08/21/19 Ramipril [Altace 2.5 mg Capsule] 2.5 mg PO DAILY 08/21/19 Risperidone [Risperdal 0.25 mg Tablet] 1 mg PO Q12 08/21/19 Lisinopril [Prinivil 10 mg Tablet] 10 mg PO DAILY 02/17/20 Melatonin [Melatonin 3 mg Tablet] 3 mg PO HSP PRN 02/17/20 Mirtazapine [Remeron 15 mg Tablet] 7.5 mg PO QHS 02/17/20 Zinc Sulfate [Zinc-220 Capsule] 220 mg PO DAILY MDD START 01/14/20 FOR 14 DAYS 02/17/20 Levofloxacin [Levaquin 250 mg Tablet] 250 mg PO DAILY #7 tablet 02/26/20 History of Present Illiness History of Present Illness: HERMAN ZHANG is a 89 year old female patient known to my practice who was brought to the ED via EMS by family due to worsening of her sacral wound and poor food intake. Patient was recently discharged from [facility] following her right hip fracture and need for rehabilitation. Daughter reported no fever or chills. There has been issue with frequent turning in bed since discharge home. Her morbidities include advance dementia, hypertension,, diabetes mellitus and GERD. Her initial ED evaluation was significant for dehydration, tachycardia, sacral and heel pressure ulcers, abnormal urinalysis and leukocytosis suggestive of Azotemia, UTI and possible infected pressure ulcers, particularly sacral region. Her morbidities are as listed below. Her daughter was advised about patient's hospitalization for further evaluation and management. Hospital Course Hospital Course: Patient was admitted to medical floor and managed with IV fluid hydration and antibiotic coverage. Her urine culture and wound culture revealed E. Coli and multiple organisms respectively, but particularly E. Coli and Staph. aureus. Both are sensitive to Ceftriaxone as well as oral transition to Levofloxacin. She demonstrated significant adult type failure to thrive due to her baseline dementia. She was seen in consultation by surgicalist team for possible wound debridement but due to her advance failure to thrive it was deem detrimental for the patient to have shape wound debridement. she was maintain on Acticoat q72 hours with Allevyn daily dressing while in the hospital. She will be discharged home with hospital bed and visiting nurse skill service through home health agency for wound management. Her overall prognosis remain very poor. I had extensive discussion with family regarding advance care planning. Patient was made a full code status while on admission. Despite explanation about benefit regarding skill nursing facility placement, family insisted on returning home upon discharge. She will be discharge home today and follow up will be arranged for telehealth follow up in coordination with the home health agency. Physical Exam Vital Signs: Temp Pulse Resp BP Pulse Ox 98.5 F 98 16 130/41 H 90 L 02/26/20 11:28 02/26/20 11:28 02/26/20 11:28 02/26/20 11:28 02/26/20 11:28 Intake & Output 02/25/20 02/26/20 02/27/20 06:59 06:59 06:59 Intake Total 2410 2000 Output Total 525 525 Balance 1885 1475 Weight 38.7 kg 38 kg General appearance: PRESENT: thin Head exam: PRESENT: atraumatic, normocephalic Eye exam: PRESENT: conjunctiva pink. ABSENT: pallor, scleral icterus Mouth exam: PRESENT: fairly moist mucosa Respiratory exam: PRESENT: decreased breath sounds at lung bases Cardiovascular exam: PRESENT: RRR. ABSENT: diastolic murmur, rubs, systolic murmur GI/Abdominal exam: PRESENT: normal bowel sounds, soft. ABSENT: distended, guarding, mass, organomegaly, rebound, tenderness Extremities exam: ABSENT: pedal edema Neurological exam: PRESENT: awake, limited - due to her baseline dementia Skin exam: PRESENT: dry, warm, other - multiple pressure ulcers involving sacral region stage 3, bilateral heel and elbow regions. Results Laboratory Results: WBC 9.9 10^3/uL (4.0-10.5) 02/23/20 05:47 RBC 3.13 10^6/uL (3.72-5.28) L 02/23/20 05:47 Hgb 9.9 g/dL (12.0-15.5) L 02/23/20 05:47 Hct 28.9 % (36.0-47.0) L 02/23/20 05:47 MCV 93 fl (80-97) 02/23/20 05:47 MCH 31.6 pg (27.0-33.4) 02/23/20 05:47 MCHC 34.2 g/dL (32.0-36.0) 02/23/20 05:47 RDW 13.6 % (11.5-14.0) 02/23/20 05:47 Plt Count 316 10^3/uL (150-450) 02/23/20 05:47 Lymph % (Auto) 9.2 % (13-45) L 02/23/20 05:47 [place] % (Auto) 6.6 % (3-13) 02/23/20 05:47 Eos % (Auto) 1.3 % (0-6) 02/23/20 05:47 Baso % (Auto) 0.7 % (0-2) 02/23/20 05:47 Absolute Neuts (auto) 8.1 10^3/uL (1.7-8.2) 02/23/20 05:47 Absolute Lymphs (auto) 0.9 10^3/uL (0.5-4.7) 02/23/20 05:47 Absolute Monos (auto) 0.7 10^3/uL (0.1-1.4) 02/23/20 05:47 Absolute Eos (auto) 0.1 10^3/uL (0.0-0.6) 02/23/20 05:47 Absolute Basos (auto) 0.1 10^3/uL (0.0-0.2) 02/23/20 05:47 Seg Neutrophils % 82.2 % (42-78) H 02/23/20 05:47 VBG pH 7.35 (7.30-7.42) 02/17/20 16:43 VBG pCO2 54.0 mmHg (35-63) 02/17/20 16:43 VBG HCO3 28.8 mmol/L (20-32) 02/17/20 16:43 VBG Base Excess 2.5 mmol/L 02/17/20 16:43 Sodium 140.1 mmol/L (137-145) 02/23/20 05:47 Potassium 3.3 mmol/L (3.6-5.0) L 02/23/20 05:47 Chloride 111 mmol/L (98-107) H 02/23/20 05:47 Carbon Dioxide 24 mmol/L (22-30) 02/23/20 05:47 Anion Gap 5 (5-19) 02/23/20 05:47 BUN 7 mg/dL (7-20) 02/23/20 05:47 Creatinine 0.33 mg/dL (0.52-1.25) L 02/23/20 05:47 Est GFR ( Amer) > 60 (>60) 02/23/20 05:47 Est GFR (MDRD) Non-Af > 60 (>60) 02/23/20 05:47 Glucose 77 mg/dL (75-110) 02/23/20 05:47 POC Glucose 157 mg/dL (70-110) H 02/26/20 11:27 Lactic Acid 2.8 mmol/L (0.7-2.1) H 02/17/20 16:43 Calcium 8.2 mg/dL (8.4-10.2) L 02/23/20 05:47 Magnesium 1.6 mg/dL (1.6-2.3) 02/23/20 05:47 Total Bilirubin 0.3 mg/dL (0.2-1.3) 02/23/20 05:47 Direct Bilirubin 0.0 mg/dL (0.0-0.4) 02/23/20 05:47 Neonat Total Bilirubin Not Reportable 02/23/20 05:47 Neonat Direct Bilirubin Not Reportable 02/23/20 05:47 Neonat Indirect Bili Not Reportable 02/23/20 05:47 AST 15 U/L (14-36) 02/23/20 05:47 ALT 7 U/L (<35) 02/23/20 05:47 Alkaline Phosphatase 83 U/L (38-126) 02/23/20 05:47 Creatine Kinase < 20 U/L (30-135) L 02/17/20 16:43 Troponin I < 0.012 ng/mL 02/17/20 16:43 Total Protein 4.9 g/dL (6.3-8.2) L 02/23/20 05:47 Albumin 2.1 g/dL (3.5-5.0) L 02/23/20 05:47 Urine Color YELLOW 02/17/20 17:00 Urine Appearance TURBID 02/17/20 17:00 Urine pH 5.0 (5.0-9.0) 02/17/20 17:00 Ur Specific [place] 1.029 02/17/20 17:00 Urine Protein 30 mg/dL (NEGATIVE) H 02/17/20 17:00 Urine Glucose (UA) >=500 mg/dL (NEGATIVE) H 02/17/20 17:00 Urine Ketones TRACE mg/dL (NEGATIVE) H 02/17/20 17:00 Urine Blood SMALL (NEGATIVE) H 02/17/20 17:00 Urine Nitrite POSITIVE (NEGATIVE) H 02/17/20 17:00 Urine Bilirubin NEGATIVE (NEGATIVE) 02/17/20 17:00 Urine Urobilinogen NEGATIVE mg/dL (<2.0) 02/17/20 17:00 Ur Leukocyte Esterase LARGE (NEGATIVE) H 02/17/20 17:00 Urine WBC (Auto) >182 /HPF 02/17/20 17:00 Urine RBC (Auto) 48 /HPF 02/17/20 17:00 Urine Bacteria (Auto) 3+ /HPF 02/17/20 17:00 Urine WBC Clumps MOD /HPF 02/17/20 17:00 Squamous Epi Cells Auto 3 /HPF 02/17/20 17:00 Urine Mucus (Auto) MANY /LPF 02/17/20 17:00 Urine Ascorbic Acid 40 (NEGATIVE) H 02/17/20 17:00 02/17/20 16:43 Troponin I < 0.012 Impressions: Chest X-Ray 02/17/20 16:05 IMPRESSION: NO ACUTE RADIOGRAPHIC FINDING IN THE CHEST. KUB X-Ray 02/24/20 00:00 IMPRESSION: NO RADIOGRAPHIC EVIDENCE FOR ACUTE ABDOMINAL DISEASE. MODERATE STOOL THROUGHOUT THE COLON CONSISTENT WITH CONSTIPATION. Plan Health Concerns: Advanced dementia with adut type failure to thrive and multiple pressure ulcers. Increase risk of readmission. Plan of Treatment: Discharge home with visiting nurse service for wound management, family education and support regarding failure to thrive, poor overall outcome and consideration of hospice placement. Maintain on Levofloxacin 250 mg p.o daily x 7 days. Goals: Reduce hospital readmission risk and support placement in hospice program. Time Spent: Greater than 30 Minutes - Care coordination and post discharge planning. Stroke Is this a Stroke Patient?: No Acute Heart Failure - Is this a Heart Failure Patient?: No
[2020-02-26 16:08] VITALS: BP 164/82
== END 2020-02-26 16:23 | disposition home health service (06) | DRG 689 ==
LOC: ER 15:35 → EH 18:52 → 4S 19:57
PROVIDERS: ADMIT Internal Medicine Geriatric Medicine; ATTEND Internal Medicine Geriatric Medicine
DX: N39.0 Urinary tract infection, site not specified (principal); L89.153 Pressure ulcer of sacral region, stage 3; G93.41 Metabolic encephalopathy; F03.91 Unspecified dementia, unspecified severity, with behavioral disturbance; I10 Essential (primary) hypertension; K21.9 Gastro-esophageal reflux disease without esophagitis; E86.0 Dehydration; Z79.84 Long term (current) use of oral hypoglycemic drugs; M19.90 Unspecified osteoarthritis, unspecified site; Z79.899 Other long term (current) drug therapy; L89.022 Pressure ulcer of left elbow, stage 2; R62.7 Adult failure to thrive; E11.65 Type 2 diabetes mellitus with hyperglycemia; R33.9 Retention of urine, unspecified; K59.00 Constipation, unspecified; B96.20 Unspecified Escherichia coli [E. coli] as the cause of diseases classified elsewhere; B95.61 Methicillin susceptible Staphylococcus aureus infection as the cause of diseases classified elsewhere; L89.620 Pressure ulcer of left heel, unstageable; L89.610 Pressure ulcer of right heel, unstageable
CPT/HCPCS: 36415; 71045; 74018; 80053; 81001; 82550; 82803; 82962; 83605; 83735; 84484; 85025; 87040; 87070; 87075; 87077; 87086; 87088; 87186; 87205; 93005; 93010; 96361; 96374; 99285; J0696; J1650; J1815; J3490; J7030; J7042

== ENCOUNTER 2020-02-27 23:51 | Inpatient (IN) | payer MEDICARE, MEDICAID ==
[2020-02-28 01:33] LABS: ABSOLUTE BASOPHILS # (AUTO) 0.1 10^3/uL (0.0-0.2); ABSOLUTE EOSINOPHILS # (AUTO) 0.1 10^3/uL (0.0-0.6); ABSOLUTE LYMPHOCYTES (AUTO) 1.2 10^3/uL (0.5-4.7); ABSOLUTE MONOCYTES (AUTO) 0.7 10^3/uL (0.1-1.4); ABSOLUTE NEUT (AUTO) 9.4 10^3/uL (1.7-8.2); BASOPHILS % (AUTO) 0.5 % (0-2); EOSINOPHILS % (AUTO) 0.9 % (0-6); HEMATOCRIT 30.3 % (36.0-47.0); HEMOGLOBIN 10.2 g/dL (12.0-15.5); LYMPHOCYTES % (AUTO) 10.5 % (13-45); MEAN CORPUSCULAR HEMOGLOBIN 31.2 pg (27.0-33.4); MEAN CORPUSCULAR HGB CONC 33.6 g/dL (32.0-36.0); MEAN CORPUSCULAR VOLUME 93 fl (80-97); MONOCYTES % (AUTO) 6.1 % (3-13); PLATELET COUNT 287 10^3/uL (150-450); RED BLOOD COUNT 3.26 10^6/uL (3.72-5.28); RED CELL DISTRIBUTION WIDTH 13.9 % (11.5-14.0); TOTAL CELLS COUNTED % (AUTO) 100 %; WHITE BLOOD COUNT 11.4 10^3/uL (4.0-10.5)
[2020-02-28 01:37] LABS: INTERNATIONAL RATION (INR) 0.98
--- NOTE | 2020-02-28 01:41 | ER Document Report ---
Entered by CHARLY CORMIER SCRIBE 02/28/20 0119 Acting as scribe for:JANETT GOVEA IV, MD ED General - General Chief Complaint: Fever Stated Complaint: AMS,FEVER Time Seen by Provider: 02/28/20 00:51 Primary Care Provider: AMAYA REYNOLDS MD [Primary Care Provider] - Follow up as needed Mode of Arrival: Medic Information source: Emergency Med Personnel Notes: This 89 year old female patient with a history of HTN, DM II, senile dementia of Alzheimer's type, and adult failure to thrive syndrome brought in by EMS presents to the ED today with complaints of fever and altered mental status. Patient was discharged x2 days ago after being admitted on 02/17/2020 for an UTI and several ulcers. HPI is limited due to patient's medical condition. TRAVEL OUTSIDE OF THE [place] IN LAST 30 DAYS: No - Related Data Allergies/Adverse Reactions: No Known Allergies Allergy (Verified 02/17/20 16:14) Past Medical History - General Information source: [facility] Records - Social History Smoking Status: Unknown if Ever Smoked Cigarette use (# per day): No Chew tobacco use (# tins/day): No Smoking Education Provided: No Family History: Reviewed & Not Pertinent Patient has suicidal ideation: No Patient has homicidal ideation: No - Past Medical History Cardiac Medical History: Reports: Hx Hypertension - MEDICATED/ CONTROLLED Denies: Hx Coronary Artery Disease, Hx Heart Attack Endocrine Medical History: Reports: Hx Diabetes Mellitus Type 2 - pills only GI Medical History: Reports: Hx Gastroesophageal Reflux Disease, Hx Ulcer Musculoskeletal Medical History: Reports Hx Arthritis Past Surgical History: Reports: Hx Orthopedic Surgery - Hip - Immunizations Hx Diphtheria, Pertussis, Tetanus Vaccination: No Review of Systems - Review of Systems -: Yes ROS unobtainable due to patient's medical condition Physical Exam - Vital signs Vitals: Resp Pulse Ox 25 H 100 02/27/20 23:59 02/27/20 23:59 - General General appearance: Other - Chronically ill appearing. Somnolent - HEENT Head: Normocephalic, Atraumatic Eyes: Normal Pupils: PERRL - Respiratory Respiratory status: No respiratory distress Chest status: Nontender Breath sounds: Normal Chest palpation: Normal - Cardiovascular Rhythm: Regular, Tachycardia Heart sounds: Normal auscultation Murmur: No Friction rub: No Gallop: None auscultated - Abdominal Inspection: Normal Distension: No distension Bowel sounds: Hypoactive - Bowel sounds are diminished Tenderness: Nontender - Abdomen soft Organomegaly: No organomegaly - Back Back: Normal, Nontender - Extremities General upper extremity: Normal inspection General lower extremity: No: Edema - No pedal edema Foot: Other - Dressings noted to pressure ulcers on heels bilaterally - Neurological Neuro grossly intact: Yes - Psychological Associated symptoms: Other - At baseline - Skin Skin Temperature: Warm Skin Moisture: Dry Skin Color: Normal Skin irregularity: other - Sacral decubitis ulcer, stage 3 noted. 4 cm in diameter with purulent discharge. Course - Vital Signs Vital signs: Temp Pulse Resp BP Pulse Ox 99.7 F 18 132/75 H 100 02/28/20 00:18 02/28/20 04:31 02/28/20 04:31 02/28/20 04:01 - Laboratory Result Diagrams: 02/28/20 00:15 02/28/20 03:15 Laboratory results interpreted by me: 02/28/20 02/28/20 02/28/20 00:15 02:00 03:15 WBC 11.4 H RBC 3.26 L Hgb 10.2 L Hct 30.3 L Lymph % (Auto) 10.5 L Absolute Neuts (auto) 9.4 H Seg Neutrophils % 82.0 H Potassium 3.5 L Anion Gap 4 L Creatinine 0.35 L Glucose 116 H Calcium 8.3 L AST 13 L Total Protein 5.4 L Albumin 2.2 L Urine Glucose (UA) >=500 H Urine Ascorbic Acid 20 H - Diagnostic Test Radiology reviewed: Reports reviewed - EKG Interpretation by Me Additional EKG results interpreted by me: 02/28/20 05:01 EKG obtained on 02/28/2020 was interpreted by this MD. Findings: Normal sinus rhythm, rate 91, P waves proceed QRS complexes, QRS complex appears narrow, normal axis, there are no obvious patterns of ST segment elevation or depression present to suggest acute myocardial ischemia or infarction. Impression: Normal sinus rhythm with nonspecific ST segments. - Consults RODOLFO Time consulted: 05:03 - DR. REYNOLDS AGREED TO ADMIT PT Reason for consultation: 02/28/20 05:03 AMS, FEVER, WEAKNESS Consulted provider: will see as inpatient Discharge - Discharge Clinical Impression: Altered mental status Qualifiers: Altered mental status type: unspecified Qualified Code(s): R41.82 - Altered mental status, unspecified Infected pressure ulcer Qualifiers: Pressure injury stage: stage 3 Qualified Code(s): L89.93 - Pressure ulcer of unspecified site, stage 3; L08.9 - Local infection of the skin and subcutaneous tissue, unspecified Condition: Poor Disposition: ADMITTED INPATIENT Admitting Provider: Rodolfo Unit Admitted: Medical Floor Referrals: AMAYA REYNOLDS MD [Primary Care Provider] - Follow up as needed I personally performed the services described in the documentation, reviewed and edited the documentation which was dictated to the scribe in my presence, and it accurately records my words and actions.
[2020-02-28 02:13] LABS: APPEARANCE,URINE CLEAR; BILIRUBIN,URINE NEGATIVE (NEGATIVE); COLOR,URINE YELLOW; GLUCOSE, URINE >=500 mg/dL (NEGATIVE); KETONES,URINE NEGATIVE (NEGATIVE); PROTEIN,URINE NEGATIVE (NEGATIVE); URINE SPECIFIC GRAVITY 1.018; UROBILINOGEN,URINE NEGATIVE mg/dL (<2.0)
--- NOTE | 2020-02-28 02:32 | RADIOLOGY REPORT (SQ) ---
CLINICAL INDICATION: fever, ams. TECHNIQUE: A single portable AP view was obtained of the chest at 0210 hours. COMPARISON: February 17, 2020. FINDINGS: The cardiomediastinal silhouette is prominent. The lungs demonstrate progressive left basilar airspace disease and adjacent pleural reaction. Right lung is clear.. Osteoarthritis. IMPRESSION: Progressive left basilar airspace and pleural disease.
[2020-02-28 03:37] LABS: VENOUS BLOOD BASE EXCESS 3.9 mmol/L; VENOUS BLOOD HCO3 29.1 mmol/L (20-32); VENOUS BLOOD PCO2 46.7 mmHg (35-63); VENOUS BLOOD PH 7.41 (7.30-7.42)
[2020-02-28 03:57] LABS: ALBUMIN 2.2 g/dL (3.5-5.0); ALKALINE PHOSPHATASE 102 U/L (38-126); ASPARTATE AMINO TRANSFERASE 13 U/L (14-36); BILIRUBIN,TOTAL 0.4 mg/dL (0.2-1.3); BLOOD UREA NITROGEN 9 mg/dL (7-20); CALCIUM 8.3 mg/dL (8.4-10.2); CARBON DIOXIDE 29 mmol/L (22-30); CHLORIDE 107 mmol/L (98-107); GLUCOSE 116 mg/dL (75-110); POTASSIUM 3.5 mmol/L (3.6-5.0); TOTAL PROTEIN 5.4 g/dL (6.3-8.2)
[2020-02-28 04:03] LABS: ANION GAP 4 (5-19)
[2020-02-28] MEDS ORDERED: NORMAL SALINE 500 ML IV ONE (04:15)
[2020-02-28] MEDS ORDERED: VANCOMYCIN HCL INJ 1000 MG VIAL IV ONE (04:17)
[2020-02-28] MEDS ORDERED: PIPERACILLIN/TAZOBACTAM 3.375 GM VIAL IV ONE (04:17)
--- NOTE | 2020-02-28 10:40 | EKG REPORT ---
SEVERITY:- ABNORMAL ECG - SINUS RHYTHM ATRIAL PREMATURE COMPLEX LEFT ANTERIOR FASCICULAR BLOCK : Confirmed by: Chloe Villa 28-Feb-2020 10:39:41
[2020-02-28] MEDS: DEXTROSE 5%-NORMAL SALINE 1,000 ML IV PRN (14:03)
[2020-02-28] MEDS: PIPERACILLIN SODIUM/TAZOBACTAM 2.25 GM in NORMAL SALINE 50 ML IV SCH ×2 (15:31→21:26)
--- NOTE | 2020-02-28 19:09 | PDOC H&P ---
History of Present Illness Admission Date/PCP: 02/28/20 05:13 AMAYA RODOLFO Patient complains of: Fever, Altered mentation History of Present Illness: HERMAN ZHANG is a 89 year old female patient who was recently discharged from the hospital following admission for metabolic encephalopathy, UTI and infected sacral pressure ulcer. She was discharged home instead of SNF for further care due to family insistence on home discharge with hospital bed an skill nursing service for wound management. She has advance dementia and adult failure to thrive among other morbidities with very poor outcome. Family did called and I spoke at length with her granddaughter regarding wound care and maintenance on discharged medication including Levofloxacin. Patient reported that patient developed fever and became more unresponsive at home necessitating activation of the EMS and patient was brought to the ED for further evaluation and management. Her initial ED evaluation was significant for left lower lobe air space disease process, associated leukocytosis with left shift, and tachypnea. Past Medical History Cardiac Medical History: Reports: Hypertension - MEDICATED/ CONTROLLED Denies: Coronary Artery Disease, Myocardial Infarction Pulmonary Medical History: Denies: Asthma, Bronchitis, Chronic Obstructive Pulmonary Disease (COPD), Pneumonia Neurological Medical History: Denies: Seizures Endocrine Medical History: Reports: Diabetes Mellitus Type 2 - pills only GI Medical History: Reports: Gastroesophageal Reflux Disease Denies: Hepatitis, Hiatal Hernia Musculoskeltal Medical History: Reports: Arthritis Psychiatric Medical History: Denies: Depression Hematology: Denies: Anemia, Sickle Cell Disease Past Surgical History Past Surgical History: Reports: Orthopedic Surgery - Hip Denies: Amputation, Hysterectomy, Mastectomy, Pacemaker Social History Smoking Status: Unknown if Ever Smoked - Advance Directive Resuscitation Status: Full Code Family History Family History: Reviewed & Not Pertinent Parental Family History Reviewed: No - baseline dementia and altered mental status. Children Family History Reviewed: Unknown Sibling(s) Family History Reviewed.: Unknown Medication/Allergy Home Medications: Gabapentin [Neurontin 100 mg Capsule] 100 mg PO QHS 08/21/19 Glipizide [Glucotrol 10 mg Tablet] 10 mg PO DAILY 08/21/19 Montelukast Sodium [Singulair 10 mg Tablet] 10 mg PO QHS 08/21/19 Ramipril [Altace 2.5 mg Capsule] 2.5 mg PO DAILY 08/21/19 Risperidone [Risperdal 0.25 mg Tablet] 1 mg PO Q12 08/21/19 Lisinopril [Prinivil 10 mg Tablet] 10 mg PO DAILY 02/17/20 Melatonin [Melatonin 3 mg Tablet] 3 mg PO HSP PRN 02/17/20 Mirtazapine [Remeron 15 mg Tablet] 7.5 mg PO QHS 02/17/20 Zinc Sulfate [Zinc-220 Capsule] 220 mg PO DAILY MDD START 01/14/20 FOR 14 DAYS 02/17/20 Levofloxacin [Levaquin 250 mg Tablet] 250 mg PO DAILY #7 tablet 02/26/20 Allergies/Adverse Reactions: No Known Allergies Allergy (Verified 02/17/20 16:14) Review of Systems ROS unobtainable: Due to mental status Physical Exam Vital Signs: Temp Pulse Resp BP Pulse Ox 98.9 F 100 16 158/80 H 92 02/28/20 17:20 02/28/20 17:20 02/28/20 17:20 02/28/20 17:20 02/28/20 17:20 Intake & Output 02/27/20 02/28/20 02/29/20 06:59 06:59 06:59 Intake Total 550 Balance 550 Weight 47.2 kg 50.8 kg General appearance: PRESENT: mild distress - on supplemental oxygen via nasal cannula, thin - severely Head exam: PRESENT: atraumatic, normocephalic Eye exam: PRESENT: conjunctiva pink. ABSENT: scleral icterus Ear exam: PRESENT: normal external ear exam Mouth exam: PRESENT: dry mucosa Respiratory exam: PRESENT: decreased breath sounds - at lung bases Cardiovascular exam: PRESENT: RRR, +S1, +S2. ABSENT: diastolic murmur, rubs, systolic murmur Vascular exam: ABSENT: pallor GI/Abdominal exam: PRESENT: normal bowel sounds, soft Rectal exam: PRESENT: deferred Extremities exam: ABSENT: pedal edema Musculoskeletal exam: PRESENT: deformity - related to multiple joints involvement with arthritis Neurological exam: PRESENT: altered Skin exam: PRESENT: dry, warm, other - infected stage 3 sacral, bilateral heel and elbow unstageable pressure ulcers Results Laboratory Results: 02/28/20 00:15 02/28/20 03:15 02/28/20 02/28/20 02/28/20 00:15 02:00 03:15 WBC 11.4 H RBC 3.26 L Hgb 10.2 L Hct 30.3 L MCV 93 MCH 31.2 MCHC 33.6 RDW 13.9 Plt Count 287 Seg Neutrophils % 82.0 H VBG pH VBG pCO2 VBG HCO3 VBG Base Excess Sodium 140.1 Potassium 3.5 L Chloride 107 Carbon Dioxide 29 Anion Gap 4 L BUN 9 Creatinine 0.35 L Est GFR ( Amer) > 60 Glucose 116 H Lactic Acid Calcium 8.3 L Total Bilirubin 0.4 AST 13 L Alkaline Phosphatase 102 Total Protein 5.4 L Albumin 2.2 L Urine Color YELLOW Urine Appearance CLEAR Urine pH 5.0 Ur Specific [place] 1.018 Urine Protein NEGATIVE Urine Glucose (UA) >=500 H Urine Ketones NEGATIVE Urine Blood NEGATIVE Urine RBC (Auto) 0 02/28/20 02/28/20 02/28/20 03:15 03:15 08:52 WBC RBC Hgb Hct MCV MCH MCHC RDW Plt Count Seg Neutrophils % VBG pH 7.41 VBG pCO2 46.7 VBG HCO3 29.1 VBG Base Excess 3.9 Sodium Potassium Chloride Carbon Dioxide Anion Gap BUN Creatinine Est GFR ( Amer) Glucose Lactic Acid 1.0 1.3 Calcium Total Bilirubin AST Alkaline Phosphatase Total Protein Albumin Urine Color Urine Appearance Urine pH Ur Specific [place] Urine Protein Urine Glucose (UA) Urine Ketones Urine Blood Urine RBC (Auto) 02/28/20 12:00 WBC RBC Hgb Hct MCV MCH MCHC RDW Plt Count Seg Neutrophils % VBG pH VBG pCO2 VBG HCO3 VBG Base Excess Sodium Potassium Chloride Carbon Dioxide Anion Gap BUN Creatinine Est GFR ( Amer) Glucose Lactic Acid 1.3 Calcium Total Bilirubin AST Alkaline Phosphatase Total Protein Albumin Urine Color Urine Appearance Urine pH Ur Specific [place] Urine Protein Urine Glucose (UA) Urine Ketones Urine Blood Urine RBC (Auto) Impressions: Chest X-Ray 02/28/20 01:21 IMPRESSION: Progressive left basilar airspace and pleural disease. Assessment & Plan - Diagnosis (1) Healthcare-associated pneumonia Is this a current diagnosis for this admission?: Yes Plan: See admitting attending physician orders for details about care plan. (2) Metabolic encephalopathy Is this a current diagnosis for this admission?: Yes Plan: See admitting attending physician orders for details about care plan. (3) Adult failure to thrive syndrome Is this a current diagnosis for this admission?: Yes Plan: See admitting attending physician orders for details about care plan. (4) Decubitus ulcer of sacral region, stage 3 Is this a current diagnosis for this admission?: Yes Plan: See admitting attending physician orders for details about care plan. (5) Decubitus ulcer of elbow, stage 2 Qualifiers: Laterality: left Qualified Code(s): L89.022 - Pressure ulcer of left elbow, stage 2 Is this a current diagnosis for this admission?: Yes Plan: See admitting attending physician orders for details about care plan. (6) Pressure ulcer, heel, left, unstageable Is this a current diagnosis for this admission?: Yes Plan: See admitting attending physician orders for details about care plan. (7) Pressure ulcer, heel, right, unstageable Is this a current diagnosis for this admission?: Yes Plan: See admitting attending physician orders for details about care plan. (8) Hypertension Qualifiers: Hypertension type: essential hypertension Qualified Code(s): I10 - Essential (primary) hypertension Is this a current diagnosis for this admission?: Yes Plan: See admitting attending physician orders for details about care plan. (9) Type 2 diabetes mellitus Qualifiers: Diabetes mellitus detention insulin use: without termite helper use Diabetes mellitus complication status: with hyperglycemia Qualified Code(s): E11.65 - Type 2 diabetes mellitus with hyperglycemia Is this a current diagnosis for this admission?: Yes Plan: See admitting attending physician orders for details about care plan. 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 - Time Time Spent: 50 to 70 Minutes Medications reviewed and adjusted accordingly: Yes Anticipated discharge: SNF, Hospice Within: Other - Inpatient Certification Based on my medical assessment, after consideration of the patient's comorbidities, presenting symptoms, or acuity I expect that the services needed warrant INPATIENT care.: Yes I certify that my determination is in accordance with my understanding of [facility]'s requirements for reasonable and necessary INPATIENT services [42 CFR 412.3e].: Yes Medical Necessity: Significant Comorbidiites Make Outpatient Treatment Too Risky, Need Close Monitoring Due to Risk of Patient Decompensation, Need For IV Fluids, Need for IV Antibiotics, Risk of Complication if Not Cared For in Hospital, Risk of Diagnosis Which Will Require Inpatient Eval/Care/Monitoring Post 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
[2020-02-28] MEDS ORDERED: ACETAMINOPHEN 325 MG TABLET PO PRN (19:13)
[2020-02-28] MEDS ORDERED: VANCOMYCIN HCL 0 MG in DEXTROSE 5%-WATER 250 ML IV NR (19:15)
[2020-02-28] MEDS: FAMOTIDINE INJ/PF 20 MG/2 ML SDV IV SCH (21:27)
[2020-02-29] MEDS: DEXTROSE 5%-NORMAL SALINE 1,000 ML IV PRN ×2 (00:12→14:58)
[2020-02-29] MEDS: PIPERACILLIN SODIUM/TAZOBACTAM 2.25 GM in NORMAL SALINE 50 ML IV SCH ×4 (03:30→22:22)
[2020-02-29 06:43] LABS: ABSOLUTE BASOPHILS # (AUTO) 0.1 10^3/uL (0.0-0.2); ABSOLUTE EOSINOPHILS # (AUTO) 0.2 10^3/uL (0.0-0.6); ABSOLUTE LYMPHOCYTES (AUTO) 1.1 10^3/uL (0.5-4.7); ABSOLUTE MONOCYTES (AUTO) 0.7 10^3/uL (0.1-1.4); ABSOLUTE NEUT (AUTO) 6.9 10^3/uL (1.7-8.2); BASOPHILS % (AUTO) 0.8 % (0-2); EOSINOPHILS % (AUTO) 1.8 % (0-6); HEMATOCRIT 28.7 % (36.0-47.0); LYMPHOCYTES % (AUTO) 12.1 % (13-45); MEAN CORPUSCULAR HEMOGLOBIN 31.3 pg (27.0-33.4); MEAN CORPUSCULAR HGB CONC 34.6 g/dL (32.0-36.0); MEAN CORPUSCULAR VOLUME 90 fl (80-97); MONOCYTES % (AUTO) 8.3 % (3-13); PLATELET COUNT 275 10^3/uL (150-450); RED BLOOD COUNT 3.18 10^6/uL (3.72-5.28); RED CELL DISTRIBUTION WIDTH 13.9 % (11.5-14.0); TOTAL CELLS COUNTED % (AUTO) 100 %
[2020-02-29 07:05] LABS: ALBUMIN 1.9 g/dL (3.5-5.0); ALKALINE PHOSPHATASE 83 U/L (38-126); ASPARTATE AMINO TRANSFERASE 14 U/L (14-36); BILIRUBIN,TOTAL 0.4 mg/dL (0.2-1.3); BLOOD UREA NITROGEN 5 mg/dL (7-20); CALCIUM 7.8 mg/dL (8.4-10.2); GLUCOSE 158 mg/dL (75-110); POTASSIUM 3.2 mmol/L (3.6-5.0); TOTAL PROTEIN 4.8 g/dL (6.3-8.2)
[2020-02-29 07:11] LABS: ANION GAP 1 (5-19); CARBON DIOXIDE 29 mmol/L (22-30); CHLORIDE 109 mmol/L (98-107)
[2020-02-29] MEDS ORDERED: DEXTROSE 50%-WATER SYRINGE 12.5 GM/25 ML DOSE IV PRN (08:00)
[2020-02-29] MEDS ORDERED: DEXTROSE 50%-WATER SYRINGE 25 GM/50 ML DOSE IV PRN (08:00)
[2020-02-29] MEDS ORDERED: DEXTROSE 40% GEL 15 GM TUBE X 2 PO PRN (08:00)
[2020-02-29] MEDS ORDERED: DEXTROSE 40% GEL 15 GM TUBE PO PRN (08:00)
[2020-02-29] MEDS ORDERED: GLUCAGON,HUMAN RECOMB 1 MG INJ IM PRN (08:00)
[2020-02-29] MEDS: ZINC SULFATE 220 MG CAPSULE PO SCH (09:24)
[2020-02-29] MEDS: FAMOTIDINE INJ/PF 20 MG/2 ML SDV IV SCH ×2 (09:24→22:23)
[2020-02-29] MEDS: LISINOPRIL 10 MG TABLET PO SCH (09:24)
[2020-02-29] MEDS: ENOXAPARIN SODIUM INJ 30 MG/0.3 ML DISP.SYRIN SUBCUT SCH (09:25)
[2020-02-29] MEDS: VANCOMYCIN HCL 750 MG in DEXTROSE 5%-WATER 250 ML IV SCH ×2 (10:13→22:22)
--- NOTE | 2020-02-29 14:18 | PDOC PROGRESS REPORT ---
Subjective Progress Note for:: 02/29/20 Subjective:: Patient appear more lucid today but at baseline dementia. Remain on IV Zosyn and Vancomycin coverage. No observed chest pain or difficulty with breathing. No nausea or vomiting. No fever or chills. Reason For Visit: HOSPITAL ASSOCIATED PNEUMONIA; INFECTED SACRAL Physical Exam Vital Signs: Temp Pulse Resp BP Pulse Ox 98.5 F 108 H 16 158/67 H 95 02/29/20 12:00 02/29/20 12:00 02/29/20 12:00 02/29/20 12:00 02/29/20 12:00 Intake & Output 02/28/20 02/29/20 03/01/20 06:59 06:59 06:59 Intake Total 1950 1300 Output Total 600 Balance 1350 1300 Weight 47.2 kg 54.8 kg General appearance: PRESENT: thin Head exam: PRESENT: atraumatic, normocephalic Eye exam: PRESENT: conjunctiva pink. ABSENT: scleral icterus Mouth exam: PRESENT: dry mucosa Respiratory exam: PRESENT: decreased breath sounds Vascular exam: ABSENT: pallor GI/Abdominal exam: PRESENT: normal bowel sounds, soft Extremities exam: ABSENT: pedal edema Neurological exam: PRESENT: awake Skin exam: PRESENT: dry, warm, other - sacralk stage 3, elbow stage 2 and unstageable heel pressure ulcers. Results Laboratory Results: 02/29/20 05:45 02/29/20 05:45 02/29/20 02/29/20 05:45 05:45 WBC 9.0 RBC 3.18 L Hgb 10.0 L Hct 28.7 L MCV 90 MCH 31.3 MCHC 34.6 RDW 13.9 Plt Count 275 Seg Neutrophils % 77.0 Sodium 138.9 Potassium 3.2 L Chloride 109 H Carbon Dioxide 29 Anion Gap 1 L BUN 5 L Creatinine 0.32 L Est GFR ( Amer) > 60 Glucose 158 H Calcium 7.8 L Total Bilirubin 0.4 AST 14 Alkaline Phosphatase 83 Total Protein 4.8 L Albumin 1.9 L Impressions: Chest X-Ray 02/28/20 01:21 IMPRESSION: Progressive left basilar airspace and pleural disease. Assessment & Plan - Diagnosis (1) Healthcare-associated pneumonia Is this a current diagnosis for this admission?: Yes (2) Metabolic encephalopathy Is this a current diagnosis for this admission?: Yes (3) Adult failure to thrive syndrome Is this a current diagnosis for this admission?: Yes (4) Decubitus ulcer of sacral region, stage 3 Is this a current diagnosis for this admission?: Yes (5) Decubitus ulcer of elbow, stage 2 Qualifiers: Laterality: left Qualified Code(s): L89.022 - Pressure ulcer of left elbow, stage 2 Is this a current diagnosis for this admission?: Yes (6) Pressure ulcer, heel, left, unstageable Is this a current diagnosis for this admission?: Yes (7) Pressure ulcer, heel, right, unstageable Is this a current diagnosis for this admission?: Yes (8) Hypertension Qualifiers: Hypertension type: essential hypertension Qualified Code(s): I10 - Essential (primary) hypertension Is this a current diagnosis for this admission?: Yes (9) Type 2 diabetes mellitus Qualifiers: Diabetes mellitus technician terminal and repeater insulin use: without technician terminal and repeater use Diabetes mellitus complication status: with hyperglycemia Qualified Code(s): E11.65 - Type 2 diabetes mellitus with hyperglycemia Is this a current diagnosis for this admission?: Yes (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 Is this a current diagnosis for this admission?: Yes - Time Time Spent with patient: 25-34 minutes Level of Care: MEDICAL Medications reviewed and adjusted accordingly: Yes Anticipated discharge: SNF, Hospice Within: Other - Inpatient Certification Based on my medical assessment, after consideration of the patient's comorbidities, presenting symptoms, or acuity I expect that the services needed warrant INPATIENT care.: Yes I certify that my determination is in accordance with my understanding of Medicare's requirements for reasonable and necessary INPATIENT services [42 CFR 412.3e].: Yes Medical Necessity: Significant Comorbidiites Make Outpatient Treatment Too Risky, Need Close Monitoring Due to Risk of Patient Decompensation, Need For IV Fluids, Need for IV Antibiotics, Risk of Complication if Not Cared For in Hospital, Risk of Diagnosis Which Will Require Inpatient Eval/Care/Monitoring Post Hospital Care: D/C Digester Operator Documentation - Plan Summary Plan Summary: Continue current medication management and wound dressing surgical debridement of wound may be detrimental to patient due to very poor nutritional status. Her overall prognosis remain very poor. I had extensive discuss with her daughter, Radha Cervantes, at , regarding care expectation and outcome with suggestion for SNF or hospice placement in view of inability to care for patient at home and her advance dementia. Presently , she is agreeable to make patient a DNR status.
[2020-03-01] MEDS: PIPERACILLIN SODIUM/TAZOBACTAM 2.25 GM in NORMAL SALINE 50 ML IV SCH ×4 (03:31→20:35)
[2020-03-01] MEDS: DEXTROSE 5%-NORMAL SALINE 1,000 ML IV PRN ×2 (06:00→18:15)
--- NOTE | 2020-03-01 08:15 | PDOC PROGRESS REPORT ---
Subjective Progress Note for:: 03/01/20 Subjective:: Patient remain at baseline dementia. No observed chest pain or difficulty with breathing. No nausea or vomiting. No fever or chills. Reason For Visit: HOSPITAL ASSOCIATED PNEUMONIA; INFECTED SACRAL Physical Exam Vital Signs: Temp Pulse Resp BP Pulse Ox 97.8 F 83 18 146/56 H 92 03/01/20 03:14 03/01/20 03:14 03/01/20 03:14 03/01/20 03:14 03/01/20 03:14 Intake & Output 02/29/20 03/01/20 03/02/20 06:59 06:59 06:59 Intake Total 1950 2650 Output Total 600 1250 Balance 1350 1400 Weight 54.8 kg 60.4 kg Physical Exam: General appearance: PRESENT: thin Head exam: PRESENT: atraumatic, normocephalic Eye exam: PRESENT: conjunctiva pink. ABSENT: scleral icterus Mouth exam: PRESENT: dry mucosa Respiratory exam: PRESENT: decreased breath sounds Vascular exam: ABSENT: pallor GI/Abdominal exam: PRESENT: normal bowel sounds, soft Extremities exam: ABSENT: pedal edema Neurological exam: PRESENT: awake Skin exam: PRESENT: dry, warm, other - sacral stage 3, elbow stage 2 and unstageable heel pressure ulcers. Results Laboratory Results: 02/29/20 05:45 02/29/20 05:45 02/28/20 05:55 Sacrum - Decubitis Ulcer Gram Stain - Final Impressions: Chest X-Ray 02/28/20 01:21 IMPRESSION: Progressive left basilar airspace and pleural disease. Assessment & Plan - Diagnosis (1) Healthcare-associated pneumonia Is this a current diagnosis for this admission?: Yes (2) Metabolic encephalopathy Is this a current diagnosis for this admission?: Yes (3) Adult failure to thrive syndrome Is this a current diagnosis for this admission?: Yes (4) Decubitus ulcer of sacral region, stage 3 Is this a current diagnosis for this admission?: Yes (5) Decubitus ulcer of elbow, stage 2 Qualifiers: Laterality: left Qualified Code(s): L89.022 - Pressure ulcer of left elbow, stage 2 Is this a current diagnosis for this admission?: Yes (6) Pressure ulcer, heel, left, unstageable Is this a current diagnosis for this admission?: Yes (7) Pressure ulcer, heel, right, unstageable Is this a current diagnosis for this admission?: Yes (8) Hypertension Qualifiers: Hypertension type: essential hypertension Qualified Code(s): I10 - Essential (primary) hypertension Is this a current diagnosis for this admission?: Yes (9) Type 2 diabetes mellitus Qualifiers: Diabetes mellitus termite treater helper insulin use: without snf use Diabetes mellitus complication status: with hyperglycemia Qualified Code(s): E11.65 - Type 2 diabetes mellitus with hyperglycemia Is this a current diagnosis for this admission?: Yes (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 Is this a current diagnosis for this admission?: Yes - Time Time Spent with patient: 25-34 minutes Level of Care: MEDICAL Medications reviewed and adjusted accordingly: Yes Anticipated discharge: SNF, Hospice Within: Other - Inpatient Certification Based on my medical assessment, after consideration of the patient's comorbidities, presenting symptoms, or acuity I expect that the services needed warrant INPATIENT care.: Yes I certify that my determination is in accordance with my understanding of Medicare's requirements for reasonable and necessary INPATIENT services [42 CFR 412.3e].: Yes Medical Necessity: Significant Comorbidiites Make Outpatient Treatment Too Risky, Need Close Monitoring Due to Risk of Patient Decompensation, Need For IV Fluids, Need for IV Antibiotics, Risk of Complication if Not Cared For in Hospital, Risk of Diagnosis Which Will Require Inpatient Eval/Care/Monitoring Post 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 Follow up on culture organism identification and sensitivity. Obtain CBC with diff, CMP in am. Add santyl to daily dressing of the sacral decubitus for chemical debridement.
[2020-03-01] MEDS: FAMOTIDINE INJ/PF 20 MG/2 ML SDV IV SCH ×2 (09:03→21:59)
[2020-03-01] MEDS: ENOXAPARIN SODIUM INJ 30 MG/0.3 ML DISP.SYRIN SUBCUT SCH (09:15)
[2020-03-01] MEDS: VANCOMYCIN HCL 750 MG in DEXTROSE 5%-WATER 250 ML IV SCH ×2 (09:44→22:00)
[2020-03-01] MEDS: LISINOPRIL 10 MG TABLET PO SCH (10:07)
[2020-03-01] MEDS: ZINC SULFATE 220 MG CAPSULE PO SCH (10:08)
[2020-03-01] MEDS: COLLAGENASE CLOSTRIDIUM HIST. OINT 30 GM TOP SCH (10:13)
[2020-03-02] MEDS: PIPERACILLIN SODIUM/TAZOBACTAM 2.25 GM in NORMAL SALINE 50 ML IV SCH ×2 (04:15→08:17)
[2020-03-02] MEDS: DEXTROSE 5%-NORMAL SALINE 1,000 ML IV PRN ×2 (08:15→18:45)
[2020-03-02] MEDS: VANCOMYCIN HCL 750 MG in DEXTROSE 5%-WATER 250 ML IV SCH (10:13)
--- NOTE | 2020-03-02 10:13 | PDOC PROGRESS REPORT ---
Subjective Progress Note for:: 03/02/20 Subjective:: No reported fever, observed chest pain or difficulty with breathing. Patient remain at baseline dementia. P.O intake remain a challenge. Reason For Visit: HOSPITAL ASSOCIATED PNEUMONIA; INFECTED SACRAL Physical Exam Vital Signs: Temp Pulse Resp BP Pulse Ox 97.4 F 65 18 148/78 H 94 03/02/20 06:00 03/02/20 06:00 03/02/20 06:00 03/02/20 06:00 03/02/20 00:35 Intake & Output 03/01/20 03/02/20 03/03/20 06:59 06:59 06:59 Intake Total 2650 2575 50 Output Total 1250 2800 Balance 1400 -225 50 Weight 60.4 kg 58.1 kg Physical Exam: General appearance: PRESENT: thin Head exam: PRESENT: atraumatic, normocephalic Eye exam: PRESENT: conjunctiva pink. ABSENT: scleral icterus Mouth exam: PRESENT: dry mucosa Respiratory exam: PRESENT: decreased breath sounds Vascular exam: ABSENT: pallor GI/Abdominal exam: PRESENT: normal bowel sounds, soft Extremities exam: ABSENT: pedal edema Neurological exam: PRESENT: awake Skin exam: PRESENT: dry, warm, other - sacral stage 3, elbow stage 2 and unstageable heel pressure ulcers. Results Laboratory Results: 02/29/20 05:45 02/28/20 05:55 Sacrum - Decubitis Ulcer Gram Stain - Final 02/28/20 13:57 Catheterized Urine Urine Culture - Final NO GROWTH 2 DAYS Impressions: Chest X-Ray 02/28/20 01:21 IMPRESSION: Progressive left basilar airspace and pleural disease. Assessment & Plan - Diagnosis (1) Healthcare-associated pneumonia Is this a current diagnosis for this admission?: Yes Plan: D/C Vancomycin and Zosyn. Start on IV Meropenem. (2) Infected pressure ulcer Qualifiers: Pressure injury stage: stage 3 Qualified Code(s): L89.93 - Pressure ulcer of unspecified site, stage 3; L08.9 - Local infection of the skin and subcutaneous tissue, unspecified Is this a current diagnosis for this admission?: Yes Plan: D/C IV Zosyn and Vancomycin. Start on Meropenem 1 gm q 8 hours. (3) Metabolic encephalopathy Is this a current diagnosis for this admission?: Yes (4) Adult failure to thrive syndrome Is this a current diagnosis for this admission?: Yes (5) Decubitus ulcer of sacral region, stage 3 Is this a current diagnosis for this admission?: Yes (6) Decubitus ulcer of elbow, stage 2 Qualifiers: Laterality: left Qualified Code(s): L89.022 - Pressure ulcer of left elbow, stage 2 Is this a current diagnosis for this admission?: Yes (7) Pressure ulcer, heel, left, unstageable Is this a current diagnosis for this admission?: Yes (8) Pressure ulcer, heel, right, unstageable Is this a current diagnosis for this admission?: Yes (9) Hypertension Qualifiers: Hypertension type: essential hypertension Qualified Code(s): I10 - Essential (primary) hypertension Is this a current diagnosis for this admission?: Yes (10) Type 2 diabetes mellitus Qualifiers: Diabetes mellitus long term acute care registered nurse insulin use: without halfway use Diabetes mellitus complication status: with hyperglycemia Qualified Code(s): E11.65 - Type 2 diabetes mellitus with hyperglycemia Is this a current diagnosis for this admission?: Yes (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 Is this a current diagnosis for this admission?: Yes - Time Time Spent with patient: 25-34 minutes Level of Care: MEDICAL Medications reviewed and adjusted accordingly: Yes Anticipated discharge: SNF, Hospice Within: Other - Inpatient Certification Based on my medical assessment, after consideration of the patient's comorbidities, presenting symptoms, or acuity I expect that the services needed warrant INPATIENT care.: Yes I certify that my determination is in accordance with my understanding of Medicare's requirements for reasonable and necessary INPATIENT services [42 CFR 412.3e].: Yes Medical Necessity: Significant Comorbidiites Make Outpatient Treatment Too Risky, Need Close Monitoring Due to Risk of Patient Decompensation, Need For IV Fluids, Need for IV Antibiotics, Risk of Complication if Not Cared For in Hospital, Risk of Diagnosis Which Will Require Inpatient Eval/Care/Monitoring Post Hospital Care: D/C or Transfer Summary - Plan Summary Plan Summary: D/C IV Vancomycin and Zosyn. Start on IV Meropenem for dual benefit and less nephrotoxicity. Obtain CBC with diff and CMP in AM. Overall prognosis remain po or.
[2020-03-02] MEDS: FAMOTIDINE INJ/PF 20 MG/2 ML SDV IV SCH ×2 (10:18→22:32)
[2020-03-02] MEDS: ENOXAPARIN SODIUM INJ 30 MG/0.3 ML DISP.SYRIN SUBCUT SCH (10:20)
[2020-03-02] MEDS: LISINOPRIL 10 MG TABLET PO SCH (10:23)
[2020-03-02] MEDS: ZINC SULFATE 220 MG CAPSULE PO SCH (10:24)
[2020-03-02 10:27] LABS: VANCOMYCIN,TROUGH 12.3 ug/mL (5.0-20.0)
[2020-03-02] MEDS: COLLAGENASE CLOSTRIDIUM HIST. OINT 30 GM TOP SCH (12:20)
[2020-03-02] MEDS: MEROPENEM 1 GM in NORMAL SALINE 50 ML IV SCH ×2 (12:21→22:29)
[2020-03-03 05:38] LABS: ABSOLUTE BASOPHILS # (AUTO) 0.1 10^3/uL (0.0-0.2); ABSOLUTE EOSINOPHILS # (AUTO) 0.1 10^3/uL (0.0-0.6); ABSOLUTE LYMPHOCYTES (AUTO) 1.2 10^3/uL (0.5-4.7); ABSOLUTE MONOCYTES (AUTO) 0.9 10^3/uL (0.1-1.4); ABSOLUTE NEUT (AUTO) 8.1 10^3/uL (1.7-8.2); BASOPHILS % (AUTO) 0.6 % (0-2); HEMOGLOBIN 8.9 g/dL (12.0-15.5); LYMPHOCYTES % (AUTO) 11.7 % (13-45); MEAN CORPUSCULAR HEMOGLOBIN 30.9 pg (27.0-33.4); MEAN CORPUSCULAR HGB CONC 34.3 g/dL (32.0-36.0); MEAN CORPUSCULAR VOLUME 90 fl (80-97); MONOCYTES % (AUTO) 8.6 % (3-13); PLATELET COUNT 321 10^3/uL (150-450); RED BLOOD COUNT 2.89 10^6/uL (3.72-5.28); SEGMENTED NEUTROPHILS % (AUTO) 78.1 % (42-78); TOTAL CELLS COUNTED % (AUTO) 100 %; WHITE BLOOD COUNT 10.4 10^3/uL (4.0-10.5)
[2020-03-03 05:56] LABS: ALBUMIN 1.9 g/dL (3.5-5.0); ALKALINE PHOSPHATASE 90 U/L (38-126); ASPARTATE AMINO TRANSFERASE 12 U/L (14-36); BILIRUBIN,TOTAL 0.3 mg/dL (0.2-1.3); BLOOD UREA NITROGEN 4 mg/dL (7-20); CALCIUM 7.6 mg/dL (8.4-10.2); CARBON DIOXIDE 31 mmol/L (22-30); CHLORIDE 109 mmol/L (98-107); GLUCOSE 174 mg/dL (75-110); TOTAL PROTEIN 4.5 g/dL (6.3-8.2)
[2020-03-03 06:01] LABS: POTASSIUM 2.6 mmol/L (3.6-5.0)
[2020-03-03 06:02] LABS: ANION GAP 1 (5-19)
[2020-03-03] MEDS: DEXTROSE 5%-NORMAL SALINE 1,000 ML IV PRN ×2 (06:04→16:50)
[2020-03-03] MEDS: POTASSIUM CHLORIDE 20 MEQ/50 ML RTU IV SCH ×3 (07:26→12:54)
[2020-03-03] MEDS: LISINOPRIL 10 MG TABLET PO SCH (09:49)
[2020-03-03] MEDS: ZINC SULFATE 220 MG CAPSULE PO SCH (09:49)
[2020-03-03] MEDS: MEROPENEM 1 GM in NORMAL SALINE 50 ML IV SCH ×2 (09:52→22:53)
[2020-03-03] MEDS: FAMOTIDINE INJ/PF 20 MG/2 ML SDV IV SCH ×2 (09:53→21:43)
[2020-03-03] MEDS: ENOXAPARIN SODIUM INJ 30 MG/0.3 ML DISP.SYRIN SUBCUT SCH (09:57)
[2020-03-03] MEDS: COLLAGENASE CLOSTRIDIUM HIST. OINT 30 GM TOP SCH (16:51)
[2020-03-03] MEDS ORDERED: ACETAMINOPHEN 650 MG SUPP.RECT PR PRN (17:24)
--- NOTE | 2020-03-03 18:42 | PDOC PROGRESS REPORT ---
Subjective Progress Note for:: 03/03/20 Subjective:: No reported fever, observed chest pain or difficulty with breathing. Patient remain at baseline dementia. P.O intake remain a challenge. Reason For Visit: HOSPITAL ASSOCIATED PNEUMONIA; INFECTED SACRAL Physical Exam Vital Signs: Temp Pulse Resp BP Pulse Ox 98.4 F 105 H 19 133/64 H 93 03/03/20 14:54 03/03/20 14:54 03/03/20 14:54 03/03/20 14:54 03/03/20 14:54 Intake & Output 03/02/20 03/03/20 03/04/20 06:59 06:59 06:59 Intake Total 2575 2337 1372 Output Total 2800 1050 300 Balance -225 1287 1072 Weight 58.1 kg 58.1 kg 58.1 kg Physical Exam: General appearance: PRESENT: thin Head exam: PRESENT: atraumatic, normocephalic Eye exam: PRESENT: conjunctiva pink. ABSENT: pallor, scleral icterus Mouth exam: PRESENT: dry mucosa Respiratory exam: PRESENT: decreased breath sounds GI/Abdominal exam: PRESENT: normal bowel sounds, soft Extremities exam: PRESENT: Upper extremities 3rd spacing edema is starting. Neurological exam: PRESENT: awake, baseline dementia and inability to make any significant contribution to her medical condition. Skin exam: PRESENT: dry, warm, other - sacral stage 3, elbow stage 2 and unstageable heel pressure ulcers. Results Laboratory Results: 03/03/20 05:15 03/03/20 05:15 03/03/20 03/03/20 03/03/20 05:15 05:15 05:15 WBC 10.4 RBC 2.89 L Hgb 8.9 L Hct 26.0 L MCV 90 MCH 30.9 MCHC 34.3 RDW 14.0 Plt Count 321 Seg Neutrophils % 78.1 H Sodium 141.4 Potassium 2.6 L* Chloride 109 H Carbon Dioxide 31 H Anion Gap 1 L BUN 4 L Creatinine 0.34 L Est GFR ( Amer) > 60 Glucose 174 H Calcium 7.6 L Magnesium 1.5 L Total Bilirubin 0.3 AST 12 L Alkaline Phosphatase 90 Total Protein 4.5 L Albumin 1.9 L 02/28/20 05:55 Sacrum - Decubitis Ulcer Gram Stain - Final 02/28/20 05:55 Sacrum - Decubitis Ulcer Wound Culture - Final Staphylococcus Aureus Pseudomonas Aeruginosa Enterococcus Faecalis(Group D) Impressions: Chest X-Ray 02/28/20 01:21 IMPRESSION: Progressive left basilar airspace and pleural disease. 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 Is this a current diagnosis for this admission?: Yes (5) Decubitus ulcer of sacral region, stage 3 Is this a current diagnosis for this admission?: Yes (6) Decubitus ulcer of elbow, stage 2 Qualifiers: Laterality: left Qualified Code(s): L89.022 - Pressure ulcer of left elbow, stage 2 Is this a current diagnosis for this admission?: Yes (7) Pressure ulcer, heel, left, unstageable Is this a current diagnosis for this admission?: Yes (8) Pressure ulcer, heel, right, unstageable Is this a current diagnosis for this admission?: Yes (9) Hypertension Qualifiers: Hypertension type: essential hypertension Qualified Code(s): I10 - Essential (primary) hypertension Is this a current diagnosis for this admission?: Yes (10) Type 2 diabetes mellitus Qualifiers: Diabetes mellitus long chain dyeing 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 Repeat BMP in AM. (13) Hypomagnesemia Is this a current diagnosis for this admission?: Yes Plan: Replacement therapy in progress.. Obtain serum Mag level in AM. - Time Time Spent with patient: 25-34 minutes Level of Care: MEDICAL Medications reviewed and adjusted accordingly: Yes Anticipated discharge: SNF, Hospice Within: Other - Inpatient Certification Based on my medical assessment, after consideration of the patient's comorbidities, presenting symptoms, or acuity I expect that the services needed warrant INPATIENT care.: Yes I certify that my determination is in accordance with my understanding of Medicare's requirements for reasonable and necessary INPATIENT services [42 CFR 412.3e].: Yes Medical Necessity: Significant Comorbidiites Make Outpatient Treatment Too Risky, Need Close Monitoring Due to Risk of Patient Decompensation, Need For IV Fluids, Need for IV Antibiotics, Risk of Complication if Not Cared For in Hospital, Risk of Diagnosis Which Will Require Inpatient Eval/Care/Monitoring Post Hospital Care: D/C Manufacturing Analyst Documentation, D/C or Transfer Summary - Plan Summary Plan Summary: Decrease IV fluid rate to 50 ml/hour. Potassium and Magnesium replacement in progress. Obtain BMP, Mag in AM. I had extensive discussion with her daughter, Radha Cervantes, regarding hospice placement at home. She is agreeable as long as patient can come home with nursing service.
[2020-03-03] MEDS: MAGNESIUM SULFATE/D5W 1 GM/100 ML RTUPB IV SCH ×2 (18:49→20:06)
[2020-03-04] MEDS: FAMOTIDINE INJ/PF 20 MG/2 ML SDV IV SCH ×2 (09:41→21:41)
[2020-03-04] MEDS: ENOXAPARIN SODIUM INJ 30 MG/0.3 ML DISP.SYRIN SUBCUT SCH (09:41)
[2020-03-04] MEDS: MEROPENEM 1 GM in NORMAL SALINE 50 ML IV SCH ×2 (09:42→21:41)
[2020-03-04] MEDS: LISINOPRIL 10 MG TABLET PO SCH (09:55)
[2020-03-04] MEDS: COLLAGENASE CLOSTRIDIUM HIST. OINT 30 GM TOP SCH (09:55)
[2020-03-04] MEDS: ZINC SULFATE 220 MG CAPSULE PO SCH (09:56)
--- NOTE | 2020-03-04 15:10 | PDOC PROGRESS REPORT ---
Subjective Progress Note for:: 03/04/20 Subjective:: No reported fever. No expressed difficulty with breathing or chest pain. Patient remain at baseline dementia. P.O intake remain a challenge. Reason For Visit: HOSPITAL ASSOCIATED PNEUMONIA; INFECTED SACRAL Physical Exam Vital Signs: Temp Pulse Resp BP Pulse Ox 98.3 F 86 17 134/55 H 95 03/04/20 10:56 03/04/20 10:56 03/04/20 10:56 03/04/20 10:56 03/04/20 10:56 Intake & Output 03/03/20 03/04/20 03/05/20 06:59 06:59 06:59 Intake Total 2337 1522 0 Output Total 1050 750 Balance 1287 772 0 Weight 58.1 kg 60.1 kg Physical Exam: General appearance: PRESENT: thin Head exam: PRESENT: atraumatic, normocephalic Eye exam: PRESENT: conjunctiva pink. ABSENT: pallor, scleral icterus Mouth exam: PRESENT: dry mucosa Respiratory exam: PRESENT: decreased breath sounds GI/Abdominal exam: PRESENT: normal bowel sounds, soft Extremities exam: PRESENT: Upper extremities 3rd spacing edema is starting. Neurological exam: PRESENT: awake, baseline dementia and inability to make any significant contribution to her medical condition. Skin exam: PRESENT: dry, warm, other - sacral stage 3, elbow stage 2 and unstageable heel pressure ulcers. Results Laboratory Results: 03/03/20 05:15 03/03/20 05:15 02/28/20 03:15 Blood Blood Culture - Final NO GROWTH IN 5 DAYS 02/28/20 00:15 Blood Blood Culture - Final NO GROWTH IN 5 DAYS Impressions: Chest X-Ray 02/28/20 01:21 IMPRESSION: Progressive left basilar airspace and pleural disease. 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 Is this a current diagnosis for this admission?: Yes (5) Decubitus ulcer of sacral region, stage 3 Is this a current diagnosis for this admission?: Yes (6) Decubitus ulcer of elbow, stage 2 Qualifiers: Laterality: left Qualified Code(s): L89.022 - Pressure ulcer of left elbow, stage 2 Is this a current diagnosis for this admission?: Yes (7) Pressure ulcer, heel, left, unstageable Is this a current diagnosis for this admission?: Yes (8) Pressure ulcer, heel, right, unstageable Is this a current diagnosis for this admission?: Yes (9) Hypertension Qualifiers: Hypertension type: essential hypertension Qualified Code(s): I10 - Essential (primary) hypertension Is this a current diagnosis for this admission?: Yes (10) Type 2 diabetes mellitus Qualifiers: 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 insulin use: without petroleum terminal plant operator use Diabetes mellitus complication status: with hyperglycemia Qualified Code(s): E11.65 - Type 2 diabetes mellitus with hyperglycemia Is this a current diagnosis for this admission?: Yes (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 - Inpatient Certification Based on my medical assessment, after consideration of the patient's comorbidities, presenting symptoms, or acuity I expect that the services needed warrant INPATIENT care.: Yes I certify that my determination is in accordance with my understanding of Medicare's requirements for reasonable and necessary INPATIENT services [42 CFR 412.3e].: Yes Medical Necessity: Significant Comorbidiites Make Outpatient Treatment Too Risky, Need Close Monitoring Due to Risk of Patient Decompensation, Need For IV Fluids, Need for IV Antibiotics, Risk of Complication if Not Cared For in Hospital, Risk of Diagnosis Which Will Require Inpatient Eval/Care/Monitoring Post Hospital Care: D/C Purchasing Associate Documentation - Plan Summary Plan Summary: Continue current medication management. Follow up on hospice placement.
[2020-03-05] MEDS: ENOXAPARIN SODIUM INJ 30 MG/0.3 ML DISP.SYRIN SUBCUT SCH (09:12)
[2020-03-05] MEDS: FAMOTIDINE INJ/PF 20 MG/2 ML SDV IV SCH ×2 (09:12→21:03)
[2020-03-05] MEDS: MEROPENEM 1 GM in NORMAL SALINE 50 ML IV SCH ×2 (09:12→21:04)
[2020-03-05] MEDS: COLLAGENASE CLOSTRIDIUM HIST. OINT 30 GM TOP SCH (09:25)
[2020-03-05] MEDS: LISINOPRIL 10 MG TABLET PO SCH (09:25)
[2020-03-05] MEDS: ZINC SULFATE 220 MG CAPSULE PO SCH (09:26)
--- NOTE | 2020-03-05 15:02 | PDOC PROGRESS REPORT ---
Subjective Progress Note for:: 03/05/20 Subjective:: Patient seen by the bedside, she has baseline dementia, plan is to transfer to hospice, nurses revealed no new complaints to address Reason For Visit: HOSPITAL ASSOCIATED PNEUMONIA; INFECTED SACRAL Physical Exam Vital Signs: Temp Pulse Resp BP Pulse Ox 98.3 F 88 16 144/62 H 92 03/05/20 12:00 03/05/20 12:00 03/05/20 12:00 03/05/20 12:00 03/05/20 12:00 Intake & Output 03/04/20 03/05/20 03/06/20 06:59 06:59 06:59 Intake Total 1522 100 50 Output Total 750 550 Balance 772 -450 50 Weight 60.1 kg 60.1 kg General appearance: PRESENT: no acute distress Respiratory exam: PRESENT: clear to auscultation uzma Cardiovascular exam: PRESENT: +S1, +S2, systolic murmur Results Laboratory Results: 03/03/20 05:15 03/03/20 05:15 Impressions: Chest X-Ray 02/28/20 01:21 IMPRESSION: Progressive left basilar airspace and pleural disease. Assessment & Plan - Diagnosis (1) Healthcare-associated pneumonia Is this a current diagnosis for this admission?: Yes Plan: Continue present treatment - Time Time Spent with patient: Less than 15 minutes Level of Care: MEDICAL
[2020-03-06] MEDS: ENOXAPARIN SODIUM INJ 30 MG/0.3 ML DISP.SYRIN SUBCUT SCH (09:27)
[2020-03-06] MEDS: LISINOPRIL 10 MG TABLET PO SCH (09:28)
[2020-03-06] MEDS: COLLAGENASE CLOSTRIDIUM HIST. OINT 30 GM TOP SCH (09:28)
[2020-03-06] MEDS: MEROPENEM 1 GM in NORMAL SALINE 50 ML IV SCH ×2 (09:28→21:45)
[2020-03-06] MEDS: FAMOTIDINE INJ/PF 20 MG/2 ML SDV IV SCH ×2 (09:28→21:45)
[2020-03-06] MEDS: ZINC SULFATE 220 MG CAPSULE PO SCH (09:28)
--- NOTE | 2020-03-06 15:11 | PDOC PROGRESS REPORT ---
Subjective Progress Note for:: 03/06/20 Subjective:: Patient seen by the bedside, she has baseline dementia, plan is to transfer to hospice, nurses revealed no new complaints to address Reason For Visit: HOSPITAL ASSOCIATED PNEUMONIA; INFECTED SACRAL Physical Exam Vital Signs: Temp Pulse Resp BP Pulse Ox 97.8 F 84 14 156/62 H 91 L 03/06/20 12:00 03/06/20 12:00 03/06/20 12:00 03/06/20 12:00 03/06/20 12:00 Intake & Output 03/05/20 03/06/20 03/07/20 06:59 06:59 06:59 Intake Total 100 100 50 Output Total 550 600 Balance -450 -500 50 Weight 60.1 kg 59.5 kg General appearance: PRESENT: no acute distress Results Laboratory Results: 03/03/20 05:15 03/03/20 05:15 Impressions: Chest X-Ray 02/28/20 01:21 IMPRESSION: Progressive left basilar airspace and pleural disease. Assessment & Plan - Diagnosis (1) Healthcare-associated pneumonia Is this a current diagnosis for this admission?: Yes Plan: Continue present treatment - Time Time Spent with patient: Less than 15 minutes Level of Care: MEDICAL
[2020-03-06] MEDS ORDERED: ACETAMINOPHEN 650 MG SUPP.RECT PR PRN (22:30)
[2020-03-07] MEDS: ZINC SULFATE 220 MG CAPSULE PO SCH (09:30)
[2020-03-07] MEDS: LISINOPRIL 10 MG TABLET PO SCH (09:30)
[2020-03-07] MEDS: MEROPENEM 1 GM in NORMAL SALINE 50 ML IV SCH ×2 (09:30→22:24)
[2020-03-07] MEDS: ENOXAPARIN SODIUM INJ 30 MG/0.3 ML DISP.SYRIN SUBCUT SCH (09:31)
[2020-03-07] MEDS: FAMOTIDINE INJ/PF 20 MG/2 ML SDV IV SCH ×2 (09:32→22:24)
[2020-03-07] MEDS: COLLAGENASE CLOSTRIDIUM HIST. OINT 30 GM TOP SCH (09:32)
--- NOTE | 2020-03-07 17:52 | PDOC PROGRESS REPORT ---
Subjective Progress Note for:: 03/07/20 Subjective:: No reported fever. No expressed difficulty with breathing or chest pain. Poor oral intake persist. Reason For Visit: HOSPITAL ASSOCIATED PNEUMONIA; INFECTED SACRAL Physical Exam Vital Signs: Temp Pulse Resp BP Pulse Ox 98.3 F 121 H 16 181/73 H 93 03/07/20 14:58 03/07/20 14:58 03/07/20 14:58 03/07/20 14:58 03/07/20 14:58 Intake & Output 03/06/20 03/07/20 03/08/20 06:59 06:59 06:59 Intake Total 100 100 290 Output Total 600 400 Balance -500 -300 290 Weight 59.5 kg 58.1 kg Physical Exam: General appearance: PRESENT: thin Head exam: PRESENT: atraumatic, normocephalic Eye exam: PRESENT: conjunctiva pink. ABSENT: pallor, scleral icterus Mouth exam: PRESENT: dry mucosa Respiratory exam: PRESENT: decreased breath sounds GI/Abdominal exam: PRESENT: normal bowel sounds, soft Extremities exam: PRESENT: Upper extremities 3rd spacing edema is starting. Neurological exam: PRESENT: awake, baseline dementia and inability to make any significant contribution to her medical condition. Skin exam: PRESENT: dry, warm, other - sacral stage 3, elbow stage 2 and unstageable heel pressure ulcers. Results Laboratory Results: 03/03/20 05:15 03/03/20 05:15 Impressions: Chest X-Ray 02/28/20 01:21 IMPRESSION: Progressive left basilar airspace and pleural disease. 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 Is this a current diagnosis for this admission?: Yes (5) Decubitus ulcer of sacral region, stage 3 Is this a current diagnosis for this admission?: Yes (6) Decubitus ulcer of elbow, stage 2 Qualifiers: Laterality: left Qualified Code(s): L89.022 - Pressure ulcer of left elbow, stage 2 Is this a current diagnosis for this admission?: Yes (7) Pressure ulcer, heel, left, unstageable Is this a current diagnosis for this admission?: Yes (8) Pressure ulcer, heel, right, unstageable Is this a current diagnosis for this admission?: Yes (9) Hypertension Qualifiers: Hypertension type: essential hypertension Qualified Code(s): I10 - Essential (primary) hypertension Is this a current diagnosis for this admission?: Yes (10) Type 2 diabetes mellitus Qualifiers: 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: without termite inspector use Diabetes mellitus complication status: with hyperglycemia Qualified Code(s): E11.65 - Type 2 diabetes mellitus with hyperglycemia Is this a current diagnosis for this admission?: Yes (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 Is this a current diagnosis for this admission?: Yes (12) Hypokalemia Is this a current diagnosis for this admission?: Yes (13) Hypomagnesemia Is this a current diagnosis for this admission?: Yes - Time Time Spent with patient: 25-34 minutes Level of Care: MEDICAL Medications reviewed and adjusted accordingly: Yes Anticipated discharge: Hospice Within: Other - Inpatient Certification Based on my medical assessment, after consideration of the patient's comorbidities, presenting symptoms, or acuity I expect that the services needed warrant INPATIENT care.: Yes I certify that my determination is in accordance with my understanding of Medicare's requirements for reasonable and necessary INPATIENT services [42 CFR 412.3e].: Yes Medical Necessity: Significant Comorbidiites Make Outpatient Treatment Too Risky, Need Close Monitoring Due to Risk of Patient Decompensation, Need For IV Fluids, Need for IV Antibiotics, Risk of Complication if Not Cared For in Hospital, Risk of Diagnosis Which Will Require Inpatient Eval/Care/Monitoring Post Hospital Care: D/C Line Camera Operator Documentation - Plan Summary Plan Summary: Continue current medication management. Possible transfer to home hospice tomorrow.
[2020-03-07] MEDS: DEXTROSE 5%-NORMAL SALINE 1,000 ML IV PRN (22:31)
[2020-03-08] MEDS: LISINOPRIL 10 MG TABLET PO SCH (10:55)
[2020-03-08] MEDS: ZINC SULFATE 220 MG CAPSULE PO SCH (10:55)
[2020-03-08] MEDS: ENOXAPARIN SODIUM INJ 30 MG/0.3 ML DISP.SYRIN SUBCUT SCH (10:59)
[2020-03-08] MEDS: FAMOTIDINE INJ/PF 20 MG/2 ML SDV IV SCH ×2 (11:49→21:21)
[2020-03-08] MEDS: MEROPENEM 1 GM in NORMAL SALINE 50 ML IV SCH ×2 (11:50→21:20)
[2020-03-08] MEDS: COLLAGENASE CLOSTRIDIUM HIST. OINT 30 GM TOP SCH (14:54)
--- NOTE | 2020-03-08 19:45 | PDOC PROGRESS REPORT ---
Subjective Progress Note for:: 03/08/20 Subjective:: No reported fever, difficulty with breathing or chest pain. Her poor oral intake remain a challenge and pose the question of her ability to take oral antibiotic at home. I will like t complete 10 days of intravenous antibiotic treatment for her hospital acquired pneumonia before discharge home on hospice. I don't envisage need for anymore antibiotic at the time of discharge. She remain DNR with plan to discharge home on hospice care. Reason For Visit: HOSPITAL ASSOCIATED PNEUMONIA; INFECTED SACRAL Physical Exam Vital Signs: Temp Pulse Resp BP Pulse Ox 98.4 F 98 12 165/81 H 98 03/08/20 15:18 03/08/20 15:18 03/08/20 15:18 03/08/20 15:18 03/08/20 15:18 Intake & Output 03/07/20 03/08/20 03/09/20 06:59 06:59 06:59 Intake Total 100 410 623 Output Total 400 700 350 Balance -300 -290 273 Weight 58.1 kg 58.1 kg 58.1 kg Physical Exam: General appearance: PRESENT: thin Head exam: PRESENT: atraumatic, normocephalic Eye exam: PRESENT: conjunctiva pink. ABSENT: pallor, scleral icterus Mouth exam: PRESENT: dry mucosa Respiratory exam: PRESENT: decreased breath sounds GI/Abdominal exam: PRESENT: normal bowel sounds, soft Extremities exam: PRESENT: Upper extremities 3rd spacing edema is starting. Neurological exam: PRESENT: awake, baseline dementia and inability to make any significant contribution to her medical condition. Skin exam: PRESENT: dry, warm, other - sacral stage 3, elbow stage 2 and unstageable heel pressure ulcers. Results Laboratory Results: 03/03/20 05:15 03/03/20 05:15 Impressions: Chest X-Ray 02/28/20 01:21 IMPRESSION: Progressive left basilar airspace and pleural disease. 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 Is this a current diagnosis for this admission?: Yes (5) Decubitus ulcer of sacral region, stage 3 Is this a current diagnosis for this admission?: Yes (6) Decubitus ulcer of elbow, stage 2 Qualifiers: Laterality: left Qualified Code(s): L89.022 - Pressure ulcer of left elbow, stage 2 Is this a current diagnosis for this admission?: Yes (7) Pressure ulcer, heel, left, unstageable Is this a current diagnosis for this admission?: Yes (8) Pressure ulcer, heel, right, unstageable Is this a current diagnosis for this admission?: Yes (9) Hypertension Qualifiers: Hypertension type: essential hypertension Qualified Code(s): I10 - Essential (primary) hypertension Is this a current diagnosis for this admission?: Yes (10) Type 2 diabetes mellitus Qualifiers: Diabetes mellitus assisted insulin use: without watermaster use Diabetes mellitus complication status: with hyperglycemia Qualified Code(s): E11.65 - Type 2 diabetes mellitus with hyperglycemia Is this a current diagnosis for this admission?: Yes (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 Is this a current diagnosis for this admission?: Yes (12) Hypokalemia Is this a current diagnosis for this admission?: Yes (13) Hypomagnesemia Is this a current diagnosis for this admission?: Yes - Time Time Spent with patient: 25-34 minutes Level of Care: MEDICAL Medications reviewed and adjusted accordingly: Yes Anticipated discharge: Hospice Within: Other - Inpatient Certification Based on my medical assessment, after consideration of the patient's co morbidities, presenting symptoms, or acuity I expect that the services needed warrant INPATIENT care.: Yes I certify that my determination is in accordance with my understanding of Medicare's requirements for reasonable and necessary INPATIENT services [42 CFR 412.3e].: Yes Medical Necessity: Significant Comorbidiites Make Outpatient Treatment Too Risky, Need Close Monitoring Due to Risk of Patient Decompensation, Need For IV Fluids, Need for IV Antibiotics, Risk of Complication if Not Cared For in Hospital, Risk of Diagnosis Which Will Require Inpatient Eval/Care/Monitoring Post Hospital Care: D/C Nurse Discharge Planner Documentation - Plan Summary Plan Summary: Continue current medication management. Urine and blood culture findings noted.
[2020-03-09] MEDS: DEXTROSE 5%-NORMAL SALINE 1,000 ML IV PRN ×2 (00:35→20:48)
--- NOTE | 2020-03-09 08:50 | PDOC PROGRESS REPORT ---
Subjective Progress Note for:: 03/09/20 Subjective:: No reported fever, difficulty with breathing or chest pain. Her poor oral intake persist. Remain on IV Meropenem therapy. Reason For Visit: HOSPITAL ASSOCIATED PNEUMONIA; INFECTED SACRAL Physical Exam Vital Signs: Temp Pulse Resp BP Pulse Ox 97.4 F 78 16 158/64 H 98 03/09/20 07:27 03/09/20 07:27 03/09/20 07:27 03/09/20 07:27 03/09/20 07:27 Intake & Output 03/08/20 03/09/20 03/10/20 06:59 06:59 06:59 Intake Total 410 1150 Output Total 700 570 Balance -290 580 Weight 58.1 kg 58.7 kg Physical Exam: General appearance: PRESENT: thin Head exam: PRESENT: atraumatic, normocephalic Eye exam: PRESENT: conjunctiva pink. ABSENT: pallor, scleral icterus Mouth exam: PRESENT: dry mucosa Respiratory exam: PRESENT: decreased breath sounds GI/Abdominal exam: PRESENT: normal bowel sounds, soft Extremities exam: PRESENT: Upper extremities 3rd spacing edema is starting. Neurological exam: PRESENT: awake, baseline dementia and inability to make any significant contribution to her medical condition. Skin exam: PRESENT: dry, warm, other - sacral stage 3, elbow stage 2 and unstageable heel pressure ulcers. Results Laboratory Results: 03/03/20 05:15 03/03/20 05:15 Impressions: Chest X-Ray 02/28/20 01:21 IMPRESSION: Progressive left basilar airspace and pleural disease. Assessment & Plan - Diagnosis (1) Healthcare-associated pneumonia Is this a current diagnosis for this admission?: Yes (2) Infected pressure ulcer Qualifiers: Pressure injury stage: stage 3 Qualified Code(s): L89.93 - Pressure ulcer of unspecified site, stage 3; L08.9 - Local infection of the skin and subcutaneo us tissue, unspecified Is this a current diagnosis for this admission?: Yes (3) Metabolic encephalopathy Is this a current diagnosis for this admission?: Yes (4) Adult failure to thrive syndrome Is this a current diagnosis for this admission?: Yes (5) Decubitus ulcer of sacral region, stage 3 Is this a current diagnosis for this admission?: Yes (6) Decubitus ulcer of elbow, stage 2 Qualifiers: Laterality: left Qualified Code(s): L89.022 - Pressure ulcer of left elbow, stage 2 Is this a current diagnosis for this admission?: Yes (7) Pressure ulcer, heel, left, unstageable Is this a current diagnosis for this admission?: Yes (8) Pressure ulcer, heel, right, unstageable Is this a current diagnosis for this admission?: Yes (9) Hypertension Qualifiers: Hypertension type: essential hypertension Qualified Code(s): I10 - Essential (primary) hypertension Is this a current diagnosis for this admission?: Yes (10) Type 2 diabetes mellitus Qualifiers: Diabetes mellitus rodent exterminator insulin use: without rodent exterminator use Diabetes mellitus complication status: with hyperglycemia Qualified Code(s): E11.65 - Type 2 diabetes mellitus with hyperglycemia Is this a current diagnosis for this admission?: Yes (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 Is this a current diagnosis for this admission?: Yes (12) Hypokalemia Is this a current diagnosis for this admission?: Yes (13) Hypomagnesemia Is this a current diagnosis for this admission?: Yes - Time Time Spent with patient: 25-34 minutes Level of Care: MEDICAL Medications reviewed and adjusted accordingly: Yes Anticipated discharge: Home, Hospice Within: within 48 hours - Inpatient Certification Based on my medical assessment, after consideration of the patient's comorbidities, presenting symptoms, or acuity I expect that the services needed warrant INPATIENT care.: Yes I certify that my determination is in accordance with my understanding of Medicare's requirements for reasonable and necessary INPATIENT services [42 CFR 412.3e].: Yes Medical Necessity: Significant Comorbidiites Make Outpatient Treatment Too [place]is [place], Need Close Monitoring Due to Risk of Patient Decompensation, Need For IV Fluids, Need for IV Antibiotics, Risk of Complication if Not Cared For in Hospital, Risk of Diagnosis Which Will Require Inpatient Eval/Care/Monitoring Post Hospital Care: 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 For blood pressure management we will start her on Clonidine patch 0.1mg/24 hours due to her continue refusal of oral intake and elevated blood pressure. Possible discharge home to hospice tomorrow.
[2020-03-09] MEDS: ZINC SULFATE 220 MG CAPSULE PO SCH (09:56)
[2020-03-09] MEDS: FAMOTIDINE INJ/PF 20 MG/2 ML SDV IV SCH ×2 (09:56→21:33)
[2020-03-09] MEDS: MEROPENEM 1 GM in NORMAL SALINE 50 ML IV SCH (09:56)
[2020-03-09] MEDS: ENOXAPARIN SODIUM INJ 30 MG/0.3 ML DISP.SYRIN SUBCUT SCH (09:56)
[2020-03-09] MEDS: COLLAGENASE CLOSTRIDIUM HIST. OINT 30 GM TOP SCH (09:57)
[2020-03-09] MEDS: LISINOPRIL 10 MG TABLET PO SCH (09:57)
[2020-03-09] MEDS ORDERED: CLONIDINE 0.1 MG/24 HR PATCH.TDWK TD SCH (10:00)
[2020-03-10] MEDS: COLLAGENASE CLOSTRIDIUM HIST. OINT 30 GM TOP SCH (10:58)
[2020-03-10] MEDS: ZINC SULFATE 220 MG CAPSULE PO SCH (10:58)
[2020-03-10] MEDS: FAMOTIDINE INJ/PF 20 MG/2 ML SDV IV SCH (10:58)
[2020-03-10] MEDS: ENOXAPARIN SODIUM INJ 30 MG/0.3 ML DISP.SYRIN SUBCUT SCH (10:58)
[2020-03-10] MEDS: LISINOPRIL 10 MG TABLET PO SCH (10:59)
[2020-03-10] MEDS ORDERED: HYDRALAZINE HCL INJ/PF 20 MG/1 ML SDV ONE (17:20)
[2020-03-10] MEDS ORDERED: HYDRALAZINE HCL INJ/PF 20 MG/1 ML SDV IV ONE (17:30)
--- NOTE | 2020-03-10 18:49 | PDOC PROGRESS REPORT ---
Subjective Progress Note for:: 03/10/20 Subjective:: No reported fever, difficulty with breathing or chest pain. Her poor oral intake persist. Patient completed IV Meropenem therapy yesterday. Family is more amenable to facility hospice at this time. Reason For Visit: HOSPITAL ASSOCIATED PNEUMONIA; INFECTED SACRAL Physical Exam Vital Signs: Temp Pulse Resp BP Pulse Ox 98.2 F 92 15 140/78 H 92 03/10/20 11:15 03/10/20 11:15 03/10/20 11:15 03/10/20 11:15 03/10/20 11:15 Intake & Output 03/09/20 03/10/20 03/11/20 06:59 06:59 06:59 Intake Total 1150 1170 Output Total 570 175 Balance 580 995 Weight 58.7 kg 59 kg Physical Exam: General appearance: PRESENT: thin Head exam: PRESENT: atraumatic, normocephalic Eye exam: PRESENT: conjunctiva pink. ABSENT: pallor, scleral icterus Mouth exam: PRESENT: dry mucosa Respiratory exam: PRESENT: decreased breath sounds GI/Abdominal exam: PRESENT: normal bowel sounds, soft Extremities exam: PRESENT: Upper extremities 3rd spacing edema is starting. Neurological exam: PRESENT: awake, baseline dementia and inability to make any significant contribution to her medical condition. Skin exam: PRESENT: dry, warm, other - sacral stage 3, elbow stage 2 and unstageable heel pressure ulcers. Results Laboratory Results: 03/03/20 05:15 03/03/20 05:15 Impressions: Chest X-Ray 02/28/20 01:21 IMPRESSION: Progressive left basilar airspace and pleural disease. 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 Is this a current diagnosis for this admission?: Yes (5) Decubitus ulcer of sacral region, stage 3 Is this a current diagnosis for this admission?: Yes (6) Decubitus ulcer of elbow, stage 2 Qualifiers: Laterality: left Qualified Code(s): L89.022 - Pressure ulcer of left elbow, stage 2 Is this a current diagnosis for this admission?: Yes (7) Pressure ulcer, heel, left, unstageable Is this a current diagnosis for this admission?: Yes (8) Pressure ulcer, heel, right, unstageable Is this a current diagnosis for this admission?: Yes (9) Hypertension Qualifiers: Hypertension type: essential hypertension Qualified Code(s): I10 - Essential (primary) hypertension Is this a current diagnosis for this admission?: Yes Plan: Increase Clonidine to 0.2 mg/24 hours from today. She will receive IV Hydralazine 10 mg x 1 dose due to elevated blood pressure and poor swallowing ability. 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 Is this a current diagnosis for this admission?: Yes (12) Hypokalemia Is this a current diagnosis for this admission?: Yes (13) Hypomagnesemia Is this a current diagnosis for this admission?: Yes - Time Time Spent with patient: 25-34 minutes Level of Care: MEDICAL Anticipated discharge: Hospice Within: Other - Inpatient Certification Based on my medical assessment, after consideration of the patient's comorbidities, presenting symptoms, or acuity I expect that the services needed warrant INPATIENT care.: Yes I certify that my determination is in accordance with my understanding of Medicare's requirements for reasonable and necessary INPATIENT services [42 CFR 412.3e].: Yes Medical Necessity: Significant Comorbidiites Make Outpatient Treatment Too Risky, Need Close Monitoring Due to Risk of Patient Decompensation, Need For IV Fluids, Need for Pain Control, Risk of Complication if Not Cared For in Hospital, Risk of Diagnosis Which Will Require Inpatient Eval/Care/Monitoring Post Hospital Care: D/C or Transfer Summary - Plan Summary Plan Summary: Continue outlined management. Follow up on COVID-19 screening test for hospice facility placement.
[2020-03-10] MEDS: FAMOTIDINE 20 MG TABLET PO SCH (22:52)
[2020-03-11] MEDS: DEXTROSE 5%-NORMAL SALINE 1,000 ML IV PRN (03:50)
[2020-03-11] MEDS ORDERED: CLONIDINE 0.2 MG/24 HR PATCH.TDWK TD SCH (10:00)
[2020-03-11] MEDS: LISINOPRIL 10 MG TABLET PO SCH (10:58)
[2020-03-11] MEDS: ENOXAPARIN SODIUM INJ 30 MG/0.3 ML DISP.SYRIN SUBCUT SCH (10:58)
[2020-03-11] MEDS: FAMOTIDINE 20 MG TABLET PO SCH ×2 (10:58→22:45)
[2020-03-11] MEDS: ZINC SULFATE 220 MG CAPSULE PO SCH (10:58)
[2020-03-11] MEDS: COLLAGENASE CLOSTRIDIUM HIST. OINT 30 GM TOP SCH (11:02)
--- NOTE | 2020-03-11 17:09 | PDOC PROGRESS REPORT ---
Subjective Progress Note for:: 03/11/20 Reason For Visit: HOSPITAL ASSOCIATED PNEUMONIA; INFECTED SACRAL Physical Exam Vital Signs: Temp Pulse Resp BP Pulse Ox 98.2 F 108 H 19 152/90 H 97 03/11/20 11:52 03/11/20 11:52 03/11/20 11:52 03/11/20 11:52 03/11/20 11:52 Intake & Output 03/10/20 03/11/20 03/12/20 06:59 06:59 06:59 Intake Total 1170 1000 Output Total 175 875 650 Balance 995 125 -650 Weight 59 kg 56.7 kg 56.7 kg Physical Exam: General appearance: PRESENT: thin Head exam: PRESENT: atraumatic, normocephalic Eye exam: PRESENT: conjunctiva pink. ABSENT: pallor, scleral icterus Mouth exam: PRESENT: dry mucosa Respiratory exam: PRESENT: decreased breath sounds GI/Abdominal exam: PRESENT: normal bowel sounds, soft Extremities exam: PRESENT: Upper extremities 3rd spacing edema is starting. Neurological exam: PRESENT: awake, baseline dementia and inability to make any significant contribution to her medical condition. Skin exam: PRESENT: dry, warm, other - sacral stage 3, elbow stage 2 and unstageable heel pressure ulcers. Results Laboratory Results: 03/03/20 05:15 03/03/20 05:15 Impressions: Chest X-Ray 02/28/20 01:21 IMPRESSION: Progressive left basilar airspace and pleural disease. 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 Is this a current diagnosis for this admission?: Yes (5) Decubitus ulcer of sacral region, stage 3 Is this a current diagnosis for this admission?: Yes (6) Decubitus ulcer of elbow, stage 2 Qualifiers: Laterality: left Qualified Code(s): L89.022 - Pressure ulcer of left elbow, stage 2 Is this a current diagnosis for this admission?: Yes (7) Pressure ulcer, heel, left, unstageable Is this a current diagnosis for this admission?: Yes (8) Pressure ulcer, heel, right, unstageable Is this a current diagnosis for this admission?: Yes (9) Hypertension Qualifiers: Hypertension type: essential hypertension Qualified Code(s): I10 - Essential (primary) hypertension Is this a current diagnosis for this admission?: Yes (10) Type 2 diabetes mellitus Qualifiers: Diabetes mellitus fci insulin use: without termite exterminator helper use Diabetes mellitus complication status: with hyperglycemia Qualified Code(s): E11.65 - Type 2 diabetes mellitus with hyperglycemia Is this a current diagnosis for this admission?: Yes (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 Is this a current diagnosis for this admission?: Yes (12) Hypokalemia Is this a current diagnosis for this admission?: Yes (13) Hypomagnesemia Is this a current diagnosis for this admission?: Yes - Time Time Spent with patient: 25-34 minutes Level of Care: MEDICAL Medications reviewed and adjusted accordingly: Yes Anticipated discharge: Hospice Within: Other - Inpatient Certification Based on my medical assessment, after consideration of the patient's comorbidities, presenting symptoms, or acuity I expect that the services needed warrant INPATIENT care.: Yes I certify that my determination is in accordance with my understanding of Medicare's requirements for reasonable and necessary INPATIENT services [42 CFR 412.3e].: Yes Medical Necessity: Significant Comorbidiites Make Outpatient Treatment Too Risky, Need Close Monitoring Due to Risk of Patient Decompensation, Need For IV Fluids, Need for Pain Control, Risk of Complication if Not Cared For in Hospital, Risk of Diagnosis Which Will Require Inpatient Eval/Care/Monitoring Post Hospital Care: D/C or Transfer Summary - Plan Summary Plan Summary: Continue current medication management. Follow up on COVID-19 screening test result as requested for facility placement for hospice care. Remain on DNR status.
[2020-03-12] MEDS: ENOXAPARIN SODIUM INJ 30 MG/0.3 ML DISP.SYRIN SUBCUT SCH (10:06)
[2020-03-12] MEDS: COLLAGENASE CLOSTRIDIUM HIST. OINT 30 GM TOP SCH (10:07)
[2020-03-12] MEDS: ZINC SULFATE 220 MG CAPSULE PO SCH (10:11)
[2020-03-12] MEDS: LISINOPRIL 10 MG TABLET PO SCH (10:11)
[2020-03-12] MEDS: FAMOTIDINE 20 MG TABLET PO SCH (10:11)
[2020-03-12 13:11] VITALS: BP 144/76
--- NOTE | 2020-03-12 13:26 | PDOC DISCHARGE SUMMARY ---
Impression - Admit/DC Date/PCP Admission Date/Primary Care Provider: 02/28/20 05:13 AMAYA REYNOLDS Discharge Date: 03/12/20 - Discharge Diagnosis (1) Healthcare-associated pneumonia Is this a current diagnosis for this admission?: Yes (2) Infected pressure ulcer Is this a current diagnosis for this admission?: Yes (3) Metabolic encephalopathy Is this a current diagnosis for this admission?: Yes (4) Adult failure to thrive syndrome Is this a current diagnosis for this admission?: Yes (5) Decubitus ulcer of sacral region, stage 3 Is this a current diagnosis for this admission?: Yes (6) Decubitus ulcer of elbow, stage 2 Is this a current diagnosis for this admission?: Yes (7) Pressure ulcer, heel, left, unstageable Is this a current diagnosis for this admission?: Yes (8) Pressure ulcer, heel, right, unstageable Is this a current diagnosis for this admission?: Yes (9) Hypertension Is this a current diagnosis for this admission?: Yes (10) Type 2 diabetes mellitus Is this a current diagnosis for this admission?: Yes (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 She was admitted as a case of hospital acquired pneumonia. She was managed initially with with IV Levofloxacin and Vancomycin but later changed to Meropenem. She had adequate therapy duration. Her medical condition has been complicated by advanced dementia poor food intake and unstageable sacral decubitus ulcer. She was seen by surgical team during her previous hospitalization with recommendation against sharp debridement due to poor outcome. She was made a DNR and eventually placed on hospice program upon discharge. Family eventually agreed to facility hospice placement. - Additional Information Resuscitation Status: Do Not Resuscitate Discharge Diet: As Tolerated Discharge Activity: Activity As Tolerated Referrals: AMAYA REYNOLDS MD [Primary Care Provider] - Follow up as needed Home Medications: Gabapentin [Neurontin 100 mg Capsule] 100 mg PO QHS 08/21/19 Glipizide [Glucotrol 10 mg Tablet] 10 mg PO DAILY 08/21/19 Montelukast Sodium [Singulair 10 mg Tablet] 10 mg PO QHS 08/21/19 Ramipril [Altace 2.5 mg Capsule] 2.5 mg PO DAILY 08/21/19 Risperidone [Risperdal 0.25 mg Tablet] 1 mg PO Q12 08/21/19 Lisinopril [Prinivil 10 mg Tablet] 10 mg PO DAILY 02/17/20 Melatonin [Melatonin 3 mg Tablet] 3 mg PO HSP PRN 02/17/20 Mirtazapine [Remeron 15 mg Tablet] 7.5 mg PO QHS 02/17/20 Levofloxacin [Levaquin 250 mg Tablet] 250 mg PO DAILY #7 tablet 02/26/20 Zinc Sulfate [Zinc-220 Capsule] 220 mg PO DAILY #30 03/12/20 History of Present Illiness History of Present Illness: HERMAN ZHANG is a 89 year old female patient who was recently discharged from the hospital following admission for metabolic encephalopathy, Urinary tract infection and infected sacral pressure ulcer. She was discharged home instead of SNF for further care due to family insistence on home discharge with hospital bed and skill nursing service for wound management. She has advance dementia and adult failure to thrive among other morbidities with very poor outcome. Family did called and I spoke at length with her granddaughter regarding wound care and maintenance on discharged medication including Levofloxacin. Patient reported that patient developed fever and became more unre sponsive at home necessitating activation of the EMS and patient was brought to the ED for further evaluation and management. Her initial ED evaluation was significant for left lower lobe air space disease process, associated leukocytosis with left shift, and tachypnea. Hospital Course Hospital Course: Patient was admitted within 48hours following discharge from this hospital with complain of fever and chest X rya that revealed progressive left basal air space disease process with pleural effusion. She was admitted as a case of hospital acquired pneumonia. She was managed initially with with IV Levofloxacin and Vancomycin but later changed to Meropenem. She had adequate therapy duration. Her medical condition has been complicated by advanced dementia poor food intake and unstageable sacral decubitus ulcer. She was seen by surgical team during her previous hospitalization with recommendation against sharp debridement due to poor outcome. She was made a DNR and eventually placed on hospice program upon discharge. Family eventually agreed to facility hospice placement. Physical Exam Vital Signs: Temp Pulse Resp BP Pulse Ox 98.0 F 84 18 142/67 H 94 03/12/20 08:00 03/12/20 08:00 03/12/20 08:00 03/12/20 08:00 03/12/20 08:00 Intake & Output 03/11/20 03/12/20 03/13/20 06:59 06:59 06:59 Intake Total 1000 50 1000 Output Total 875 1250 Balance 125 -1200 1000 Weight 56.7 kg 52.4 kg General appearance: PRESENT: thin Head exam: PRESENT: atraumatic, normocephalic Eye exam: PRESENT: conjunctiva pink. ABSENT: pallor, scleral icterus Mouth exam: PRESENT: dry mucosa Respiratory exam: PRESENT: decreased breath sounds GI/Abdominal exam: PRESENT: normal bowel sounds, soft Extremities exam: PRESENT: Upper extremities edema. Neurological exam: PRESENT: awake, baseline dementia and inability to make any significant contribution to her medical condition. Skin exam: PRESENT: dry, warm, other - sacral stage 3, elbow stage 2 and unstageable heel pressure ulcers. Results Laboratory Results: WBC 10.4 10^3/uL (4.0-10.5) 03/03/20 05:15 RBC 2.89 10^6/uL (3.72-5.28) L 03/03/20 05:15 Hgb 8.9 g/dL (12.0-15.5) L 03/03/20 05:15 Hct 26.0 % (36.0-47.0) L 03/03/20 05:15 MCV 90 fl (80-97) 03/03/20 05:15 MCH 30.9 pg (27.0-33.4) 03/03/20 05:15 MCHC 34.3 g/dL (32.0-36.0) 03/03/20 05:15 RDW 14.0 % (11.5-14.0) 03/03/20 05:15 Plt Count 321 10^3/uL (150-450) 03/03/20 05:15 Lymph % (Auto) 11.7 % (13-45) L 03/03/20 05:15 Harney % (Auto) 8.6 % (3-13) 03/03/20 05:15 Eos % (Auto) 1.0 % (0-6) 03/03/20 05:15 Baso % (Auto) 0.6 % (0-2) 03/03/20 05:15 Absolute Neuts (auto) 8.1 10^3/uL (1.7-8.2) 03/03/20 05:15 Absolute Lymphs (auto) 1.2 10^3/uL (0.5-4.7) 03/03/20 05:15 Absolute Monos (auto) 0.9 10^3/uL (0.1-1.4) 03/03/20 05:15 Absolute Eos (auto) 0.1 10^3/uL (0.0-0.6) 03/03/20 05:15 Absolute Basos (auto) 0.1 10^3/uL (0.0-0.2) 03/03/20 05:15 Seg Neutrophils % 78.1 % (42-78) H 03/03/20 05:15 PT 13.0 SEC (11.4-15.4) 02/28/20 00:15 INR 0.98 02/28/20 00:15 VBG pH 7.41 (7.30-7.42) 02/28/20 03:15 VBG pCO2 46.7 mmHg (35-63) 02/28/20 03:15 VBG HCO3 29.1 mmol/L (20-32) 02/28/20 03:15 VBG Base Excess 3.9 mmol/L 02/28/20 03:15 Sodium 141.4 mmol/L (137-145) 03/03/20 05:15 Potassium 2.6 mmol/L (3.6-5.0) L* 03/03/20 05:15 Chloride 109 mmol/L (98-107) H 03/03/20 05:15 Carbon Dioxide 31 mmol/L (22-30) H 03/03/20 05:15 Anion Gap 1 (5-19) L 03/03/20 05:15 BUN 4 mg/dL (7-20) L 03/03/20 05:15 Creatinine 0.34 mg/dL (0.52-1.25) L 03/03/20 05:15 Est GFR ( Amer) > 60 (>60) 03/03/20 05:15 Est GFR (MDRD) Non-Af > 60 (>60) 03/03/20 05:15 Glucose 174 mg/dL (75-110) H 03/03/20 05:15 POC Glucose 142 mg/dL (70-110) H 03/12/20 11:14 Lactic Acid 1.3 mmol/L (0.7-2.1) 02/28/20 12:00 Calcium 7.6 mg/dL (8.4-10.2) L 03/03/20 05:15 Magnesium 1.5 mg/dL (1.6-2.3) L 03/03/20 05:15 Total Bilirubin 0.3 mg/dL (0.2-1.3) 03/03/20 05:15 Direct Bilirubin 0.0 mg/dL (0.0-0.4) 03/03/20 05:15 Neonat Total Bilirubin Not Reportable 03/03/20 05:15 Neonat Direct Bilirubin Not Reportable 03/03/20 05:15 Neonat Indirect Bili Not Reportable 03/03/20 05:15 AST 12 U/L (14-36) L 03/03/20 05:15 ALT 6 U/L (<35) 03/03/20 05:15 Alkaline Phosphatase 90 U/L (38-126) 03/03/20 05:15 Total Protein 4.5 g/dL (6.3-8.2) L 03/03/20 05:15 Albumin 1.9 g/dL (3.5-5.0) L 03/03/20 05:15 Urine Color YELLOW 02/28/20 02:00 Urine Appearance CLEAR 02/28/20 02:00 Urine pH 5.0 (5.0-9.0) 02/28/20 02:00 Ur Specific Honeydew 1.018 02/28/20 02:00 Urine Protein NEGATIVE mg/dL (NEGATIVE) 02/28/20 02:00 Urine Glucose (UA) >=500 mg/dL (NEGATIVE) H 02/28/20 02:00 Urine Ketones NEGATIVE mg/dL (NEGATIVE) 02/28/20 02:00 Urine Blood NEGATIVE (NEGATIVE) 02/28/20 02:00 Urine Nitrite (Reflex) NEGATIVE (NEGATIVE) 02/28/20 02:00 Urine Bilirubin NEGATIVE (NEGATIVE) 02/28/20 02:00 Urine Urobilinogen NEGATIVE mg/dL (<2.0) 02/28/20 02:00 Leukocyte Esterase Rfl NEGATIVE (NEGATIVE) 02/28/20 02:00 Urine RBC (Auto) 0 /HPF 02/28/20 02:00 Urine WBC (Reflex) < 1 /HPF 02/28/20 02:00 Squamous Epi Cells Auto <1 /HPF 02/28/20 02:00 Urine Mucus (Auto) RARE /LPF 02/28/20 02:00 Urine Ascorbic Acid 20 (NEGATIVE) H 02/28/20 02:00 Time Trough Drawn 0943 03/02/20 09:43 Vancomycin Trough 12.3 ug/mL (5.0-20.0) 03/02/20 09:43 COVID-19 Source NASOPHARYNGEAL 03/10/20 13:30 COVID-19 (EDITH) NOT DETECTED 03/10/20 13:30 Impressions: Chest X-Ray 02/28/20 01:21 IMPRESSION: Progressive left basilar airspace and pleural disease. Plan Health Concerns: Poor outcome due to her morbidities. She will be discharge to facility hospice. Plan of Treatment: Hospice placement Goals: Hospice placement for comfort care. Time Spent: Greater than 30 Minutes - Care coordination to hspice placement. Stroke Is this a Stroke Patient?: No Acute Heart Failure - Is this a Heart Failure Patient?: No
== END 2020-03-12 14:45 | disposition hospice, inpatient (51) | DRG 193 ==
LOC: ER 23:51 → EH 02-28 05:13 → 3W 02-28 08:05 → 4W 03-02 00:16 → 4S 03-09 16:04
PROVIDERS: ADMIT Internal Medicine Geriatric Medicine; ATTEND Internal Medicine Geriatric Medicine
DX: J18.9 Pneumonia, unspecified organism (principal); L89.153 Pressure ulcer of sacral region, stage 3; G93.41 Metabolic encephalopathy; F02.81 Dementia in other diseases classified elsewhere, unspecified severity, with behavioral disturbance; R41.82 Altered mental status, unspecified; R50.9 Fever, unspecified; R62.7 Adult failure to thrive; G30.1 Alzheimer's disease with late onset; L08.9 Local infection of the skin and subcutaneous tissue, unspecified; B99.8 Other infectious disease; E87.6 Hypokalemia; E83.42 Hypomagnesemia; E11.65 Type 2 diabetes mellitus with hyperglycemia; K21.9 Gastro-esophageal reflux disease without esophagitis; I10 Essential (primary) hypertension; L89.022 Pressure ulcer of left elbow, stage 2; L89.620 Pressure ulcer of left heel, unstageable; L89.610 Pressure ulcer of right heel, unstageable; Z79.2 Long term (current) use of antibiotics; Z79.84 Long term (current) use of oral hypoglycemic drugs; Z79.891 Long term (current) use of opiate analgesic; Z79.899 Other long term (current) drug therapy
CPT/HCPCS: 36415; 51701; 71045; 80053; 80202; 81001; 82565; 82803; 82962; 83605; 83735; 85025; 85610; 87040; 87070; 87077; 87086; 87186; 87205; 87635; 93005; 93010; 99285; J0360; J1650; J2185; J2543; J3370; J3475; J3480; J3490; J7040; J7042; J7060; S0028